=== PATIENT | female | born 1965 | race Caucasian/White ===

== ENCOUNTER 2023-04-25 16:29 | Emergency (ER) | payer MEDICAID, SELFPAY ==
[2023-04-25 16:31] VITALS: BP 157/84; PULSE 97; RESP 16; TEMP 36.4; O2SAT 100; BMI 23.3
--- NOTE | 2023-04-25 16:50 | EX.ED.DYSGE1 ---
HPI History of Present Illness Chief Complaint: General Illness Narrative Narrative: Patient supposed to be going into the residential program with 180. She reports to me that she has been off of alcohol for 6 weeks. She states that last night she had a half of beer. She feels fine. She does not feel shaky. She has no nausea. She states she is not having signs or symptoms of withdrawal. She states she was referred here for an evaluation prior to going to the residential program. PFSH PFSH Allergy/AdvReac Type Severity Reaction Status Date / Time Penicillins Allergy Severe Other Verified 04/25/23 16:31 Social History Smoking Status: Current every day smoker tobacco type: cigarettes ROS ROS ED Constitutional Constitutional ED: Denies chills, fever(s) or sweats Eyes Eyes: Denies blurry vision or change in vision ENT ENT ED: Denies ear pain or sore throat Cardiovascular Cardiovascular: Denies chest pain, palpitations or racing heartbeat Respiratory/Chest Respiratory/Chest: Denies cough, dyspnea or sputum Gastrointestinal Gastrointestinal: Denies abdominal pain, constipation, diarrhea, nausea or vomiting Genitourinary Genitourinary ED: Denies dysuria, hematuria or urinary frequency Musculoskeletal Musculoskeletal: Denies arthralgias, myalgias or neck pain Integumentary Denies abscess, Abrasions or rash Neurologic Neurologic: Denies headache(s), paresthesias or weakness Psychiatric Psychiatric: Denies anxiety, depression, suicidal ideation or suicidal thoughts Endocrine Endocrinology: Denies polydipsia or polyuria EXAM Physical Exam Const Vital Signs: 04/25/23 16:31 04/25/23 16:52 Temperature 97.6 F L Temperature Source Temporal Pulse Rate 97 Respiratory Rate 16 Respiratory Pattern Normal Blood Pressure 157/84 H Blood Pressure Mean 108 Pulse Ox 100 Oxygen Delivery Method Room Air Positive well nourished General Appearance ED: NAD HEENT Reports moist mucous membranes Eyes PERRL and EOMs intact bilaterally Resp normal respiratory effort Cardio regular rate and regular rhythm GI normal to inspection, nondistended, normoactive bowel sounds Neuro oriented x3 and CN's II-XII intact bilaterally Sensorium / Orientation: alert Psych mental status grossly normal Skin no rashes or lesions noted and no wounds MDM MDM MDM Narrative Medical decision making narrative: Well-appearing 58-year-old female presenting for evaluation because when any wanted her evaluated prior to going to the residential program. Physical exam is unremarkable. Vital signs are stable she is afebrile. I do not see any evidence of withdrawal. Patient is medically cleared at this time. Impression: 1. Medical clearance exam Discharge Plan Triage Chief Complaint: General Illness ED Provider: Hilario Mitchell Dx/Rx/DC Orders Instructions: ED Screening Exam Medical Nonurgent Primary Care Provider: Care Physician,Lupe Primary Referrals: [facility] Doctor,Out of [Non-Staff] - Activity Restrictions/Additional Instructions: Medically cleared Disposition Disposition: Home, Self Care Discharge Date/Time: 04/25/23 17:04
== END 2023-04-25 17:04 | disposition home or self-care (01) ==
LOC: ED 17:03
PROVIDERS: Emergency Provider Student in an Organized Health Care Education/Training Program; Visit Provider Student in an Organized Health Care Education/Training Program
DX: Z02.79 Encounter for issue of other medical certificate (principal); F17.210 Nicotine dependence, cigarettes, uncomplicated
CPT/HCPCS: 99282

== ENCOUNTER 2023-10-26 10:21 | Emergency (ER) | payer MEDICAID, SELFPAY ==
[2023-10-26 10:22] VITALS: BP 155/95; PULSE 126; RESP 16; TEMP 36.3; O2SAT 97; BMI 25.7
[2023-10-26 10:54] VITALS: BP 155/95; PULSE 126; RESP 16; TEMP 36.3; O2SAT 97
--- NOTE | 2023-10-26 10:58 | EX.ED.DYSGE1 ---
HPI History of Present Illness Chief Complaint: Flank Pain Informant: patient Onset/Context/Timing Onset: Weeks Timing: Intermittent Narrative Narrative: Patient present secondary to left flank pain. She reports intermittent pain since having a hysterectomy roughly 2 months ago. Pain has become worse overnight. She holds the left lower flank region. She does report increased frequency of urination but no hematuria or dysuria. Her surgeon did obtain a ultrasound of her kidneys that showed a cyst that appears stable from prior. [facility] Medical History (Updated 10/26/23 @ 13:[address] Hilda Bates MD) Gastric ulcer Allergy/AdvReac Type Severity Reaction Status Date / Time Penicillins Allergy Severe Other Verified 10/26/23 10:21 Surgical History (Updated 10/26/23 @ 11:[address] Hilda aBtes MD) History of bowel resection S/P complete hysterectomy Social History Smoking Status: Current every day smoker tobacco type: cigarettes ROS ROS ED Constitutional Constitutional ED: Denies chills or fever(s) Eyes Eyes: Denies discharge from eye(s) ENT ENT ED: Denies discharge from eye(s), rhinorrhea or sore throat Cardiovascular Cardiovascular: Denies chest pain or palpitations Respiratory/Chest Respiratory/Chest: Denies cough or dyspnea Gastrointestinal Gastrointestinal: Reports abdominal pain and nausea; Denies diarrhea or vomiting Genitourinary Genitourinary ED: Reports urinary frequency; Denies dysuria Musculoskeletal Musculoskeletal: Reports back pain; Denies extremity pain Integumentary Denies Abrasions or rash Neurologic Neurologic: Denies headache(s) or weakness Psychiatric Psychiatric: Denies anxiety or depression Allergic/Immunologic Allergic/Immunologic ED: Denies lip swelling or urticaria EXAM Physical Exam Const Vital Signs: 10/26/23 10:22 10/26/23 10:54 10/26/23 11:25 Temperature 97.4 F L 97.4 F L 98.2 F Temperature Source Temporal Temporal Oral Pulse Rate 126 H 126 H 97 Respiratory Rate 16 16 16 Blood Pressure 155/95 H 155/95 H 142/76 H Blood Pressure Mean 115 115 98 Pulse Ox 97 97 98 Oxygen Delivery Method Room Air Room Air Room Air 10/26/23 12:00 Temperature 98.1 F Temperature Source Temporal Pulse Rate 87 Respiratory Rate 16 Blood Pressure 139/87 H Blood Pressure Mean 104 Pulse Ox 99 Oxygen Delivery Method Room Air Positive well nourished and well developed General Appearance ED: well developed HEENT Reports normocephalic and head/scalp atraumatic Eyes PERRL and EOMs intact bilaterally Neck supple Chest Wall inspection of chest normal and palpation of chest normal Resp normal respiratory effort and clear to auscultation bilaterally Cardio regular rate and regular rhythm GI non-tender Palpation: soft Back/Spine General Back: CVA tenderness left Extremity normal to inspection Neuro oriented x3 and no sensory deficits noted Sensorium / Orientation: alert Motor Exam: strength 5/5 throughout Psych mental status grossly normal Skin no rashes or lesions noted MDM MDM MDM Narrative Medical decision making narrative: IV line established. Patient given IV fluids, morphine, and Zofran. Labwork obtained to evaluate for leukocytosis, anemia, and electrolyte derangement. Urinalysis obtained to evaluate for infection/hematuria. CT flank obtained to evaluate for potential kidney stone or evidence of pyelonephritis. History & Record Review Discussion w/independent historian: Patient Lab Data Attestation: I reviewed the patient's lab results. Labs: Laboratory Results - last 24 hr 10/26/23 10/26/23 11:11 13:04 WBC 8.9 RBC 4.63 Hgb 13.7 Hct 41.4 MCV 89.4 MCH 29.6 MCHC 33.1 RDW Std Deviation 43.1 RDW Coeff of Jerson 13.2 Plt Count 265 MPV 9.6 Immature Gran % (Auto) 0.400 Neut % (Auto) 76.4 H Lymph % (Auto) 17.4 L [place] % (Auto) 4.4 Eos % (Auto) 0.7 Baso % (Auto) 0.7 Absolute Neuts (auto) 6.8 Absolute Lymphs (auto) 1.55 Nucleated RBC % 0 Sodium 136 Potassium 4.1 Chloride 104 Carbon Dioxide 22.0 Anion Gap 10 BUN 26 H Creatinine 1.11 H Estim Creat Clear Calc 56.33 Est GFR (MDRD) Af Amer 64 Est GFR (MDRD) Non-Af 53 L BUN/Creatinine Ratio 23.4 H Glucose 93 Calcium 9.9 Urine Color Yellow Urine Clarity Sl. Cloudy Urine pH 6.0 Ur Specific [place] 1.015 Urine Protein 30 H Urine Glucose (UA) Normal Urine Ketones 15 H Urine Occult Blood 10 H Urine Nitrite Negative Urine Bilirubin Negative Urine Urobilinogen Normal Ur Leukocyte Esterase 25 H Urine RBC 0-5 SEEN Urine WBC 0 SEEN Ur Squamous Epith Cells 0 SEEN Urine Bacteria 0 SEEN Urine Mucus 0 SEEN Radiography Diagnostic Testing: Clinical Impression(s) from Imaging Studies Abdomen/Pelvis CT 10/26/23 11:25 IMPRESSION: Punctate calculus in the lower pole calyx of the left kidney. I suspect tiny gallstones along the dependent portion of the gallbladder lumen. No obstructive uropathy is seen. Surgical anastomosis is seen in the region of the sigmoid colon. Electronically Signed: Jon Juarez MD at 12:04 EDT , Treatment and Re-Evaluation :: CBC was a white count of 8.9 with a hemoglobin of 13.7. 76% neutrophils noted. Chemistry studies reveal a BUN of 26 and creatinine 1.11. Glucose is normal at 93. Urinalysis reveals 0-5 red cells with no white cells and no bacteria. No nitrites. CT scan of the flank reveals a punctate calculus in the lower pole of the left kidney. Tiny gallstones noted. No obstructive uropathy seen. Surgical anastomosis of the sigmoid colon is noted and unremarkable. Test results discussed with the patient. She is reassured with these findings. She declines needing any pain medication for home. Return instructions were provided and she will follow-up with her provider/surgeon. Discharge Plan Triage Chief Complaint: Flank Pain ED Provider: Hilda Bates Dx/Rx/DC Orders Clinical Impression: Flank pain Instructions: ED Flank Pain, Uncertain Cause Primary Care Provider: Care Physician,No Primary Referrals: Care Physician,No Primary [Primary Care Provider] - Activity Restrictions/Additional Instructions: Follow-up with your surgeon as discussed. Disposition Disposition: Home, Self Care
[2023-10-26] MEDS: 0.9% Normal Saline (1000mL) 1,000 ML 150 ML IV (11:18)
[2023-10-26] MEDS: Ondansetron 4 MG/2 ML Vial IV (11:19)
[2023-10-26] MEDS: Morphine 4 MG/ML Syringe IV (11:19)
[2023-10-26 11:20] LABS: Absolute Lymphocyte Count 1.55 X10^3/uL (0.83-4.51); Absolute Neutrophil Count 6.8 X10^3/uL (2.0-7.7); Basophil# 0.06 X10^3/uL; Basophil% 0.7 % (0-1); Eosinophil# 0.06 X10^3/uL; Eosinophils% 0.7 % (0-5); Hematocrit 41.4 % (37-47); Hemoglobin 13.7 g/dL (12.0-15.0); Lymphocyte # 1.55 X10^3/ul (0.83-4.51); Lymphocyte % 17.4 % (19-41); Mean Corp Hgb Conc 33.1 g/dL (32-36); Mean Corpuscular Hgb 29.6 pg (27.0-32.0); Mean Corpuscular Volume 89.4 fL (81-99); Mean Platelet Vol. 9.6 fl (6.2-12.0); Monocyte# 0.39 X10^3/uL; Monocyte% 4.4 % (0-10); NRBC Flagged by Analyzer 0 % (0-5); Neutrophil # 6.82 X10^3/uL (2.7-7.7); Neutrophil % 76.4 % (47-70); Platelet Count 265 K/mm3 (150-450); RBC Distribution Width CV 13.2 % (11.6-14.6); RBC Distribution Width SD 43.1 fl (35.1-43.9); Red Blood Count 4.63 M/mm3 (4.2-5.4); White Blood Count 8.9 K/mm3 (4.4-11.0)
[2023-10-26 11:25] VITALS: BP 142/76; PULSE 97; RESP 16; TEMP 36.8; O2SAT 98
--- NOTE | 2023-10-26 11:25 | CT_ITS ---
STUDY: CT ABDOMEN AND PELVIS WITHOUT CONTRAST REASON FOR EXAM: Female, 58 years old. Left flank pain RADIATION DOSAGE (If Supplied By Facility): CTDIvol = ( 11.16 ) mGy, DLP = ( 563.67 ) mGycm TECHNIQUE: Transaxial images were obtained from the dome of the diaphragm to the symphysis pubis without oral contrast, and without intravenous contrast. Sagittal and coronal images were reconstructed. Individualized dose optimization techniques were used for this CT. COMPARISON: None. FINDINGS: The visualized lung bases are unremarkable. Coronary artery calcification. Normal liver. Small gallstones are seen along the dependent portion of the gallbladder lumen. Normal spleen. Normal pancreas. Normal bilateral adrenal glands. Normal right kidney. Punctate nonobstructive calculus is seen in the lower pole calyx of the left kidney. Normal visualized stomach. Normal small intestine. Prior surgical anastomosis seen in the sigmoid colon. There is non-visualization of the appendix. There is diffuse atherosclerotic calcification of the abdominal aorta and its major visceral branches, without a demonstrated aneurysm. Normal inferior vena cava. There is a small retroperitoneal lymphadenopathy with enlarged nodes no greater than 10mm in the short axis diameter. Normal urinary bladder. There is absence of the uterus consistent with a prior hysterectomy. Normal abdominal wall. There are mild degenerative changes of the visualized lumbar spine. CT/Abdomen/Pelvis without Cont IMPRESSION: Punctate calculus in the lower pole calyx of the left kidney. I suspect tiny gallstones along the dependent portion of the gallbladder lumen. No obstructive uropathy is seen. Surgical anastomosis is seen in the region of the sigmoid colon. Electronically Signed: Jon Juarez MD at 12:04 EDT ,
[2023-10-26 11:38] LABS: Anion Gap 10 (5-15); BUN 26 mg/dL (7-18); BUN/Creat Ratio 23.4 RATIO (10-20); Calcium,Total 9.9 mg/dL (8.5-10.1); Chloride 104 mmol/L (98-107); Creatinine, Serum 1.11 mg/dL (0.55-1.02); EST Glomerular Filtration Rate 53 mL/min (>60); Est Glom Filt Rate - Afr Amer 64 mL/min (>60); Estimated Creatinine Clearance 56.33 ml/min; Glucose 93 mg/dL (74-106); Potassium 4.1 mmol/L (3.5-5.1); Sodium Level 136 mmol/L (136-145)
[2023-10-26 12:00] VITALS: BP 139/87; PULSE 87; RESP 16; TEMP 36.7; O2SAT 99
[2023-10-26 13:09] LABS: Bacteria 0 SEEN /hpf (None Seen); Mucous, Urine 0 SEEN /hpf (<or=2+); Squamous Epithelial Cells - UA 0 SEEN /hpf (5-10); White Blood Cells 0 SEEN /hpf (0-5)
[2023-10-26 13:12] LABS: Color, Urine Yellow (Yellow); Glucose, Dipstick Normal (Normal); Ketone-Dipstick 15 mg/dl (Negative); Leukocyte Esterase-Dipstick 25 /ul (Negative); Nitrite-Dipstick Negative (Negative); Occult Blood-Urine 10 /ul (Negative); Protein-Dipstick 30 mg/dl (Negative); Specific Gravity, Urine 1.015 (1.002-1.030); Urine Bilirubin Dipstick Negative (Negative); Urine Clarity Sl. Cloudy (Clear); Urine Urobilinogen Normal (Normal)
[2023-10-26 13:23] LABS: Red Blood Cells-Urine 0-5 SEEN /hpf (0-5)
== END 2023-10-26 13:52 | disposition home or self-care (01) ==
PROVIDERS: Emergency Provider Emergency Medicine; Visit Provider Emergency Medicine
DX: R10.32 Left lower quadrant pain (principal); F17.210 Nicotine dependence, cigarettes, uncomplicated; Z90.710 Acquired absence of both cervix and uterus
CPT/HCPCS: 74176; 80048; 81001; 85025; 96361; 96374; 96375; 99283; J7030; A4216; J2405

== ENCOUNTER 2024-07-14 15:08 | Inpatient (IN) | payer MEDICAID, SELFPAY ==
[2024-07-14] VITALS (15 sets, daily range): BP systolic 98–139; BP diastolic 57–98; PULSE 78–117; RESP 14–28; TEMP 35.9–36.7; O2SAT 94–100; BMI 28.9; BMI 24.9
--- NOTE | 2024-07-14 16:00 | ED.RN ---
pt wheeled self out of waiting room. trying to talk to staff. difficulty getting words out. and conversation not making sense. change from inital triage when pt was oriented and clear speech. consulted with dr boyle who initally evaluated pt for neuro change. stroke alert called. dr estrella came to evaluate and assume care
--- NOTE | 2024-07-14 16:09 | CT_ITS ---
STUDY: CTA HEAD AND NECK WITH CONTRAST REASON FOR EXAM: Female, 59 years old. Neuro deficit, acute, stroke suspected RADIATION DOSAGE (If Supplied By Facility): CTDIvol = ( 20.47 ) mGy, DLP = ( 783.33 ) mGycm TECHNIQUE: CT angiography was performed with a multi-detector CT scanner. Data acquisition was obtained from the skull base through the vertex following intravenous administration of IV 100mL [id number]-[id number]. MIP images were reconstructed from the axial data set. Post-processing of the angiographic images was performed, with multiplanar reformation and 3D reconstruction. Individualized dose optimization techniques were used for this CT. The protocol utilizes one or more of the following dose reduction techniques: automated exposure control, adjustment of mA and/or kV according to patient size,and/or use of iterative reconstruction technique. COMPARISON: CT brain July 14, 2024 FINDINGS: Normal bilateral petrous carotid arteries. There is calcified plaque formation of the right cavernous carotid artery, with a moderate stenosis (50-75%). Normal left cavernous carotid artery with a normal supraclinoid bifurcation. Normal right A1 segments of the anterior cerebral artery. Normal left A1 segments of the anterior cerebral artery. Normal intact anterior communicating artery (ACOM). Normal bilateral A2 segments of the anterior cerebral arteries. Normal right M1 and M2 segments of the middle cerebral arteries, with a normal M1 bifurcation. Normal left M1 and M2 segments of the middle cerebral arteries, with a normal M1 bifurcation. There is non-visualization of the right posterior communicating artery (PCOM). Normal left posterior communicating artery (PCOM). Normal bilateral vertebral arteries. Normal basilar artery with a normal basilar bifurcation. The visualized bilateral superior cerebellar (SCA) arteries are normal. Normal bilateral P1, P2 and visualized P3 segments of the posterior cerebral arteries. There is no demonstrated aneurysm of the [place]. There is no demonstrated abnormality of the visualized brain. AORTIC ARCH: Normal visualized aortic arch. Normal origins of the brachiocephalic, left common carotid, and left subclavian arteries. RIGHT CAROTID ARTERIES: Normal right common carotid artery (CCA). There is moderate atherosclerotic plaque formation with moderate narrowing of the right carotid bulb. There is extensive atherosclerotic plaque formation of the origin of the right internal carotid artery with an estimated stenosis of greater than 70%. Normal visualized cervical portion of the right internal carotid artery. Normal origin of the right external carotid artery (ECA). LEFT CAROTID ARTERIES: Normal left common carotid artery (CCA). There is mild atherosclerotic plaque formation with minimal narrowing of the left carotid bulb. There is mild atherosclerotic plaque formation of the origin of the left internal carotid artery with less than 50% cross sectional diameter stenosis. Normal visualized cervical portion of the left internal carotid artery. Normal origin of the left external carotid artery (ECA). VERTEBRAL ARTERIES: Normal bilateral vertebral arteries. CT/STROKE CTA Head AND Neck W/Con IMPRESSION: Greater than 70% stenosis proximal right ICA . 50-75% stenosis cavernous segment right ICA. No large vessel occlusion in the head. N.B. : The above Results were Read Back by Miles Soto MD to Christopher Martínez MD, and understanding confirmed on 07/14/2024 17:00:20 (ET). Electronically Signed: Miles Soto MD at 17:01 EST ,
--- NOTE | 2024-07-14 16:09 | CT_ITS ---
STUDY: CT BRAIN WITHOUT CONTRAST REASON FOR EXAM: Female, 59 years old. Neuro deficit, acute, stroke suspected TECHNIQUE: Transaxial CT imaging of the brain was performed without administration of intravenous contrast material. Individualized dose optimization techniques were used for this CT. The protocol utilizes one or more of the following dose reduction techniques: automated exposure control, adjustment of mA and/or kV according to patient size,and/or use of iterative reconstruction technique. COMPARISON: No relevant priors. FINDINGS: Normal soft tissue structures. Normal calvarium. Normal size ventricles and extra-axial spaces for the patient''s age. Normal white matter tracts of the cerebral hemispheres. Wedge-shaped hypodensity extending from caudate head to lentiform nucleus. Normal brainstem. Normal cerebellum. There is no intracranial hemorrhage. There are no findings of an acute ischemic infarction. Normal visualized paranasal sinuses. CT/STROKE Brain/Head without Cont IMPRESSION: Acute or subacute infarct left neostriatum. N.B. : The above Results were Read Back by Miles Soto MD to Christopher aMrtínez MD, and understanding confirmed on 07/14/2024 16:39:57 (ET). Electronically Signed: Miles Soto MD at 16:44 EST ,
--- NOTE | 2024-07-14 16:09 | CT_ITS ---
STUDY: CT CERVICAL SPINE WITHOUT CONTRAST REASON FOR EXAM: Female, 59 years old. Neck pain cannot clear by Nexus criteria RADIATION DOSAGE (If Supplied By Facility): CTDIvol = ( 25.91 ) mGy, DLP = ( 580.85 ) mGycm TECHNIQUE: High resolution transaxial imaging was performed without contrast material. Sagittal and coronal images were reconstructed. Individualized dose optimization techniques were used for this CT. The protocol utilizes one or more of the following dose reduction techniques: automated exposure control, adjustment of mA and/or kV according to patient size,and/or use of iterative reconstruction technique. COMPARISON: None FINDINGS: Normal craniovertebral junction. Normal anterior atlantoaxial articulation. Normal odontoid process. Normal cervical lordosis. Normal vertebral bodies and posterior osseous elements. C2-3: Normal endplates. Normal disc height and morphology. Normal central canal and intervertebral neuroforamina. C3-4: Normal endplates. Normal disc height and morphology. Normal central canal and intervertebral neuroforamina. C4-5: Normal endplates. Normal disc height and morphology. Normal central canal and intervertebral neuroforamina. C5-6: Spondylitic endplates. Normal disc height and morphology. Normal central canal and narrowed bilateral intervertebral neuroforamina. C6-7: Normal endplates. Normal disc height and morphology. Normal central canal and intervertebral neuroforamina. C7-T1: Normal endplates. Normal disc height and morphology. Normal central canal and intervertebral neuroforamina. Normal visualized soft tissue structures. Calcified plaque in the carotids bilaterally. CT/Spine Cervical without Contras IMPRESSION: Severe bilateral neural foraminal narrowing at C5-6 Electronically Signed: Miles Soto MD at 18:15 EST ,
--- NOTE | 2024-07-14 16:09 | EKG12_ITS ---
Test Reason : Blood Pressure : */* mmHG Vent. Rate : 99 BPM Atrial Rate : * BPM P-R Int : * ms QRS Dur : 74 ms QT Int : 382 ms P-R-T Axes : * 69 100 degrees QTcB Int : [address] & T wave abnormality, consider anterolateral ischemia Abnormal ECG Confirmed by GILES BURTON, MICHAEL ([id number]), electronic news gathering editor MILADYS CARRERA ([id number]) on 07/16/2024 6:20:47 AM Referred By: Gabriella Forbes Confirmed By: MICHAEL SKAGGS MD
--- NOTE | 2024-07-14 16:10 | ED.VIS.STROK ---
HPI <Dr. Christopher Martínez MD - Last Filed: 07/15/24 07:21> History of Present Illness Chief Complaint: Fall Detail of Chief Complaint: Slipped on ice and injured hip was initial complaint Informant: patient, EMS and other (Triage nurse) Onset/Context/Timing Onset: Today Context: Sudden Onset Timing: Continuous (Right hip pain) Quality and Location: Positive for - (Initial complaint was hip pain.) Onset: At approximately 1600 triage nurse informing the patient is now confused Current Severity: Moderate Maximum Severity: Moderate Worsened by: Uncertain Relieved by: Nothing Associated Symptoms Associated Symptoms: Negative for Headache, Nausea, Vomiting or Chest Pain Narrative Narrative: Patient is a 59-year-old woman. She arrived by ambulance. Reportedly he slipped on ice and injured her right hip. Nurse informing that she had acute onset of change in mental status and is now confused. When I evaluated patient in triage she states she fell down a flight of stairs outside and was lying in the ice. This occurred at 1400. Denies head pain. Eyes double vision blurred vision loss of vision. Denies ringing or ears or decreased hearing. She denies chest pain or shortness of breath. She denies nausea or vomiting. Prior similar symptoms: No Recent Illness/Hospitalization: No PFSH <Dr. Christopher Martínez MD - Last Filed: 07/15/24 07:21> PFSH Medical History (Updated 07/15/24 @ 07:[address] Christopher Martínez MD) Tobacco use History of colon cancer History of GI bleed PAF (paroxysmal atrial fibrillation) History of stroke Anxiety TBI (traumatic brain injury) Gastric ulcer Allergy/AdvReac Type Severity Reaction Status Date / Time Penicillins Allergy Severe Other Verified 07/14/24 15:10 Family History (Updated 07/15/24 @ 00:[address] Gabriella Forbes MD) Mother CVA (cerebral vascular accident) Hypertension Father History of lung cancer COPD (chronic obstructive pulmonary disease) Surgical History (Updated 07/15/24 @ 00:[address] Gabriella Forbes MD) History of gastric surgery History of bowel resection S/P complete hysterectomy Social History (Updated 07/15/24 @ 00:[address] Gabriella Forbes MD) household members: none Smoking Status: Current every day smoker tobacco type: cigarettes alcohol intake: never substance use type: does not use ROS <Dr. Christopher Martínez MD - Last Filed: 07/15/24 07:21> ROS ED Review of Systems ROS Unobtainable: due to mental status Eyes Eyes: Denies blurry vision or change in vision ENT ENT ED: Denies ear pain, rhinorrhea or sore throat Cardiovascular Cardiovascular: Denies chest pain or palpitations Respiratory/Chest Respiratory/Chest: Denies cough, dyspnea or dyspnea on exertion Gastrointestinal Gastrointestinal: Denies abdominal pain, diarrhea, nausea or vomiting Genitourinary Genitourinary ED: Denies dysuria, hematuria or urinary frequency Musculoskeletal Musculoskeletal: Reports other Details: Right hip pain. ; Denies arthralgias or myalgias Neurologic Neurologic: Denies paresthesias Hematologic/Lymphatic Hematologic/Lymphatic: Denies easy bleeding or easy bruising EXAM <Dr. Christopher Martínez MD - Last Filed: 07/15/24 07:21> Physical Exam Const Vital Signs: 07/14/24 15:10 07/14/24 16:09 07/14/24 16:09 Temperature 96.7 F L Temperature Source Oral Pulse Rate 106 H 117 H Respiratory Rate 16 19 H Respiratory Effort Blood Pressure 124/77 H 112/85 H Blood Pressure Mean 92 94 Pulse Ox 100 97 Oxygen Delivery Method Room Air Room Air Room Air 07/14/24 16:53 07/14/24 18:00 07/14/24 18:13 Temperature Temperature Source Pulse Rate 78 112 H Respiratory Rate 28 H 18 Respiratory Effort Normal Non-Labored Blood Pressure 112/85 H 112/57 L Blood Pressure Mean 94 75 Pulse Ox 99 97 Oxygen Delivery Method Room Air Room Air Room Air 07/14/24 19:00 07/14/24 19:30 07/14/24 20:00 Temperature Temperature Source Pulse Rate 93 99 102 H Respiratory Rate 18 14 16 Respiratory Effort Blood Pressure 100/63 113/98 H 111/87 H Blood Pressure Mean 75 103 95 Pulse Ox 99 96 96 Oxygen Delivery Method Room Air Room Air Room Air 07/14/24 20:30 07/14/24 21:00 07/14/24 21:30 Temperature Temperature Source Pulse Rate 103 H 93 97 Respiratory Rate 15 15 16 Respiratory Effort Blood Pressure 117/81 H 126/98 H 105/77 Blood Pressure Mean 93 107 86 Pulse Ox 94 94 94 Oxygen Delivery Method Room Air Room Air Room Air 07/14/24 22:00 07/14/24 22:30 Temperature Temperature Source Pulse Rate 93 116 H Respiratory Rate 16 18 Respiratory Effort Blood Pressure 139/75 H 105/77 Blood Pressure Mean 96 86 Pulse Ox 94 94 Oxygen Delivery Method Room Air Room Air Positive well nourished and well developed Constitutional Narrative: Patient's vitals are noted. She is tachycardic. General Appearance ED: well developed HEENT Reports TM's clear and moist mucous membranes atraumatic Tympanic Membrane ED: Yes TM's clear Eyes PERRL and EOMs intact bilaterally Eyes Narrative: There is no nystagmus. There is no visual field cut. General Eye ED: Negative for pale conjunctiva or scleral icterus Neck no lymphadenopathy, supple and no JVD Chest Wall inspection of chest normal and palpation of chest normal Resp normal respiratory effort and clear to auscultation bilaterally Cardio no murmurs Rate: tachycardic Heart Sounds: S1 normal and S2 normal GI normal to inspection, nondistended, normoactive bowel sounds, soft to palpation, non-tender, non-distended and no masses Back/Spine no CVA tenderness Extremity Extremity Narrative: Pain ovation over the right greater trochanteric region. There is no pain ovation of the pubic symphysis or right or left ischial tuberosity. General Extremety ED: Negative for deformity or edema General Extremity: Negative for deformity or edema Neuro oriented x3, No CN's II-XII intact bilaterally and No no sensory deficits noted [place] Coma Scale: document GCS findings Spontaneous Obeys Commands Oriented 15 Sensorium / Orientation: Negative for alert Psych mental status grossly normal Skin Skin Narrative: Incontinence of urine NIHSS NIHSS Initial: 1a Level of Consciousness: 1 1b LOC Questions (Score 2 if aphasic/stupor): 1 (Answered that she was 60 years of age.) 1c LOC Commands (Only score 1st attempt): 0 2 Best Gaze (If aphasic, use reflexive mvmts.): 0 3 Visual: 0 4 Facial Palsy: 1 (Slight asymmetry on the right) 5 Motor Arm Right (UN = amputation/fusion): 0 5 Motor Arm Left: 0 6 Motor Leg Right: 1 6 Motor Leg Left: 0 7 Limb ataxia (Only + if out of proportion): 0 8 Sensory (Aphasia/stupor=0 or 1, coma=2): 1 9 Best Language: 0 10 Dysarthria (mute, coma=2, intubated=UN): 1 11 Extinction and Inattention (only scored if +): 0 Total Score: 6 <Dr. Quincy Mead DO - Last Filed: 07/14/24 22:57> Physical Exam Const Vital Signs: 07/14/24 15:10 07/14/24 16:09 07/14/24 16:09 Temperature 96.7 F L Temperature Source Oral Pulse Rate 106 H 117 H Respiratory Rate 16 19 H Respiratory Effort Blood Pressure 124/77 H 112/85 H Blood Pressure Mean 92 94 Pulse Ox 100 97 Oxygen Delivery Method Room Air Room Air Room Air 07/14/24 16:53 07/14/24 18:00 07/14/24 18:13 Temperature Temperature Source Pulse Rate 78 112 H Respiratory Rate 28 H 18 Respiratory Effort Normal Non-Labored Blood Pressure 112/85 H 112/57 L Blood Pressure Mean 94 75 Pulse Ox 99 97 Oxygen Delivery Method Room Air Room Air Room Air 07/14/24 19:00 07/14/24 19:30 07/14/24 20:00 Temperature Temperature Source Pulse Rate 93 99 102 H Respiratory Rate 18 14 16 Respiratory Effort Blood Pressure 100/63 113/98 H 111/87 H Blood Pressure Mean 75 103 95 Pulse Ox 99 96 96 Oxygen Delivery Method Room Air Room Air Room Air 07/14/24 20:30 07/14/24 21:00 07/14/24 21:30 Temperature Temperature Source Pulse Rate 103 H 93 97 Respiratory Rate 15 15 16 Respiratory Effort Blood Pressure 117/81 H 126/98 H 105/77 Blood Pressure Mean 93 107 86 Pulse Ox 94 94 94 Oxygen Delivery Method Room Air Room Air Room Air 07/14/24 22:00 07/14/24 22:30 Temperature Temperature Source Pulse Rate 93 116 H Respiratory Rate 16 18 Respiratory Effort Blood Pressure 139/75 H 105/77 Blood Pressure Mean 96 86 Pulse Ox 94 94 Oxygen Delivery Method Room Air Room Air Neuro [place] Coma Scale: document GCS findings 15 NIHSS NIHSS Initial: Total Score: 6 MDM <Dr. Christopher Martínez MD - Last Filed: 07/15/24 07:21> MDM MDM Narrative Medical decision making narrative: History initially was slipped and landed on hip. Now patient's claiming that she fell down a flight of steps outside and was lying in the snow. This may represent an intracranial bleed due to fall and tumble. Will place patient in c-collar and CT of the neck/cervical spine. Will also obtain CT of the head and CTA of the head and neck to evaluate for STYRENE DEHYDRATION REACTOR OPERATOR pathology i.e. traumatic bleed versus nontraumatic bleed versus stroke. Patient was incontinent of urine because she was on the ground for 2 hours. She seems very cold. Temperature is slightly low. Need to rule out UTI as cause of patient's encephalopathy. Her temperature is not low enough to be the cause of her altered mental status. Impression: 1. CVA left NeoStrata 2. Pyuria 3. Elevated creatinine 4. Tachycardia 5. Elevated troponin 6. Contusion right hip 7. Injury due to fall 8. Exposure to cold environment 9. Elevated transaminases Patient was turned over to the afternoon physician Dr. Mead. Patient was turned over to me by Dr. Martínez at 4 PM on 07/14/2024. Patient came in for fall/altered mental status and potential stroke. Code stroke was called. Exam: Alert, oriented to person, place but not time. Noted right leg weakness. NIH of 6. Primary secondary trauma surveys concerning for right hip injury, bilateral knee injury, bilateral foot injury. The patient is a. To have been down for a prolonged amount of time. Consults: Stroke neurology (spoke to Dr. Parrish) Recommended against TNK or thrombectomy or transfer at this time. Recommended admission here [facility] for MRI and further stroke care), internal medicine (Dr. Forbes) MDM/plan Patient is initially hemodynamically stable, afebrile and nontoxic-appearing. NIH of [address] scanner. Labs/Images were personally reviewed by myself CT scan of the head showed acute or subacute infarct CTA of the head and neck shows no sign of large vessel occlusion CBC without leukocytosis, severe anemia, no thrombocytopenia. No coagulopathy BMP with hypokalemia, acute kidney injury, Troponin elevated consistent with myocardial scan CK slightly elevated consistent with prolonged downtime Urinalysis shows no evidence of urinary inflammation suggestive of UTI X-ray of the knees, feet and hip were read and reviewed personally by myself showed no evidence of obvious bony injury including fracture dislocation or osteomyelitic changes Still awaiting read of the x-ray of the patient's left foot. I reviewed this as well and found no evidence of bony abnormalities I have personally reviewed the patient's chest x-ray. Chest x-ray is unremarkable for pulmonary edema, pneumothorax, pneumonia or focal cardiopulmonary abnormality. Serum alcohol negative Lactate is wnl indicating no end-organ hypoperfusion and/or hypoxia. Urine drug screen is The synthesis the patient's history, physical exam, labs images suggest likely acute versus subacute CVA. There is a primary reason for admission. There is also some sign of trauma and adult failure to thrive. This can also be evaluated as an inpatient. Patient be admitted for MRI and posterior care. Discussed hospice Dr. Forbes except patient's case Total critical care time today provided was at least 35 minutes. This excludes separately billable procedures. There was a high probability of clinically significant/life threatening deterioration in the patient's condition which required my urgent intervention. Impression: 1. Acute CVA 2. Adult failure to thrive Disposition: Admit to PCU Lab Data Labs: Laboratory Results - last 24 hr 07/14/24 07/14/24 07/14/24 16:33 16:39 16:39 WBC 8.6 RBC 3.93 L Hgb 12.9 Hct 37.9 MCV 96.4 MCH 32.8 H MCHC 34.0 RDW Std Deviation 55.5 H RDW Coeff of Jerson 15.7 H Plt Count 250 MPV 11.3 Immature Gran % (Auto) 0.500 Neut % (Auto) 85.1 H Lymph % (Auto) 5.6 L [place] % (Auto) 8.4 Eos % (Auto) 0.1 Baso % (Auto) 0.3 Absolute Neuts (auto) 7.3 Absolute Lymphs (auto) 0.48 L Nucleated RBC % 0 PT 14.3 INR 1.1 APTT 25.8 Sodium 142 Potassium 3.2 L Chloride 107 Carbon Dioxide 23.0 Anion Gap 13 BUN 65 H Creatinine 1.82 H Estim Creat Clear Calc 38.58 Est GFR (MDRD) Af Amer 36 L Est GFR (MDRD) Non-Af 30 L BUN/Creatinine Ratio 35.7 H Glucose 114 H Lactic Acid Calcium 9.6 Magnesium 2.0 Total Bilirubin 0.90 Direct Bilirubin 0.41 H AST 63 H ALT 77 H Alkaline Phosphatase 97 Total Creatine Kinase 373 H Troponin I High Sens 65 H Cancelled Total Protein 6.6 Albumin 2.8 L Globulin 3.8 Urine Color Urine Clarity Urine pH Ur Specific [place] Urine Protein Urine Glucose (UA) Urine Ketones Urine Occult Blood Urine Nitrite Urine Bilirubin Urine Urobilinogen Ur Leukocyte Esterase Urine RBC Urine WBC Ur Squamous Epith Cells Urine Bacteria Urine Mucus Urine Opiates Screen Urine Methadone Screen Ur Barbiturates Screen Ur Phencyclidine Scrn Ur Amphetamines Screen MDMA (Ecstasy) Screen U Benzodiazepines Scrn Urine Cocaine Screen U Cannabinoids Screen Ur Drug Screen Comment Ethyl Alcohol POC Glucose 127 H 07/14/24 07/14/24 07/14/24 17:30 19:00 19:05 WBC RBC Hgb Hct MCV MCH MCHC RDW Std Deviation RDW Coeff of Jerson Plt Count MPV Immature Gran % (Auto) Neut % (Auto) Lymph % (Auto) [place] % (Auto) Eos % (Auto) Baso % (Auto) Absolute Neuts (auto) Absolute Lymphs (auto) Nucleated RBC % PT INR APTT Sodium Potassium Chloride Carbon Dioxide Anion Gap BUN Creatinine Estim Creat Clear Calc Est GFR (MDRD) Af Amer Est GFR (MDRD) Non-Af BUN/Creatinine Ratio Glucose Lactic Acid 1.2 Calcium Magnesium Total Bilirubin Direct Bilirubin AST ALT Alkaline Phosphatase Total Creatine Kinase Troponin I High Sens Total Protein Albumin Globulin Urine Color Brown Urine Clarity Clear Urine pH 6.0 Ur Specific [place] 1.015 Urine Protein 100 H Urine Glucose (UA) Normal Urine Ketones 5 H Urine Occult Blood 25 H Urine Nitrite Negative Urine Bilirubin Negative Urine Urobilinogen 1 H Ur Leukocyte Esterase 100 H Urine RBC 0-5 SEEN Urine WBC 10-25 SEEN Ur Squamous Epith Cells 0-5 SEEN Urine Bacteria RARE Urine Mucus 0 SEEN Urine Opiates Screen NEGATIVE Urine Methadone Screen NEGATIVE Ur Barbiturates Screen NEGATIVE Ur Phencyclidine Scrn NEGATIVE Ur Amphetamines Screen NEGATIVE MDMA (Ecstasy) Screen NEGATIVE U Benzodiazepines Scrn NEGATIVE Urine Cocaine Screen NEGATIVE U Cannabinoids Screen NEGATIVE Ur Drug Screen Comment Ethyl Alcohol < 3.0 POC Glucose Radiography Diagnostic Testing: Clinical Impression(s) from Imaging Studies Brain CT 07/14/24 16:09 IMPRESSION: Acute or subacute infarct left neostriatum. N.B. : The above Results were Read Back by Miles Soto MD to Christopher Martínez MD, and understanding confirmed on 07/14/2024 16:39:57 (ET). Electronically Signed: Miles Soto MD at 16:44 EST Reading Location ID and State: [id number] / [place] Tel , Service support , ADDENDUM: 07/14/24 1651 IMPRESSION: Acute or subacute infarct left neostriatum. N.B. : The above Results were Read Back by Miles Soto MD to Christopher Martínez MD, and understanding confirmed on 07/14/2024 16:39:57 (ET). Electronically Signed: Miles Soto MD at 16:44 EST Reading Location ID and State: [employer] / [place] Tel , Service support , Cervical Spine CT 07/14/24 16:09 IMPRESSION: Severe bilateral neural foraminal narrowing at C5-6 Electronically Signed: Miles Soto MD at 18:15 EST Reading Location ID and State: [employer] / [place] Tel , Service support , Head/Neck CTA 07/14/24 16:09 IMPRESSION: Greater than 70% stenosis proximal right ICA . 50-75% stenosis cavernous segment right ICA. No large vessel occlusion in the head. N.B. : The above Results were Read Back by Miles Soto MD to Christopher Martínez MD, and understanding confirmed on 07/14/2024 17:00:20 (ET). Electronically Signed: Miles Soto MD at 17:01 EST Reading Location ID and State: [id number] / [place] Tel , Service support , ADDENDUM: 07/14/24 1708 IMPRESSION: Greater than 70% stenosis proximal right ICA . 50-75% stenosis cavernous segment right ICA. No large vessel occlusion in the head. N.B. : The above Results were Read Back by Miles Soto MD to Christopher Martínez MD, and understanding confirmed on 07/14/2024 17:00:20 (ET). Electronically Signed: Miles Soto MD at 17:01 EST Reading Location ID and State: [facility] / [place] Tel , Service support , Chest X-Ray 07/14/24 18:20 IMPRESSION: Normal x-ray examination of the chest. Electronically Signed: Miles Soto MD at 20:42 EST Reading Location ID and State: [address] [place] [address] Tel , Service support , Foot X-Ray 07/14/24 18:20 IMPRESSION: Hallux valgus. No sclerosis or osteolysis consistent with osteomyelitis but bone scan or MRI would be more sensitive. Electronically Signed: Miles Soto MD at 20:43 EST Reading Location ID and State: [address] [place] [address] Tel , Service support , Foot X-Ray 07/14/24 18:20 IMPRESSION: Hallux valgus. No fracture. Electronically Signed: Miles Soto MD at 23:09 EST Reading Location ID and State: [address] [place] [address] Tel , Service support , Hip/Pelvis X-Ray 07/14/24 18:20 IMPRESSION: Normal x-ray examination of the pelvis and hip. Electronically Signed: Miles Soto MD at 20:42 EST Reading Location ID and State: [facility] / [place] Tel , Service support , Knee X-Ray 07/14/24 18:20 IMPRESSION: Normal x-ray examination of the knee. Electronically Signed: Miles Soto MD at 21:37 EST Reading Location ID and State: [address] [place] [address] Tel , Service support , Knee X-Ray 07/14/24 18:20 IMPRESSION: Normal x-ray examination of the knee. Electronically Signed: Miles Soto MD at 20:58 EST Reading Location ID and State: [facility] / [place] Tel , Service support , Management Discussion w/another healthcare provider: Radiologist (Radiologist contacted me regarding acute/subacute infarct left knee os trigonum. This would explain her right-sided symptoms. This would not explain her confusion per se.) Stroke Documentation Questions Stroke Team Activated: Yes Reviewed Inclusion/Exclusion criteria: Yes IV Thrombolytic Administered: No No contraindications from thrombolytic administration: No <Dr. Quincy Mead, DO - Last Filed: 07/14/24 22:57> [facility] Narrative Medical decision making narrative: History initially was slipped and landed on hip. Now patient's claiming that she fell down a flight of steps outside and was lying in the snow. This may represent an intracranial bleed due to fall and tumble. Will place patient in c-collar and CT of the neck/cervical spine. Will also obtain CT of the head and CTA of the head and neck to evaluate for STYRENE DEHYDRATION REACTOR OPERATOR pathology i.e. traumatic bleed versus nontraumatic bleed versus stroke. Patient was incontinent of urine because she was on the ground for 2 hours. She seems very cold. Temperature is slightly low. Need to rule out UTI as cause of patient's encephalopathy. Her temperature is not low enough to be the cause of her altered mental status. Patient was turned over to the afternoon physician Dr. Mead. Patient was turned over to me by Dr. Martínez at 4 PM on 07/14/2024. Patient came in for fall/altered mental status and potential stroke. Code stroke was called. Exam: Alert, oriented to person, place but not time. Noted right leg weakness. NIH of 6. Primary secondary trauma surveys concerning for right hip injury, bilateral knee injury, bilateral foot injury. The patient is a. To have been down for a prolonged amount of time. Consults: Stroke neurology (spoke to Dr. Parrish) Recommended against TNK or thrombectomy or transfer at this time. Recommended admission here [facility] for MRI and further stroke care), internal medicine (Dr. Forbes) MDM/plan Patient is initially hemodynamically stable, afebrile and nontoxic-appearing. NIH of [address] scanner. Labs/Images were personally reviewed by myself CT scan of the head showed acute or subacute infarct CTA of the head and neck shows no sign of large vessel occlusion CBC without leukocytosis, severe anemia, no thrombocytopenia. No coagulopathy BMP with hypokalemia, acute kidney injury, Troponin elevated consistent with myocardial scan CK slightly elevated consistent with prolonged downtime Urinalysis shows no evidence of urinary inflammation suggestive of UTI X-ray of the knees, feet and hip were read and reviewed personally by myself showed no evidence of obvious bony injury including fracture dislocation or osteomyelitic changes Still awaiting read of the x-ray of the patient's left foot. I reviewed this as well and found no evidence of bony abnormalities I have personally reviewed the patient's chest x-ray. Chest x-ray is unremarkable for pulmonary edema, pneumothorax, pneumonia or focal cardiopulmonary abnormality. Serum alcohol negative Lactate is wnl indicating no end-organ hypoperfusion and/or hypoxia. Urine drug screen is The synthesis the patient's history, physical exam, labs images suggest likely acute versus subacute CVA. There is a primary reason for admission. There is also some sign of trauma and adult failure to thrive. This can also be evaluated as an inpatient. Patient be admitted for MRI and posterior care. Discussed hospice Dr. Forbes except patient's case Total critical care time today provided was at least 35 minutes. This excludes separately billable procedures. There was a high probability of clinically significant/life threatening deterioration in the patient's condition which required my urgent intervention. Impression: 1. Acute CVA 2. Adult failure to thrive Disposition: Admit to PCU Lab Data Labs: Laboratory Results - last 24 hr 07/14/24 07/14/24 07/14/24 16:33 16:39 16:39 WBC 8.6 RBC 3.93 L Hgb 12.9 Hct 37.9 MCV 96.4 MCH 32.8 H MCHC 34.0 RDW Std Deviation 55.5 H RDW Coeff of Jerson 15.7 H Plt Count 250 MPV 11.3 Immature Gran % (Auto) 0.500 Neut % (Auto) 85.1 H Lymph % (Auto) 5.6 L [place] % (Auto) 8.4 Eos % (Auto) 0.1 Baso % (Auto) 0.3 Absolute Neuts (auto) 7.3 Absolute Lymphs (auto) 0.48 L Nucleated RBC % 0 PT 14.3 INR 1.1 APTT 25.8 Sodium 142 Potassium 3.2 L Chloride 107 Carbon Dioxide 23.0 Anion Gap 13 BUN 65 H Creatinine 1.82 H Estim Creat Clear Calc 38.58 Est GFR (MDRD) Af Amer 36 L Est GFR (MDRD) Non-Af 30 L BUN/Creatinine Ratio 35.7 H Glucose 114 H Lactic Acid Calcium 9.6 Magnesium 2.0 Total Bilirubin 0.90 Direct Bilirubin 0.41 H AST 63 H ALT 77 H Alkaline Phosphatase 97 Total Creatine Kinase 373 H Troponin I High Sens 65 H Cancelled Total Protein 6.6 Albumin 2.8 L Globulin 3.8 Urine Color Urine Clarity Urine pH Ur Specific [place] Urine Protein Urine Glucose (UA) Urine Ketones Urine Occult Blood Urine Nitrite Urine Bilirubin Urine Urobilinogen Ur Leukocyte Esterase Urine RBC Urine WBC Ur Squamous Epith Cells Urine Bacteria Urine Mucus Urine Opiates Screen Urine Methadone Screen Ur Barbiturates Screen Ur Phencyclidine Scrn Ur Amphetamines Screen MDMA (Ecstasy) Screen U Benzodiazepines Scrn Urine Cocaine Screen U Cannabinoids Screen Ur Drug Screen Comment Ethyl Alcohol POC Glucose 127 H 07/14/24 07/14/24 07/14/24 17:30 19:00 19:05 WBC RBC Hgb Hct MCV MCH MCHC RDW Std Deviation RDW Coeff of Jerson Plt Count MPV Immature Gran % (Auto) Neut % (Auto) Lymph % (Auto) [place] % (Auto) Eos % (Auto) Baso % (Auto) Absolute Neuts (auto) Absolute Lymphs (auto) Nucleated RBC % PT INR APTT Sodium Potassium Chloride Carbon Dioxide Anion Gap BUN Creatinine Estim Creat Clear Calc Est GFR (MDRD) Af Amer Est GFR (MDRD) Non-Af BUN/Creatinine Ratio Glucose Lactic Acid 1.2 Calcium Magnesium Total Bilirubin Direct Bilirubin AST ALT Alkaline Phosphatase Total Creatine Kinase Troponin I High Sens Total Protein Albumin Globulin Urine Color Brown Urine Clarity Clear Urine pH 6.0 Ur Specific [place] 1.015 Urine Protein 100 H Urine Glucose (UA) Normal Urine Ketones 5 H Urine Occult Blood 25 H Urine Nitrite Negative Urine Bilirubin Negative Urine Urobilinogen 1 H Ur Leukocyte Esterase 100 H Urine RBC 0-5 SEEN Urine WBC 10-25 SEEN Ur Squamous Epith Cells 0-5 SEEN Urine Bacteria RARE Urine Mucus 0 SEEN Urine Opiates Screen NEGATIVE Urine Methadone Screen NEGATIVE Ur Barbiturates Screen NEGATIVE Ur Phencyclidine Scrn NEGATIVE Ur Amphetamines Screen NEGATIVE MDMA (Ecstasy) Screen NEGATIVE U Benzodiazepines Scrn NEGATIVE Urine Cocaine Screen NEGATIVE U Cannabinoids Screen NEGATIVE Ur Drug Screen Comment Ethyl Alcohol < 3.0 POC Glucose Radiography Diagnostic Testing: Clinical Impression(s) from Imaging Studies Brain CT 07/14/24 16:09 IMPRESSION: Acute or subacute infarct left neostriatum. N.B. : The above Results were Read Back by Miles Soto MD to Christopher Martínez MD, and understanding confirmed on 07/14/2024 16:39:57 (ET). Electronically Signed: Miles Soto MD at 16:44 EST Reading Location ID and State: [address] [place] [address] Tel , Service support , ADDENDUM: 07/14/24 1651 IMPRESSION: Acute or subacute infarct left neostriatum. N.B. : The above Results were Read Back by Miles Soto MD to Christopher Martínez MD, and understanding confirmed on 07/14/2024 16:39:57 (ET). Electronically Signed: Miles Soto MD at 16:44 EST Reading Location ID and State: [facility] / [place] Tel , Service support , Cervical Spine CT 07/14/24 16:09 IMPRESSION: Severe bilateral neural foraminal narrowing at C5-6 Electronically Signed: Miles Soto MD at 18:15 EST Reading Location ID and State: [facility] / [place] Tel , Service support , Head/Neck CTA 07/14/24 16:09 IMPRESSION: Greater than 70% stenosis proximal right ICA . 50-75% stenosis cavernous segment right ICA. No large vessel occlusion in the head. N.B. : The above Results were Read Back by Miles Soto MD to Christopher Martínez MD, and understanding confirmed on 07/14/2024 17:00:20 (ET). Electronically Signed: Miles Soto MD at 17:01 EST Reading Location ID and State: [address] [place] [address] Tel , Service support , ADDENDUM: 07/14/24 1708 IMPRESSION: Greater than 70% stenosis proximal right ICA . 50-75% stenosis cavernous segment right ICA. No large vessel occlusion in the head. N.B. : The above Results were Read Back by Miles Soto MD to Christopher Martínez MD, and understanding confirmed on 07/14/2024 17:00:20 (ET). Electronically Signed: Miles Soto MD at 17:01 EST Reading Location ID and State: [facility] / [place] Tel , Service support , Chest X-Ray 07/14/24 18:20 IMPRESSION: Normal x-ray examination of the chest. Electronically Signed: Miles Soto MD at 20:42 EST , Foot X-Ray 07/14/24 18:20 IMPRESSION: Hallux valgus. No sclerosis or osteolysis consistent with osteomyelitis but bone scan or MRI would be more sensitive. Electronically Signed: Miles Soto MD at 20:43 EST , Foot X-Ray 07/14/24 18:20 IMPRESSION: Hallux valgus. No fracture. Electronically Signed: Miles Soto MD at 23:09 EST Reading Location ID and State: [facility] / [place] Tel , Service support , Hip/Pelvis X-Ray 07/14/24 18:20 IMPRESSION: Normal x-ray examination of the pelvis and hip. Electronically Signed: Miles Soto MD at 20:42 EST Reading Location ID and State: [facility] / [place] Tel , Service support , Knee X-Ray 07/14/24 18:20 IMPRESSION: Normal x-ray examination of the knee. Electronically Signed: Miles Soto MD at 21:37 EST Reading Location ID and State: [facility] / [place] Tel , Service support , Knee X-Ray 07/14/24 18:20 IMPRESSION: Normal x-ray examination of the knee. Electronically Signed: Miles Soto MD at 20:58 EST Reading Location ID and State: [facility] / [place] Tel , Service support , Discharge Plan Dx/Rx/DC Orders Clinical Impression: CVA (cerebral vascular accident) Disposition Disposition: Acute Care Hospital [facility] Discharge Date/Time: 07/14/24 23:19
[2024-07-14 16:55] LABS: Absolute Lymphocyte Count 0.48 X10^3/uL (0.83-4.51); Absolute Neutrophil Count 7.3 X10^3/uL (2.0-7.7); Basophil# 0.03 X10^3/uL; Basophil% 0.3 % (0-1); Eosinophil# 0.01 X10^3/uL; Eosinophils% 0.1 % (0-5); Hematocrit 37.9 % (37-47); Hemoglobin 12.9 g/dL (12.0-15.0); Lymphocyte # 0.48 X10^3/ul (0.83-4.51); Lymphocyte % 5.6 % (19-41); Mean Corpuscular Hgb 32.8 pg (27.0-32.0); Mean Corpuscular Volume 96.4 fL (81-99); Mean Platelet Vol. 11.3 fl (6.2-12.0); Monocyte# 0.72 X10^3/uL; Monocyte% 8.4 % (0-10); NRBC Flagged by Analyzer 0 % (0-5); Neutrophil # 7.32 X10^3/uL (2.7-7.7); Neutrophil % 85.1 % (47-70); POSITIVE DIFFERENTIAL YES; Platelet Count 250 K/mm3 (150-450); RBC Distribution Width CV 15.7 % (11.6-14.6); RBC Distribution Width SD 55.5 fl (35.1-43.9); Red Blood Count 3.93 M/mm3 (4.2-5.4); White Blood Count 8.6 K/mm3 (4.4-11.0)
[2024-07-14 17:04] LABS: International Normalized Ratio 1.1; Prothrombin Time (Protime)PT. 14.3 SECONDS (11.7-14.9)
[2024-07-14 17:05] LABS: Partial Thromboplast Time 25.8 Seconds (24.1-36.2)
[2024-07-14 17:07] LABS: CPK Total, Creatine Kinase 373 U/L (26-192)
[2024-07-14] MEDS: Aspirin 325 MG Tablet PO (17:07)
[2024-07-14 17:11] LABS: Anion Gap 13 (5-15); BUN 65 mg/dL (7-18); BUN/Creat Ratio 35.7 RATIO (10-20); Calcium,Total 9.6 mg/dL (8.5-10.1); Chloride 107 mmol/L (98-107); Creatinine, Serum 1.82 mg/dL (0.55-1.02); EST Glomerular Filtration Rate 30 mL/min (>60); Est Glom Filt Rate - Afr Amer 36 mL/min (>60); Estimated Creatinine Clearance 38.58 ml/min; Glucose 114 mg/dL (74-106); Potassium 3.2 mmol/L (3.5-5.1); Sodium Level 142 mmol/L (136-145); Troponin-I HS 65 pg/mL (3.0-54.0)
[2024-07-14 17:32] LABS: Bedside Glucose 127 mg/dL (74-106)
[2024-07-14 17:35] LABS: Mucous, Urine 0 SEEN /hpf (<or=2+)
[2024-07-14 17:37] LABS: Color, Urine Brown (Yellow); Glucose, Dipstick Normal (Normal); Ketone-Dipstick 5 mg/dl (Negative); Leukocyte Esterase-Dipstick 100 /ul (Negative); Nitrite-Dipstick Negative (Negative); Occult Blood-Urine 25 /ul (Negative); Protein-Dipstick 100 mg/dl (Negative); Specific Gravity, Urine 1.015 (1.002-1.030); Urine Bilirubin Dipstick Negative (Negative); Urine Clarity Clear (Clear); Urine Urobilinogen 1 mg/dl (Normal)
[2024-07-14 17:48] LABS: Bacteria RARE /hpf (None Seen); Red Blood Cells-Urine 0-5 SEEN /hpf (0-5); Squamous Epithelial Cells - UA 0-5 SEEN /hpf (5-10); White Blood Cells 10-25 SEEN /hpf (0-5)
--- NOTE | 2024-07-14 18:20 | RAD_ITS ---
STUDY: X-RAY - LEFT KNEE REASON FOR EXAM: Female, 59 years old. injury TECHNIQUE: 2 view(s) of the knee. COMPARISON: None. FINDINGS: Normal visualized distal femur. Normal visualized proximal tibia and fibula. Normal proximal tibiofibular articulation. Normal medial femorotibial compartment. Normal lateral femorotibial compartment. Normal patellofemoral articulation. The soft tissue structures are unremarkable. RAD/Knee 1 or 2 Views IMPRESSION: Normal x-ray examination of the knee. Electronically Signed: Miles Soto MD at 21:37 EST ,
--- NOTE | 2024-07-14 18:20 | RAD_ITS ---
STUDY: X-RAY - RIGHT KNEE REASON FOR EXAM: Female, 59 years old. INJURY TECHNIQUE: 2 view(s) of the knee. COMPARISON: None. FINDINGS: Normal visualized distal femur. Normal visualized proximal tibia and fibula. Normal proximal tibiofibular articulation. Normal medial femorotibial compartment. Normal lateral femorotibial compartment. Normal patellofemoral articulation. The soft tissue structures are unremarkable. RAD/Knee 1 or 2 Views IMPRESSION: Normal x-ray examination of the knee. Electronically Signed: Miles Soto MD at 20:58 EST ,
--- NOTE | 2024-07-14 18:20 | RAD_ITS ---
STUDY: X-RAY CHEST REASON FOR EXAM: Female, 59 years old. Neuro deficit, acute, stroke suspected TECHNIQUE: Single frontal view of the chest. COMPARISON: None. FINDINGS: The lungs are clear and expanded. There is no demonstrated pleural abnormality. Normal size heart. Normal mediastinum and maxime. Normal visualized pulmonary arteries. Normal visualized aortic arch and descending thoracic aorta. Normal visualized thoracic spine. Normal visualized ribs, clavicles, and shoulders. There is no demonstrated abnormality of the visualized soft tissue structures of the upper abdomen. RAD/Chest 1 View IMPRESSION: Normal x-ray examination of the chest. Electronically Signed: Miles Soto MD at 20:42 EST ,
--- NOTE | 2024-07-14 18:20 | RAD_ITS ---
STUDY: X-RAY - RIGHT FOOT CLINICAL: Female, 59 years old. R/O OSTEOMYELITIS TECHNIQUE: 3 view(s) of the foot. COMPARISON: None. FINDINGS: Normal talus, calcaneus, and tarsal bones. Normal visualized subtalar, talonavicular, calcaneocuboid, tarsal and tarsometatarsal articulations. Normal metatarsi. There is degenerative arthrosis of the metatarsophalangeal joint of the hallux with a hallux valgus deformity. Normal tibial and fibular sesamoid bones. Normal interphalangeal joint of the great toe. Normal phalanges of the great toe. Normal second through fifth metatarsophalangeal joints. Normal interphalangeal joints and phalanges of the lesser toes. The soft tissue structures are unremarkable. RAD/Foot 2 Views IMPRESSION: Hallux valgus. No sclerosis or osteolysis consistent with osteomyelitis but bone scan or MRI would be more sensitive. Electronically Signed: Miles Soto MD at 20:43 EST ,
--- NOTE | 2024-07-14 18:20 | RAD_ITS ---
STUDY: X-RAY - RIGHT FOOT CLINICAL: Female, 59 years old. fall TECHNIQUE: 3 view(s) of the foot. COMPARISON: None. FINDINGS: Normal talus, calcaneus, and tarsal bones. Normal visualized subtalar, talonavicular, calcaneocuboid, tarsal and tarsometatarsal articulations. Normal metatarsi. There is degenerative arthrosis of the metatarsophalangeal joint of the hallux with a hallux valgus deformity. Normal tibial and fibular sesamoid bones. Normal interphalangeal joint of the great toe. Normal phalanges of the great toe. Normal second through fifth metatarsophalangeal joints. Normal interphalangeal joints and phalanges of the lesser toes. The soft tissue structures are unremarkable. RAD/Foot 2 Views IMPRESSION: Hallux valgus. No fracture. Electronically Signed: Miles Soto MD at 23:09 EST ,
--- NOTE | 2024-07-14 18:20 | RAD_ITS ---
STUDY: X-RAY - PELVIS AND RIGHT HIP REASON FOR EXAM: Female, 59 years old. injury TECHNIQUE: 3 views of the pelvis and hip. COMPARISON: None. FINDINGS: There is a non-specific bowel gas pattern. Normal visualized soft tissue structures. Intravenous contrast in the bladder. Normal bilateral iliac wings, sacroiliac joints and visualized sacrum. Normal bilateral superior and inferior pubic rami. Normal pubic symphysis. Normal bilateral ischial tuberosities. Normal visualized femoral head. Normal acetabulum. Normal hip joint. RAD/HIP, UNI W/ Pelvis 2-3 Views IMPRESSION: Normal x-ray examination of the pelvis and hip. Electronically Signed: Miles Soto MD at 20:42 EST ,
[2024-07-14] MEDS: 0.9% Normal Saline (1000mL) 1,000 ML 999 ML IV (18:55)
[2024-07-14 18:58] LABS: Amphetamine Urine NEGATIVE (<1000 ng/mL); Barbiturate Urine VISTA NEGATIVE (< 200 ng/mL); Benzodiazepine Urine VISTA NEGATIVE (< 200 ng/mL); Cocaine Urine VISTA NEGATIVE (< 300 ng/mL); Ecstacy Urine VISTA NEGATIVE (< 500 ng/mL); Methadone Urine VISTA NEGATIVE (< 300 ng/mL); PCP Urine VISTA NEGATIVE (< 25 ng/mL); THC Urine VISTA NEGATIVE (< 50 ng/mL); Vista UDS pH Range 5
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
[2024-07-14 19:26] LABS: Alcohol, Blood (Medical)-Serum < 3.0 mg/dL
[2024-07-14 19:32] LABS: Lactic Acid 1.2 mmol/L (0.4-1.9)
--- NOTE | 2024-07-14 20:06 | ED.RN ---
patient states that she takes amlodipine and wellbutrin but does not know the dose, however neither medication is on her external medication list. Asked if anyone would know her medication information and she states no one and that she hasn't taken her medications in 2 months.
--- NOTE | 2024-07-14 21:36 | HP.PCM.HOS_ITS ---
HPI - General General Date of Admission: 07/14/24 Date of Service: 07/14/24 Chief Complaint: Falls, fell on ice. HPI Narrative The patient is a 59 y/o F w/ PMHx: PAF, Tobacco use GERD w/ Hx prior gastric ulcer/perforation w/ GI bleed w/ history of surgical intervention, Hx Colon CA s/p partial colectomy, HTN, Possible TBI prior currently poor historian with unclear medical history who presents to the [facility] ED on 07/14/2024 unfortunately slipping the ice with significant discomfort of the hip following with persistent right hip pain with fall in the ED following initial evaluations onset at approximately 1600 notable confusion, evidence expressive aphasia with a very notable acute mental status change with patient then reporting she fell down a flight of stairs during this entire event which apparently had potentially occurred at 1400 with EMS mental: Transition to the ED for evaluation. Workup in the ED included T96.7, heart rate 106, BP 124/77, respiratory rate 16, 100% room air with most recent repeat vitals heart rate 97, BP 105/77, respiratory rate 16, 94% room air, CBC with WC 8.6, human 12.9, MCV 96.4, platelet 250 with lymphopenia, unremarkable coags, BMP with potassium 3.2, BUN/creatinine 65/1.82, GFR 30, glucose 114, lactic acid 1.2, total creatinine kinase 373, troponin 65, urinalysis with protein 100, ketone 5, occult blood 25, negative nitrite, leukocyte esterase 100, urine WBCs 10-25 with no urine bacteria, UDS negative, ethyl alcohol less than 3, CT of the brain with acute or subacute infarct in the left neostriatum, CT cervical spine with severe bilateral neuroforaminal narrowing at C5-6, CTA head and neck with greater than 70% stenosis proximal right ICA, 50 to 75% stenosis cavernous segment right ICA, no large vessel occlusion in the head, chest x-ray unremarkable, plain film of the right foot with hallux valgus with no sclerosis or osteolysis consistent with osteomyelitis but bone scan or MRI more sensitive, plain film of the right hip and pelvis unremarkable, plain film of the right knee unremarkable, EKG with rate controlled atrial fibrillation with no acute evidence of ischemia. In the ED patient ministered full-strength aspirin therapy 1 L normal saline. Stroke alert was initiated when patient mental status change occurred and evidence of expressive aphasia. Initial NIH stroke scale reportedly 6 however improved clinically while in the ED and NIH stroke scale assessment per neurology was 0. L foot plain film is pending upon evaluation. [facility] Medical History (Updated 07/15/24 @ 00:[address] Gabriella Forbes MD) Tobacco use History of colon cancer History of GI bleed PAF (paroxysmal atrial fibrillation) History of stroke Anxiety TBI (traumatic brain injury) Gastric ulcer Allergy/AdvReac Type Severity Reaction Status Date / Time Penicillins Allergy Severe Other Verified 07/14/24 15:10 Family History (Updated 07/15/24 @ 00:[address] Gabriella Forbes MD) Mother CVA (cerebral vascular accident) Hypertension Father History of lung cancer COPD (chronic obstructive pulmonary disease) Surgical History (Updated 07/15/24 @ 00:[address] Gabriella Forbes MD) History of gastric surgery History of bowel resection S/P complete hysterectomy Social History (Updated 07/15/24 @ 00:[address] Gabriella Forbes MD) household members: none Smoking Status: Current every day smoker tobacco type: cigarettes alcohol intake: never substance use type: does not use ROS ROS Narrative Admission Review of Systems: CONSTITUTIONAL: No weight loss, fever, chills, + weakness or fatigue. HEENT: Eyes: No visual loss, blurred vision, double vision or yellow sclerae. Ears, Nose, Throat: No hearing loss, sneezing, congestion, runny nose or sore throat. SKIN: No rash or itching, + various abrasions, ecchymoses, regions of stage I/II decubitus ulcer. CARDIOVASCULAR: No chest pain, chest pressure or chest discomfort, palpitations, edema, orthopnea, syncopal events. RESPIRATORY: No shortness of breath, cough or sputum, wheezing, hemoptysis. GASTROINTESTINAL: No anorexia, nausea, vomiting or diarrhea, abdominal pain, melena, BRBPR. GENITOURINARY: No dysuria, frequency, urgency or retention. NEUROLOGICAL: + Altered mental status, confusion, recent fall. No headache, dizziness, syncope, paralysis, ataxia, numbness or tingling in the extremities, focal weakness, change in bowel or bladder control, seizure. MUSCULOSKELETAL: + muscle, back pain, joint pain or stiffness. HEMATOLOGIC: No anemia. + Easy bleeding/bruising. LYMPHATICS: No enlarged nodes. No history of splenectomy. PSYCHIATRIC: No history of depression or anxiety. ENDOCRINOLOGIC: No reports of sweating, cold or heat intolerance. No polyuria or polydipsia. ALLERGIES: No history of asthma, hives, eczema or rhinitis. Vital Signs Vital Signs Vital Signs: 07/14/24 15:10 07/14/24 16:09 07/14/24 16:09 Temperature 96.7 F L Temperature Source Oral Pulse Rate 106 H 117 H Respiratory Rate 16 19 H Respiratory Effort Blood Pressure 124/77 H 112/85 H Blood Pressure Mean 92 94 Pulse Ox 100 97 Oxygen Delivery Method Room Air Room Air Room Air 07/14/24 16:53 07/14/24 18:00 07/14/24 18:13 Temperature Temperature Source Pulse Rate 78 112 H Respiratory Rate 28 H 18 Respiratory Effort Normal Non-Labored Blood Pressure 112/85 H 112/57 L Blood Pressure Mean 94 75 Pulse Ox 99 97 Oxygen Delivery Method Room Air Room Air Room Air 07/14/24 19:00 07/14/24 19:30 07/14/24 20:00 Temperature Temperature Source Pulse Rate 93 99 102 H Respiratory Rate 18 14 16 Respiratory Effort Blood Pressure 100/63 113/98 H 111/87 H Blood Pressure Mean 75 103 95 Pulse Ox 99 96 96 Oxygen Delivery Method Room Air Room Air Room Air 07/14/24 20:30 07/14/24 21:00 07/14/24 21:30 Temperature Temperature Source Pulse Rate 103 H 93 97 Respiratory Rate 15 15 16 Respiratory Effort Blood Pressure 117/81 H 126/98 H 105/77 Blood Pressure Mean 93 107 86 Pulse Ox 94 94 94 Oxygen Delivery Method Room Air Room Air Room Air Weight Weight: 196 lb Body Mass Index (BMI) 28.9 Physical Exam Narrative Physical Examination: General: Awake, alert, still occasionally a little nonsensical but does give decent history and is oriented to self, knows she is in the hospital but says Wilbert Oliva Initially, gives the correct month and the correct year as well as correct president, fatigued, no acute distress. Skin: Normal color, normal turgor, no icterus, no cyanosis except for significant various staged ecchymoses, abrasions, skin breakdown. HEENT: AT/NC, EOMI, PERRLA, dry MM, notably poor dentition, no carotid bruits or JVD noted. Lungs: Mildly diminished, greater bases, appropriate effort, no rales, ronchi or wheezing. Heart: Irregular, rate controlled; no gallop, rub audible. Abdomen: Soft, NTTP, ND, hyperactive BS, no appreciated HSM. Extremities: No cyanosis, no clubbing, no marked peripheral edema, see skin. Neurological: Patient awake, alert, oriented as noted, cognitive function improved since initial ED arrival but suspect still not baseline intact as patient is still intermittently confused and take times to answer questions, pupils equally reactive to light and accommodation, cranial nerves grossly normal, moving all 4 extremities, [id number] and [id number] seemingly appropriate, sensation intact, equivocal Babinski. Psychiatric: Affect appears fatigued, no acute evidence of depressive or anxiety feelings and unclear psychiatric history of note. Results Lab / Micro Data 07/14/24 16:39 07/14/24 16:39 Labs: Laboratory Results - last 24 hr 07/14/24 16:33: POC Glucose 127 H 07/14/24 16:39: WBC 8.6, RBC 3.93 L, Hgb 12.9, Hct 37.9, MCV 96.4, MCH 32.8 H, MCHC 34.0, RDW Std Deviation 55.5 H, RDW Coeff of Jerson 15.7 H, Plt Count 250, MPV 11.3, Immature Gran % (Auto) 0.500, Neut % (Auto) 85.1 H, Lymph % (Auto) 5.6 L, Troup % (Auto) 8.4, Eos % (Auto) 0.1, Baso % (Auto) 0.3, Absolute Neuts (auto) 7.3, Absolute Lymphs (auto) 0.48 L, Nucleated RBC % 0, PT 14.3, INR 1.1, APTT 25.8, Sodium 142, Potassium 3.2 L, Chloride 107, Carbon Dioxide 23.0, Anion Gap 13, BUN 65 H, Creatinine 1.82 H, Estim Creat Clear Calc 38.58, Est GFR (MDRD) Af Amer 36 L, Est GFR (MDRD) Non-Af 30 L, BUN/Creatinine Ratio 35.7 H, Glucose 114 H, Calcium 9.6, Total Creatine Kinase 373 H, Troponin I High Sens 65 H 07/14/24 17:30: Urine Color Brown, Urine Clarity Clear, Urine pH 6.0, Ur Specific [place] 1.015, Urine Protein 100 H, Urine Glucose (UA) Normal, Urine Ketones 5 H, Urine Occult Blood 25 H, Urine Nitrite Negative, Urine Bilirubin Negative, Urine Urobilinogen 1 H, Ur Leukocyte Esterase 100 H, Urine RBC 0-5 SEEN, Urine WBC 10-25 SEEN, Ur Squamous Epith Cells 0-5 SEEN, Urine Bacteria RARE, Urine Mucus 0 SEEN, Urine Opiates Screen NEGATIVE, Urine Methadone Screen NEGATIVE, Ur Barbiturates Screen NEGATIVE, Ur Phencyclidine Scrn NEGATIVE, Ur Amphetamines Screen NEGATIVE, MDMA (Ecstasy) Screen NEGATIVE, U Benzodiazepines Scrn NEGATIVE, Urine Cocaine Screen NEGATIVE, U Cannabinoids Screen NEGATIVE, Ur Drug Screen Comment 07/14/24 19:00: Lactic Acid 1.2 07/14/24 19:05: Ethyl Alcohol < 3.0 Imaging Radiology Impression Brain CT 07/14/24 16:09 IMPRESSION: Acute or subacute infarct left neostriatum. N.B. : The above Results were Read Back by Miles Soto MD to Christopher Martínez MD, and understanding confirmed on 07/14/2024 16:39:57 (ET). Electronically Signed: Miles Soto MD at 16:44 EST , ADDENDUM: 07/14/24 1651 IMPRESSION: Acute or subacute infarct left neostriatum. N.B. : The above Results were Read Back by Miles Soto MD to Christopher Martínez MD, and understanding confirmed on 07/14/2024 16:39:57 (ET). Electronically Signed: Miles Soto MD at 16:44 EST , Cervical Spine CT 07/14/24 16:09 IMPRESSION: Severe bilateral neural foraminal narrowing at C5-6 Electronically Signed: Miles Soto MD at 18:15 EST , Head/Neck CTA 07/14/24 16:09 IMPRESSION: Greater than 70% stenosis proximal right ICA . 50-75% stenosis cavernous segment right ICA. No large vessel occlusion in the head. N.B. : The above Results were Read Back by Miles Soto MD to Christopher Martínez MD, and understanding confirmed on 07/14/2024 17:00:20 (ET). Electronically Signed: Miles Soto MD at 17:01 EST Reading Location ID and State: [address] [place] [address] Tel , Service support , ADDENDUM: 07/14/24 1708 IMPRESSION: Greater than 70% stenosis proximal right ICA . 50-75% stenosis cavernous segment right ICA. No large vessel occlusion in the head. N.B. : The above Results were Read Back by Miles Soto MD to Christopher Martínez MD, and understanding confirmed on 07/14/2024 17:00:20 (ET). Electronically Signed: Miles Soto MD at 17:01 EST Reading Location ID and State: [employer] [place] Tel , Service support , Chest X-Ray 07/14/24 18:20 IMPRESSION: Normal x-ray examination of the chest. Electronically Signed: Miles Soto MD at 20:42 EST Reading Location ID and State: [employer] / [place] Tel , Service support , Foot X-Ray 07/14/24 18:20 IMPRESSION: Hallux valgus. No sclerosis or osteolysis consistent with osteomyelitis but bone scan or MRI would be more sensitive. Electronically Signed: Miles Soto MD at 20:43 EST Reading Location ID and State: [address] [place] [address] Tel , Service support , Hip/Pelvis X-Ray 07/14/24 18:20 IMPRESSION: Normal x-ray examination of the pelvis and hip. Electronically Signed: Miles Soto MD at 20:42 EST Reading Location ID and State: [address] [place] [address] Tel , Service support , Knee X-Ray 07/14/24 18:20 IMPRESSION: Normal x-ray examination of the knee. Electronically Signed: Miles Soto MD at 20:58 EST Reading Location ID and State: [address] [place] [address] Tel , Service support , Assessment & Plan Assessment/Plan (1) CVA (cerebral vascular accident): PLAN: Plan The patient is a 59 y/o F w/ PMHx: PAF, Tobacco use GERD w/ Hx prior gastric ulcer/perforation w/ GI bleed w/ history of surgical intervention, Hx Colon CA s/p partial colectomy, HTN, Possible TBI prior currently poor historian with unclear medical history who presents to the [facility] ED on 07/14/2024 unfortunately slipping the ice with significant discomfort of the hip following with persistent right hip pain with fall in the ED following initial evaluations onset at approximately 1600 notable confusion, evidence expressive aphasia with a very notable acute mental status change with patient then reporting she fell down a flight of stairs during this entire event which apparently had potentially occurred at 1400 with EMS mental: Transition to the ED for evaluation. #1. 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 Will allow permissive HTN, maintain on asa, statin w/ AM FLP, fall precautions. Mag, TSH, FLP, HgbA1c requested. Maintain on fall and aspiration precautions. Will continue neurology consultation. #2. Mechanical fall with intractable right hip/pelvic pain with no acute fracture demonstrated on plain films with significant adult failure to thrive, various staged ulcerations evident: Plain film of the right hip and pelvis as well as knee with no acute findings fortunately, plan film of the R foot unremarkable, still awaiting read on plain film L foot, will continue offloading, as needed Tylenol, icing, may consider lidocaine patches if necessary, PT/OT/case management consult for discharge planning. Wound RN consulted. #3. Mild acute rhabdomyolysis: Admission total creatinine kinase 373, only mildly elevated, will continue judicious hydration, monitor I's and O's, monitor renal function, will also obtain hepatic profile, trend TCK. #4. Indeterminate cardiac enzyme of unclear etiology: Admission troponin 65, EKG with no acute evidence of ischemia, chest x-ray with no remarkable findings, will maintain on telemetry monitoring, continue cycle cardiac enzymes, magnesium level requested, echocardiogram requested given acute presentation as noted #1, FLP in AM. #5. Hypokalemia: Admission K+ 3.2, magnesium level requested, supplementation given, repeat level in AM. #6. PAF: Noted rate controlled atrial fibrillation, unclear if she is on rate or rhythm agent, attempting to clarify and also no noted chronic anticoagulants however given her current presentation with acute/subacute stroke and previous stroke we will hold off on immediate anticoagulant therapy until MRI of the brain to ensure there is no significant large stroke as if this is the case would defer initiation potentially to avoid any hemorrhagic conversion but will defer also to neurology input. Currently permissive hypertension but once appropriate would add potentially low-dose beta-judson therapy pending BP reassessment #7. History gastric ulcer, perforation with GI bleed: Notes significant surgical intervention following this event but uncertain of exact procedure, will maintain on PPI. #8. History colon cancer: Status post partial colectomy, considered in remission but unclear other interventions. Encourage continued outpatient follow-up with oncology/surgery as previously arranged. #9. Hypertension: Notes history and was previously on potentially amlodipine low-dose, BP initially upper range of normal however decreased following admission and given current situation will maintain on permissive hypertension with as needed agents if necessary. #10. Tobacco Abuse: Encouraged cessation, inpatient consultation per RT, NR if desired. #11. DVT prophylaxis: Lovenox chemoprophylaxis only until MRI of the brain in case of a large region of stroke especially given previous stroke also evident to avoid any hemorrhagic conversion but will defer of course to neurology discretion. #12. CODE status: Patient SEPIDEH is her cousin Hilda Black and living will is currently in place. Discussed CODE status at length including difference between FULL code, DNR-CCA and DNR-CC status. Following discussions about the differences in these status, requested Full Code status which was confirmed. Advanced Care Planning Face to Face Time: 16 minutes. Charges/Coding Visit Charges Inpatient E&M: 09653 Init Hosp L3 Procedures Hospitalists Procedures: 53129 Advncd Care Plan 30 Min
[2024-07-15] VITALS (8 sets, daily range): BP systolic 92–121; BP diastolic 47–69; PULSE 80–99; RESP 18; TEMP 35.8–36.9; O2SAT 95–99; BMI 24.9
--- NOTE | 2024-07-15 00:44 | MRI_ITS ---
STUDY: MRI BRAIN WITHOUT CONTRAST REASON FOR EXAM: Female, 59 years old. CVA TECHNIQUE: Standardized multiplanar fat and water weighted pulse sequences were obtained. Motion artifact is present. COMPARISON: Head CT dated July 14, 2024 FINDINGS: Small to moderate-sized acute infarcts of the left basal ganglia and posterior limb of the internal capsule extends up to the periventricular white matter. A small acute infarct is also present in the posterior medial aspect of the left cerebellar lobe see image #7/58 series 4. No hemorrhagic transformation is present. No additional acute infarcts are seen. There is mild cerebral atrophy with widening of the extra-axial spaces and ventricular dilatation. There are multiple white matter hyperintensities, distributed throughout the deep white matter tracts of the cerebral hemispheres, consistent with moderate chronic white matter ischemic changes. Normal T2* images of the brain without demonstrated susceptibility artifact. There is no demonstrated hemosiderin stain. There are no demyelinating plagues of the supratentorial brain, brainstem or cerebellum. There are no findings suspicious for multiple sclerosis (MS). Normal thalami. There is no extra-axial fluid accumulation. Normal flow voids within the major intracranial circulation suggesting patency by spin echo criteria. Normal sella turcica, pituitary gland, infundibular stalk, optic chiasm and hypothalamus. Normal tectal plate and pineal gland. Normal midbrain, mary and medulla. Normal cerebellum. Normal basal cisterns. Normal bilateral temporal bones. Normal bilateral internal auditory canals. No demonstrated orbital abnormality, within the constraints of a routine brain study. Normal visualized paranasal sinuses. Normal calvarium and skull base. Normal visualized soft tissue structures. Normal visualized upper cervical spine. MRI/Brain without Contrast IMPRESSION: 1. Small to moderate-sized acute infarcts of the left basal ganglia and posterior limb of the internal capsule extends up to the periventricular white matter. A small acute infarct is also present in the posterior medial aspect of the left cerebellar lobe see image #7/58 series 4. No hemorrhagic transformation is present. No additional acute infarcts are seen. Electronically Signed: Andrés Gracia MD at 11:47 EST ,
--- NOTE | 2024-07-15 00:46 | ECHOCS_ITS ---
Reason For Study: TIA/CVA Procedure This was a 2D Doppler, Color Flow transthoracic echocardiogram. The study was technically difficult. Contrast injection was performed. The patient was scanned supine. Exam performed portable in patient room. Left Ventricle Normal LV size. The estimated ejection fraction is 70 %. No evidence for diastolic dysfunction. No regional wall motion abnormalities noted. Right Ventricle Normal RV size. Normal systolic function. Atria The left and right atria are normal. Bubble contrast study is negative for PFO/ASD. No doppler evidence for ASD. Mitral Valve There is no mitral valve stenosis. No mitral valve insufficiency. Tricuspid Valve There is no tricuspid stenosis. Unable to estimate RV systolic pressure due to inadequate jet, pulmonary artery pressure probably normal. Aortic Valve Trisinus/trileaflet aortic valve. There is no aortic stenosis. No aortic valve insufficiency. Pulmonic Valve There is no pulmonic valvular stenosis. No pulmonic valve insufficiency. Great Vessels Normal aortic root. Pericardium/Pleural Trivial pericardial effusion. Medication Diluted definity 1ml given slow IV push to enhance endocardial definition. Performed a rapid injection of agitated mix of 9 cc saline and 1cc air to assess for atrial septal defect. MMode/2D Measurements & Calculations LVIDd: 3.6 cm IVSd: 1.2 cm LVOT diam: 1.8 cm LVIDs: 2.5 cm LVPWd: 0.94 cm RVDd: 2.7 cm FS: 32.2 % LVOT area: 2.5 cm2 LAV(MOD-bp): 37.0 ml LVAd ap4: 21.1 cm2 LVAd ap2: 23.1 cm2 LAV(MOD-bp) Indexed: 19.3 ml/m2 LVLd ap4: 6.8 cm LVLd ap2: 7.0 cm LAV(MOD-sp2): 33.8 ml EDV(MOD-sp4): 51.6 ml EDV(MOD-sp2): 61.3 ml LAV(MOD-sp4): 40.2 ml EDV(sp4-el): 55.1 ml EDV(sp2-el): 64.9 ml LVAs ap4: 9.5 cm2 LVAs ap2: 11.4 cm2 LVLs ap4: 5.5 cm LVLs ap2: 6.0 cm ESV(MOD-sp4): 13.9 ml ESV(MOD-sp2): 19.0 ml ESV(sp4-el): 14.0 ml ESV(sp2-el): 18.6 ml EF(MOD-sp4): 73.0 % EF(MOD-sp2): 69.0 % EF(sp4-el): 74.6 % SV(MOD-sp4): 37.7 ml SV(MOD-sp2): 42.3 ml SV(sp4-el): 41.1 ml SI(MOD-sp4): 19.6 ml/m2 SI(MOD-sp2): 22.1 ml/m2 Ao sinus diam: 3.0 cm LA A4 area: 16.3 cm2 LA dimension(2D): 3.1 cm TAPSE: 1.7 cm RA A4 area: 9.7 cm2 Time Measurements MV dec time: 0.28 sec Doppler Measurements & Calculations MV E max chet: 69.8 cm/sec Lat Peak E' Chet: 7.8 cm/sec Med Peak E' Chet: 7.6 cm/sec E/E' lat: 8.9 E/E' med: 9.2 Ao V2 max: 200.6 cm/sec LV V1 max: 153.3 cm/sec SV(LVOT): 55.2 ml Ao max P.1 mmHg LV V1 max P.4 mmHg Ao V2 mean: 133.5 cm/sec LV V1 mean P.2 mmHg Ao mean P.2 mmHg LV V1 mean: 107.9 cm/sec Ao V2 VTI: 29.3 cm LV V1 VTI: 22.5 cm AV (velocity ratio): 0.77 MELODY(I,D): 1.9 cm2 MELODY(V,D): 1.9 cm2 PA V2 max: 125.3 cm/sec ECHO/Echo Complete W/ Contrast Interpretation Summary The estimated ejection fraction is 70 %. No evidence for diastolic dysfunction. Ordering Physician: Gabriella Forbes Referring Physician: Gabriella Forbes Performed By: Pebbles Almazan RDCS
[2024-07-15] MEDS: Potassium Chloride Oral Tablet 20 MEQ 40 MEQ PO ×2 (01:10→10:35)
[2024-07-15] MEDS: Lidocaine 5% Patch 2 PATCH TOPICAL (01:11)
[2024-07-15] MEDS: 0.9% Normal Saline (1000mL) 1,000 ML 100 ML IV (01:11)
[2024-07-15 01:18] LABS: AST(SGOT) 63 U/L (15-37); Alanine Aminotransfer ALT/SGPT 77 U/L (13-56); Albumin, Serum 2.8 g/dL (3.2-5.0); Alkaline Phosphatase 97 U/L (45-117); Bilirubin, Direct 0.41 mg/dL (0.00-0.30); Globulin 3.8 g/dL (2.2-4.2); Protein, Total 6.6 g/dL (6.4-8.2)
[2024-07-15 02:05] LABS: Troponin-I HS 64 pg/mL (3.0-54.0)
[2024-07-15 04:22] LABS: Troponin-I HS 57 pg/mL (3.0-54.0)
[2024-07-15 07:18] LABS: Absolute Lymphocyte Count 0.87 X10^3/uL (0.83-4.51); Absolute Neutrophil Count 7.2 X10^3/uL (2.0-7.7); Basophil# 0.03 X10^3/uL; Basophil% 0.3 % (0-1); Eosinophil# 0.04 X10^3/uL; Eosinophils% 0.4 % (0-5); Hematocrit 34.5 % (37-47); Hemoglobin 11.7 g/dL (12.0-15.0); Lymphocyte # 0.87 X10^3/ul (0.83-4.51); Lymphocyte % 9.5 % (19-41); Mean Corp Hgb Conc 33.9 g/dL (32-36); Mean Corpuscular Volume 97.2 fL (81-99); Mean Platelet Vol. 11.6 fl (6.2-12.0); Monocyte# 1.02 X10^3/uL; Monocyte% 11.1 % (0-10); NRBC Flagged by Analyzer 0 % (0-5); Neutrophil # 7.21 X10^3/uL (2.7-7.7); Neutrophil % 78.4 % (47-70); Platelet Count 242 K/mm3 (150-450); RBC Distribution Width CV 15.9 % (11.6-14.6); RBC Distribution Width SD 56.8 fl (35.1-43.9); Red Blood Count 3.55 M/mm3 (4.2-5.4); White Blood Count 9.2 K/mm3 (4.4-11.0)
--- NOTE | 2024-07-15 07:41 | PN.HOSP_ITS ---
Reason for Visit Reason for Visit: Diagnoses Cerebral infarction, unspecified (07/14/24) Subjective Subjective Patient is a 59-year-old lady who presented to the emergency department after apparently falling on ice with hitting her head. 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 Objective Data Objective Data Vital Signs: Vital Signs Temp Pulse Resp BP Pulse Ox O2 Del Method 96.4 F L 96 18 102/62 95 Room Air 07/15/24 03:40 07/15/24 03:40 07/15/24 03:40 07/15/24 03:40 07/15/24 03:40 07/15/24 03:40 Oxygen Delivery Method Room Air Weight: 76.5 kg Body Mass Index (BMI) 24.9 Intake & Output: Intake and Output for Last 24 Hours 07/13/24 07/14/24 07/15/24 23:59 23:59 23:59 Intake Total 1000 / 1000 Balance 1000 / 1000 Lab / Micro Data 07/15/24 07:03 07/15/24 07:03 Labs: Laboratory Results - last 24 hr 07/14/24 16:33: POC Glucose 127 H 07/14/24 16:39: WBC 8.6, RBC 3.93 L, Hgb 12.9, Hct 37.9, MCV 96.4, MCH 32.8 H, MCHC 34.0, RDW Std Deviation 55.5 H, RDW Coeff of Jerson 15.7 H, Plt Count 250, MPV 11.3, Immature Gran % (Auto) 0.500, Neut % (Auto) 85.1 H, Lymph % (Auto) 5.6 L, York % (Auto) 8.4, Eos % (Auto) 0.1, Baso % (Auto) 0.3, Absolute Neuts (auto) 7.3, Absolute Lymphs (auto) 0.48 L, Nucleated RBC % 0, PT 14.3, INR 1.1, APTT 25.8, Sodium 142, Potassium 3.2 L, Chloride 107, Carbon Dioxide 23.0, Anion Gap 13, BUN 65 H, Creatinine 1.82 H, Estim Creat Clear Calc 38.58, Est GFR (MDRD) Af Amer 36 L, Est GFR (MDRD) Non-Af 30 L, BUN/Creatinine Ratio 35.7 H, Glucose 114 H, Calcium 9.6, Magnesium 2.0, Total Bilirubin 0.90, Direct Bilirubin 0.41 H, A ST 63 H, ALT 77 H, Alkaline Phosphatase 97, Total Creatine Kinase 373 H, T roponin I High Sens 65 H 07/14/24 16:39: Troponin I High Sens Cancelled, Total Protein 6.6, Albumin 2.8 L , Globulin 3.8 07/14/24 17:30: Urine Color Brown, Urine Clarity Clear, Urine pH 6.0, Ur Specific [place] 1.015, Urine Protein 100 H, Urine Glucose (UA) Normal, Urine Ketones 5 H, Urine Occult Blood 25 H, Urine Nitrite Negative, Urine Bilirubin Negative, Urine Urobilinogen 1 H, Ur Leukocyte Esterase 100 H, Urine RBC 0-5 SEEN, Urine WBC 10-25 SEEN, Ur Squamous Epith Cells 0-5 SEEN, Urine Bacteria RARE, Urine Mucus 0 SEEN, Urine Opiates Screen NEGATIVE, Urine Methadone Screen NEGATIVE, Ur Barbiturates Screen NEGATIVE, Ur Phencyclidine Scrn NEGATIVE, Ur Amphetamines Screen NEGATIVE, MDMA (Ecstasy) Screen NEGATIVE, U Benzodiazepines Scrn NEGATIVE, Urine Cocaine Screen NEGATIVE, U Cannabinoids Screen NEGATIVE, Ur Drug Screen Comment 07/14/24 19:00: Lactic Acid 1.2 07/14/24 19:05: Ethyl Alcohol < 3.0 07/15/24 01:32: Troponin I High Sens 64 H 07/15/24 03:49: Troponin I High Sens 57 H 07/15/24 07:03: WBC 9.2, RBC 3.55 L, Hgb 11.7 L, Hct 34.5 L, MCV 97.2, MCH 33.0 H, MCHC 33.9, RDW Std Deviation 56.8 H, RDW Coeff of Jerson 15.9 H, Plt Count 242, MPV 11.6, Immature Gran % (Auto) 0.300, Neut % (Auto) 78.4 H, Lymph % (Auto) 9.5 L, York % (Auto) 11.1 H, Eos % (Auto) 0.4, Baso % (Auto) 0.3, Absolute Neuts (auto) 7.2, Absolute Lymphs (auto) 0.87, Nucleated RBC % 0 Radiography Diagnostic Testing: Radiology Impression Brain CT 07/14/24 16:09 IMPRESSION: Acute or subacute infarct left neostriatum. N.B. : The above Results were Read Back by Miles Soto MD to Christopher Martínez MD, and understanding confirmed on 07/14/2024 16:39:57 (ET). Electronically Signed: Miles Soto MD at 16:44 EST , ADDENDUM: 07/14/24 1651 IMPRESSION: Acute or subacute infarct left neostriatum. N.B. : The above Results were Read Back by Miles Soto MD to Christopher Martínez MD, and understanding confirmed on 07/14/2024 16:39:57 (ET). Electronically Signed: Miles Soto MD at 16:44 EST Reading [facility] [place] [facility] , Service support , Cervical Spine CT 07/14/24 16:09 IMPRESSION: Severe bilateral neural foraminal narrowing at C5-6 Electronically Signed: Miles Soto MD at 18:15 EST Reading Location ID and State: [employer] / [place] [employer] , Service support , Head/Neck CTA 07/14/24 16:09 IMPRESSION: Greater than 70% stenosis proximal right ICA . 50-75% stenosis cavernous segment right ICA. No large vessel occlusion in the head. N.B. : The above Results were Read Back by Miles Soto MD to Christopher Martínez MD, and understanding confirmed on 07/14/2024 17:00:20 (ET). Electronically Signed: Miles Soto MD at 17:01 EST , ADDENDUM: 07/14/24 1708 IMPRESSION: Greater than 70% stenosis proximal right ICA . 50-75% stenosis cavernous segment right ICA. No large vessel occlusion in the head. N.B. : The above Results were Read Back by Miles Soto MD to Christopher Martínez MD, and understanding confirmed on 07/14/2024 17:00:20 (ET). Electronically Signed: Miles Soto MD at 17:01 EST , Chest X-Ray 07/14/24 18:20 IMPRESSION: Normal x-ray examination of the chest. Electronically Signed: Miles Soto MD at 20:42 EST Reading Location ID and State: [place] [employer] , Service support , Foot X-Ray 07/14/24 18:20 IMPRESSION: Hallux valgus. No sclerosis or osteolysis consistent with osteomyelitis but bone scan or MRI would be more sensitive. Electronically Signed: Miles Soto MD at 20:43 EST Reading Location ID and State: [employer] / [place] [employer] , Service support , Foot X-Ray 07/14/24 18:20 IMPRESSION: Hallux valgus. No fracture. Electronically Signed: Miles Soto MD at 23:09 EST Reading Location ID and State: [facility] / [place] [employer] , Service support , Hip/Pelvis X-Ray 07/14/24 18:20 IMPRESSION: Normal x-ray examination of the pelvis and hip. Electronically Signed: Miles Soto MD at 20:42 EST Reading Location ID and State: [place] [employer] , Service support , Knee X-Ray 07/14/24 18:20 IMPRESSION: Normal x-ray examination of the knee. Electronically Signed: Miles Soto MD at 21:37 EST Reading Location ID and State: [address] [place] [address] Tel , Service support , Knee X-Ray 07/14/24 18:20 IMPRESSION: Normal x-ray examination of the knee. Electronically Signed: Miles Soto MD at 20:58 EST Reading Location ID and State: [address] [place] [address] Tel , Service support , Physical Exam Narrative GENERAL: cooperative HEENT: Atraumatic; normocephalic EYES; Anicteric, Normal Conjunctiva NECK; supple, normal thyroid, RESPIRATORY: Diminished to auscultation CARDIOVASCULAR: Regular S1 S2, GI: soft, normoactive bowel sounds, : No Renal angle tenderness; EXTREMITIES: No edema, no clubbing, MUSCULOSKELETAL: no muscle wasting NEURO: Awake; no lateralizing signs. SKIN: Bruises on lower extremities PSYCH; Flat affect Assessment & Plan Assessment/Plan (1) CVA (cerebral vascular accident): PLAN: Plan Patient is a 59-year-old lady who presented to the emergency department after apparently falling on ice with hitting her head. 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 Patient admitted to a monitored bed for continuous telemetry. Ordered neurochecks every 4 hours patient was started on aspirin statin therapy MRI 2D echo ordered consult placed to [facility] teleneurology 2. Mechanical fall ? With resultant right hip contusion imaging studies did not show any fractures plan is to treat symptomatically 3. Mild rhabdomyolysis ? Following patient's fall patient is on IV hydration with subsequent monitoring of electrolyte 4. Hypokalemia ? Corrected for protocol repeat labs ordered for monitoring 5. Acute cystitis ? Patient started on ceftriaxone urine culture sent 6. Mild elevation of troponin ? Possibly demand ischemia echo ordered for wall motion abnormality evaluation 7. Paroxysmal atrial fibrillation ? Rate controlled ;Patient will need to be discharged on systemic anticoagulation given her presentation 8. History of colon cancer ? Status post partial colectomy patient has remained in remission 9. History of peptic ulcer disease ? With gastric perforation patient started on PPI 10. Hypertension ? Given patient presentation permissive hypertension protocol will be followed 11. Tobacco dependence ? Counseled on cessation, offered nicotine patch for tobacco cravings 12. DVT prophylaxis ? On enoxaparin Time spent in the patient's overall evaluation,decision-making process, review of diagnostic data, adjustment of management, discussion with other providers, nursing nursing and ancillary staff involved in patient's care documentation,52 Minutes Charges/Coding Visit Charges Inpatient E&M: 40480 [facility] L3
[2024-07-15 08:00] LABS: ALB/GLOB Ratio 0.7 RATIO (0.9-2.4); AST(SGOT) 51 U/L (15-37); Alanine Aminotransfer ALT/SGPT 63 U/L (13-56); Albumin, Serum 2.5 g/dL (3.2-5.0); Alkaline Phosphatase 83 U/L (45-117); Anion Gap 11 (5-15); BUN 58 mg/dL (7-18); BUN/Creat Ratio 43.6 RATIO (10-20); CPK Total, Creatine Kinase 192 U/L (26-192); Calcium,Total 9.1 mg/dL (8.5-10.1); Chloride 116 mmol/L (98-107); Creatinine, Serum 1.33 mg/dL (0.55-1.02); EST Glomerular Filtration Rate 43 mL/min (>60); Est Glom Filt Rate - Afr Amer 52 mL/min (>60); Estimated Creatinine Clearance 46.42 ml/min; Globulin 3.7 g/dL (2.2-4.2); Glucose 101 mg/dL (74-106); Potassium 3.1 mmol/L (3.5-5.1); Protein, Total 6.2 g/dL (6.4-8.2); Sodium Level 147 mmol/L (136-145); Troponin-I HS 56 pg/mL (3.0-54.0)
--- NOTE | 2024-07-15 08:38 | WOUNDNOTE ---
Pt is currently getting an echo. will assess skin later this morning.
[2024-07-15 08:40] LABS: Hemoglobin A1c 5.1 % (3.8-5.6)
[2024-07-15] MEDS: Ceftriaxone 1 GM/50 ML BAG IV (10:31)
[2024-07-15] MEDS: Enoxaparin 40 MG/0.4 ML Syringe SC (10:34)
[2024-07-15] MEDS: Pantoprazole Sodium 40 MG Tablet PO (10:34)
[2024-07-15] MEDS: Menthol/Lanolin/Calamine/Znox 113 GM Tube 1 APPLIC TOPICAL ×4 (10:36→22:27)
[2024-07-15] MEDS: Aspirin 81 MG TAB.CHEW PO (10:36)
--- NOTE | 2024-07-15 11:22 | WOUNDNOTE ---
wound photo: left foot
--- NOTE | 2024-07-15 11:23 | WOUNDNOTE ---
wound photo: right foot
--- NOTE | 2024-07-15 11:24 | WOUNDNOTE ---
wound photo: right lateral foot
--- NOTE | 2024-07-15 12:06 | STROKE.CONS ---
Assessment and Plan: Stroke Assessment/Plan SOLA GARCÍA is a 59 F with a history of tobacco use, TIA, HTN, HLD, pAF, GERD with history of Gastric ulcer perforation c/b GIB with surgical intervention, Colon cancer s/p partial colectomy who presents for evaluation after mechanical fall without head strike or LOC; and R sided weakness, found to have concern for acute ischemia in L cerebral hemisphere. Neurological examination shows NIHSS 6 for R facial, RUE drift, RLE weakness with drift, RUE dysmetria, mild dysarthria. Neuroimaging shows CTH with conern for L sided acute to subacute CVA. CTA with R ICA stenosis > 70%, however < 50% on L ICA. A1C 5.1. LDL not ordered. TTE pending. Stroke Etiology: [place] fibrillation given presentation in AF versus Large artery atherosclerosis given stenosis on vessel imaging - MRI pending, TTE pending, please order LDL - Anti-platelet medication/Anti-coagulation: OK to continue Aspirin 81 mg daily, until MRI complete. Will likely need anticoagulation for secondary stroke risk reduction given history of AFIB; however will continue ASA until stroke burden assessed on MRI and TTE to ensure no concern for valvular AF. Will also need to further evaluate concern for historical GIB and if deemed safe for AC per primary team from a GI standpoint. - DVT prophylaxis with SCDs and heparin SQ - Vascular risk factor modification. The following are the recommended guidelines: LDL Goal < 70, follow up LDL, continue Atorvastatin 80 mg qhs Smoking Cessation, counseling provided, patient has decreased usage from 2-3 packs a day to 2-3 ciggarettes a day Diabetes Management penitentiary blood pressure control should achieve <130/80 mmHg. BP management should aim to achieve terminal operations manager control in a reasonable amount of time, taking into consideration the patient's requirements. Weight Management: Goal for BMI is 18.5 -24.9 kg/m2 Alcohol: No more than 2 drinks/day for men or 1 drink/day for non- women - Promote lifestyle modification: weight control, physical activity, moderation of alcohol intake, moderate sodium intake. - PT/OT/GENERATION MANAGER consultations Followup with PCP in 1-2 weeks, and in Neurology clinic in 6-12 weeks HPI Consult Data Date of Consult: 07/15/24 HPI Narrative HPI Narrative: SOLA GARCÍA is a 59 F with a history of tobacco use, TIA, HTN, HLD, pAF, GERD with history of Gastric ulcer perforation c/b GIB with surgical intervention, Colon cancer s/p partial colectomy who presents for evaluation after mechanical fall without head strike or LOC; and R sided weakness. The patient reports she slipped and fell on ice outside of her house. She denies head strike or loss of consciousness. She denies presyncopal symptoms prior the event. She states she was trying to leave in a hurry and it all happend so fast. She is unsure if her right side was notably weaker before or after the fall. She reports history of TIA 6 years ago. She reports two episodes of vertigo and fall for which she had a workup and told she had TIA. She has not been on ASA or statin or her antiHTN medications because she is unable to fill the prescription and get refills. She reports history of smoking but has cut down from 2-3 packs/day to 2-3 cigarettes/day. She denies being on blood thinners at home at this time. She reports noncompliance with many medications as she is not able to get refills. Currently denies headache, pain. She has continued right arm drift and slowed finger taps with miss with finger to nose testing. She has drift and fall of her right leg. She has undergone evaluation of of R hip pain with CT Abdomen Pelvis, Xrays, and has had her cervical spine clearance. CTH reveals L neostriatum infarct. [facility] Medical History Tobacco use History of colon cancer History of GI bleed PAF (paroxysmal atrial fibrillation) History of stroke Anxiety TBI (traumatic brain injury) Gastric ulcer Allergy/AdvReac Type Severity Reaction Status Date / Time Penicillins Allergy Severe Other Verified 07/14/24 15:10 Family History (Updated 07/15/24 @ 00:[address] Gabriella Forbes MD) Mother CVA (cerebral vascular accident) Hypertension Father History of lung cancer COPD (chronic obstructive pulmonary disease) Surgical History (Updated 07/15/24 @ 00:[address] Gabriella Forbes MD) History of gastric surgery History of bowel resection S/P complete hysterectomy Social History (Updated 07/15/24 @ 00:[address] Gabriella Forbes MD) household members: none Smoking Status: Current every day smoker tobacco type: cigarettes alcohol intake: never substance use type: does not use Vital Signs Vital Signs Vital Signs: 07/14/24 15:10 07/14/24 16:09 07/14/24 16:09 Temperature 96.7 F L Temperature Source Oral Pulse Rate 106 H 117 H Pulse Strength Respiratory Rate 16 19 H Respiratory Effort Respiratory Depth Respiratory Pattern Blood Pressure 124/77 H 112/85 H Blood Pressure Mean 92 94 Blood Pressure Source Blood Pressure Position Blood Pressure Location Pulse Ox 100 97 Oxygen Delivery Method Room Air Room Air Room Air 07/14/24 16:53 07/14/24 18:00 07/14/24 18:13 Temperature Temperature Source Pulse Rate 78 112 H Pulse Strength Respiratory Rate 28 H 18 Respiratory Effort Normal Non-Labored Respiratory Depth Respiratory Pattern Blood Pressure 112/85 H 112/57 L Blood Pressure Mean 94 75 Blood Pressure Source Blood Pressure Position Blood Pressure Location Pulse Ox 99 97 Oxygen Delivery Method Room Air Room Air Room Air 07/14/24 19:00 07/14/24 19:30 07/14/24 20:00 Temperature Temperature Source Pulse Rate 93 99 102 H Pulse Strength Respiratory Rate 18 14 16 Respiratory Effort Respiratory Depth Respiratory Pattern Blood Pressure 100/63 113/98 H 111/87 H Blood Pressure Mean 75 103 95 Blood Pressure Source Blood Pressure Position Blood Pressure Location Pulse Ox 99 96 96 Oxygen Delivery Method Room Air Room Air Room Air 07/14/24 20:30 07/14/24 21:00 07/14/24 21:30 Temperature Temperature Source Pulse Rate 103 H 93 97 Pulse Strength Respiratory Rate 15 15 16 Respiratory Effort Respiratory Depth Respiratory Pattern Blood Pressure 117/81 H 126/98 H 105/77 Blood Pressure Mean 93 107 86 Blood Pressure Source Blood Pressure Position Blood Pressure Location Pulse Ox 94 94 94 Oxygen Delivery Method Room Air Room Air Room Air 07/14/24 22:00 07/14/24 22:30 07/14/24 22:58 Temperature 97.3 F L Temperature Source Pulse Rate 93 116 H 98 Pulse Strength Respiratory Rate 16 18 17 Respiratory Effort Respiratory Depth Respiratory Pattern Blood Pressure 139/75 H 105/77 108/62 Blood Pressure Mean 96 86 77 Blood Pressure Source Blood Pressure Position Blood Pressure Location Pulse Ox 94 94 94 Oxygen Delivery Method Room Air Room Air 07/14/24 23:00 07/14/24 23:40 07/15/24 00:06 Temperature 98.1 F Temperature Source Temporal Pulse Rate 90 84 Pulse Strength Respiratory Rate 15 18 Respiratory Effort Respiratory Depth Respiratory Pattern Blood Pressure 98/80 104/61 Blood Pressure Mean 86 75 Blood Pressure Source Monitor Blood Pressure Position Semi-Fowlers Blood Pressure Location Left Arm Pulse Ox 100 100 Oxygen Delivery Method Room Air Room Air Room Air 07/15/24 00:34 07/15/24 01:00 07/15/24 03:40 Temperature 96.4 F L Temperature Source Temporal Pulse Rate 96 Pulse Strength Respiratory Rate 18 Respiratory Effort Normal Non-Labored Respiratory Depth Normal Respiratory Pattern Normal Blood Pressure 102/62 Blood Pressure Mean 75 Blood Pressure Source Blood Pressure Position Blood Pressure Location Pulse Ox 98 95 Oxygen Delivery Method Room Air Room Air Room Air 07/15/24 07:40 07/15/24 07:51 07/15/24 08:15 Temperature 97.3 F L Temperature Source Oral Pulse Rate 90 Pulse Strength Normal (2+) Respiratory Rate 18 Respiratory Effort Respiratory Depth Respiratory Pattern Blood Pressure 92/69 Blood Pressure Mean 76 Blood Pressure Source Monitor Blood Pressure Position Semi-Fowlers Blood Pressure Location Left Arm Pulse Ox 98 Oxygen Delivery Method Room Air Room Air 07/15/24 08:19 Temperature Temperature Source Pulse Rate Pulse Strength Respiratory Rate Respiratory Effort Normal Non-Labored Respiratory Depth Normal Respiratory Pattern Normal Blood Pressure Blood Pressure Mean Blood Pressure Source Blood Pressure Position Blood Pressure Location Pulse Ox Oxygen Delivery Method Room Air Weight Weight: 76.5 kg Body Mass Index (BMI) 24.9 EEG Results Procedure Details EEG Procedure Details: SOLA GARCÍA is a 59 year old F with a past medical history of , who presents for evaluation of Electroencephalogram on DATE at TIME NIHSS NIHSS Nursing Documentation NIHSS Nursing Documentation: NIHSS: Ischemic Stroke/TIA Start: 07/15/24 00:45 Text: For PCU Patients: NIH and Neuro Check every 4 Status: Active hours, PRN and with change in RN caregiver. Freq: [id number] Protocol: Activity Type Activity Date Activity User E-sign Co-sign Detail Recorded Client Recorded Date Recorded By Document 07/15/24 07:40 JM8 tommy 07/15/24 07:44 FLOR 07/15/24 07:40 NIH Stroke Scale [NIHSS] A score of 0 is normal or asymptomatic . Total possible score is 42. Inpatient: RN or Physician to activate a stroke alert for onset of new stroke symptoms or with NIHSS increase >/= 3 points. Following change in neurological status, NIHSS will be performed per physician order or more frequently PRN. -1a. Level of Consciousness Alert; keenly responsive -1b. LOC Questions Answers BOTH questions correctly. -1c. LOC Commands Performs both tasks correctly . -2. Best Gaze Normal -3. Visual No visual loss -4. Facial Palsy Minor paralysis (flattened nasolabial fold , asymmetry on smiling) -5a. Left Arm No drift; arm holds 90 (or 45 ) degrees for full 10 seconds -5b. Right Arm No drift; arm holds 90 (or 45 ) degrees for full 10 seconds -6a. Left Leg No drift; leg holds 30-degree position for full 5 seconds -6b. Right Leg Drift; leg falls by the end of 5- seconds, but does not hit bed -7. Limb Ataxia Present in 1 limb -8. Sensory Normal; no sensory loss -9. Best Language Mild-to- moderate aphasia; -10. Dysarthria Normal -11. Extinction and Inattention No abnormality -Total 4 Query Text:A score of 0 is normal or asymptomatic. Total possible score is 42 . ED: Notify Physician for NIHSS increase by > / = 3 points. Inpatient: RN or Physician to activate a stroke alert for NIHSS increase of > / = 3 points. Coma Scale [Assess] -Eye Opening Spontaneous -Motor Obeys Commands -Verbal Oriented [Total] -Coma Scale Total 15 NIHSS 1a. Level of Consciousness: Alert; keenly responsive 1b. LOC Questions: Answers BOTH questions correctly. 1c. LOC Commands: Performs both tasks correctly. 2. Best Gaze: Normal 3. Visual: No visual loss 4. Facial Palsy: Minor paralysis (flattened nasolabial fold, asymmetry on smiling) 5a. Left Arm: No drift; arm holds 90 (or 45) degrees for full 10 seconds 5b. Right Arm: Drift; arm drifts downward but doesn?t hit the bed 6a. Left Leg: No drift; leg holds 30-degree position for full 5 seconds 6b. Right Leg: Some effort against gravity; 7. Limb Ataxia: Present in 1 limb 8. Sensory: Normal; no sensory loss 9. Best Language: No aphasia; normal 10. Dysarthria: [id number]-it-[id number] dysarthria; 11. Extinction and Inattention: No abnormality Total: 6 Physical Exam Const alert and oriented x3 General Appearance: cooperative and comfortable Orientation / Consciousness: awake, oriented to person, oriented to place and oriented to time HEENT normocephalic Head and Scalp: normal to inspection Face and Sinus: flattened naso-labial fold Nose: external nose normal Eyes EOMs intact bilaterally General Eye: normal appearance of both eyes Neck full ROM Chest Chest: symmetrical chest wall rise Resp normal respiratory effort Cardio Cardio Narrative: +Afib Lab / Micro Data 07/15/24 07:03 07/15/24 07:03 Labs: Laboratory Results - last 24 hr 07/14/24 16:33: POC Glucose 127 H 07/14/24 16:39: WBC 8.6, RBC 3.93 L, Hgb 12.9, Hct 37.9, MCV 96.4, MCH 32.8 H, MCHC 34.0, RDW Std Deviation 55.5 H, RDW Coeff of Jerson 15.7 H, Plt Count 250, MPV 11.3, Immature Gran % (Auto) 0.500, Neut % (Auto) 85.1 H, Lymph % (Auto) 5.6 L, [place] % (Auto) 8.4, Eos % (Auto) 0.1, Baso % (Auto) 0.3, Absolute Neuts (auto) 7.3, Absolute Lymphs (auto) 0.48 L, Nucleated RBC % 0, PT 14.3, INR 1.1, APTT 25.8, Sodium 142, Potassium 3.2 L, Chloride 107, Carbon Dioxide 23.0, Anion Gap 13, BUN 65 H, Creatinine 1.82 H, Estim Creat Clear Calc 38.58, Est GFR (MDRD) Af Amer 36 L, Est GFR (MDRD) Non-Af 30 L, BUN/Creatinine Ratio 35.7 H, Glucose 114 H, Calcium 9.6, Magnesium 2.0, Total Bilirubin 0.90, Direct Bilirubin 0.41 H, AST 63 H, ALT 77 H, Alkaline Phosphatase 97, Total Creatine Kinase 373 H, Troponin I High Sens 65 H 07/14/24 16:39: Troponin I High Sens Cancelled, Total Protein 6.6, Albumin 2.8 L, Globulin 3.8 07/14/24 17:30: Urine Color Brown, Urine Clarity Clear, Urine pH 6.0, Ur Specific Reserve 1.015, Urine Protein 100 H, Urine Glucose (UA) Normal, Urine Ketones 5 H, Urine Occult Blood 25 H, Urine Nitrite Negative, Urine Bilirubin Negative, Urine Urobilinogen 1 H, Ur Leukocyte Esterase 100 H, Urine RBC 0-5 SEEN, Urine WBC 10-25 SEEN, Ur Squamous Epith Cells 0-5 SEEN, Urine Bacteria RARE, Urine Mucus 0 SEEN, Urine Opiates Screen NEGATIVE, Urine Methadone Screen NEGATIVE, Ur Barbiturates Screen NEGATIVE, Ur Phencyclidine Scrn NEGATIVE, Ur Amphetamines Screen NEGATIVE, MDMA (Ecstasy) Screen NEGATIVE, U Benzodiazepines Scrn NEGATIVE, Urine Cocaine Screen NEGATIVE, U Cannabinoids Screen NEGATIVE, Ur Drug Screen Comment 07/14/24 19:00: Lactic Acid 1.2 07/14/24 19:05: Ethyl Alcohol < 3.0 07/15/24 01:32: Troponin I High Sens 64 H 07/15/24 03:49: Troponin I High Sens 57 H 07/15/24 07:03: WBC 9.2, RBC 3.55 L, Hgb 11.7 L, Hct 34.5 L, MCV 97.2, MCH 33.0 H, MCHC 33.9, RDW Std Deviation 56.8 H, RDW Coeff of Jerson 15.9 H, Plt Count 242, MPV 11.6, Immature Gran % (Auto) 0.300, Neut % (Auto) 78.4 H, Lymph % (Auto) 9.5 L, [place] % (Auto) 11.1 H, Eos % (Auto) 0.4, Baso % (Auto) 0.3, Absolute Neuts (auto) 7.2, Absolute Lymphs (auto) 0.87, Nucleated RBC % 0, Sodium 147 H, Potassium 3.1 L, Chloride 116 H, Carbon Dioxide 20.0 L, Anion Gap 11, BUN 58 H, Creatinine 1.33 H, Estim Creat Clear Calc 46.42, Est GFR (MDRD) Af Amer 52 L, Est GFR (MDRD) Non-Af 43 L, BUN/Creatinine Ratio 43.6 H, Glucose 101, Hemoglobin A1c 5.1, Calcium 9.1, Total Bilirubin 0.60, AST 51 H, ALT 63 H, Alkaline Phosphatase 83, Total Creatine Kinase 192, Troponin I High Sens 56 H, Total Protein 6.2 L, Albumin 2.5 L, Globulin 3.7, Albumin/Globulin Ratio 0.7 L, TSH 1.510 Imaging Radiology Impression Brain CT 07/14/24 16:09 IMPRESSION: Acute or subacute infarct left neostriatum. N.B. : The above Results were Read Back by Miles Soto MD to Christopher Martínez MD, and understanding confirmed on 07/14/2024 16:39:57 (ET). Electronically Signed: Miles Soto MD at 16:44 EST Reading Location ID and State: [employer] / [place] Tel , Service support , ADDENDUM: 07/14/24 1651 IMPRESSION: Acute or subacute infarct left neostriatum. N.B. : The above Results were Read Back by Miles Soto MD to Christopher Martínez MD, and understanding confirmed on 07/14/2024 16:39:57 (ET). Electronically Signed: Miles Soto MD at 16:44 EST Reading Location ID and State: [employer] / [place] Tel , Service support , Cervical Spine CT 07/14/24 16:09 IMPRESSION: Severe bilateral neural foraminal narrowing at C5-6 Electronically Signed: Miles Soto MD at 18:15 EST Reading Location ID and State: [employer] / [place] Tel , Service support , Head/Neck CTA 07/14/24 16:09 IMPRESSION: Greater than 70% stenosis proximal right ICA . 50-75% stenosis cavernous segment right ICA. No large vessel occlusion in the head. N.B. : The above Results were Read Back by Miles Soto MD to Christopher Martínez MD, and understanding confirmed on 07/14/2024 17:00:20 (ET). Electronically Signed: Miles Soto MD at 17:01 EST Reading Location ID and State: [employer] [place] Tel , Service support , ADDENDUM: 07/14/24 1708 IMPRESSION: Greater than 70% stenosis proximal right ICA . 50-75% stenosis cavernous segment right ICA. No large vessel occlusion in the head. N.B. : The above Results were Read Back by Miles Soto MD to Christopher Martínez MD, and understanding confirmed on 07/14/2024 17:00:20 (ET). Electronically Signed: Miles Soto MD at 17:01 EST , Chest X-Ray 07/14/24 18:20 IMPRESSION: Normal x-ray examination of the chest. Electronically Signed: Miles Soto MD at 20:42 EST Reading Location ID and State: [employer] / [place] Tel , Service support , Foot X-Ray 07/14/24 18:20 IMPRESSION: Hallux valgus. No sclerosis or osteolysis consistent with osteomyelitis but bone scan or MRI would be more sensitive. Electronically Signed: Miles Soto MD at 20:43 EST Reading Location ID and State: [employer] / [place] Tel , Service support , Foot X-Ray 07/14/24 18:20 IMPRESSION: Hallux valgus. No fracture. Electronically Signed: Miles Soto MD at 23:09 EST , Hip/Pelvis X-Ray 07/14/24 18:20 IMPRESSION: Normal x-ray examination of the pelvis and hip. Electronically Signed: Miles Soto MD at 20:42 EST Reading Location ID and State: [id number] Tel , Service support , Knee X-Ray 07/14/24 18:20 IMPRESSION: Normal x-ray examination of the knee. Electronically Signed: Miles Soto MD at 21:37 EST Reading Location ID and State: [id number] Tel , Service support , Knee X-Ray 07/14/24 18:20 IMPRESSION: Normal x-ray examination of the knee. Electronically Signed: Miles Soto MD at 20:58 EST Reading Location ID and State: [address] [place] [address] Tel , Service support , Brain MRI 07/15/24 00:44 IMPRESSION: 1. Small to moderate-sized acute infarcts of the left basal ganglia and posterior limb of the internal capsule extends up to the periventricular white matter. A small acute infarct is also present in the posterior medial aspect of the left cerebellar lobe see image #7/58 series 4. No hemorrhagic transformation is present. No additional acute infarcts are seen. Electronically Signed: Andrés Gracia MD at 11:47 EST Reading Location ID and State: [facility] / [place] , Service support , Active Medications Active Medications Active Medications: Current Medications Generic Name Dose Route Start Last Admin Trade Name Freq PRN Reason Stop Dose Admin Acetaminophen 650 mg 07/15/24 00:44 Acetaminophen 325 Mg Tablet PO Q4H PRN PRN Fever, pain 1-03/28 Al Hydroxide/Mg Hydroxide 30 ml 07/15/24 00:49 Mag Hydrox/Al Hydrox/Simeth 30 Ml Udc PO Q6H PRN PRN Gastric Burning Albuterol Sulfate 2.5 mg 07/15/24 00:44 Albuterol 2.5 Mg/3 Ml Vial.Neb. INHALATION Q2H PRN PRN Dyspnea, wheezing Aspirin 81 mg 07/15/24 08:00 07/15/24 10:36 Aspirin 81 Mg Tab.Chew PO 81 mg BREAKFAST MAREK Administration Atorvastatin Calcium 80 mg 07/15/24 22:00 Atorvastatin Calcium 80 Mg Tablet PO QHS [facility] Calamine/Phenol 1 applic 07/15/24 10:00 07/15/24 10:36 Menthol/Lanolin/Calamine/Znox 113 Gm Tube TOPICAL 1 applic 4X/DAY [facility] Administration Protocol Enoxaparin Sodium 40 mg 07/15/24 10:00 07/15/24 10:34 Enoxaparin 40 Mg/0.4 Ml Syringe SC 40 mg DAILY MAREK Administration Guaifenesin 20 ml 07/15/24 00:49 Guaifenesin 10 Ml Udc (200mg/10ml) PO Q4H PRN PRN COUGH Hydralazine HCl 5 mg 07/15/24 00:44 Hydralazine 20 Mg/Ml Vial IV 07/16/24 00:45 Q30M PRN maintain BP parameters with HR <60 Sodium Chloride 100 mls @ 15 mls/hr 07/14/24 23:42 IV .Q6H40M PRN Saline Flush Sodium Chloride 100 mls @ 15 mls/hr 07/14/24 23:42 IV .Q6H40M PRN Additional IVPB Infusion Ceftriaxone Sodium 1 gm in 50 mls @ 100 mls/hr 07/15/24 10:00 07/15/24 11:10 Rocephin IV Infused Q24 MAREK Infusion Labetalol HCl 10 - 20 mg 07/15/24 00:44 Labetalol 20mg/4ml Syringe IV 07/16/24 00:45 Q10M PRN PRN maintain BP parameters with HR >/=60 Lidocaine 2 patch 07/15/24 00:47 07/15/24 01:11 Lidocaine 5% Patch TOPICAL 2 patch DAILY [facility] Administration Protocol Melatonin 3 mg 07/15/24 00:49 Melatonin 3 Mg Tablet PO QHS PRN PRN INSOMNIA Ondansetron HCl 4 mg 07/15/24 00:49 Ondansetron 4 Mg/2 Ml Vial IV Q8H PRN PRN NAUSEA/VOMITING Pantoprazole Sodium 40 mg 07/15/24 10:00 07/15/24 10:34 Pantoprazole Sodium 40 Mg Tablet PO 40 mg DAILY [facility] Administration Prochlorperazine Edisylate 5 mg 07/15/24 00:49 Prochlorperazine 10 Mg/2 Ml Vial IV Q4H PRN PRN Breakthrough Nausea/Vomiting Senna/Docusate Sodium 2 tablet 07/15/24 00:49 Senna/Docusate Sodium 1 Tablet PO BID PRN PRN Constipation Sodium Chloride 10 - 40 ml 07/14/24 23:42 0.9% Saline Lock 10 Ml Syringe IV UD PRN SALINE FLUSH
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
--- NOTE | 2024-07-15 14:16 | NURSING ---
Pt's nurse case manager from [facility] left her name and number. She states contact Hilda, who is listed in [employer], is out in [place]. She left her name and number and would like contacted when she is to be discharged. Her information is: Odette Berry [phone]. Meenu MULLER
--- NOTE | 2024-07-15 14:18 | CASEMGMT ---
SW met with patient. Introduced self and role at [facility]. SW spoke with patient about discharge planning. SW explained therapy is recommending she go somewhere short term for rehab. Patient verbalized understanding. SW provided patient with a list of intermediate facility providers including quality and resource use data and consistent with patient?s preferred geographic region, medical needs, and insurance network were provided from the [facility] Guide.?SW explained to patient that she just needs to pick 3-4 preferences and SW will take care of making referrals. SW asked patient if she was able to get a hold of her fiance. Patient said she has not, but she plans on working on it. SW will check back with patient tomorrow to make sure she understood what SW spoke with her about and get her SNF choices. Sharon BUTCHER
--- NOTE | 2024-07-15 14:52 | WOUNDNOTE ---
wound photo: right lateral foot
--- NOTE | 2024-07-15 14:52 | WOUNDNOTE ---
wound photo: bilateral buttocks
--- NOTE | 2024-07-15 14:53 | WOUNDNOTE ---
wound photo: left knee
--- NOTE | 2024-07-15 14:54 | WOUNDNOTE ---
wound photo: right knee
[2024-07-15] MEDS: Atorvastatin Calcium 80 MG Tablet PO (22:26)
[2024-07-16] VITALS (10 sets, daily range): BP systolic 102–123; BP diastolic 49–68; PULSE 69–98; RESP 16–18; TEMP 35.8–36.9; O2SAT 95–100; BMI 24.9; BMI 25.4
[2024-07-16 07:50] LABS: Absolute Lymphocyte Count 1.24 X10^3/uL (0.83-4.51); Absolute Neutrophil Count 4.6 X10^3/uL (2.0-7.7); Basophil# 0.05 X10^3/uL; Basophil% 0.8 % (0-1); Eosinophil# 0.04 X10^3/uL; Eosinophils% 0.6 % (0-5); Hematocrit 33.5 % (37-47); Hemoglobin 10.8 g/dL (12.0-15.0); Lymphocyte # 1.24 X10^3/ul (0.83-4.51); Lymphocyte % 18.7 % (19-41); Mean Corp Hgb Conc 32.2 g/dL (32-36); Mean Corpuscular Hgb 32.7 pg (27.0-32.0); Mean Corpuscular Volume 101.5 fL (81-99); Mean Platelet Vol. 11.9 fl (6.2-12.0); Monocyte# 0.63 X10^3/uL; Monocyte% 9.5 % (0-10); NRBC Flagged by Analyzer 0 % (0-5); Neutrophil # 4.61 X10^3/uL (2.7-7.7); Neutrophil % 69.6 % (47-70); Platelet Count 212 K/mm3 (150-450); RBC Distribution Width CV 16.5 % (11.6-14.6); RBC Distribution Width SD 61.6 fl (35.1-43.9); White Blood Count 6.6 K/mm3 (4.4-11.0)
[2024-07-16 08:33] LABS: Anion Gap 7 (5-15); BUN 48 mg/dL (7-18); BUN/Creat Ratio 40.3 RATIO (10-20); Calcium,Total 8.9 mg/dL (8.5-10.1); Chloride 119 mmol/L (98-107); Cholesterol 124 mg/dL (200); Creatinine, Serum 1.19 mg/dL (0.55-1.02); EST Glomerular Filtration Rate 49 mL/min (>60); Est Glom Filt Rate - Afr Amer 59 mL/min (>60); Estimated Creatinine Clearance 51.88 ml/min; Glucose 96 mg/dL (74-106); High Density Lipoprotein 49 mg/dL; Magnesium 2.1 mg/dL (1.6-2.6); Potassium 3.4 mmol/L (3.5-5.1); Sodium Level 149 mmol/L (136-145); Triglycerides 73 mg/dL; Very Low Density Lipoprotein 15 mg/dL (5-40)
[2024-07-16 09:17] LABS: Phosphorus 2.5 mg/dL (2.5-4.9)
[2024-07-16] MEDS: Enoxaparin 40 MG/0.4 ML Syringe SC (09:38)
[2024-07-16] MEDS: Pantoprazole Sodium 40 MG Tablet PO (09:38)
[2024-07-16] MEDS: Aspirin 81 MG TAB.CHEW PO (09:38)
[2024-07-16] MEDS: Ceftriaxone 1 GM/50 ML BAG IV (09:38)
[2024-07-16] MEDS: Menthol/Lanolin/Calamine/Znox 113 GM Tube 1 APPLIC TOPICAL ×4 (09:39→21:49)
[2024-07-16] MEDS: 0.9% Saline Lock 10 ML Syringe IV (09:44)
--- NOTE | 2024-07-16 10:03 | PCM.PN.HOSP ---
Reason for Visit Reason for Visit: Diagnoses Cerebral infarction, unspecified (07/14/24) Subjective Subjective Patient acute CVA was confirmed on her MRI. Objective Data Objective Data Vital Signs: Vital Signs Temp Pulse Resp BP Pulse Ox O2 Del Method 97.5 F L 98 18 102/64 100 Room Air 07/16/24 09:34 07/16/24 09:34 07/16/24 09:34 07/16/24 09:34 07/16/24 09:34 07/16/24 09:34 Oxygen Delivery Method Room Air Weight: 78 kg Body Mass Index (BMI) 25.4 Intake & Output: Intake and Output for Last 24 Hours 07/14/24 07/15/24 07/16/24 23:59 23:59 23:59 Intake Total 1000 / 1000 1770 / 1770 60 / 60 Balance 1000 / 1000 177 / 1770 60 / 60 Lab / Micro Data 07/16/24 06:56 07/16/24 06:56 Labs: Laboratory Results - last 24 hr 07/16/24 06:56: WBC 6.6, RBC 3.30 L, Hgb 10.8 L, Hct 33.5 L, MCV 101.5 H, MCH 32.7 H, MCHC 32.2 D, RDW Std Deviation 61.6 H, RDW Coeff of Jerson 16.5 H, Plt Count 212, MPV 11.9, Immature Gran % (Auto) 0.800, Neut % (Auto) 69.6, Lymph % (Auto) 18.7 L, [place] % (Auto) 9.5, Eos % (Auto) 0.6, Baso % (Auto) 0.8, Absolute Neuts (auto) 4.6, Absolute Lymphs (auto) 1.24, Nucleated RBC % 0, Sodium 149 H, Potassium 3.4 L, Chloride 119 H, Carbon Dioxide 23.0, Anion Gap 7, BUN 48 H, Creatinine 1.19 H, Estim Creat Clear Calc 51.88, Est GFR (MDRD) Af Amer 59 L, Est GFR (MDRD) Non-Af 49 L, BUN/Creatinine Ratio 40.3 H, Glucose 96, Calcium 8.9, Phosphorus 2.5, Magnesium 2.1, Triglycerides 73, Cholesterol 124, LDL Cholesterol 60, VLDL Cholesterol 15, HDL Cholesterol 49 Micro: Microbiology 07/14/24 17:30 Urine, Clean Catch Urine Culture - Preliminary Culture exhibits no growth. Radiography Diagnostic Testing: Radiology Impression Foot X-Ray 07/14/24 18:20 IMPRESSION: Hallux valgus. No sclerosis or osteolysis consistent with osteomyelitis but bone scan or MRI would be more sensitive. Electronically Signed: iMles Soto MD at 20:43 EST Reading Location ID and State: [address] [place] [address] Tel , Service support , Foot X-Ray 07/14/24 18:20 IMPRESSION: Hallux valgus. No fracture. Electronically Signed: Miles Soto MD at 23:09 EST Reading Location ID and State: [address] [place] [address] Tel , Service support , Brain MRI 07/15/24 00:44 IMPRESSION: 1. Small to moderate-sized acute infarcts of the left basal ganglia and posterior limb of the internal capsule extends up to the periventricular white matter. A small acute infarct is also present in the posterior medial aspect of the left cerebellar lobe see image #7/58 series 4. No hemorrhagic transformation is present. No additional acute infarcts are seen. Electronically Signed: Andrés Gracia MD at 11:47 EST , Echocardiogram 07/15/24 00:46 Interpretation Summary The estimated ejection fraction is 70 %. No evidence for diastolic dysfunction. Ordering Physician: Gabriella Forbes Referring Physician: Gabriella Forbes Performed By: Pebbles Almazan RDCS Physical Exam Narrative GENERAL: cooperative HEENT: Atraumatic; normocephalic EYES; Anicteric, Normal Conjunctiva NECK; supple, normal thyroid, RESPIRATORY: Diminished to auscultation CARDIOVASCULAR: Regular S1 S2, GI: soft, normoactive bowel sounds, : No Renal angle tenderness; EXTREMITIES: No edema, no clubbing, MUSCULOSKELETAL: no muscle wasting NEURO: Awake; no lateralizing signs. SKIN: Bruises on lower extremities PSYCH; Flat affect Assessment & Plan Assessment/Plan (1) CVA (cerebral vascular accident): PLAN: Plan Patient is a 59-year-old lady who presented to the emergency department after apparently falling on ice with hitting her head. 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 Patient admitted to a monitored bed for continuous telemetry. Ordered neurochecks every 4 hours patient was started on aspirin statin therapy MRI 2D echo ordered consult placed to [facility] teleneurology - Patient MRI demonstrated small to moderate-sized acute infarcts of the left basal ganglia and posterior limb of the internal capsule extends up to the periventricular white matter. A small acute infarct is also present in the posterior medial aspect of the left cerebellar lobe. 2D echo did show The estimated ejection fraction is 70 %. No evidence for diastolic dysfunction -Requested for PT/OT/ST eval and case management to assist with disposition possibly to a retirement facility versus inpatient 2. Mechanical fall ? With resultant right hip contusion imaging studies did not show any fractures plan is to treat symptomatically 3. Mild rhabdomyolysis ? Following patient's fall patient is on IV hydration with subsequent monitoring of electrolyte 4. Hypokalemia ? Corrected for protocol repeat labs ordered for monitoring 5. Acute cystitis ? Patient started on ceftriaxone urine culture sent 6. Mild elevation of troponin ? Possibly demand ischemia echo ordered for wall motion abnormality evaluation 7. Paroxysmal atrial fibrillation ? Rate controlled ;Patient will need to be discharged on systemic anticoagulation given her presentation 8. History of colon cancer ? Status post partial colectomy patient has remained in remission ? 07/08/2024; consult placed to GI for endoscopic evaluation given patient history of colon cancer prior to starting patient on systemic anticoagulant 9. History of peptic ulcer disease ? With gastric perforation patient started on PPI 10. Hypertension ? Given patient presentation permissive hypertension protocol will be followed 11. Tobacco dependence ? Counseled on cessation, offered nicotine patch for tobacco cravings 12. DVT prophylaxis ? On enoxaparin 13. Hypokalemia ? Corrected per protocol 14. Hyperonatremia ? Patient placed on D5 W repeat BMP ordered for subsequent Time spent in the patient's overall evaluation,decision-making process, review of diagnostic data, adjustment of management, discussion with other providers, nursing nursing and ancillary staff involved in patient's care documentation,50 Minutes Charges/Coding Visit Charges Inpatient E&M: [id number] [facility] Hosp L3
[2024-07-16] MEDS: Dextrose 5%-Water (1000mL Bag) 1,000 ML 100 ML IV ×2 (10:40→21:57)
[2024-07-16] MEDS: Potassium Chloride Oral Tablet 20 MEQ PO ×2 (11:16→18:12)
--- NOTE | 2024-07-16 11:53 | STROKE.CONS ---
Assessment and Plan: Stroke Assessment/Plan Assessment/Plan SOLA GARCÍA is a 59 F with a history of tobacco use, TIA, HTN, HLD, pAF, ICAD, GERD with history of Gastric ulcer perforation c/b GIB with surgical intervention, Colon cancer s/p partial colectomy who presents for evaluation after mechanical fall without head strike or LOC; and R sided weakness, found to have concern for acute L basal ganglia and posterior limb of the IC stroke, and small acute punctate infarct in the L cerebellar lobe. Neurological examination on 07/15 showed NIHSS 6 for R facial, RUE drift, RLE weakness with drift, RUE dysmetria, mild dysarthria. On re-evlauation on 07/16 NIHSS improved to 1 for RLE drift and resolution of facial droop, dysmetria, dysarthria, and RUE drift. Patient reports feeling better today, but does have difficulty ambulating as the day goes on. Neuroimaging shows L BG, L posterior limb of IC, and L cerebellar stroke . CTA with R ICA stenosis > 70%, however < 50% on L ICA. A1C 5.1. LDL 60. TTE EF 70%, no atrial enlargement, no thrombus, no PFO, no severe valvular disease. Stroke Etiology: Cardioembolic 2/2 AFIB - Stroke workup complete - Anti-platelet medication/Anti-coagulation Plan: Recommend transition to DOAC prior to discharge for secondary stroke risk reduction. No need to delay initiation from a neurovascular standpoint. However, patient does have a history of GIB (she reports this was in 2018 and has not had issues since), and would ensure patient is safe for AC from a systemic standpoint prior to initiation. Will defer systemic clearanto the primary team. - Will need follow up with Neurovascular Clinic and monitoring of ICAD (intracranial atherosclerotic disease). At this time, given that the R ICA has more severe stenosis but is not likely not symptomatic, and imaging revealing two territory infarctions consistent with cardioembolic phenomenon, would not recommend urgent endovascular intervention at this time. But she will need close follow up and surveillance with vascular risk factor modification. - Vascular risk factor modification. The following are the recommended guidelines: LDL Goal < 70, continue Atorvastatin 80 mg qhs Smoking Cessation, counseling provided, patient has decreased usage from 2-3 packs a day to 2-3 cigarettes a day Pre-Diabetes Management shelter blood pressure control should achieve <130/80 mmHg. BP management should aim to achieve retirement control in a reasonable amount of time, taking into consideration the patient's requirements. Weight Management: Goal for BMI is 18.5 -24.9 kg/m2 Alcohol: No more than 2 drinks/day for men or 1 drink/day for non- women - Promote lifestyle modification: weight control, physical activity, moderation of alcohol intake, moderate sodium intake. - PT/OT/[employer] consultations Followup with PCP in 1-2 weeks, and in Neurology clinic in 6-12 weeks Neurovascular will sign off. HPI Consult Data Date of Consult: 07/16/24 HPI Narrative HPI Narrative: SOLA GARCÍA is a 59 F with a history of tobacco use, TIA, HTN, HLD, pAF, GERD with history of Gastric ulcer perforation c/b GIB with surgical intervention, Colon cancer s/p partial colectomy who presents for evaluation after mechanical fall without head strike or LOC; and R sided weakness. The patient reports she slipped and fell on ice outside of her house. She denies head strike or loss of consciousness. She denies presyncopal symptoms prior the event. She states she was trying to leave in a hurry and it all happend so fast. She is unsure if her right side was notably weaker before or after the fall. She reports history of TIA 6 years ago. She reports two episodes of vertigo and fall for which she had a workup and told she had TIA. She has not been on ASA or statin or her antiHTN medications because she is unable to fill the prescription and get refills. She reports history of smoking but has cut down from 2-3 packs/day to 2-3 cigarettes/day. She denies being on blood thinners at home at this time. She reports noncompliance with many medications as she is not able to get refills. Currently denies headache, pain. She has continued right arm drift and slowed finger taps with miss with finger to nose testing. She has drift and fall of her right leg. She has undergone evaluation of of R hip pain with CT Abdomen Pelvis, Xrays, and has had her cervical spine clearance. CTH reveals L neostriatum infarct. [facility] Medical History Tobacco use History of colon cancer History of GI bleed PAF (paroxysmal atrial fibrillation) History of stroke Anxiety TBI (traumatic brain injury) Gastric ulcer Allergy/AdvReac Type Severity Reaction Status Date / Time Penicillins Allergy Severe Other Verified 07/14/24 15:10 Family History (Updated 07/15/24 @ 00:[address] Gabriella Forbes MD) Mother CVA (cerebral vascular accident) Hypertension Father History of lung cancer COPD (chronic obstructive pulmonary disease) Surgical History (Updated 07/15/24 @ 00:[address] Gabriella Forbes MD) History of gastric surgery History of bowel resection S/P complete hysterectomy Social History (Updated 07/15/24 @ 00:[address] Gabriella Forbes MD) household members: none Smoking Status: Current every day smoker tobacco type: cigarettes alcohol intake: never substance use type: does not use Vital Signs Vital Signs Vital Signs: 07/15/24 13:48 07/15/24 15:20 07/15/24 15:40 Temperature 97.9 F Temperature Source Temporal Pulse Rate 84 Pulse Strength Respiratory Rate 18 Respiratory Effort Normal Non-Labored Respiratory Depth Normal Respiratory Pattern Normal Blood Pressure 115/47 L Blood Pressure Mean 69 Blood Pressure Source Monitor Blood Pressure Position Semi-Fowlers Blood Pressure Location Left Arm Pulse Ox 97 99 Oxygen Delivery Method Room Air Room Air 07/15/24 19:29 07/15/24 19:39 07/15/24 22:23 Temperature 97.0 F L 96.5 F L Temperature Source Temporal Temporal Pulse Rate 91 80 Pulse Strength Respiratory Rate 18 18 Respiratory Effort Normal Non-Labored Respiratory Depth Normal Respiratory Pattern Normal Blood Pressure 118/51 L 121/57 H Blood Pressure Mean 73 78 Blood Pressure Source Monitor Monitor Blood Pressure Position Semi-Fowlers Semi-Fowlers Blood Pressure Location Right Arm Left Arm Pulse Ox 97 97 Oxygen Delivery Method Room Air Room Air Nasal Cannula 07/15/24 22:25 07/16/24 02:18 07/16/24 02:25 Temperature 96.7 F L Temperature Source Temporal Pulse Rate 79 Pulse Strength Normal (2+) Respiratory Rate 18 Respiratory Effort Normal Non-Labored Respiratory Depth Normal Respiratory Pattern Normal Blood Pressure 123/53 H Blood Pressure Mean 76 Blood Pressure Source Monitor Blood Pressure Position Semi-Fowlers Blood Pressure Location Left Arm Pulse Ox 99 97 Oxygen Delivery Method Room Air Room Air 07/16/24 06:12 07/16/24 08:00 07/16/24 08:46 Temperature 96.5 F L Temperature Source Temporal Pulse Rate 81 75 Pulse Strength Normal (2+) Respiratory Rate 18 Respiratory Effort Respiratory Depth Respiratory Pattern Blood Pressure 108/59 L Blood Pressure Mean 75 Blood Pressure Source Monitor Blood Pressure Position Semi-Fowlers Blood Pressure Location Left Arm Pulse Ox 99 Oxygen Delivery Method Room Air 07/16/24 08:48 07/16/24 09:34 Temperature 97.5 F L Temperature Source Oral Pulse Rate 98 Pulse Strength Respiratory Rate 18 Respiratory Effort Normal Respiratory Depth Normal Respiratory Pattern Normal Blood Pressure 102/64 Blood Pressure Mean 76 Blood Pressure Source Monitor Blood Pressure Position Supine Blood Pressure Location Right Arm Pulse Ox 95 100 Oxygen Delivery Method Room Air Room Air Weight Weight: 78 kg Body Mass Index (BMI) 25.4 EEG Results Procedure Details EEG Procedure Details: SOLA GARCÍA is a 59 year old F with a past medical history of , who presents for evaluation of Electroencephalogram on DATE at TIME NIHSS NIHSS Nursing Documentation NIHSS Nursing Documentation: NIHSS: Ischemic Stroke/TIA Start: 07/15/24 00:45 Text: For PCU Patients: NIH and Neuro Check every 4 Status: Active hours, PRN and with change in RN caregiver. Freq: [id number] Protocol: Activity Type Activity Date Activity User E-sign Co-sign Detail Recorded Client Recorded Date Recorded By Document 07/16/24 10:00 CD [id number] 07/16/24 10:03 CD 07/16/24 10:00 NIH Stroke Scale [NIHSS] A score of 0 is normal or asymptomatic . Total possible score is 42. Inpatient: RN or Physician to activate a stroke alert for onset of new stroke symptoms or with NIHSS increase >/= 3 points. Following change in neurological status, NIHSS will be performed per physician order or more frequently PRN. -1a. Level of Consciousness Alert; keenly responsive -1b. LOC Questions Answers BOTH questions correctly. -1c. LOC Commands Performs both tasks correctly . -2. Best Gaze Normal -3. Visual No visual loss -4. Facial Palsy Minor paralysis (flattened nasolabial fold , asymmetry on smiling) -5a. Left Arm No drift; arm holds 90 (or 45 ) degrees for full 10 seconds -5b. Right Arm No drift; arm holds 90 (or 45 ) degrees for full 10 seconds -6a. Left Leg No drift; leg holds 30-degree position for full 5 seconds -6b. Right Leg No drift; leg holds 30-degree position for full 5 seconds -7. Limb Ataxia Absent -8. Sensory Normal; no sensory loss -9. Best Language No aphasia; normal -10. Dysarthria Normal -11. Extinction and Inattention No abnormality -Total 1 Query Text:A score of 0 is normal or asymptomatic. Total possible score is 42 . ED: Notify Physician for NIHSS increase by > / = 3 points. Inpatient: RN or Physician to activate a stroke alert for NIHSS increase of > / = 3 points. Coma Scale [Assess] -Eye Opening Spontaneous -Motor Obeys Commands -Verbal Oriented [Total] -Coma Scale Total 15 NIHSS 1a. Level of Consciousness: Alert; keenly responsive 1b. LOC Questions: Answers BOTH questions correctly. 1c. LOC Commands: Performs both tasks correctly. 2. Best Gaze: Normal 3. Visual: No visual loss 4. Facial Palsy: Normal symmetrical movements 5a. Left Arm: No drift; arm holds 90 (or 45) degrees for full 10 seconds 5b. Right Arm: No drift; arm holds 90 (or 45) degrees for full 10 seconds 6a. Left Leg: No drift; leg holds 30-degree position for full 5 seconds 6b. Right Leg: Drift; leg falls by the end of 5-seconds, but does not hit bed 7. Limb Ataxia: Absent 8. Sensory: Normal; no sensory loss 9. Best Language: No aphasia; normal 10. Dysarthria: Normal 11. Extinction and Inattention: No abnormality Total: 1 Lab / Micro Data 07/16/24 06:56 07/16/24 06:56 Labs: Laboratory Results - last 24 hr 07/16/24 06:56: WBC 6.6, RBC 3.30 L, Hgb 10.8 L, Hct 33.5 L, MCV 101.5 H, MCH 32.7 H, MCHC 32.2 D, RDW Std Deviation 61.6 H, RDW Coeff of Jerson 16.5 H, Plt Count 212, MPV 11.9, Immature Gran % (Auto) 0.800, Neut % (Auto) 69.6, Lymph % (Auto) 18.7 L, [place] % (Auto) 9.5, Eos % (Auto) 0.6, Baso % (Auto) 0.8, Absolute Neuts (auto) 4.6, Absolute Lymphs (auto) 1.24, Nucleated RBC % 0, Sodium 149 H, Potassium 3.4 L, Chloride 119 H, Carbon Dioxide 23.0, Anion Gap 7, BUN 48 H, Creatinine 1.19 H, Estim Creat Clear Calc 51.88, Est GFR (MDRD) Af Amer 59 L, Est GFR (MDRD) Non-Af 49 L, BUN/Creatinine Ratio 40.3 H, Glucose 96, Calcium 8.9, Phosphorus 2.5, Magnesium 2.1, Triglycerides 73, Cholesterol 124, LDL Cholesterol 60, VLDL Cholesterol 15, HDL Cholesterol 49 Micro: Microbiology 07/14/24 17:30 Urine, Clean Catch Urine Culture - Preliminary Culture exhibits no growth. Imaging Radiology Impression Foot X-Ray 07/14/24 18:20 IMPRESSION: Hallux valgus. No sclerosis or osteolysis consistent with osteomyelitis but bone scan or MRI would be more sensitive. Electronically Signed: Miels Soto MD at 20:43 EST Reading Location ID and State: [address] [place] [address] Tel , Service support , Foot X-Ray 07/14/24 18:20 IMPRESSION: Hallux valgus. No fracture. Electronically Signed: Miles Soto MD at 23:09 EST Reading Location ID and State: [facility] / [place] Tel , Service support , Echocardiogram 07/15/24 00:46 Interpretation Summary The estimated ejection fraction is 70 %. No evidence for diastolic dysfunction. Ordering Physician: Gabriella Forbes Referring Physician: Gabriella Forbes Performed By: Pebbles Almazan RDCS Active Medications Active Medications Active Medications: Current Medications Generic Name Dose Route Start Last Admin Trade Name Freq PRN Reason Stop Dose Admin Acetaminophen 650 mg 07/15/24 00:44 Acetaminophen 325 Mg Tablet PO Q4H PRN PRN Fever, pain 1-1010 Al Hydroxide/Mg Hydroxide 30 ml 07/15/24 00:49 Mag Hydrox/Al Hydrox/Simeth 30 Ml Udc PO Q6H PRN PRN Gastric Burning Albuterol Sulfate 2.5 mg 07/15/24 00:44 Albuterol 2.5 Mg/3 Ml Vial.Neb. INHALATION Q2H PRN PRN Dyspnea, wheezing Aspirin 81 mg 07/15/24 08:00 07/16/24 09:38 Aspirin 81 Mg Tab.Chew PO 81 mg BREAKFAST MAREK Administration Atorvastatin Calcium 80 mg 07/15/24 22:00 07/15/24 22:26 Atorvastatin Calcium 80 Mg Tablet PO 80 mg QHS MAREK Administration Calamine/Phenol 1 applic 07/15/24 10:00 07/16/24 09:39 Menthol/Lanolin/Calamine/Znox 113 Gm Tube TOPICAL 1 applic 4X/DAY MAREK Administration Protocol Enoxaparin Sodium 40 mg 07/15/24 10:00 07/16/24 09:38 Enoxaparin 40 Mg/0.4 Ml Syringe SC 40 mg DAILY MAREK Administration Guaifenesin 20 ml 07/15/24 00:49 Guaifenesin 10 Ml Udc (200mg/10ml) PO Q4H PRN PRN COUGH Sodium Chloride 100 mls @ 15 mls/hr 07/14/24 23:42 IV .Q6H40M PRN Saline Flush Sodium Chloride 100 mls @ 15 mls/hr 07/14/24 23:42 IV .Q6H40M PRN Additional IVPB Infusion Ceftriaxone Sodium 1 gm in 50 mls @ 100 mls/hr 07/15/24 10:00 07/16/24 10:42 Rocephin IV Infused Q24 MAREK Infusion Dextrose 1,000 mls @ 100 mls/hr 07/16/24 10:10 07/16/24 10:40 IV 100 mls/hr .Q10H MAREK Administration Lidocaine 2 patch 07/15/24 00:47 07/16/24 09:38 Lidocaine 5% Patch TOPICAL Not Given DAILY [facility] Protocol Melatonin 3 mg 07/15/24 00:49 Melatonin 3 Mg Tablet PO QHS PRN PRN INSOMNIA Ondansetron HCl 4 mg 07/15/24 00:49 Ondansetron 4 Mg/2 Ml Vial IV Q8H PRN PRN NAUSEA/VOMITING Pantoprazole Sodium 40 mg 07/15/24 10:00 07/16/24 09:38 Pantoprazole Sodium 40 Mg Tablet PO 40 mg DAILY MAREK Administration Potassium Chloride 20 meq 07/16/24 10:15 07/16/24 11:16 Potassium Chloride Oral Tablet 20 Meq PO 20 meq BIDCM MAREK Administration Prochlorperazine Edisylate 5 mg 07/15/24 00:49 Prochlorperazine 10 Mg/2 Ml Vial IV Q4H PRN PRN Breakthrough Nausea/Vomiting Senna/Docusate Sodium 2 tablet 07/15/24 00:49 Senna/Docusate Sodium 1 Tablet PO BID PRN PRN Constipation Sodium Chloride 10 - 40 ml 07/14/24 23:42 07/16/24 09:44 0.9% Saline Lock 10 Ml Syringe IV 10 ml UD PRN Administration SALINE FLUSH
--- NOTE | 2024-07-16 12:16 | CASEMGMT ---
SW spoke with patient and obtained her choices. Patient said someone mentioned the Rehab Unit at [facility]. SW let patient know SW can make a referral. Patient's next choices would be [facility], [facility], and [facility]. SW made a referral to [facility] Acute Rehab Unit. Await response. Plan: Acute Rehab vs SNF [facility]
--- NOTE | 2024-07-16 14:49 | CASEMGMT ---
Patient was accepted in [facility] Acute Rehab. SW notified patient. SW also provided patient with information on the rehab unit. SW explained that patient will stay here until insurance approves and this can sometimes take a day or two. SW let patient know she will be able to wear regular clothes while on the rehab unit. Plan: d/c to [facility] Acute Rehab pending patient being medically ready and insurance approval. [facility]
[2024-07-16] MEDS: Acetaminophen 325 MG Tablet 650 MG PO (21:47)
[2024-07-16] MEDS: Atorvastatin Calcium 80 MG Tablet PO (21:47)
[2024-07-17] VITALS (7 sets, daily range): BP systolic 106–124; BP diastolic 55–74; PULSE 69–79; RESP 16–18; TEMP 36.6–37.1; O2SAT 97–100; BMI 25.4; BMI 26.5; BMI 26.6
[2024-07-17 06:35] LABS: Absolute Lymphocyte Count 1.67 X10^3/uL (0.83-4.51); Absolute Neutrophil Count 4.3 X10^3/uL (2.0-7.7); Basophil# 0.05 X10^3/uL; Basophil% 0.7 % (0-1); Eosinophil# 0.11 X10^3/uL; Eosinophils% 1.6 % (0-5); Hematocrit 30.9 % (37-47); Hemoglobin 10.3 g/dL (12.0-15.0); Lymphocyte # 1.67 X10^3/ul (0.83-4.51); Lymphocyte % 24.7 % (19-41); Mean Corp Hgb Conc 33.3 g/dL (32-36); Mean Corpuscular Hgb 32.8 pg (27.0-32.0); Mean Corpuscular Volume 98.4 fL (81-99); Monocyte# 0.52 X10^3/uL; Monocyte% 7.7 % (0-10); NRBC Flagged by Analyzer 0 % (0-5); Neutrophil # 4.34 X10^3/uL (2.7-7.7); Neutrophil % 64.1 % (47-70); Platelet Count 208 K/mm3 (150-450); RBC Distribution Width SD 57.9 fl (35.1-43.9); Red Blood Count 3.14 M/mm3 (4.2-5.4); White Blood Count 6.8 K/mm3 (4.4-11.0)
[2024-07-17 06:59] LABS: Anion Gap 8 (5-15); BUN 46 mg/dL (7-18); BUN/Creat Ratio 42.6 RATIO (10-20); Calcium,Total 8.8 mg/dL (8.5-10.1); Chloride 105 mmol/L (98-107); Creatinine, Serum 1.08 mg/dL (0.55-1.02); EST Glomerular Filtration Rate 55 mL/min (>60); Est Glom Filt Rate - Afr Amer 66 mL/min (>60); Estimated Creatinine Clearance 62.45 ml/min; Glucose 115 mg/dL (74-106); Potassium 3.7 mmol/L (3.5-5.1); Sodium Level 134 mmol/L (136-145)
[2024-07-17] MEDS: Dextrose 5%-Water (1000mL Bag) 1,000 ML 100 ML IV (08:59)
[2024-07-17] MEDS: Ceftriaxone 1 GM/50 ML BAG IV (08:59)
[2024-07-17] MEDS: Pantoprazole Sodium 40 MG Tablet PO (09:00)
[2024-07-17] MEDS: Aspirin 81 MG TAB.CHEW PO (09:00)
[2024-07-17] MEDS: Potassium Chloride Oral Tablet 20 MEQ PO ×2 (09:00→17:30)
[2024-07-17] MEDS: Enoxaparin 40 MG/0.4 ML Syringe SC (09:02)
[2024-07-17] MEDS: Menthol/Lanolin/Calamine/Znox 113 GM Tube 1 APPLIC TOPICAL ×4 (09:03→21:50)
--- NOTE | 2024-07-17 15:28 | PN.HOSP_ITS ---
Reason for Visit Reason for Visit: Diagnoses Cerebral infarction, unspecified (07/14/24) Objective Data Objective Data Vital Signs: Vital Signs Temp Pulse Resp BP Pulse Ox O2 Del Method 98.3 F 79 16 106/55 L 97 Room Air 07/17/24 14:31 07/17/24 14:31 07/17/24 14:31 07/17/24 14:31 07/17/24 14:31 07/17/24 14:31 Oxygen Delivery Method Room Air Weight: 179 lb 10.828 oz Body Mass Index (BMI) 26.5 Intake & Output: Intake and Output for Last 24 Hours 07/15/24 07/16/24 07/17/24 23:59 23:59 23:59 Intake Total 1770 / 1770 2310 / 2430 1410 / 1410 Balance 1770 / 1770 2310 / 2430 1410 / 1410 Lab / Micro Data 07/17/24 05:24 07/17/24 05:24 Labs: Laboratory Results - last 24 hr 07/17/24 05:24: WBC 6.8, RBC 3.14 L, Hgb 10.3 L, Hct 30.9 L, MCV 98.4, MCH 32.8 H, MCHC 33.3, RDW Std Deviation 57.9 H, RDW Coeff of Jerson 16.0 H, Plt Count 208, MPV 12.0, Immature Gran % (Auto) 1.200 H, Neut % (Auto) 64.1, Lymph % (Auto) 24.7, [place] % (Auto) 7.7, Eos % (Auto) 1.6, Baso % (Auto) 0.7, Absolute Neuts (auto) 4.3, Absolute Lymphs (auto) 1.67, Nucleated RBC % 0, Sodium 134 L, Potassium 3.7, Chloride 105, Carbon Dioxide 21.0, Anion Gap 8, BUN 46 H, C reatinine 1.08 H, Estim Creat Clear Calc 62.45, Est GFR (MDRD) Af Amer 66, Est GFR (MDRD) Non-Af 55 L, BUN/Creatinine Ratio 42.6 H, Glucose 115 H, Calcium 8.8 Micro: Microbiology 07/14/24 17:30 Urine, Clean Catch Urine Culture - Final Culture exhibits no growth. Physical Exam Narrative Seen and examined General: Alert, Oriented x3, Cooperative HEENT: Atraumatic, PERRLA, EOMI, Normocephalic Oral: No Gingival or Mucosal Lesions/ Ulcerations Neck: Supple, No JVD, Negative Carotid Bruits Chest wall/Lungs: Air entry diminished in bilateral lung bases. No crepitation/rhonchi Cardiovascular: Irregular rhythm, Afib, murmur. Abdomen: Bowel Sounds Present, Soft, Non Tender, Non-Distended : No dysuria. No renal angle tenderness. No suprapubic tenderness. Extremities: No edema, Capillary Refill Less than 3 Seconds Skin: No rashes, No breakdown Musculoskeletal: No Tenderness to Palpation of Joints or Extremities Neurological: right sided weakness. Right leg>arm. problem in finding words to recall. mild right facial droop Psych/Mental Status: Flat affect. Assessment & Plan Assessment/Plan (1) CVA (cerebral vascular accident): PLAN: Plan Patient is a 59-year-old lady who presented to the emergency department after apparently falling on ice with hitting her head. 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 Patient admitted to a monitored bed for continuous telemetry. Ordered neurochecks every 4 hours patient was started on aspirin statin therapy MRI 2D echo ordered consult placed to [facility] teleneurology - Patient MRI demonstrated small to moderate-sized acute infarcts of the left basal ganglia and posterior limb of the internal capsule extends up to the periventricular white matter. A small acute infarct is also present in the posterior medial aspect of the left cerebellar lobe. 2D echo did show The estimated ejection fraction is 70 %. No evidence for diastolic dysfunction -Requested for PT/OT/ST eval and case management to assist with disposition possibly to a intermediate facility versus inpatient 2. Mechanical fall ? With resultant right hip contusion imaging studies did not show any fractures plan is to treat symptomatically 3. Mild rhabdomyolysis ? Following patient's fall patient is on IV hydration with subsequent monitoring of electrolyte 4. Hypokalemia ? Corrected for protocol repeat labs ordered for monitoring 07/17: Repeat potassium is normal. 5. UTI ruled out: Empirically patient was started on IV ceftriaxone but urine culture shows no growth. Discontinue IV ceftriaxone 6. Mild elevation of troponin ? Possibly demand ischemia echo ordered for wall motion abnormality evaluation 7. Paroxysmal atrial fibrillation ? Rate controlled ;Patient will need to be discharged on systemic anticoagulation given her presentation 8. History of colon cancer ? Status post partial colectomy patient has remained in remission consult placed to GI for endoscopic evaluation given patient history of colon cancer prior to starting patient on systemic anticoagulant 07/17: Plan for EGD and colonoscopy. 9. History of peptic ulcer disease ? With gastric perforation patient started on PPI 10. Hypertension ? Given patient presentation permissive hypertension protocol will be followed 11. Tobacco dependence ? Counseled on cessation, offered nicotine patch for tobacco cravings 12. DVT prophylaxis ? On enoxaparin 13. Hypokalemia ? Corrected per protocol 14. Hypernatremia: Patient was admitted with hypernatremia ? Patient placed on D5 W repeat BMP ordered for subsequent 07/17 sodium was 147. Repeat sodium is 134. Mild hyponatremia Charges/Coding Visit Charges Inpatient E&M: 00978 Subs Hosp L2
[2024-07-17] MEDS: Bisacodyl 5 MG Tablet 20 MG PO (17:28)
[2024-07-17] MEDS: 0.9% Normal Saline (1000mL) 1,000 ML 50 ML IV (17:29)
--- NOTE | 2024-07-17 18:21 | EX.PCM.CON.G ---
HPI Consult Data Date of Consult: 07/17/24 HPI Narrative Reason for Consultation: Anemia HPI Narrative: SOLA GARCÍA, is a 59 y/o F w/ PMHx: PAF, Tobacco use GERD w/ Hx prior gastric ulcer/perforation w/ GI bleed w/ history of surgical intervention, Hx Colon CA s/p partial colectomy, HTN, who presented to the [facility] ED on 07/14/2024 unfortunately slipping the ice with significant discomfort of the hip following with persistent right hip pain with fall in the ED. She was notable to have confusion, evidence expressive aphasia with a very notable acute mental status change . CT of the brain with acute or subacute infarct in the left neostriatum, CT cervical spine with severe bilateral neuroforaminal narrowing at C5-6, CTA head and neck with greater than 70% stenosis proximal right ICA, 50 to 75% stenosis cavernous segment right ICA, no large vessel occlusion in the head. 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 I was asked to see her due to persistent anemia, Hemoccult positive stools and history of peptic ulcer disease and history of colon cancer in regards anticoagulation and antiplatelet therapy [facility] Medical History Tobacco use History of colon cancer History of GI bleed PAF (paroxysmal atrial fibrillation) History of stroke Anxiety TBI (traumatic brain injury) Gastric ulcer Allergy/AdvReac Type Severity Reaction Status Date / Time Penicillins Allergy Severe Other Verified 07/14/24 15:10 Family History Mother CVA (cerebral vascular accident) Hypertension Father History of lung cancer COPD (chronic obstructive pulmonary disease) Surgical History History of gastric surgery History of bowel resection S/P complete hysterectomy Social History household members: none Smoking Status: Current every day smoker tobacco type: cigarettes alcohol intake: never substance use type: does not use Homelessness:: Unspecified ROS Constitutional Constitutional: Denies fatigue, fever(s), poor appetite, weight gain or weight loss Gastrointestinal Gastrointestinal: Denies belching, bloating, change in bowel habits, change in stool character, chewing difficulty, coffee ground emesis, constipation, cramping, diarrhea, dyspepsia, dysphagia, early satiety, excessive flatus, fecal incontinence, heartburn, hematemesis, hematochezia, hemorrhoids, loose stools, melena, nausea, odynophagia, rectal bleeding, tenesmus, vomiting or weight changes Physical Exam Const alert, oriented x3, no apparent distress and healthy appearing General Appearance: cooperative GI normal to inspection, nondistended, normoactive bowel sounds, soft to palpation, non-tender and non-distended Percussion: normal to percussion Rectal Exam: deferred Lab / Micro Data 07/18/24 04:37 07/18/24 04:37 Labs: Laboratory Results - last 24 hr 07/18/24 04:37: WBC 5.5, RBC 3.27 L, Hgb 10.6 L, Hct 32.7 L, MCV 100.0 H, MCH 32.4 H, MCHC 32.4, RDW Std Deviation 57.8 H, RDW Coeff of Jerson 15.8 H, Plt Count 220, MPV 12.1 H, Immature Gran % (Auto) 1.600 H, Neut % (Auto) 71.7 H, Lymph % (Auto) 14.3 L, [place] % (Auto) 9.7, Eos % (Auto) 2.2, Baso % (Auto) 0.5, Absolute Neuts (auto) 3.9, Absolute Lymphs (auto) 0.78 L, Nucleated RBC % 0, PT 13.0, INR 1.0, APTT 27.4, Sodium 136, Potassium 3.7, Chloride 108 H, Carbon Dioxide 21.0, Anion Gap 7, BUN 33 H, Creatinine 0.96, Estim Creat Clear Calc 70.45, Est GFR (MDRD) Af Amer 76, Est GFR (MDRD) Non-Af 62, BUN/Creatinine Ratio 34.2 H, Glucose 93, Calcium 8.6 Assessment & Plan Assessment/Plan (1) CVA (cerebral vascular accident): PLAN: Plan Patient is a 59-year-old lady who presented to the emergency department after apparently falling on ice with hitting her head. 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 Patient admitted to a monitored bed for continuous telemetry. Ordered neurochecks every 4 hours patient was started on aspirin statin therapy MRI 2D echo ordered consult placed to [facility] teleneurology - Patient MRI demonstrated small to moderate-sized acute infarcts of the left basal ganglia and posterior limb of the internal capsule extends up to the periventricular white matter. A small acute infarct is also present in the posterior medial aspect of the left cerebellar lobe. 2D echo did show The estimated ejection fraction is 70 %. No evidence for diastolic dysfunction -Patient being managed by hospitalist service History of colon cancer and history of peptic ulcer disease ? Status post partial colectomy patient has remained in remission ? Patient will need endoscopic evaluation given patient history of colon cancer prior to starting patient on systemic anticoagulant Charges/Coding Visit Charges Inpatient E&M: 80211 Init Hosp L3
[2024-07-17] MEDS: Polyethylene Glycol 3350 BOWEL PREP PO (18:22)
[2024-07-17] MEDS: Atorvastatin Calcium 80 MG Tablet PO (21:49)
[2024-07-18] VITALS (12 sets, daily range): BP systolic 97–138; BP diastolic 38–86; PULSE 73–89; RESP 16–18; TEMP 36.9–37.8; O2SAT 94–100; BMI 26.6
[2024-07-18 07:27] LABS: Absolute Lymphocyte Count 0.78 X10^3/uL (0.83-4.51); Absolute Neutrophil Count 3.9 X10^3/uL (2.0-7.7); Basophil# 0.03 X10^3/uL; Basophil% 0.5 % (0-1); Eosinophil# 0.12 X10^3/uL; Eosinophils% 2.2 % (0-5); Hematocrit 32.7 % (37-47); Hemoglobin 10.6 g/dL (12.0-15.0); Lymphocyte # 0.78 X10^3/ul (0.83-4.51); Lymphocyte % 14.3 % (19-41); Mean Corp Hgb Conc 32.4 g/dL (32-36); Mean Corpuscular Hgb 32.4 pg (27.0-32.0); Mean Platelet Vol. 12.1 fl (6.2-12.0); Monocyte# 0.53 X10^3/uL; Monocyte% 9.7 % (0-10); NRBC Flagged by Analyzer 0 % (0-5); Neutrophil # 3.92 X10^3/uL (2.7-7.7); Neutrophil % 71.7 % (47-70); Platelet Count 220 K/mm3 (150-450); RBC Distribution Width CV 15.8 % (11.6-14.6); RBC Distribution Width SD 57.8 fl (35.1-43.9); Red Blood Count 3.27 M/mm3 (4.2-5.4); White Blood Count 5.5 K/mm3 (4.4-11.0)
[2024-07-18 07:57] LABS: Anion Gap 7 (5-15); BUN 33 mg/dL (7-18); BUN/Creat Ratio 34.2 RATIO (10-20); Calcium,Total 8.6 mg/dL (8.5-10.1); Chloride 108 mmol/L (98-107); Creatinine, Serum 0.96 mg/dL (0.55-1.02); EST Glomerular Filtration Rate 62 mL/min (>60); Est Glom Filt Rate - Afr Amer 76 mL/min (>60); Estimated Creatinine Clearance 70.45 ml/min; Glucose 93 mg/dL (74-106); Potassium 3.7 mmol/L (3.5-5.1); Sodium Level 136 mmol/L (136-145)
[2024-07-18 08:32] LABS: Partial Thromboplast Time 27.4 Seconds (24.1-36.2)
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
--- NOTE | 2024-07-18 16:18 | PRE.ANES_ITS ---
ASA Classification* ASA Classification ASA Classification: 3 Assessment & Plan Anesthesia* Anesthesia Assessment Anesthesia Assessment: Discussed sedation and/or anesthesia options, risks, benefits, and alternatives with patient/parents/legal guardian/POA. Questions invited. The patient/parents/legal guardian/POA seems to understand and agrees to proceed with anesthesia plan. Reviewed the physical assessment, medical history, allergy history and patient home medications list prior to surgery/procedure/anesthetic and documented any changes. Performed airway and anesthesia risk assessments. Anesthesia Type Anesthesia Type: MAC History Source History Obtained from:: Patient and Chart Anesthesia Focused Assessment* Temperature: 100.0 F Pulse Rate: 80 Blood Pressure: 133/61 Respiratory Rate: 18 Pulse Ox: 100 Oxygen Delivery Method: Room Air Airway Assessment Mouth opens: >3 cm Mallampati Score: IV Teeth Condition: Missing (Patient has multiple missing teeth. Rest of the teeth are tight.) Neck Range of motion (ROM): Full ROM Focused Labs Anesthesia Preop lab: CBC WBC 5.5 K/mm3 (4.4-11.0) 07/18/24 04:37 07/18/24 RBC 3.27 M/mm3 (4.2-5.4) L 07/18/24 04:37 07/18/24 Hgb 10.6 g/dL (12.0-15.0) L 07/18/24 04:37 5 Hct 32.7 % (37-47) L 07/18/24 04:37 07/18/24 Plt Count 220 K/mm3 (150-450) 07/18/24 04:37 07/18/24 CHEMISTRY Potassium 3.7 mmol/L (3.5-5.1) 07/18/24 04:37 07/18/24 Sodium 136 mmol/L (136-145) 07/18/24 04:37 07/18/24 Magnesium 2.1 mg/dL (1.6-2.6) 07/16/24 06:56 07/16/24 Phosphorus 2.5 mg/dL (2.5-4.9) 07/16/24 06:56 07/16/24 BUN 33 mg/dL (7-18) H 07/18/24 04:37 07/18/24 Creatinine 0.96 mg/dL (0.55-1.02) 07/18/24 04:37 07/18/24 Glucose 93 mg/dL (74-106) 07/18/24 04:37 07/18/24 POC Glucose 127 mg/dL (74-106) H 07/14/24 16:33 07/14/24 TSH 1.510 uIU/mL (0.358-3.740) 07/15/24 07:03 06/20 01/10 COAG PT 13.0 SECONDS (11.7-14.9) 07/18/24 04:37 Pre-Assessment Diagnosis/Proposed Procedure Planned Operative Procedure(s): Esophagogastroduodenoscopy and colonoscopy Anesthesia History 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 When Was Last Pacemaker Check QUESTION #4 FULL TEXT: You/Your Family Experience fever (hyperthermia) with Anesthesia Last Oral Intake Last Oral intake: Last Oral Intake NPO since 00:00 07/17/24 22:10 Meds taken in AM with sips of water? Meds patient instructed to take am of surgery PONV PONV - founder chairman and chief creative officer: PONV - founder chairman and chief creative officer Female HX of Motion Sickness HX of N/V After Surgery Non-Smoker Duration of Surgery greater than 60 minutes Number of Risk Factors PONV Score Height & Weight Height & Weight: Anesthesia: Height & Weight Height 5 ft 9 in 07/17/24 22:10 Weight: 82 kg 07/17/24 22:51 Body Mass Index (BMI) 26.6 07/18/24 01:41 Respiratory Assessment Respiratory Assessment - founder chairman and chief creative officer: Respiratory Tract Infection Hx - founder chairman and chief creative officer Hx Respiratory Tract Infection Yes: Cold symptoms 2 weeks 07/17/24 22:10 ago STOP Sleep Apnea STOP Sleep Apnea - founder chairman and chief creative officer: STOP Sleep Apnea - founder chairman and chief creative officer Hx Hypertension No 07/18/24 10:00 Hx Sleep Apnea No 07/14/24 23:38 CPAP BIPAP Do you snore loudly (louder No 07/14/24 23:38 than talking or can be heard Do you often feel tired/ No 07/14/24 23:38 fatigued/ sleepy during daytime? Has anyone observed you stop No 07/14/24 23:38 breathing during sleep? STOP Results Negative 07/14/24 23:38 QUESTION #5 FULL TEXT : Do you snore loudly (louder than talking or can be heard through closed doors)? 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 Specify any problems Hx of Preganancy in last 3 N/A 07/14/24 23:38 Months Nurse Filling Out Transfusion [place] 07/14/24 23:38 & Questions: Date: 07/15/24 07/14/24 23:38 Time: 00:02 07/14/24 23:38 Patient unable to answer at this time (ie. confused, unrespo /Reproduction History /Reproductive History - founder chairman and chief creative officer: /Reproductive Hx- founder chairman and chief creative officer Hx Now No 07/17/24 22:10 Gestational Age (in weeks): EDC: Hx Hx Para Hx Section SAB No 07/17/24 22:10 Active Medications Active Medications: Current Medications Generic Name Dose Route Start Last Admin Trade Name Freq PRN Reason Stop Dose Admin Acetaminophen 650 mg 07/15/24 00:44 07/16/24 21:47 Acetaminophen 325 Mg Tablet PO 650 mg Q4H PRN PRN Administration Fever, pain 1-10/10 Al Hydroxide/Mg Hydroxide 30 ml 07/15/24 00:49 Mag Hydrox/Al Hydrox/Simeth 30 Ml Udc PO Q6H PRN PRN Gastric Burning Albuterol Sulfate 2.5 mg 07/15/24 00:44 Albuterol 2.5 Mg/3 Ml Vial.Neb. INHALATION Q2H PRN PRN Dyspnea, wheezing Aspirin 81 mg 07/15/24 08:00 07/18/24 10:30 Aspirin 81 Mg Tab.Chew PO Not Given BREAKFAST [facility] Atorvastatin Calcium 80 mg 07/15/24 22:00 07/17/24 21:49 Atorvastatin Calcium 80 Mg Tablet PO 80 mg QHS [facility] Administration Calamine/Phenol 1 applic 07/15/24 10:00 07/18/24 15:25 Menthol/Lanolin/Calamine/Znox 113 Gm Tube TOPICAL Not Given 4X/DAY [facility] Protocol Enoxaparin Sodium 40 mg 07/15/24 10:00 07/18/24 10:30 Enoxaparin 40 Mg/0.4 Ml Syringe SC Not Given DAILY [facility] Sodium Chloride 100 mls @ 15 mls/hr 07/14/24 23:42 IV .Q6H40M PRN Saline Flush Sodium Chloride 100 mls @ 15 mls/hr 07/14/24 23:42 IV .Q6H40M PRN Additional IVPB Infusion Lidocaine 2 patch 07/15/24 00:47 07/18/24 10:30 Lidocaine 5% Patch TOPICAL Not Given DAILY [facility] Protocol Ondansetron HCl 4 mg 07/15/24 00:49 Ondansetron 4 Mg/2 Ml Vial IV Q8H PRN PRN NAUSEA/VOMITING Pantoprazole Sodium 40 mg 07/15/24 10:00 07/18/24 10:31 Pantoprazole Sodium 40 Mg Tablet PO Not Given DAILY [facility] Potassium Chloride 20 meq 07/16/24 10:15 07/18/24 10:30 Potassium Chloride Oral Tablet 20 Meq [facility] Prochlorperazine Edisylate 5 mg 07/15/24 00:49 Prochlorperazine 10 Mg/2 Ml Vial IV Q4H PRN PRN Breakthrough Nausea/Vomiting Senna/Docusate Sodium 2 tablet 07/15/24 00:49 Senna/Docusate Sodium 1 Tablet PO BID PRN PRN Constipation Sodium Chloride 10 - 40 ml 07/14/24 23:42 07/16/24 09:44 0.9% Saline Lock 10 Ml Syringe IV 10 ml UD PRN Administration SALINE FLUSH PFSH Medical History Tobacco use History of colon cancer History of GI bleed PAF (paroxysmal atrial fibrillation) History of stroke Anxiety TBI (traumatic brain injury) Gastric ulcer Allergy/AdvReac Type Severity Reaction Status Date / Time Penicillins Allergy Severe Other Verified 07/14/24 15:10 Family History Mother CVA (cerebral vascular accident) Hypertension Father History of lung cancer COPD (chronic obstructive pulmonary disease) Surgical History History of gastric surgery History of bowel resection S/P complete hysterectomy Social History household members: none Smoking Status: Current every day smoker tobacco type: cigarettes alcohol intake: never substance use type: does not use Homelessness:: Unspecified Review of Systems (Anesthesia) ROS Narrative System reviewed and no additional complaints, except as documented.
--- NOTE | 2024-07-18 16:30 | COLBX_PTH ---
PATIENT: SOLA GARCÍA LOC: [facility] U#:[id number] AGE/SX: 59/F ROOM: [facility] RE07/14/[address]: Dr. Joe Doran MD : [id number] BED: 1 DIS: 07/23/2024 SPEC #: [id number] RECD: 07/19/24 09:50 STATUS: LES MINOR #: [id number] YOKASTA: 07/18/24 16:[address]: Jarvis Mari DEPT: SURGICAL PATHOLOGY RECD BY: Coral Caruso ENTERED: 07/19/24 10:47 SP TYPE: COLON BX OTHR DR: MD Dr. Akash Power MD Dr. Prakash Chand, MD No Primary Care Phys Tissues: Sigmoid colon biopsy Procedures: Surgery Specimen Level IV HEADER OPERATION: Colonoscopy with polypectomy and clip placement, EGD PRE-OP DIAGNOSIS: Anemia TISSUE SUBMITTED: Sigmoid polyp MICROSCOPIC DIAGNOSIS Sigmoid polyp, polypectomy: Fragments of tubular adenoma. Fragments of fecal material. 07/22/2024 MICROSCOPIC DESCRIPTION Slides are reviewed. GROSS DESCRIPTION Received in fixative is one container labeled with the patient's name and designated Sigmoid polyp. The specimen consists of multiple irregular fragments of light duggan soft tissue that in aggregate measure 1 x 0.7 x 0.2 cm. The specimen is totally submitted in one cassette. / 07/19/2024 TC:1 CPT:62028
--- NOTE | 2024-07-18 16:33 | PN.HOSP_ITS ---
Reason for Visit Reason for Visit: Diagnoses Cerebral infarction, unspecified (07/14/24) Objective Data Objective Data Vital Signs: Vital Signs Temp Pulse Resp BP Pulse Ox O2 Del Method 100.0 F H 80 18 133/61 H 100 Room Air 07/18/24 16:20 07/18/24 16:20 07/18/24 16:20 07/18/24 16:20 07/18/24 16:20 07/18/24 15:03 Oxygen Delivery Method Room Air Weight: 180 lb 12.465 oz Body Mass Index (BMI) 26.6 Intake & Output: Intake and Output for Last 24 Hours 07/16/24 07/17/24 07/18/24 23:59 23:59 23:59 Intake Total 2310 / 2430 2750 / 4523 2773 / 2773 Balance 2310 / 2430 2750 / 4523 2773 / 2773 Lab / Micro Data 07/18/24 04:37 07/18/24 04:37 Labs: Laboratory Results - last 24 hr 07/18/24 04:37: WBC 5.5, RBC 3.27 L, Hgb 10.6 L, Hct 32.7 L, MCV 100.0 H, MCH 32.4 H, MCHC 32.4, RDW Std Deviation 57.8 H, RDW Coeff of Jerson 15.8 H, Plt Count 220, MPV 12.1 H, Immature Gran % (Auto) 1.600 H, Neut % (Auto) 71.7 H, Lymph % (Auto) 14.3 L, [place] % (Auto) 9.7, Eos % (Auto) 2.2, Baso % (Auto) 0.5, Absolute Neuts (auto) 3.9, Absolute Lymphs (auto) 0.78 L, Nucleated RBC % 0, PT 13.0, INR 1.0, APTT 27.4, Sodium 136, Potassium 3.7, Chloride 108 H, Carbon Dioxide 21.0, Anion Gap 7, BUN 33 H, Creatinine 0.96, Estim Creat Clear Calc 70.45, Est GFR (MDRD) Af Amer 76, Est GFR (MDRD) Non-Af 62, BUN/Creatinine Ratio 34.2 H, Glucose 93, Calcium 8.6 Micro: Microbiology 07/14/24 17:30 Urine, Clean Catch Urine Culture - Final Culture exhibits no growth. Social Homelessness:: Unspecified Physical Exam Narrative No acute issues overnight. She has colonoscopy scheduled at 3:15 PM. Seen and examined General: Alert, Oriented x3, Cooperative HEENT: Atraumatic, PERRLA, EOMI, Normocephalic Oral: No Gingival or Mucosal Lesions/ Ulcerations Neck: Supple, No JVD, Negative Carotid Bruits Chest wall/Lungs: Air entry diminished in bilateral lung bases. No crepitation/rhonchi Cardiovascular: Irregular rhythm, Afib, murmur. Abdomen: Bowel Sounds Present, Soft, Non Tender, Non-Distended : No dysuria. No renal angle tenderness. No suprapubic tenderness. Extremities: No edema, Capillary Refill Less than 3 Seconds Skin: No rashes, No breakdown Musculoskeletal: No Tenderness to Palpation of Joints or Extremities Neurological: right sided weakness. Right leg>arm. problem in finding words to recall. mild right facial droop Psych/Mental Status: Flat affect. Assessment & Plan Assessment/Plan (1) CVA (cerebral vascular accident): PLAN: Plan Patient is a 59-year-old lady who presented to the emergency department after apparently falling on ice with hitting her head. 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 Patient admitted to a monitored bed for continuous telemetry. Ordered neurochecks every 4 hours patient was started on aspirin statin therapy MRI 2D echo ordered consult placed to [facility] teleneurology - Patient MRI demonstrated small to moderate-sized acute infarcts of the left basal ganglia and posterior limb of the internal capsule extends up to the periventricular white matter. A small acute infarct is also present in the posterior medial aspect of the left cerebellar lobe. 2D echo did show The estimated ejection fraction is 70 %. No evidence for diastolic dysfunction -Requested for PT/OT/ST eval and case management to assist with disposition possibly to a senior living facility versus inpatient 2. Mechanical fall ? With resultant right hip contusion imaging studies did not show any fractures plan is to treat symptomatically 3. Mild rhabdomyolysis ? Following patient's fall patient is on IV hydration with subsequent monitoring of electrolyte 4. Hypokalemia ? Corrected for protocol repeat labs ordered for monitoring 1/29: Repeat potassium is normal. 5. UTI ruled out: Empirically patient was started on IV ceftriaxone but urine culture shows no growth. Discontinue IV ceftriaxone 6. Mild elevation of troponin ? Possibly demand ischemia echo ordered for wall motion abnormality evaluation 07/18: A-fib on the monitor. No acute chest pain or shortness of breath. 7. Paroxysmal atrial fibrillation ? Rate controlled ;Patient will need to be discharged on systemic anticoagulation given her presentation 8. History of colon cancer ? Status post partial colectomy patient has remained in remission consult placed to GI for endoscopic evaluation given patient history of colon cancer prior to starting patient on systemic anticoagulant 07/17: Plan for EGD and colonoscopy. 07/18: Her colon was not prepped therefore EGD and colonoscopy scheduled for today. 9. History of peptic ulcer disease ? With gastric perforation patient started on PPI 10. Hypertension ? Given patient presentation permissive hypertension protocol will be followed 11. Tobacco dependence ? Counseled on cessation, offered nicotine patch for tobacco cravings 12. DVT prophylaxis ? On enoxaparin 13. Hypokalemia ? Corrected per protocol 14. Hypernatremia: Patient was admitted with hypernatremia ? Patient placed on D5 W repeat BMP ordered for subsequent 07/17 sodium was 147. Repeat sodium is 134. Mild hyponatremia Charges/Coding Visit Charges Inpatient E&M: 62197 Subs Hosp L2
--- NOTE | 2024-07-18 18:58 | PN.GI_ITS ---
Subjective Subjective Patient has been n.p.o. for pending endoscopies today. Objective Data Objective Data Vital Signs: Vital Signs Temp Pulse Resp BP Pulse Ox O2 Del Method 100.0 F H 80 18 133/61 H 100 Room Air 07/18/24 16:20 07/18/24 16:20 07/18/24 16:20 07/18/24 16:20 07/18/24 16:20 07/18/24 16:43 Oxygen Delivery Method Room Air Weight: 180 lb 12.465 oz Body Mass Index (BMI) 26.6 Intake & Output: Intake and Output for Last 24 Hours 07/16/24 07/17/24 07/18/24 23:59 23:59 23:59 Intake Total 2310 / 2430 2750 / 4523 2773 / 2773 Balance 2310 / 2430 2750 / 4523 2773 / 2773 Lab / Micro Data 07/18/24 04:37 07/18/24 04:37 Labs: Laboratory Results - last 24 hr 07/18/24 04:37: WBC 5.5, RBC 3.27 L, Hgb 10.6 L, Hct 32.7 L, MCV 100.0 H, MCH 32.4 H, MCHC 32.4, RDW Std Deviation 57.8 H, RDW Coeff of Jerson 15.8 H, Plt Count 220, MPV 12.1 H, Immature Gran % (Auto) 1.600 H, Neut % (Auto) 71.7 H, Lymph % (Auto) 14.3 L, [place] % (Auto) 9.7, Eos % (Auto) 2.2, Baso % (Auto) 0.5, Absolute Neuts (auto) 3.9, Absolute Lymphs (auto) 0.78 L, Nucleated RBC % 0, PT 13.0, INR 1.0, APTT 27.4, Sodium 136, Potassium 3.7, Chloride 108 H, Carbon Dioxide 21.0, Anion Gap 7, BUN 33 H, Creatinine 0.96, Estim Creat Clear Calc 70.45, Est GFR (MDRD) Af Amer 76, Est GFR (MDRD) Non-Af 62, BUN/Creatinine Ratio 34.2 H, Glucose 93, Calcium 8.6 Micro: Microbiology 07/14/24 17:30 Urine, Clean Catch Urine Culture - Final Culture exhibits no growth. Social Homelessness:: Unspecified Physical Exam Const alert, oriented x3, no apparent distress and healthy appearing General Appearance: cooperative GI normal to inspection, nondistended, normoactive bowel sounds, soft to palpation, non-tender and non-distended Percussion: normal to percussion Rectal Exam: deferred Assessment & Plan Assessment/Plan (1) CVA (cerebral vascular accident): PLAN: Plan Patient is a 59-year-old lady who presented to the emergency department after apparently falling on ice with hitting her head. 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 Patient admitted to a monitored bed for continuous telemetry. Ordered neurochecks every 4 hours patient was started on aspirin statin therapy MRI 2D echo ordered consult placed to [facility] teleneurology - Patient MRI demonstrated small to moderate-sized acute infarcts of the left basal ganglia and posterior limb of the internal capsule extends up to the periventricular white matter. A small acute infarct is also present in the posterior medial aspect of the left cerebellar lobe. 2D echo did show The estimated ejection fraction is 70 %. No evidence for diastolic dysfunction -Patient being managed by hospitalist service History of colon cancer and history of peptic ulcer disease ? Status post partial colectomy patient has remained in remission ? Patient will need endoscopic evaluation given patient history of colon cancer prior to starting patient on systemic anticoagulant All questions answered regarding patient's upcoming endoscopies today. Charges/Coding Visit Charges Inpatient E&M: [address] [facility] Hosp L3
--- NOTE | 2024-07-18 19:49 | OP.EGD_ITS ---
Patient Name: Ana Maria Dhillon Procedure Date: 07/18/2024 7:16 PM Date of : 1965 Age: 59 Procedure: Upper GI endoscopy Indications: Iron deficiency anemia Providers: Jarvis Mari DO Referring MD: Gabriella Forbes Medicines: Monitored Anesthesia Care Patient Profile: This is a 59 year old female. Refer to note in patient chart for documentation of history and physical. Patient has symptoms. Complications: No immediate complications. Procedure: Pre-Anesthesia Assessment: - Prior to the procedure, a History and Physical was performed, and patient medications and allergies were reviewed. The patient is competent. The risks and benefits of the procedure and the sedation options and risks were discussed with the patient. All questions were answered and informed consent was obtained. Patient identification and proposed procedure were verified by the physician in the pre-procedure area. Mental Status Examination: alert and oriented. Airway Examination: normal oropharyngeal airway and neck mobility. Respiratory Examination: clear to auscultation. CV Examination: normal. Prophylactic Antibiotics: The patient does not require prophylactic antibiotics. Prior Anticoagulants: The patient has taken no anticoagulant or antiplatelet agents except for NSAID medication. ASA Grade Assessment: III - A patient with severe systemic disease. After reviewing the risks and benefits, the patient was deemed in satisfactory condition to undergo the procedure. The anesthesia plan was to use monitored anesthesia care (MAC). Immediately prior to administration of medications, the patient was re-assessed for adequacy to receive sedatives. The heart rate, respiratory rate, oxygen saturations, blood pressure, adequacy of pulmonary ventilation, and response to care were monitored throughout the procedure. The physical status of the patient was re-assessed after the procedure. After obtaining informed consent, the endoscope was passed under direct vision. Throughout the procedure, the patient's blood pressure, pulse, and oxygen saturations were monitored continuously. The Colonoscope was introduced through the mouth, and advanced to the fourth part of the duodenum. Small bowel enteroscopy was deemed necessary. The upper GI endoscopy was accomplished without difficulty. The patient tolerated the procedure well. Scope In: 7:33:59 PM Scope Out: 7:35:30 PM Total Procedure Duration Time 0 hours 1 minute 31 seconds Findings: The examined esophagus was normal. Patchy mildly erythematous mucosa without bleeding was found in the entire examined stomach. Few non-bleeding linear duodenal ulcers with no stigmata of bleeding were found in the duodenal bulb, in the first portion of the duodenum and in the second portion of the duodenum. The largest lesion was 5 mm in largest dimension. Impression: - Normal esophagus. - Erythematous mucosa in the stomach. - Non-bleeding duodenal ulcers with no stigmata of bleeding. - No specimens collected. Recommendation: - [facility]. - Resume previous diet. - Continue present medications. Procedure Code(s): --- Professional --- 44424, Small intestinal endoscopy, enteroscopy beyond second portion of duodenum, not including ileum; diagnostic, including collection of specimen(s) by brushing or washing, when performed (separate procedure) CPT copyright 2021 [employer]. All rights reserved. The codes documented in this report are preliminary and upon him coder review may be revised to meet current compliance requirements. Jarvis Mari DO 07/18/2024 7:49:24 PM This report has been signed electronically. Number of Addenda: 0 Note Initiated On: 07/18/2024 7:16 PM
--- NOTE | 2024-07-18 19:50 | OP.CCLET_ITS ---
07/18/2024 No Primary Care Physician Re : Upper GI endoscopy procedure for Ana Maria Dhillon Dear Care Physician This procedure was performed on June. My impressions and recommendations are as follows: Impressions : - Normal esophagus. - Erythematous mucosa in the stomach. - Non-bleeding duodenal ulcers with no stigmata of bleeding. - No specimens collected. Recommendations : - [facility]. - Resume previous diet. - Continue present medications. My findings are described in the full procedure note, which is enclosed. If I can be of further assistance, please feel free to contact me at . Sincerely, Jarvis Mari, 07/18/2024 7:49:24 PM This report has been signed electronically.
--- NOTE | 2024-07-18 19:52 | OP.COLON_ITS ---
Patient Name: Ana Maria Dhillon Procedure Date: 07/18/2024 7:35 PM Date of : 1965 Age: 59 Procedure: Colonoscopy Indications: Iron deficiency anemia, Follow-up of colorectal cancer Providers: Jarvis Mari DO Referring MD: Gabriella Forbes Medicines: Monitored Anesthesia Care Patient Profile: This is a 59 year old female. Refer to note in patient chart for documentation of history and physical. Patient has symptoms. Last Colonoscopy: within the past 3 years. Complications: No immediate complications. Procedure: Pre-Anesthesia Assessment: - Prior to the procedure, a History and Physical was performed, and patient medications and allergies were reviewed. The patient is competent. The risks and benefits of the procedure and the sedation options and risks were discussed with the patient. All questions were answered and informed consent was obtained. Patient identification and proposed procedure were verified by the physician in the pre-procedure area. Mental Status Examination: alert and oriented. Airway Examination: normal oropharyngeal airway and neck mobility. Respiratory Examination: clear to auscultation. CV Examination: normal. Prophylactic Antibiotics: The patient does not require prophylactic antibiotics. Prior Anticoagulants: The patient has taken no anticoagulant or antiplatelet agents except for NSAID medication. ASA Grade Assessment: III - A patient with severe systemic disease. After reviewing the risks and benefits, the patient was deemed in satisfactory condition to undergo the procedure. The anesthesia plan was to use monitored anesthesia care (MAC). Immediately prior to administration of medications, the patient was re-assessed for adequacy to receive sedatives. The heart rate, respiratory rate, oxygen saturations, blood pressure, adequacy of pulmonary ventilation, and response to care were monitored throughout the procedure. The physical status of the patient was re-assessed after the procedure. After I obtained informed consent, the scope was passed under direct vision. Throughout the procedure, the patient's blood pressure, pulse, and oxygen saturations were monitored continuously. The Colonoscope was introduced through the anus and advanced to the cecum, identified by appendiceal orifice and ileocecal valve. The colonoscopy was performed without difficulty. The patient tolerated the procedure well. The quality of the bowel preparation was adequate. Scope In: 7:37:59 PM Scope Withdrawal Time 0 hours 3 minutes 54 seconds Scope Out: 7:43:32 PM Total Procedure Duration Time 0 hours 5 minutes 33 seconds Findings: The perianal and digital rectal examinations were normal. There was evidence of a prior end-to-end colo-colonic anastomosis in the recto-sigmoid colon. This was patent and was characterized by a hemorrhagic appearance. The anastomosis was traversed. For hemostasis, one hemostatic clip was successfully placed. 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 There was no bleeding at the end of the procedure. An 8 mm polyp was found in the sigmoid colon. The polyp was sessile. The polyp was removed with a cold snare. Resection and retrieval were complete. Verification of patient identification for the specimen was done. Estimated blood loss was minimal. The exam was otherwise without abnormality on direct and retroflexion views. Stool was found in the rectum, in the sigmoid colon and in the cecum. Impression: - Patent end-to-end colo-colonic anastomosis, characterized by a hemorrhagic appearance. Clip was placed. 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 - One 8 mm polyp in the sigmoid colon, removed with a cold snare. Resected and retrieved. - The examination was otherwise normal on direct and retroflexion views. Recommendation: - [facility]. - Resume regular diet. - Continue present medications. - Await pathology results. - Repeat colonoscopy in 1 year for surveillance. Procedure Code(s): --- Professional --- 75166, 59, Colonoscopy, flexible; with control of bleeding, any method 58447, Colonoscopy, flexible; with removal of tumor(s), polyp(s), or other lesion(s) by snare technique CPT copyright 2021 [employer]. All rights reserved. The codes documented in this report are preliminary and upon statistician applied review may be revised to meet current compliance requirements. Jarvis Mari DO 07/18/2024 7:52:16 PM This report has been signed electronically. Number of Addenda: 0 Note Initiated On: 07/18/2024 7:35 PM
--- NOTE | 2024-07-18 19:52 | PCM.POST.ANE ---
Anesthesia: Postop Eval I Current Vital Signs Temperature: 98.5 F Pulse Rate: 76 Blood Pressure: 97/38 Respiratory Rate: 16 Pulse Ox: 94 Oxygen Delivery Method: Room Air Assessment Airway patent: Yes Spontaneous unlabored respirations: Yes Mental status: Awake and Calm nausea: No Vomiting: No Anesthesia Complication: No Fluid Hydration Crystalloid volume administer (ml): 10 Total IV fluid infused: 10 Progress Note Anesthesia document: Postop Eval 1 completed: Yes
--- NOTE | 2024-07-18 19:53 | OP.CCLET_ITS ---
07/18/2024 No Primary Care Physician Re : Colonoscopy procedure for Ana Maria Dhillon Dear Care Physician This procedure was performed on June. My impressions and recommendations are as follows: Impressions : - Patent end-to-end colo-colonic anastomosis, characterized by a hemorrhagic appearance. Clip was placed. 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 - One 8 mm polyp in the sigmoid colon, removed with a cold snare. Resected and retrieved. - The examination was otherwise normal on direct and retroflexion views. Recommendations : - [facility]. - Resume regular diet. - Continue present medications. - Await pathology results. - Repeat colonoscopy in 1 year for surveillance. My findings are described in the full procedure note, which is enclosed. If I can be of further assistance, please feel free to contact me at . Sincerely, Jarvis Mari, 07/18/2024 7:52:16 PM This report has been signed electronically.
[2024-07-18] MEDS: Atorvastatin Calcium 80 MG Tablet PO (22:58)
--- NOTE | 2024-07-18 23:44 | PCM.POSTANE2 ---
Anesthesia Postop Eval I Sum Postop Eval Completion status Anesthesia document: Postop Eval 1 completed: Yes Anesthesia Postop Eval I Summary Anesthesia Postop Eval I Summary: Anesthesia Postop Eval I: Assessment Summary Airway patent Yes 07/18/24 19:54 Spontaneous unlabored Yes 07/18/24 19:54 respirations Mental status Awake,Calm 07/18/24 19:54 nausea No 07/18/24 19:54 Vomiting No 07/18/24 19:54 Anesthesia Postop Eval I: Fluid Summary Crystalloid volume administer 10 07/18/24 19:54 (ml) Colloids volume administered ( ml) Blood Product volume administered (ml) Total IV fluid infused 10 07/18/24 19:54 Anesthesia Postop Eval I: Summary Notes Anesthesia Complication No 07/18/24 19:54 Anesthesia Complication Comment: Post-operative progress note Anesthesia: Postop Eval II Evaluation Mental status: Awake and Calm Pain Level: 0 nausea: No Vomiting: No Complications Anesthesia Complication: No
[2024-07-19 03:24] VITALS: BP 113/63; PULSE 82; RESP 18; TEMP 37.3; O2SAT 94
[2024-07-19 05:53] VITALS: BMI 26.5
[2024-07-19 07:31] LABS: Absolute Lymphocyte Count 0.55 X10^3/uL (0.83-4.51); Absolute Neutrophil Count 3.6 X10^3/uL (2.0-7.7); Basophil# 0.03 X10^3/uL; Basophil% 0.6 % (0-1); Eosinophil# 0.02 X10^3/uL; Eosinophils% 0.4 % (0-5); Hematocrit 32.7 % (37-47); Hemoglobin 10.7 g/dL (12.0-15.0); Lymphocyte # 0.55 X10^3/ul (0.83-4.51); Lymphocyte % 11.4 % (19-41); Mean Corp Hgb Conc 32.7 g/dL (32-36); Mean Corpuscular Hgb 32.4 pg (27.0-32.0); Mean Corpuscular Volume 99.1 fL (81-99); Mean Platelet Vol. 11.3 fl (6.2-12.0); Monocyte# 0.55 X10^3/uL; Monocyte% 11.4 % (0-10); NRBC Flagged by Analyzer 0 % (0-5); Neutrophil # 3.62 X10^3/uL (2.7-7.7); Neutrophil % 75.2 % (47-70); POSITIVE DIFFERENTIAL YES; Platelet Count 216 K/mm3 (150-450); RBC Distribution Width CV 15.7 % (11.6-14.6); RBC Distribution Width SD 56.2 fl (35.1-43.9); White Blood Count 4.8 K/mm3 (4.4-11.0)
[2024-07-19 07:58] LABS: Anion Gap 7 (5-15); BUN 17 mg/dL (7-18); BUN/Creat Ratio 15.9 RATIO (10-20); Calcium,Total 8.3 mg/dL (8.5-10.1); Chloride 105 mmol/L (98-107); Creatinine, Serum 1.07 mg/dL (0.55-1.02); EST Glomerular Filtration Rate 55 mL/min (>60); Est Glom Filt Rate - Afr Amer 67 mL/min (>60); Estimated Creatinine Clearance 63.07 ml/min; Glucose 95 mg/dL (74-106); Potassium 3.4 mmol/L (3.5-5.1); Sodium Level 134 mmol/L (136-145)
[2024-07-19 08:42] VITALS: BP 105/41; PULSE 75; RESP 20; TEMP 38.7; O2SAT 94
[2024-07-19] MEDS: Menthol/Lanolin/Calamine/Znox 113 GM Tube 1 APPLIC TOPICAL ×3 (08:45→22:01)
[2024-07-19] MEDS: Aspirin 81 MG TAB.CHEW PO (08:45)
[2024-07-19] MEDS: Pantoprazole Sodium 40 MG Tablet PO (08:45)
[2024-07-19] MEDS: Potassium Chloride Oral Tablet 20 MEQ PO ×2 (08:45→16:29)
[2024-07-19] MEDS: Enoxaparin 40 MG/0.4 ML Syringe SC (08:46)
--- NOTE | 2024-07-19 08:55 | RAD_ITS ---
PROCEDURE: CHEST PA AND LATERAL REASON FOR EXAM: Fever, cough, and congestion. Rule out pneumonia. TECHNIQUE: Frontal and lateral views of the chest. COMPARISON: None. FINDINGS: Lungs are at least mildly hyperinflated, with increased interstitial markings, consistent with chronic lung disease. No acute pneumonic process is appreciated. No pleural effusion or pneumothorax is noted. The cardiomediastinal silhouette is within the normal range for age. No acute osseous change is seen. RAD/Chest PA and Lateral IMPRESSION: No evidence of acute cardiopulmonary disease. Reading Location: [id number]
[2024-07-19] MEDS: Acetaminophen 325 MG Tablet 650 MG PO ×2 (09:49→14:58)
--- NOTE | 2024-07-19 10:04 | WOUNDNOTE ---
wound photo: right buttock
--- NOTE | 2024-07-19 10:05 | CASEMGMT ---
SW met with patient to provide resources from yesterday's conversation. SW clarified housing situation. Patient does still have this apartment on [address]. Some of her stuff is still there. Patient does not want to return there at discharge due to the many steps and ice. SW asked if there is something else that happened there that she does not want to return. Patient said no, just the ice. Patient said the steps get so icy and she cannot do it anymore after this fall. SW provided patient with information on transportation, [facility] program, current list of available units from [facility] [place], [facility] [place] housing application, and longterm list. Plan: Rehab Unit pending patient being medically ready and insurance approval. Sharon Lara PHYSICAL THERAPY TECHNICIAN [place]
[2024-07-19 11:00] VITALS: TEMP 37.6
[2024-07-19] MEDS: guaiFENesin/D-Methorphan TAB.SR.12H 2 TABLET PO ×2 (14:06→22:01)
[2024-07-19] MEDS: Ceftriaxone 1 GM/50 ML BAG IV (14:06)
[2024-07-19 14:11] VITALS: BP 117/58; PULSE 61; RESP 18; TEMP 37.5; O2SAT 94
[2024-07-19 16:00] VITALS: BMI 26.5
[2024-07-19 16:06] VITALS: BMI 26.5
--- NOTE | 2024-07-19 16:23 | PN.HOSP_ITS ---
Reason for Visit Reason for Visit: Diagnoses Cerebral infarction, unspecified (07/14/24) Objective Data Objective Data Vital Signs: Vital Signs Temp Pulse Resp BP Pulse Ox O2 Del Method 99.5 F H 61 18 117/58 L 94 Room Air 07/19/24 14:11 07/19/24 14:11 07/19/24 14:11 07/19/24 14:11 07/19/24 14:11 07/19/24 14:11 Oxygen Delivery Method Room Air Weight: 179 lb 14.355 oz Body Mass Index (BMI) 26.5 Intake & Output: Intake and Output for Last 24 Hours 07/17/24 07/18/24 07/19/24 23:59 23:59 23:59 Intake Total 2750 / 4523 2773 / 2773 250 / 250 Output Total 0 / 0 Balance 2750 / 4523 2773 / 2773 250 / 250 Lab / Micro Data 07/19/24 06:58 07/19/24 06:58 Labs: Laboratory Results - last 24 hr 07/19/24 06:58: WBC 4.8, RBC 3.30 L, Hgb 10.7 L, Hct 32.7 L, MCV 99.1 H, MCH 32.4 H, MCHC 32.7, RDW Std Deviation 56.2 H, RDW Coeff of Jerson 15.7 H, Plt Count 216, MPV 11.3, Immature Gran % (Auto) 1.000 H, Neut % (Auto) 75.2 H, Lymph % (Auto) 11.4 L, [place] % (Auto) 11.4 H, Eos % (Auto) 0.4, Baso % (Auto) 0.6, Absolute Neuts (auto) 3.6, Absolute Lymphs (auto) 0.55 L, Nucleated RBC % 0, S odium 134 L, Potassium 3.4 L, Chloride 105, Carbon Dioxide 22.0, Anion Gap 7, BUN 17, Creatinine 1.07 H, Estim Creat Clear Calc 63.07, Est GFR (MDRD) Af Amer 67, Est GFR (MDRD) Non-Af 55 L, BUN/Creatinine Ratio 15.9, Glucose 95, Calcium 8.3 L Micro: Microbiology 07/19/24 11:05 Nasal Secretion MRSA (PCR) - Final 07/19/24 10:37 Mucosa - Nose Coronavirus COVID-19 PCR - Final 07/14/24 17:30 Urine, Clean Catch Urine Culture - Final Culture exhibits no growth. Radiography Diagnostic Testing: Radiology Impression Chest X-Ray 07/19/24 08:55 IMPRESSION: No evidence of acute cardiopulmonary disease. Reading Location: [address] Social Homelessness:: Unspecified Physical Exam Narrative Seen and examined Patient had fever, Tmax 101.6 Fahrenheit. She also had cough congestion but no sputum production. Chest x-ray PA and lateral ordered General: Alert, Oriented x3, Cooperative HEENT: Atraumatic, PERRLA, EOMI, Normocephalic Oral: No Gingival or Mucosal Lesions/ Ulcerations Neck: Supple, No JVD, Negative Carotid Bruits Chest wall/Lungs: Air entry diminished in bilateral lung bases. No crepitation/rhonchi Cardiovascular: Irregular rhythm, Afib, murmur. Abdomen: Bowel Sounds Present, Soft, Non Tender, Non-Distended : No dysuria. No renal angle tenderness. No suprapubic tenderness. Extremities: No edema, Capillary Refill Less than 3 Seconds Skin: No rashes, No breakdown Musculoskeletal: No Tenderness to Palpation of Joints or Extremities Neurological: right sided weakness. Right leg>arm. problem in finding words to recall. mild right facial droop Psych/Mental Status: Flat affect. Assessment & Plan Assessment/Plan (1) CVA (cerebral vascular accident): PLAN: Plan Patient is a 59-year-old lady who presented to the emergency department after apparently falling on ice with hitting her head. 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 Patient admitted to a monitored bed for continuous telemetry. Ordered neurochecks every 4 hours patient was started on aspirin statin therapy MRI 2D echo ordered consult placed to [facility] teleneurology - Patient MRI demonstrated small to moderate-sized acute infarcts of the left basal ganglia and posterior limb of the internal capsule extends up to the periventricular white matter. A small acute infarct is also present in the posterior medial aspect of the left cerebellar lobe. 2D echo did show The estimated ejection fraction is 70 %. No evidence for diastolic dysfunction -Requested for PT/OT/ST eval and case management to assist with disposition possibly to a assisted facility versus inpatient Fever with cough and congestion possible acute bronchitis: Chest x-ray individually reviewed and does not show acute infiltrate but increased interstitial markings with chronic lung disease. No pleural effusion or pneumothorax. On respiratory panel, COVID-19 PCR also negative. Blood culture ordered. Empirically started IV ceftriaxone. Patient does not have acute urinary tract symptoms or abdominal or pelvic pain but UA and urine culture ordered. No skin rash. No leukocytosis 2. Mechanical fall ? With resultant right hip contusion imaging studies did not show any fractures plan is to treat symptomatically 3. Mild rhabdomyolysis ? Following patient's fall patient is on IV hydration with subsequent monitoring of electrolyte 4. Hypokalemia ? Corrected for protocol repeat labs ordered for monitoring 07/17: Repeat potassium is normal. 5. UTI ruled out: Empirically patient was started on IV ceftriaxone but urine culture shows no growth. Discontinue IV ceftriaxone 6. Mild elevation of troponin ? Possibly demand ischemia echo ordered for wall motion abnormality evaluation 07/18: A-fib on the monitor. No acute chest pain or shortness of breath. 7. Paroxysmal atrial fibrillation ? Rate controlled ;Patient will need to be discharged on systemic anticoagulation given her presentation 8. History of colon cancer ? Status post partial colectomy patient has remained in remission consult placed to GI for endoscopic evaluation given patient history of colon cancer prior to starting patient on systemic anticoagulant 07/17: Plan for EGD and colonoscopy. 07/18: Her colon was not prepped therefore EGD and colonoscopy scheduled for today. 07/19: EGD colonoscopy was done on 07/18/2024 Impression: - Normal esophagus. - Erythematous mucosa in the stomach. - Non-bleeding duodenal ulcers with no stigmata of bleeding. - No specimens collected. Recommendation: - [facility]. - Resume previous diet. - Continue present medications. Impressions : - Patent end-to-end colo-colonic anastomosis, characterized by a hemorrhagic appearance. Clip was placed. 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 - One 8 mm polyp in the sigmoid colon, removed with a cold snare. Resected and retrieved. - The examination was otherwise normal on direct and retroflexion views. Recommendations : - Repeat colonoscopy in 1 year for surveillance. 9. History of peptic ulcer disease ? With gastric perforation patient started on PPI 10. Hypertension ? Given patient presentation permissive hypertension protocol will be followed 11. Tobacco dependence ? Counseled on cessation, offered nicotine patch for tobacco cravings 12. DVT prophylaxis ? On enoxaparin 13. Hypokalemia ? Corrected per protocol 14. Hypernatremia: Patient was admitted with hypernatremia ? Patient placed on D5 W repeat BMP ordered for subsequent 07/17 sodium was 147. Repeat sodium is 134. Mild hyponatremia Charges/Coding Visit Charges Inpatient E&M: 92985 Subs Hosp L2
[2024-07-19] MEDS: Azithromycin 250 MG Tablet 500 MG PO (16:28)
[2024-07-19 21:57] VITALS: BP 133/56; PULSE 85; RESP 18; TEMP 37.3; O2SAT 97
[2024-07-19] MEDS: Oseltamivir Phosphate 75 MG Capsule PO (22:02)
[2024-07-19] MEDS: Atorvastatin Calcium 80 MG Tablet PO (22:03)
[2024-07-20 03:25] VITALS: BP 115/53; PULSE 81; RESP 18; TEMP 37.2; O2SAT 94
[2024-07-20 05:29] VITALS: BMI 26.8
[2024-07-20] MEDS: Acetaminophen 325 MG Tablet 650 MG PO ×2 (06:16→16:03)
[2024-07-20 06:37] LABS: Absolute Lymphocyte Count 1.26 X10^3/uL (0.83-4.51); Absolute Neutrophil Count 6.5 X10^3/uL (2.0-7.7); Basophil# 0.04 X10^3/uL; Basophil% 0.5 % (0-1); Eosinophil# 0.01 X10^3/uL; Eosinophils% 0.1 % (0-5); Hematocrit 31.4 % (37-47); Hemoglobin 10.6 g/dL (12.0-15.0); Lymphocyte # 1.26 X10^3/ul (0.83-4.51); Lymphocyte % 14.9 % (19-41); Mean Corp Hgb Conc 33.8 g/dL (32-36); Mean Corpuscular Hgb 33.2 pg (27.0-32.0); Mean Corpuscular Volume 98.4 fL (81-99); Mean Platelet Vol. 11.7 fl (6.2-12.0); Monocyte# 0.64 X10^3/uL; Monocyte% 7.6 % (0-10); NRBC Flagged by Analyzer 0 % (0-5); Neutrophil # 6.46 X10^3/uL (2.7-7.7); Neutrophil % 76.2 % (47-70); Platelet Count 192 K/mm3 (150-450); RBC Distribution Width CV 15.8 % (11.6-14.6); RBC Distribution Width SD 56.3 fl (35.1-43.9); Red Blood Count 3.19 M/mm3 (4.2-5.4); White Blood Count 8.5 K/mm3 (4.4-11.0)
[2024-07-20 07:12] LABS: Anion Gap 8 (5-15); BUN 24 mg/dL (7-18); BUN/Creat Ratio 21.4 RATIO (10-20); Calcium,Total 7.9 mg/dL (8.5-10.1); Chloride 102 mmol/L (98-107); Creatinine, Serum 1.12 mg/dL (0.55-1.02); EST Glomerular Filtration Rate 53 mL/min (>60); Est Glom Filt Rate - Afr Amer 64 mL/min (>60); Estimated Creatinine Clearance 60.49 ml/min; Glucose 87 mg/dL (74-106); Potassium 3.7 mmol/L (3.5-5.1); Sodium Level 132 mmol/L (136-145)
[2024-07-20 09:20] VITALS: BP 116/67; PULSE 87; RESP 18; TEMP 37.1; O2SAT 93
[2024-07-20] MEDS: Potassium Chloride Oral Tablet 20 MEQ PO ×2 (09:28→17:00)
[2024-07-20] MEDS: guaiFENesin/D-Methorphan TAB.SR.12H 2 TABLET PO ×2 (09:29→21:28)
[2024-07-20] MEDS: Azithromycin 250 MG Tablet 500 MG PO (09:29)
[2024-07-20] MEDS: Lidocaine 5% Patch 2 PATCH TOPICAL (09:29)
[2024-07-20] MEDS: Oseltamivir Phosphate 75 MG Capsule PO ×2 (09:29→21:29)
[2024-07-20] MEDS: Menthol/Lanolin/Calamine/Znox 113 GM Tube 1 APPLIC TOPICAL ×4 (09:29→21:29)
[2024-07-20] MEDS: Aspirin 81 MG TAB.CHEW PO (09:29)
[2024-07-20] MEDS: Pantoprazole Sodium 40 MG Tablet PO (09:29)
[2024-07-20] MEDS: Enoxaparin 40 MG/0.4 ML Syringe SC (09:30)
[2024-07-20] MEDS: Ceftriaxone 1 GM/50 ML BAG IV (09:38)
[2024-07-20] MEDS: 0.9% Saline Lock 10 ML Syringe IV (09:39)
[2024-07-20 12:00] VITALS: BP 116/67; PULSE 87; RESP 18; TEMP 37.1; O2SAT 93
[2024-07-20 12:44] VITALS: BMI 26.8
--- NOTE | 2024-07-20 14:06 | PCM.PN.HOSP ---
Reason for Visit Reason for Visit: Diagnoses Cerebral infarction, unspecified (07/14/24) Objective Data Objective Data Vital Signs: Vital Signs Temp Pulse Resp BP Pulse Ox O2 Del Method 98.8 F 87 18 116/67 93 Room Air 07/20/24 12:00 07/20/24 12:00 07/20/24 12:00 07/20/24 12:00 07/20/24 12:00 07/20/24 12:00 Oxygen Delivery Method Room Air Weight: 181 lb 7.047 oz Body Mass Index (BMI) 26.8 Intake & Output: Intake and Output for Last 24 Hours 07/18/24 07/19/24 07/20/24 23:59 23:59 23:59 Intake Total 2773 / 2773 500 / 500 50 / 50 Output Total 0 / 0 300 / 300 Balance 2773 / 2773 200 / 200 50 / 50 Lab / Micro Data 07/20/24 05:55 07/20/24 05:55 Labs: Laboratory Results - last 24 hr 07/20/24 05:55: WBC 8.5, RBC 3.19 L, Hgb 10.6 L, Hct 31.4 L, MCV 98.4, MCH 33.2 H, MCHC 33.8, RDW Std Deviation 56.3 H, RDW Coeff of Jerson 15.8 H, Plt Count 192, MPV 11.7, Immature Gran % (Auto) 0.700, Neut % (Auto) 76.2 H, Lymph % (Auto) 14.9 L, [place] % (Auto) 7.6, Eos % (Auto) 0.1, Baso % (Auto) 0.5, Absolute Neuts (auto) 6.5, Absolute Lymphs (auto) 1.26, Nucleated RBC % 0, Sodium 132 L, Potassium 3.7, Chloride 102, Carbon Dioxide 22.0, Anion Gap 8, BUN 24 H, Creatinine 1.12 H, Estim Creat Clear Calc 60.49, Est GFR (MDRD) Af Amer 64, Est GFR (MDRD) Non-Af 53 L, BUN/Creatinine Ratio 21.4 H, Glucose 87, Calcium 7.9 L Micro: Microbiology 07/19/24 11:05 Mucosa - Nasopharyngeal Respiratory Panel (PCR) - Final Influenza A (Subtype H1) 07/19/24 11:05 Nasal Secretion MRSA (PCR) - Final 07/19/24 10:37 Mucosa - Nose Coronavirus COVID-19 PCR - Final 07/14/24 17:30 Urine, Clean Catch Urine Culture - Final Culture exhibits no growth. Social Homelessness:: Unspecified Physical Exam Narrative Seen and examined Influenza A came positive. Patient started on Tamiflu last night. Fever is controlled. Currently 98.8 Fahrenheit. She also had cough congestion but no sputum production. No tachycardia. Physical exam General: Alert, Oriented x3, Cooperative HEENT: Atraumatic, PERRLA, EOMI, Normocephalic Oral: No Gingival or Mucosal Lesions/ Ulcerations Neck: Supple, No JVD, Negative Carotid Bruits Chest wall/Lungs: Air entry diminished in bilateral lung bases. No crepitation/rhonchi Cardiovascular: Irregular rhythm, Afib, murmur. Abdomen: Bowel Sounds Present, Soft, Non Tender, Non-Distended : No dysuria. No renal angle tenderness. No suprapubic tenderness. Extremities: No edema, Capillary Refill Less than 3 Seconds Skin: No rashes, No breakdown Musculoskeletal: No Tenderness to Palpation of Joints or Extremities Neurological: right sided weakness. Right leg>arm. problem in finding words to recall. mild right facial droop Psych/Mental Status: Flat affect. Assessment & Plan Assessment/Plan (1) CVA (cerebral vascular accident): PLAN: Plan Patient is a 59-year-old lady who presented to the emergency department after apparently falling on ice with hitting her head. 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 Patient admitted to a monitored bed for continuous telemetry. Ordered neurochecks every 4 hours patient was started on aspirin statin therapy MRI 2D echo ordered consult placed to [facility] teleneurology - Patient MRI demonstrated small to moderate-sized acute infarcts of the left basal ganglia and posterior limb of the internal capsule extends up to the periventricular white matter. A small acute infarct is also present in the posterior medial aspect of the left cerebellar lobe. 2D echo did show The estimated ejection fraction is 70 %. No evidence for diastolic dysfunction -Requested for PT/OT/ST eval and case management to assist with disposition possibly to a [facility]ci facility versus inpatient Fever with cough and congestion possible acute bronchitis: Chest x-ray individually reviewed and does not show acute infiltrate but increased interstitial markings with chronic lung disease. No pleural effusion or pneumothorax. On respiratory panel, COVID-19 PCR also negative. Blood culture ordered. Empirically started IV ceftriaxone. Patient does not have acute urinary tract symptoms or abdominal or pelvic pain but UA and urine culture ordered. No skin rash. No leukocytosis 07/20: Patient is started on Tamiflu last evening after influenza A, subtype H1 came positive. Fever is controlled. Continue incentive spirometry and PEP for 1 week. No hypoxia. On Mucinex DM. Urine culture came negative 2. Mechanical fall. ? With resultant right hip contusion imaging studies did not show any fractures plan is to treat symptomatically 3. Mild rhabdomyolysis ? Following patient's fall patient is on IV hydration with subsequent monitoring of electrolyte 4. Hypokalemia ? Corrected for protocol repeat labs ordered for monitoring 07/17: Repeat potassium is normal. 5. UTI ruled out: Empirically patient was started on IV ceftriaxone but urine culture shows no growth. Discontinue IV ceftriaxone 6. Mild elevation of troponin ? Possibly demand ischemia echo ordered for wall motion abnormality evaluation 07/18: A-fib on the monitor. No acute chest pain or shortness of breath. 7. Paroxysmal atrial fibrillation ? Rate controlled ;Patient will need to be discharged on systemic anticoagulation given her presentation 8. History of colon cancer ? Status post partial colectomy patient has remained in remission consult placed to GI for endoscopic evaluation given patient history of colon cancer prior to starting patient on systemic anticoagulant 07/17: Plan for EGD and colonoscopy. 07/18: Her colon was not prepped therefore EGD and colonoscopy scheduled for today. 07/19: EGD colonoscopy was done on 07/18/2024 Impression: - Normal esophagus. - Erythematous mucosa in the stomach. - Non-bleeding duodenal ulcers with no stigmata of bleeding. - No specimens collected. Recommendation: - [facility]. - Resume previous diet. - Continue present medications. Impressions : - Patent end-to-end colo-colonic anastomosis, characterized by a hemorrhagic appearance. Clip was placed. 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 - One 8 mm polyp in the sigmoid colon, removed with a cold snare. Resected and retrieved. - The examination was otherwise normal on direct and retroflexion views. Recommendations : - Repeat colonoscopy in 1 year for surveillance. 07/20: H&H 10.3/31%. Continue holding Eliquis 9. History of peptic ulcer disease ? With gastric perforation patient started on PPI 10. Hypertension ? Given patient presentation permissive hypertension protocol will be followed 11. Tobacco dependence ? Counseled on cessation, offered nicotine patch for tobacco cravings 12. DVT prophylaxis ? On enoxaparin 13. Hypokalemia ? Corrected per protocol 14. Hypernatremia: Patient was admitted with hypernatremia ? Patient placed on D5 W repeat BMP ordered for subsequent 07/17 sodium was 147. Repeat sodium is 134. Mild hyponatremia Charges/Coding Visit Charges Inpatient E&M: 11311 Subs Hosp L2
[2024-07-20 14:52] VITALS: BP 111/93; PULSE 87; RESP 18; TEMP 39.4; O2SAT 96
[2024-07-20 18:00] VITALS: BP 102/64; PULSE 65; RESP 16; TEMP 37.6; O2SAT 96
[2024-07-20 20:29] VITALS: BMI 26.8
[2024-07-20 21:00] VITALS: BP 113/54; PULSE 61; RESP 18; TEMP 36.9; O2SAT 96
[2024-07-20] MEDS: Atorvastatin Calcium 80 MG Tablet PO (21:28)
[2024-07-21] VITALS (7 sets, daily range): BP systolic 104–117; BP diastolic 51–64; PULSE 60–78; RESP 18; TEMP 36.3–37.7; O2SAT 95–99; BMI 26.7
[2024-07-21] MEDS: Acetaminophen 325 MG Tablet 650 MG PO ×2 (02:57→19:22)
[2024-07-21 06:33] LABS: Absolute Lymphocyte Count 1.01 X10^3/uL (0.83-4.51); Absolute Neutrophil Count 5.6 X10^3/uL (2.0-7.7); Basophil# 0.01 X10^3/uL; Basophil% 0.1 % (0-1); Eosinophil# 0.07 X10^3/uL; Hematocrit 32.1 % (37-47); Hemoglobin 10.5 g/dL (12.0-15.0); Lymphocyte # 1.01 X10^3/ul (0.83-4.51); Lymphocyte % 14.4 % (19-41); Mean Corp Hgb Conc 32.7 g/dL (32-36); Mean Corpuscular Hgb 32.4 pg (27.0-32.0); Mean Corpuscular Volume 99.1 fL (81-99); Mean Platelet Vol. 11.8 fl (6.2-12.0); Monocyte# 0.32 X10^3/uL; Monocyte% 4.6 % (0-10); NRBC Flagged by Analyzer 0 % (0-5); Neutrophil # 5.56 X10^3/uL (2.7-7.7); Neutrophil % 79.5 % (47-70); Platelet Count 173 K/mm3 (150-450); RBC Distribution Width CV 15.8 % (11.6-14.6); RBC Distribution Width SD 57.1 fl (35.1-43.9); Red Blood Count 3.24 M/mm3 (4.2-5.4)
[2024-07-21 06:58] LABS: Bacteria 0 SEEN /hpf (None Seen); Mucous, Urine 0 SEEN /hpf (<or=2+); Red Blood Cells-Urine 0 SEEN /hpf (0-5)
[2024-07-21 07:04] LABS: Anion Gap 8 (5-15); BUN 29 mg/dL (7-18); BUN/Creat Ratio 31.1 RATIO (10-20); Calcium,Total 8.5 mg/dL (8.5-10.1); Chloride 105 mmol/L (98-107); Creatinine, Serum 0.93 mg/dL (0.55-1.02); EST Glomerular Filtration Rate 65 mL/min (>60); Est Glom Filt Rate - Afr Amer 78 mL/min (>60); Estimated Creatinine Clearance 72.77 ml/min; Glucose 135 mg/dL (74-106); Potassium 3.8 mmol/L (3.5-5.1); Sodium Level 135 mmol/L (136-145)
[2024-07-21 07:12] LABS: Color, Urine Yellow (Yellow); Glucose, Dipstick Normal (Normal); Ketone-Dipstick Negative (Negative); Leukocyte Esterase-Dipstick Negative /ul (Negative); Nitrite-Dipstick Negative (Negative); Occult Blood-Urine Negative /ul (Negative); Protein-Dipstick 15 mg/dl (Negative); Specific Gravity, Urine 1.005 (1.002-1.030); Urine Bilirubin Dipstick Negative (Negative); Urine Clarity Clear (Clear); Urine Urobilinogen Normal (Normal)
[2024-07-21 07:23] LABS: Squamous Epithelial Cells - UA 0-5 SEEN /hpf (5-10); White Blood Cells 0-5 SEEN /hpf (0-5)
[2024-07-21] MEDS: Ceftriaxone 1 GM/50 ML BAG IV (09:57)
[2024-07-21] MEDS: Pantoprazole Sodium 40 MG Tablet PO (09:58)
[2024-07-21] MEDS: Aspirin 81 MG TAB.CHEW PO (09:58)
[2024-07-21] MEDS: guaiFENesin/D-Methorphan TAB.SR.12H 2 TABLET PO ×2 (09:58→21:06)
[2024-07-21] MEDS: Enoxaparin 40 MG/0.4 ML Syringe SC (09:58)
[2024-07-21] MEDS: Azithromycin 250 MG Tablet 500 MG PO (09:58)
[2024-07-21] MEDS: Oseltamivir Phosphate 75 MG Capsule PO ×2 (09:59→21:06)
[2024-07-21] MEDS: Potassium Chloride Oral Tablet 20 MEQ PO ×2 (09:59→17:02)
[2024-07-21] MEDS: Menthol/Lanolin/Calamine/Znox 113 GM Tube 1 APPLIC TOPICAL ×4 (09:59→21:06)
[2024-07-21] MEDS: Lidocaine 5% Patch 2 PATCH TOPICAL (10:06)
--- NOTE | 2024-07-21 12:50 | PCM.PN.HOSP ---
Reason for Visit Reason for Visit: Diagnoses Cerebral infarction, unspecified (07/14/24) Objective Data Objective Data Vital Signs: Vital Signs Temp Pulse Resp BP Pulse Ox O2 Del Method 97.8 F 60 18 104/51 L 96 Room Air 07/21/24 09:48 07/21/24 09:48 07/21/24 09:48 07/21/24 09:48 07/21/24 09:48 07/21/24 09:48 Oxygen Delivery Method Room Air Weight: 180 lb 15.992 oz Body Mass Index (BMI) 26.7 Intake & Output: Intake and Output for Last 24 Hours 07/19/24 07/20/24 07/21/24 23:59 23:59 23:59 Intake Total 500 / 500 50 / 170 650 / 650 Output Total 300 / 300 1025 / 1025 Balance 200 / 200 50 / -105 -375 / -375 Lab / Micro Data 07/21/24 05:34 07/21/24 05:34 Labs: Laboratory Results - last 24 hr 07/19/24 06:45: Urine Color Yellow, Urine Clarity Clear, Urine pH 7.0, Ur Specific [place] 1.005, Urine Protein 15 H, Urine Glucose (UA) Normal, Urine Ketones Negative, Urine Occult Blood Negative, Urine Nitrite Negative, Urine Bilirubin Negative, Urine Urobilinogen Normal, Ur Leukocyte Esterase Negative, Urine RBC 0 SEEN, Urine WBC 0-5 SEEN, Ur Squamous Epith Cells 0-5 SEEN, Urine Bacteria 0 SEEN, Urine Mucus 0 SEEN 07/21/24 05:34: WBC 7.0, RBC 3.24 L, Hgb 10.5 L, Hct 32.1 L, MCV 99.1 H, MCH 32.4 H, MCHC 32.7, RDW Std Deviation 57.1 H, RDW Coeff of Jerson 15.8 H, Plt Count 173, MPV 11.8, Immature Gran % (Auto) 0.400, Neut % (Auto) 79.5 H, Lymph % (Auto) 14.4 L, [place] % (Auto) 4.6, Eos % (Auto) 1.0, Baso % (Auto) 0.1, Absolute Neuts (auto) 5.6, Absolute Lymphs (auto) 1.01, Nucleated RBC % 0, Sodium 135 L, Potassium 3.8, Chloride 105, Carbon Dioxide 22.0, Anion Gap 8, BUN 29 H, Creatinine 0.93, Estim Creat Clear Calc 72.77, Est GFR (MDRD) Af Amer 78, Est GFR (MDRD) Non-Af 65, BUN/Creatinine Ratio 31.1 H, Glucose 135 H, Calcium 8.5 Micro: Microbiology 07/19/24 09:35 Blood Culture (Wb) - Anticubital Right Blood Culture - Preliminary No growth in 48 hours. 07/21/24 06:45 Urine, Clean Catch Legionella Antigen - Final 07/21/24 06:45 Urine, Clean Catch Streptococcus pneumoniae Antigen (M - Final 07/19/24 11:05 Mucosa - Nasopharyngeal Respiratory Panel (PCR) - Final Influenza A (Subtype H1) 07/19/24 11:05 Nasal Secretion MRSA (PCR) - Final 07/19/24 10:37 Mucosa - Nose Coronavirus COVID-19 PCR - Final 07/14/24 17:30 Urine, Clean Catch Urine Culture - Final Culture exhibits no growth. Social Homelessness:: Unspecified Physical Exam Narrative Seen and examined Cough and fever is better on Tamiflu. Had fever 100 Fahrenheit at 3 AM today Afebrile now. She also had cough congestion but no sputum production. No tachycardia. Physical exam General: Alert, Oriented x3, Cooperative HEENT: Atraumatic, PERRLA, EOMI, Normocephalic Oral: No Gingival or Mucosal Lesions/ Ulcerations Neck: Supple, No JVD, Negative Carotid Bruits Chest wall/Lungs: Air entry diminished in bilateral lung bases. Mild bilateral coarse crepitations Cardiovascular: Irregular rhythm, Afib, murmur. Abdomen: Bowel Sounds Present, Soft, Non Tender, Non-Distended : No dysuria. No renal angle tenderness. No suprapubic tenderness. Extremities: No edema, Capillary Refill Less than 3 Seconds Skin: No rashes, No breakdown Musculoskeletal: No Tenderness to Palpation of Joints or Extremities Neurological: right sided weakness. Right leg>arm. problem in finding words to recall. mild right facial droop Psych/Mental Status: Flat affect. Assessment & Plan Assessment/Plan (1) CVA (cerebral vascular accident): PLAN: Plan Patient is a 59-year-old lady who presented to the emergency department after apparently falling on ice with hitting her head. 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 Patient admitted to a monitored bed for continuous telemetry. Ordered neurochecks every 4 hours patient was started on aspirin statin therapy MRI 2D echo ordered consult placed to [facility] teleneurology - Patient MRI demonstrated small to moderate-sized acute infarcts of the left basal ganglia and posterior limb of the internal capsule extends up to the periventricular white matter. A small acute infarct is also present in the posterior medial aspect of the left cerebellar lobe. 2D echo did show The estimated ejection fraction is 70 %. No evidence for diastolic dysfunction -Requested for PT/OT/ST eval and case management to assist with disposition possibly to a longterm facility versus inpatient 2/2: Continue holding Eliquis. Fever with cough and congestion possible acute bronchitis: Chest x-ray individually reviewed and does not show acute infiltrate but increased interstitial markings with chronic lung disease. No pleural effusion or pneumothorax. On respiratory panel, COVID-19 PCR also negative. Blood culture ordered. Empirically started IV ceftriaxone. Patient does not have acute urinary tract symptoms or abdominal or pelvic pain but UA and urine culture ordered. No skin rash. No leukocytosis 2: Patient is started on Tamiflu last evening after influenza A, subtype H1 came positive. Fever is controlled. Continue incentive spirometry and PEP for 1 week. No hypoxia. On Mucinex DM. Urine culture came negative 2/2: Continue Tamiflu. Patient had 3 doses of IV ceftriaxone and azithromycin therefore we will discontinue the IV antibiotic because patient has viral bronchitis 2. Mechanical fall. ? With resultant right hip contusion imaging studies did not show any fractures plan is to treat symptomatically 3. Mild rhabdomyolysis ? Following patient's fall patient is on IV hydration with subsequent monitoring of electrolyte 4. Hypokalemia ? Corrected for protocol repeat labs ordered for monitoring 07/17: Repeat potassium is normal. 5. UTI ruled out: Empirically patient was started on IV ceftriaxone but urine culture shows no growth. Discontinue IV ceftriaxone 6. Mild elevation of troponin ? Possibly demand ischemia echo ordered for wall motion abnormality evaluation 07/18: A-fib on the monitor. No acute chest pain or shortness of breath. 7. Paroxysmal atrial fibrillation ? Rate controlled ;Patient will need to be discharged on systemic anticoagulation given her presentation 8. History of colon cancer ? Status post partial colectomy patient has remained in remission consult placed to GI for endoscopic evaluation given patient history of colon cancer prior to starting patient on systemic anticoagulant 07/17: Plan for EGD and colonoscopy. 07/18: Her colon was not prepped therefore EGD and colonoscopy scheduled for today. 07/19: EGD colonoscopy was done on 07/18/2024 Impression: - Normal esophagus. - Erythematous mucosa in the stomach. - Non-bleeding duodenal ulcers with no stigmata of bleeding. - No specimens collected. Recommendation: - [facility]. - Resume previous diet. - Continue present medications. Impressions : - Patent end-to-end colo-colonic anastomosis, characterized by a hemorrhagic appearance. Clip was placed. 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 - One 8 mm polyp in the sigmoid colon, removed with a cold snare. Resected and retrieved. - The examination was otherwise normal on direct and retroflexion views. Recommendations : - Repeat colonoscopy in 1 year for surveillance. 07/20: H&H 10.09/16%. Continue holding Eliquis 9. History of peptic ulcer disease ? With gastric perforation patient started on PPI 10. Hypertension ? Given patient presentation permissive hypertension protocol will be followed 11. Tobacco dependence ? Counseled on cessation, offered nicotine patch for tobacco cravings 12. DVT prophylaxis ? On enoxaparin 13. Hypokalemia ? Corrected per protocol 14. Hypernatremia: Patient was admitted with hypernatremia ? Patient placed on D5 W repeat BMP ordered for subsequent 07/17 sodium was 147. Repeat sodium is 134. Mild hyponatremia Charges/Coding Visit Charges Inpatient E&M: 58033 Subs Hosp L2
[2024-07-21] MEDS: 0.9% Saline Lock 10 ML Syringe IV (21:06)
[2024-07-21] MEDS: Atorvastatin Calcium 80 MG Tablet PO (21:07)
[2024-07-22 03:20] VITALS: BP 108/62; PULSE 64; RESP 18; TEMP 36.8; O2SAT 96
[2024-07-22] MEDS: Acetaminophen 325 MG Tablet 650 MG PO ×2 (04:52→14:45)
[2024-07-22 04:56] VITALS: BMI 26.2
[2024-07-22 08:02] LABS: Absolute Lymphocyte Count 1.36 X10^3/uL (0.83-4.51); Absolute Neutrophil Count 4.2 X10^3/uL (2.0-7.7); Basophil# 0.02 X10^3/uL; Basophil% 0.3 % (0-1); Eosinophil# 0.13 X10^3/uL; Eosinophils% 2.1 % (0-5); Hematocrit 31.4 % (37-47); Hemoglobin 10.7 g/dL (12.0-15.0); Lymphocyte # 1.36 X10^3/ul (0.83-4.51); Lymphocyte % 22.4 % (19-41); Mean Corp Hgb Conc 34.1 g/dL (32-36); Mean Corpuscular Hgb 33.4 pg (27.0-32.0); Mean Corpuscular Volume 98.1 fL (81-99); Mean Platelet Vol. 12.2 fl (6.2-12.0); Monocyte# 0.31 X10^3/uL; Monocyte% 5.1 % (0-10); NRBC Flagged by Analyzer 0 % (0-5); Neutrophil # 4.21 X10^3/uL (2.7-7.7); Neutrophil % 69.3 % (47-70); Platelet Count 189 K/mm3 (150-450); RBC Distribution Width CV 15.8 % (11.6-14.6); RBC Distribution Width SD 56.7 fl (35.1-43.9); White Blood Count 6.1 K/mm3 (4.4-11.0)
[2024-07-22 08:25] VITALS: BP 123/56; PULSE 68; RESP 16; TEMP 36.8; O2SAT 98
[2024-07-22] MEDS: Lidocaine 5% Patch 2 PATCH TOPICAL (08:27)
[2024-07-22] MEDS: Potassium Chloride Oral Tablet 20 MEQ PO ×2 (08:27→18:05)
[2024-07-22] MEDS: Aspirin 81 MG TAB.CHEW PO (08:27)
[2024-07-22] MEDS: Oseltamivir Phosphate 75 MG Capsule PO ×2 (08:28→20:31)
[2024-07-22] MEDS: Menthol/Lanolin/Calamine/Znox 113 GM Tube 1 APPLIC TOPICAL ×3 (08:28→20:45)
[2024-07-22] MEDS: Pantoprazole Sodium 40 MG Tablet PO (08:28)
[2024-07-22] MEDS: guaiFENesin/D-Methorphan TAB.SR.12H 2 TABLET PO ×2 (08:28→20:31)
[2024-07-22] MEDS: Enoxaparin 40 MG/0.4 ML Syringe SC (08:28)
[2024-07-22 08:31] LABS: Anion Gap 7 (5-15); BUN 29 mg/dL (7-18); BUN/Creat Ratio 30.6 RATIO (10-20); Calcium,Total 8.5 mg/dL (8.5-10.1); Chloride 108 mmol/L (98-107); Creatinine, Serum 0.95 mg/dL (0.55-1.02); EST Glomerular Filtration Rate 64 mL/min (>60); Est Glom Filt Rate - Afr Amer 77 mL/min (>60); Estimated Creatinine Clearance 70.68 ml/min; Glucose 94 mg/dL (74-106); Potassium 3.8 mmol/L (3.5-5.1); Sodium Level 137 mmol/L (136-145)
[2024-07-22 14:25] VITALS: BP 115/56; PULSE 61; RESP 16; TEMP 36.9; O2SAT 99
--- NOTE | 2024-07-22 14:34 | PCM.PN.HOSP ---
Reason for Visit Reason for Visit: Diagnoses Cerebral infarction, unspecified (07/14/24) Objective Data Objective Data Vital Signs: Vital Signs Temp Pulse Resp BP Pulse Ox O2 Del Method 98.3 F 68 16 123/56 H 98 Room Air 07/22/24 08:25 07/22/24 08:25 07/22/24 08:25 07/22/24 08:25 07/22/24 08:25 07/22/24 09:23 Oxygen Delivery Method Room Air Weight: 177 lb 14.609 oz Body Mass Index (BMI) 26.2 Intake & Output: Intake and Output for Last 24 Hours 07/20/24 07/21/24 07/22/24 23:59 23:59 23:59 Intake Total 50 / 170 1010 / 1250 720 / 720 Output Total 1025 / 1025 Balance 50 / -105 -15 / 225 720 / 720 Lab / Micro Data 07/22/24 07:14 07/22/24 07:14 Labs: Laboratory Results - last 24 hr 07/19/24 06:45: Urine Color Yellow, Urine Clarity Clear, Urine pH 7.0, Ur Specific [place] 1.005, Urine Protein 15 H, Urine Glucose (UA) Normal, Urine Ketones Negative, Urine Occult Blood Negative, Urine Nitrite Negative, Urine Bilirubin Negative, Urine Urobilinogen Normal, Ur Leukocyte Esterase Negative, Urine RBC 0 SEEN, Urine WBC 0-5 SEEN, Ur Squamous Epith Cells 0-5 SEEN, Urine Bacteria 0 SEEN, Urine Mucus 0 SEEN 07/22/24 07:14: WBC 6.1, RBC 3.20 L, Hgb 10.7 L, Hct 31.4 L, MCV 98.1, MCH 33.4 H, MCHC 34.1, RDW Std Deviation 56.7 H, RDW Coeff of Jerson 15.8 H, Plt Count 189, MPV 12.2 H, Immature Gran % (Auto) 0.800, Neut % (Auto) 69.3, Lymph % (Auto) 22.4, Cedar % (Auto) 5.1, Eos % (Auto) 2.1, Baso % (Auto) 0.3, Absolute Neuts (auto) 4.2, Absolute Lymphs (auto) 1.36, Nucleated RBC % 0, Sodium 137, Potassium 3.8, Chloride 108 H, Carbon Dioxide 22.0, Anion Gap 7, BUN 29 H, Creatinine 0.95, Estim Creat Clear Calc 70.68, Est GFR (MDRD) Af Amer 77, Est GFR (MDRD) Non-Af 64, BUN/Creatinine Ratio 30.6 H, Glucose 94, Calcium 8.5 Micro: Microbiology 07/21/24 06:45 Urine, Clean Catch Urine Culture - Preliminary GPC Poss Enterococcus sp 07/19/24 09:35 Blood Culture (Wb) - Anticubital Right Blood Culture - Preliminary No growth in 48 hours. 07/21/24 06:45 Urine, Clean Catch Legionella Antigen - Final 07/21/24 06:45 Urine, Clean Catch Streptococcus pneumoniae Antigen (M - Final 07/19/24 11:05 Mucosa - Nasopharyngeal Respiratory Panel (PCR) - Final Influenza A (Subtype H1) 07/19/24 11:05 Nasal Secretion MRSA (PCR) - Final 07/19/24 10:37 Mucosa - Nose Coronavirus COVID-19 PCR - Final 07/14/24 17:30 Urine, Clean Catch Urine Culture - Final Culture exhibits no growth. Social Homelessness:: Unspecified Physical Exam Narrative Seen and examined Cough and fever is better on Tamiflu. No fever in last 36 hours. She also had cough congestion but no sputum production. Better today. No tachycardia. Physical exam General: Alert, Oriented x3, Cooperative HEENT: Atraumatic, PERRLA, EOMI, Normocephalic Oral: No Gingival or Mucosal Lesions/ Ulcerations Neck: Supple, No JVD, Negative Carotid Bruits Chest wall/Lungs: Air entry diminished in bilateral lung bases. Mild bilateral coarse crepitations Cardiovascular: Irregular rhythm, Afib, murmur. Abdomen: Bowel Sounds Present, Soft, Non Tender, Non-Distended : No dysuria. No renal angle tenderness. No suprapubic tenderness. Extremities: No edema, Capillary Refill Less than 3 Seconds Skin: No rashes, No breakdown Musculoskeletal: No Tenderness to Palpation of Joints or Extremities Neurological: right sided weakness. Right leg>arm. problem in finding words to recall. mild right facial droop Psych/Mental Status: Flat affect. Assessment & Plan Assessment/Plan (1) CVA (cerebral vascular accident): PLAN: Plan Patient is a 59-year-old lady who presented to the emergency department after apparently falling on ice with hitting her head. 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 Patient admitted to a monitored bed for continuous telemetry. Ordered neurochecks every 4 hours patient was started on aspirin statin therapy MRI 2D echo ordered consult placed to [facility] teleneurology - Patient MRI demonstrated small to moderate-sized acute infarcts of the left basal ganglia and posterior limb of the internal capsule extends up to the periventricular white matter. A small acute infarct is also present in the posterior medial aspect of the left cerebellar lobe. 2D echo did show The estimated ejection fraction is 70 %. No evidence for diastolic dysfunction -Requested for PT/OT/ST eval and case management to assist with disposition possibly to a group home facility versus inpatient 22: Continue holding Eliquis. 07/22: Discussed with Dr. Mari. Resume Eliquis from 07/23/1910/07/2019 Fever with cough and congestion possible acute bronchitis: Chest x-ray individually reviewed and does not show acute infiltrate but increased interstitial markings with chronic lung disease. No pleural effusion or pneumothorax. On respiratory panel, COVID-19 PCR also negative. Blood culture ordered. Empirically started IV ceftriaxone. Patient does not have acute urinary tract symptoms or abdominal or pelvic pain but UA and urine culture ordered. No skin rash. No leukocytosis 07/20: Patient is started on Tamiflu last evening after influenza A, subtype H1 came positive. Fever is controlled. Continue incentive spirometry and PEP for 1 week. No hypoxia. On Mucinex DM. Urine culture came negative 07/21: Continue Tamiflu. Patient had 3 doses of IV ceftriaxone and azithromycin therefore we will discontinue the IV antibiotic because patient has viral bronchitis 2. Mechanical fall. ? With resultant right hip contusion imaging studies did not show any fractures plan is to treat symptomatically 3. Mild rhabdomyolysis ? Following patient's fall patient is on IV hydration with subsequent monitoring of electrolyte 4. Hypokalemia ? Corrected for protocol repeat labs ordered for monitoring 07/17: Repeat potassium is normal. 5. UTI ruled out: Empirically patient was started on IV ceftriaxone but urine culture shows no growth. Discontinue IV ceftriaxone 6. Mild elevation of troponin ? Possibly demand ischemia echo ordered for wall motion abnormality evaluation 07/18: A-fib on the monitor. No acute chest pain or shortness of breath. 7. Paroxysmal atrial fibrillation ? Rate controlled ;Patient will need to be discharged on systemic anticoagulation given her presentation 8. History of colon cancer ? Status post partial colectomy patient has remained in remission consult placed to GI for endoscopic evaluation given patient history of colon cancer prior to starting patient on systemic anticoagulant 07/17: Plan for EGD and colonoscopy. 07/18: Her colon was not prepped therefore EGD and colonoscopy scheduled for today. 07/19: EGD colonoscopy was done on 07/18/2024 Impression: - Normal esophagus. - Erythematous mucosa in the stomach. - Non-bleeding duodenal ulcers with no stigmata of bleeding. - No specimens collected. Recommendation: - [facility]. - Resume previous diet. - Continue present medications. Impressions : - Patent end-to-end colo-colonic anastomosis, characterized by a hemorrhagic appearance. Clip was placed. 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 - One 8 mm polyp in the sigmoid colon, removed with a cold snare. Resected and retrieved. - The examination was otherwise normal on direct and retroflexion views. Recommendations : - Repeat colonoscopy in 1 year for surveillance. 07/20: H&H 10.3/31%. Continue holding Eliquis 07/22: Hemoglobin 10.7. Discussed with the GI. Resume Eliquis from tomorrow. Baby aspirin on hold 9. History of peptic ulcer disease ? With gastric perforation patient started on PPI 10. Hypertension ? Given patient presentation permissive hypertension protocol will be followed 11. Tobacco dependence ? Counseled on cessation, offered nicotine patch for tobacco cravings 12. DVT prophylaxis ? On enoxaparin 13. Hypokalemia ? Corrected per protocol 14. Hypernatremia: Patient was admitted with hypernatremia ? Patient placed on D5 W repeat BMP ordered for subsequent 07/17 sodium was 147. Repeat sodium is 134. Mild hyponatremia Charges/Coding Visit Charges Inpatient E&M: 61923 Subs Hosp L2
--- NOTE | 2024-07-22 16:33 | PN_ITS ---
Progress Note Findings: The perianal and digital rectal examinations were normal. There was evidence of a prior end-to-end colo-colonic anastomosis in the recto-sigmoid colon. This was patent and was characterized by a hemorrhagic appearance. The anastomosis was traversed. For hemostasis, one hemostatic clip was successfully placed. 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 There was no bleeding at the end of the procedure. An 8 mm polyp was found in the sigmoid colon. The polyp was sessile. The polyp was removed with a cold snare. Resection and retrieval were complete. Verification of patient identification for the specimen was done. Estimated blood loss was minimal. The exam was otherwise without abnormality on direct and retroflexion views. Stool was found in the rectum, in the sigmoid colon and in the cecum. Impression: - Patent end-to-end colo-colonic anastomosis, characterized by a hemorrhagic appearance. Clip was placed. 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 - One 8 mm polyp in the sigmoid colon, removed with a cold snare. Resected and retrieved. - The examination was otherwise normal on direct and retroflexion views. Recommendation: - [facility]. - Resume regular diet. - Continue present medications. - Await pathology results. - Repeat colonoscopy in 1 year for surveillance. Physical Exam Narrative Seen and examined Cough and fever is better on Tamiflu. No fever in last 36 hours. She also had cough congestion but no sputum production. Better today. No tachycardia. Physical exam General: Alert, Oriented x3, Cooperative HEENT: Atraumatic, PERRLA, EOMI, Normocephalic Oral: No Gingival or Mucosal Lesions/ Ulcerations Neck: Supple, No JVD, Negative Carotid Bruits Chest wall/Lungs: Air entry diminished in bilateral lung bases. Mild bilateral coarse crepitations Cardiovascular: Irregular rhythm, Afib, murmur. Abdomen: Bowel Sounds Present, Soft, Non Tender, Non-Distended : No dysuria. No renal angle tenderness. No suprapubic tenderness. Extremities: No edema, Capillary Refill Less than 3 Seconds Skin: No rashes, No breakdown Musculoskeletal: No Tenderness to Palpation of Joints or Extremities Neurological: right sided weakness. Right leg>arm. problem in finding words to recall. mild right facial droop Psych/Mental Status: Flat affect. Assessment & Plan Assessment/Plan (1) CVA (cerebral vascular accident): PLAN: Plan Patient is a 59-year-old lady who presented to the emergency department after apparently falling on ice with hitting her head. 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 Patient admitted to a monitored bed for continuous telemetry. Ordered neurochecks every 4 hours patient was started on aspirin statin therapy MRI 2D echo ordered consult placed to [facility] teleneurology - Patient MRI demonstrated small to moderate-sized acute infarcts of the left basal ganglia and posterior limb of the internal capsule extends up to the periventricular white matter. A small acute infarct is also present in the p osterior medial aspect of the left cerebellar lobe. 2D echo did show The estimated ejection fraction is 70 %. No evidence for diastolic dysfunction -Patient being managed by hospitalist service History of colon cancer and history of peptic ulcer disease ? Status post partial colectomy patient has remained in remission ? Patient will need endoscopic evaluation given patient history of colon cancer prior to starting patient on systemic anticoagulant Patient is okay to go back on anticoagulation. Visit Charges Inpatient E&M: 33745 Subs Hosp L3
[2024-07-22 17:00] VITALS: BMI 26.2
[2024-07-22] MEDS: Atorvastatin Calcium 80 MG Tablet PO (20:31)
[2024-07-22 20:50] VITALS: BP 109/58; PULSE 65; RESP 18; TEMP 36.6; O2SAT 98
[2024-07-23 00:02] VITALS: BMI 26.2
[2024-07-23] MEDS: Acetaminophen 325 MG Tablet 650 MG PO (00:41)
[2024-07-23 03:30] VITALS: BP 117/49; PULSE 60; RESP 18; TEMP 36.6; O2SAT 99
[2024-07-23 06:00] VITALS: BMI 26.4
[2024-07-23 06:19] LABS: Absolute Lymphocyte Count 1.59 X10^3/uL (0.83-4.51); Absolute Neutrophil Count 3.3 X10^3/uL (2.0-7.7); Basophil# 0.02 X10^3/uL; Basophil% 0.4 % (0-1); Eosinophil# 0.18 X10^3/uL; Eosinophils% 3.3 % (0-5); Hemoglobin 10.6 g/dL (12.0-15.0); Lymphocyte # 1.59 X10^3/ul (0.83-4.51); Lymphocyte % 29.3 % (19-41); Mean Corp Hgb Conc 33.1 g/dL (32-36); Mean Corpuscular Hgb 33.1 pg (27.0-32.0); Mean Platelet Vol. 12.1 fl (6.2-12.0); Monocyte# 0.29 X10^3/uL; Monocyte% 5.3 % (0-10); NRBC Flagged by Analyzer 0 % (0-5); Neutrophil # 3.32 X10^3/uL (2.7-7.7); Neutrophil % 61.1 % (47-70); Platelet Count 193 K/mm3 (150-450); RBC Distribution Width CV 15.9 % (11.6-14.6); RBC Distribution Width SD 58.7 fl (35.1-43.9); White Blood Count 5.4 K/mm3 (4.4-11.0)
[2024-07-23 09:25] VITALS: BP 111/53; PULSE 69; RESP 18; TEMP 36.3; O2SAT 97
[2024-07-23] MEDS: Lidocaine 5% Patch 2 PATCH TOPICAL (09:29)
[2024-07-23] MEDS: APIXABAN 5 MG TABLET PO (09:30)
[2024-07-23] MEDS: Pantoprazole Sodium 40 MG Tablet PO (09:30)
[2024-07-23] MEDS: Oseltamivir Phosphate 75 MG Capsule PO (09:30)
[2024-07-23] MEDS: guaiFENesin/D-Methorphan TAB.SR.12H 2 TABLET PO (09:30)
[2024-07-23] MEDS: Menthol/Lanolin/Calamine/Znox 113 GM Tube 1 APPLIC TOPICAL (09:30)
[2024-07-23] MEDS: Potassium Chloride Oral Tablet 20 MEQ PO (09:30)
--- NOTE | 2024-07-23 10:24 | DCINST_ITS ---
Discharge Instructions Diet Discharge Diet: Low fat / Low cholesterol and 2000 mg Sodium Diet DC O2, CPAP, BIPAP needs Home O2 Discharge instructions: No Dressing / Incision Discharge Activity: Return to Normal Activity Weight Bearing Status: Weight bearing as tolerated Dressing / Incision Call your doctor if you observe: Fever of 101 or Higher, Coldness, Increased Pain, Numbness or Tingling, Change in Color, Inability to urinate, Inability to have a bowel movement, Shortness of breath, Dizziness, Fainting spells, Swelling in the ankles, Chest pain, Prolonged hiccupping, Increased palpitations (irregular heartbeat) and Calf discomfort Follow Up Care When: IN 2 WEEKS Test Results: Test results from this visit will be discussed in further detail at your follow- up appointment, if applicable. Discharge Plan Admission Admit Date/Time: 07/14/24 22:53 Primary Reason for Your Visit: GI bleed, history of recent stroke Attending Provider: Joe Doran Primary Care Provider: Care Physician,No Primary Consulting Providers: Gabriella Forbes; Akash Patel Instructions Additional Instructions / Restrictions: Baby aspirin was discontinued after starting Eliquis. Patient had a stroke therefore if she tolerates Eliquis, can introduce baby aspirin after 5 to 7 days CBC and BMP in 3 days Discharge Orders/Prescriptions Prescriptions: New atorvastatin 80 mg Tablet 80 mg PO QHS Qty: 0 0RF acetaminophen 325 mg Tablet 650 mg PO Q4H PRN PRN (Reason: Fever, pain 1-03/28) Qty: 0 0RF Mucinex DM 30-600 mg Tablet Extended Release 12 Hr 2 tab PO BID 5 Days Qty: 20 0RF Eliquis 5 mg Tablet 5 mg PO BID Qty: 0 0RF Rx Instructions: Discontinue if platelet count drops less than 50,000 or hemoglobin less than 8 g% oseltamivir 75 mg Capsule 75 mg PO BID Qty: 2 0RF Rx Instructions: Last dose 07/24/2019 10:00 AM sennosides-docusate sodium [Stimulant Laxative Plus] 8.6-50 mg Tablet 2 tab PO BID PRN PRN (Reason: Constipation) Qty: 0 0RF potassium chloride 20 mEq Tablet,Er Particles/Crystals 20 meq PO DAILY Qty: 0 0RF pantoprazole 40 mg Tablet,Delayed Release (Dr/Ec) 40 mg PO DAILY Qty: 0 0RF Referrals / Follow Up: Care Physician,No Primary [Primary Care Provider] - Disposition Disposition (needs filled in before D/C Order can be placed): Inpatient Rehab Unit/Facility
--- NOTE | 2024-07-23 10:36 | CASEMGMT ---
Patient was approved to go to [facility] Acute Rehab Unit. SW notified physician and RN. SW also notified patient. SW asked patient if she would like SW to call anyone and patient said she will take care of it. Plan: d/c to [facility] Acute Rehab [facility]
--- NOTE | 2024-07-23 12:31 | DS.PCM_ITS ---
Providers Date of Admission: 07/14/24 Date of Discharge: 07/23/24 Primary Care Physician: Lupe Primary Care Phys Consultations 07/15/24 01:02 Consult: Onc/Wound/dag coater Routine Comment: Reason for Consult:: Various staged ulcers. 07/16/24 10:14 Consult: Gastroenterology Routine Consulting Provider: [facility] Reason for Consult: Anemia, history of colon cancer, embolic stroke needing to be on anticoagul EMERGENT Consult: No MD Notified: Yes Date Notified: 07/16/24 Time Notified: 10:14 Method of Notification: Text Reason For Visit: FALL, ACUTE CVA, MILD RHABDO, INDETERM TROP Diagnosis Discharge Diagnosis (1) CVA (cerebral vascular accident): Status: Acute Code(s): I63.9 - Cerebral infarction, unspecified Plan Patient is a 59-year-old lady who presented to the emergency department after apparently falling on ice with hitting her head. 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 Patient admitted to a monitored bed for continuous telemetry. Ordered neurochecks every 4 hours patient was started on aspirin statin therapy MRI 2D echo ordered consult placed to [facility] teleneurology - Patient MRI demonstrated small to moderate-sized acute infarcts of the left basal ganglia and posterior limb of the internal capsule extends up to the periventricular white matter. A small acute infarct is also present in the posterior medial aspect of the left cerebellar lobe. 2D echo did show The estimated ejection fraction is 70 %. No evidence for diastolic dysfunction -Requested for PT/OT/ST eval and case management to assist with disposition possibly to a custodial facility versus inpatient 07/21: Continue holding Eliquis. 07/22: Discussed with Dr. Mari. Resume Eliquis from 07/23/1910/07/2019 2/4: Eliquis was resumed. Continue PPI. Patient cannot tolerate Eliquis for 5 to 7 days, consider introducing baby aspirin for stroke. Fever with cough and congestion possible acute bronchitis: Chest x-ray individually reviewed and does not show acute infiltrate but increased interstitial markings with chronic lung disease. No pleural effusion or pneumothorax. On respiratory panel, COVID-19 PCR also negative. Blood culture ordered. Empirically started IV ceftriaxone. Patient does not have acute urinary tract symptoms or abdominal or pelvic pain but UA and urine culture ordered. No skin rash. No leukocytosis 07/20: Patient is started on Tamiflu last evening after influenza A, subtype H1 came positive. Fever is controlled. Continue incentive spirometry and PEP for 1 week. No hypoxia. On Mucinex DM. Urine culture came negative 07/21: Continue Tamiflu. Patient had 3 doses of IV ceftriaxone and azithromycin therefore we will discontinue the IV antibiotic because patient has viral bronchitis 07/23: Patient will complete last dose on 07/24/2024 at 10 AM 2. Mechanical fall. ? With resultant right hip contusion imaging studies did not show any fractures plan is to treat symptomatically 3. Mild rhabdomyolysis ? Following patient's fall patient is on IV hydration with subsequent monitoring of electrolyte 4. Hypokalemia ? Corrected for protocol repeat labs ordered for monitoring 07/17: Repeat potassium is normal. 5. UTI ruled out: Empirically patient was started on IV ceftriaxone but urine culture shows no growth. Discontinue IV ceftriaxone 6. Mild elevation of troponin ? Possibly demand ischemia echo ordered for wall motion abnormality evaluation 07/18: A-fib on the monitor. No acute chest pain or shortness of breath. 7. Paroxysmal atrial fibrillation ? Rate controlled ;Patient will need to be discharged on systemic anticoagulation given her presentation 8. History of colon cancer ? Status post partial colectomy patient has remained in remission consult placed to GI for endoscopic evaluation given patient history of colon cancer prior to starting patient on systemic anticoagulant 07/17: Plan for EGD and colonoscopy. 07/18: Her colon was not prepped therefore EGD and colonoscopy scheduled for today. 07/19: EGD colonoscopy was done on 07/18/2024 Impression: - Normal esophagus. - Erythematous mucosa in the stomach. - Non-bleeding duodenal ulcers with no stigmata of bleeding. - No specimens collected. Recommendation: - [facility]. - Resume previous diet. - Continue present medications. Impressions : - Patent end-to-end colo-colonic anastomosis, characterized by a hemorrhagic appearance. Clip was placed. 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 - One 8 mm polyp in the sigmoid colon, removed with a cold snare. Resected and retrieved. - The examination was otherwise normal on direct and retroflexion views. Recommendations : - Repeat colonoscopy in 1 year for surveillance. 07/20: H&H 10.3/31%. Continue holding Eliquis 07/22: Hemoglobin 10.7. Discussed with the GI. Resume Eliquis from tomorrow. Baby aspirin on hold 9. History of peptic ulcer disease ? With gastric perforation patient started on PPI 10. Hypertension ? Given patient presentation permissive hypertension protocol will be followed 11. Tobacco dependence ? Counseled on cessation, offered nicotine patch for tobacco cravings 12. DVT prophylaxis ? On enoxaparin 13. Hypokalemia ? Corrected per protocol 14. Hypernatremia: Patient was admitted with hypernatremia ? Patient placed on D5 W repeat BMP ordered for subsequent 07/17 sodium was 147. Repeat sodium is 134. Mild hyponatremia Discharge medication reconciliation done. Discharge follow-up instructions completed. Discharge process discussed with the patient and all questions were answered to patient's satisfaction. Follow with PCP in 1 to 2 weeks Total time spent, exact 35 minutes on discharge meds reconciliation, examination, coordination of care with nurses and ancillary staff, review of imaging and blood test and discussion with the patient on follow-up instructions. Medications at Discharge Home Medications acetaminophen 325 mg tablet 650 mg (2 x 325 mg) PO Q4H PRN PRN Fever, pain 1- 03/28 #0 tabs 07/23/24 apixaban 5 mg tablet (Eliquis) 5 mg PO BID #0 tabs 07/23/24 atorvastatin 80 mg tablet 80 mg PO QHS #0 tabs 07/23/24 dextromethorphan-guaifenesin 30 mg-600 mg tablet extended hr (Mucinex DM) 2 tab PO BID 5 days #20 tabs 07/23/24 oseltamivir 75 mg capsule 75 mg PO BID #2 caps 07/23/24 pantoprazole 40 mg tablet,delayed release 40 mg PO DAILY #0 tabs 07/23/24 potassium chloride 20 mEq tablet,extended release(part/cryst) 20 meq PO DAILY #0 tabs 07/23/24 sennosides 8.6 mg-docusate sodium 50 mg tablet (Stimulant Laxative Plus) 2 tab PO BID PRN PRN Constipation #0 tabs 07/23/24 Physical Exam Narrative Seen and examined Cough is almost resolved. No fever. She is being discharged to acute rehab Physical exam General: Alert, Oriented x3, Cooperative HEENT: Atraumatic, PERRLA, EOMI, Normocephalic Oral: No Gingival or Mucosal Lesions/ Ulcerations Neck: Supple, No JVD, Negative Carotid Bruits Chest wall/Lungs: Air entry diminished in bilateral lung bases. Mild crepitations. Cardiovascular: Irregular rhythm, Afib, murmur. Abdomen: Bowel Sounds Present, Soft, Non Tender, Non-Distended : No dysuria. No renal angle tenderness. No suprapubic tenderness. Extremities: No edema, Capillary Refill Less than 3 Seconds Skin: No rashes, No breakdown Musculoskeletal: No Tenderness to Palpation of Joints or Extremities Neurological: right sided weakness. Right leg>arm. problem in finding words to recall. mild right facial droop Psych/Mental Status: Flat affect. Medical Records Data Homelessness:: Unspecified Weight / BMI Weight Weight: 179 lb 3.773 oz Body Mass Index (BMI) 26.4 ABG / Lab / Microbiology Data 07/23/24 05:13 07/22/24 07:14 Laboratory: Laboratory Results - last 24 hr 07/23/24 05:13: WBC 5.4, RBC 3.20 L, Hgb 10.6 L, Hct 32.0 L, MCV 100.0 H, MCH 33.1 H, MCHC 33.1, RDW Std Deviation 58.7 H, RDW Coeff of Jerson 15.9 H, Plt Count 193, MPV 12.1 H, Immature Gran % (Auto) 0.600, Neut % (Auto) 61.1, Lymph % (Auto) 29.3, [place] % (Auto) 5.3, Eos % (Auto) 3.3, Baso % (Auto) 0.4, Absolute Neuts (auto) 3.3, Absolute Lymphs (auto) 1.59, Nucleated RBC % 0 Microbiology: Microbiology 07/21/24 06:45 Urine, Clean Catch Urine Culture - Final Mixed Gram Positive Organisms 07/19/24 09:35 Blood Culture (Wb) - Anticubital Right Blood Culture - Preliminary No growth in 48 hours. 07/21/24 06:45 Urine, Clean Catch Legionella Antigen - Final 07/21/24 06:45 Urine, Clean Catch Streptococcus pneumoniae Antigen (M - Final 07/19/24 11:05 Mucosa - Nasopharyngeal Respiratory Panel (PCR) - Final Influenza A (Subtype H1) 07/19/24 11:05 Nasal Secretion MRSA (PCR) - Final 07/19/24 10:37 Mucosa - Nose Coronavirus COVID-19 PCR - Final 07/14/24 17:30 Urine, Clean Catch Urine Culture - Final Culture exhibits no growth. D/C Instructions Discharge Diet: Low fat / Low cholesterol and 2000 mg Sodium Diet Weight Bearing Status: Weight bearing as tolerated Call your doctor if you observe: Fever of 101 or Higher, Coldness, Increased Pain, Numbness or Tingling, Change in Color, Inability to urinate, Inability to have a bowel movement, Shortness of breath, Dizziness, Fainting spells, Swelling in the ankles, Chest pain, Prolonged hiccupping, Increased palpitations (irregular heartbeat) and Calf discomfort DC O2, CPAP, BIPAP Needs Home O2 Discharge instructions: No When: IN 2 WEEKS Meaningful Use Info Meaningful Use Meaningful Use Diagnoses (Choose all that apply): Ischemic CVA CVA Therapy Assessed for PT,OT and/or ST?: Yes Ischemic Stroke Antithrombotic order at d/c?: Yes Dx of Atrial fib/flutter?: Yes Anticoagulant at discharge?: Yes Statin Dosing Therapy Reference: STATIN DOSE THERAPY REFERENCE: * Patients > 75 years receive moderate or high dose statin therapy. * Patients 75 years or YOUNGER should receive HIGH intensity statin dose unless contraindicated. You will be required to document reason for non-treatment if statin daily dose does not meet guidelines. HIGH DOSE STATIN THERAPY DAILY Atorvastatin > than or = to 40 mg Rosuvastatin > than or = to 20 mg Amlodipine + Atorvastatin > than or = to 2.5/40 mg Ezetimibe + Simvastatin 10/80 mg Simvastatin 80mg Statins at discharge?: Yes If patient is 75 or younger, pt will be discharged on HIGH intensity statin.: Y es Primary Dx Acute Ischemic CVA?: Yes Discharge Plan Admission Admit Date/Time: 07/14/24 22:53 Primary Reason for Your Visit: GI bleed, history of recent stroke Attending Provider: Joe Doran Primary Care Provider: Care Physician,No Primary Consulting Providers: Gabriella Forbes; Akash Patel Instructions Additional Instructions / Restrictions: Baby aspirin was discontinued after starting Eliquis. Patient had a stroke therefore if she tolerates Eliquis, can introduce baby aspirin after 5 to 7 days CBC and BMP in 3 days Discharge Orders/Prescriptions Prescriptions: New atorvastatin 80 mg Tablet 80 mg PO QHS Qty: 0 0RF acetaminophen 325 mg Tablet 650 mg PO Q4H PRN PRN (Reason: Fever, pain -03/28) Qty: 0 0RF Mucinex DM 30-600 mg Tablet Extended Release 12 Hr 2 tab PO BID 5 Days Qty: 20 0RF Eliquis 5 mg Tablet 5 mg PO BID Qty: 0 0RF Rx Instructions: Discontinue if platelet count drops less than 50,000 or hemoglobin less than 8 g% oseltamivir 75 mg Capsule 75 mg PO BID Qty: 2 0RF Rx Instructions: Last dose 07/24/2019 10:00 AM sennosides-docusate sodium [Stimulant Laxative Plus] 8.6-50 mg Tablet 2 tab PO BID PRN PRN (Reason: Constipation) Qty: 0 0RF potassium chloride 20 mEq Tablet,Er Particles/Crystals 20 meq PO DAILY Qty: 0 0RF pantoprazole 40 mg Tablet,Delayed Release (Dr/Ec) 40 mg PO DAILY Qty: 0 0RF Referrals / Follow Up: Care Physician,No Primary [Primary Care Provider] - Disposition Disposition (needs filled in before D/C Order can be placed): Inpatient Rehab Unit/Facility Charges/Coding Visit Charges Inpatient E&M: 26919 Disch Hosp >30min
[2024-07-23 13:07] VITALS: BMI 26.4
[2024-07-23 13:16] VITALS: BP 120/94; PULSE 68; RESP 18; TEMP 36.4; O2SAT 96
--- NOTE | 2024-07-23 13:25 | NURSING ---
report called to inpatient rehab
--- NOTE | 2024-07-23 13:35 | WOUNDNOTE ---
wound photo: right buttock
--- NOTE | 2024-07-23 13:36 | WOUNDNOTE ---
wound photo: right foot
--- NOTE | 2024-07-23 13:36 | WOUNDNOTE ---
wound photo: right foot
--- NOTE | 2024-07-23 13:37 | WOUNDNOTE ---
wound photo: left foot
--- NOTE | 2024-07-23 13:38 | WOUNDNOTE ---
wound photo: left foot
== END 2024-07-23 13:40 | DRG 45 ==
LOC: ED 19:34 → PCU 07-15 07:03
PROVIDERS: Anesthesiology; Emergency Medicine; Internal Medicine; Internal Medicine Gastroenterology; Admitting Provider Family Medicine; Emergency Provider Emergency Medicine; Referring Provider Family Medicine; Visit Provider Internal Medicine
PROC: 0DJD8ZZ Inspection of Lower Intestinal Tract, Via Natural or Artificial Opening Endoscopic (ICD-10-PCS; CPT 45378; principal; 2024-07-18 16:25)
DX: I63.512 Cerebral infarction due to unspecified occlusion or stenosis of left middle cerebral artery (principal); K25.6 Chronic or unspecified gastric ulcer with both hemorrhage and perforation; M62.82 Rhabdomyolysis; E87.0 Hyperosmolality and hypernatremia; I24.89 Other forms of acute ischemic heart disease; E87.1 Hypo-osmolality and hyponatremia; K26.9 Duodenal ulcer, unspecified as acute or chronic, without hemorrhage or perforation; R29.706 NIHSS score 6; I69.320 Aphasia following cerebral infarction; I48.0 Paroxysmal atrial fibrillation; M50.122 Cervical disc disorder at C5-C6 level with radiculopathy; I10 Essential (primary) hypertension; D50.9 Iron deficiency anemia, unspecified; K21.9 Gastro-esophageal reflux disease without esophagitis; I65.21 Occlusion and stenosis of right carotid artery; F17.210 Nicotine dependence, cigarettes, uncomplicated; E87.6 Hypokalemia; H53.8 Other visual disturbances; S70.01XA Contusion of right hip, initial encounter; E78.5 Hyperlipidemia, unspecified; K63.5 Polyp of colon; J20.9 Acute bronchitis, unspecified; W00.9XXA Unspecified fall due to ice and snow, initial encounter; M20.12 Hallux valgus (acquired), left foot; J09.X2 Influenza due to identified novel influenza A virus with other respiratory manifestations; R62.7 Adult failure to thrive; Z79.82 Long term (current) use of aspirin; Z68.26 Body mass index [BMI] 26.0-26.9, adult; Z88.1 Allergy status to other antibiotic agents; Z87.820 Personal history of traumatic brain injury; X31.XXXA Exposure to excessive natural cold, initial encounter; Z98.84 Bariatric surgery status; Z90.49 Acquired absence of other specified parts of digestive tract; Z85.038 Personal history of other malignant neoplasm of large intestine; Z87.11 Personal history of peptic ulcer disease; Z11.52 Encounter for screening for COVID-19; Z98.0 Intestinal bypass and anastomosis status; Z79.01 Long term (current) use of anticoagulants; Z79.02 Long term (current) use of antithrombotics/antiplatelets; Z79.899 Other long term (current) drug therapy
CPT/HCPCS: 36415; 70450; 70496; 70498; 70551; 71045; 71046; 72125; 73502; 73560; 73620; 80048; 80053; 80061; 80076; 80307; 81001; 82077; 82550; 82962; 83036; 83605; 83735; 84100; 84443; 84484; 85025; 85610; 85730; 87040; 87086; 87088; 87449; 87633; 87635; 87641; 88305; 92507; 92523; 92526; 92611; 93005; 93306; 94668; 94762; 97116; 97129; 97163; 97166; 97530; 97535; 97802; 97803; 99285; Q9957; Q9967; A4216; C8929; J2405

== ENCOUNTER 2024-07-23 13:51 | Inpatient (IN) | payer MEDICAID, SELFPAY ==
[2024-07-23 14:32] VITALS: BP 122/56; PULSE 65; RESP 18; TEMP 37; O2SAT 98; BMI 26.0
--- NOTE | 2024-07-23 14:55 | HP.PCM_ITS ---
HPI - General General Date of Admission: 07/23/24 Date of Service: 07/23/24 Chief Complaint: Poststroke debility HPI Narrative SOLA GARCÍA, is a 59 YO F with a PMH of ongoing tobacco dependence, PAF, GERD with history of peptic ulcer disease/perforation requiring surgery to oversew/GI bleed, history of colon cancer with partial colectomy, hypertension, history of cervical cancer (status post RAJANI/BSO), history of traumatic brain injury, anxiety and history of stroke in the past who presented to the ED at [facility] on 07/14/2024 complaining of right hip pain after a fall. In the emergency department she became confused and had expressive aphasia. She also have right-sided weakness. Noncontrast CT brain showed a wedge-shaped hypodensity extending from the caudate head to the lentiform nucleus. Cerebellum and brainstem were normal. There was no intracranial hemorrhage. No sign of acute ischemic infarction. CTA of the head and neck showed greater than 70% stenosis of the proximal right internal carotid artery and 50 to 75% stenosis of the cavernous segment of the right internal carotid artery. CT of the neck showed severe bilateral foraminal narrowing at C5-C6 with no acute fracture or dislocation. X-ray of the right hip and pelvis showed no fracture. X-ray of the knee showed no fractures. There was hallux valgus present.Both knee x-rays were normal. Teleneurology was consulted and the NIH was 0 however she did have right-sided weakness. The neurologist felt that the CT head showed an old left cerebellar embolic appearing stroke and acute left basal ganglia ischemic stroke involving multiple structures that was slightly bigger than a lacunar. She was not a candidate for thrombolytics. She was admitted to the hospitalist service for stroke workup. She was placed on aspirin and a statin. It was unclear at admission to the ED/hospital whether she was taking any medications as an OP. MRI of the brain was done on 07/15/2024 and showed small to moderate-sized acute infarcts of the left basal ganglia and posterior limb of the internal capsule extending up to the periventricular white matter. There was also a small acute infarct present in the posterior medial aspect of the left cerebellar lobe. There was no hemorrhagic transformation present. Transthoracic echocardiogram showed a 70% ejection fraction with no evidence of diastolic dysfunction and no regional wall motion abnormalities. Both atria were of normal size and the bubble contrast study was negative. There was no significant valvular heart disease. Significant lab at admission to the hospital included triglycerides of 73, LDL of 60 and an HDL of 49. TSH was normal at 1.51. Hemoglobin A1c was 5.1. Creatinine was elevated at 1.82 at presentation to the emergency department with a BUN of 65. Hemoglobin at presentation to the emergency department was 12.9 and dropped to 10.6. Screening at admission to the emergency department was negative. Alcohol was less than 3.0. Because of a history of peptic ulcer disease and anemia GI was consulted to evaluate prior to starting anticoagulation. EGD on 07/18/2024 showed patchy mildly erythematous mucosa without bleeding in the stomach. There were a few nonbleeding linear duodenal ulcers with no stigmata of bleeding. Colonoscopy on 07/18/2024 showed a patent end-to-end colocolonic anastomosis characterized by hemorrhagic appearance. An Endo Clip was placed. There was one 8 mm polyp in the sigmoid colon which was removed with a cold snare. Pathology was consistent with tubular adenoma. Dr. Mari recommended follow-up colonoscopy in 1 year and suggested waiting until 07/23/2024 to start anticoagulation. On 07/23/2024 she is started on Eliquis 5 mg p.o. twice daily. On 07/19/2024 she had a fever of 101.6 Fahrenheit associated with cough. PA and lateral chest x-ray showed no infiltrates. COVID-19 was negative. Influenza A was positive and she was started on Tamiflu in the evening on 07/20/2024. Sola was transferred to the acute inpt rehab unit at [facility] on 07/23/24 for 3 hours of therapy daily to restore function/independence at or near her level prior to the stroke. Unclear to me at this time what her level of function was prior to presentation to the ED. All lab drawn the morning of 07/23/2024 was personally reviewed. WBC is 5.4 with an unremarkable differential. Hemoglobin is 10.6 and stable. Platelets are within normal limits. MCV is elevated. She had a BMP on 07/22/2024 that showed a sodium of 137 and a serum bicarb of 22. Potassium was 3.8. The BUN is 25 with a creatinine of 0.95 Medication list was reviewed. Sola tells me that she was not taking any prescribed medications prior to coming to the emergency department. She also denies any history of paroxysmal atrial fibrillation and she was told that she had A-fib here in the hospital. She does not have a primary care doctor. She tells me that she has a hx of alcohol abuse that started in her 30's. her mother and father were both alcoholic. She has been to AA and she has also been to [facility]. She was last seen at [facility] approximately 1 month ago.....not sure she will go back. Has had periods of sobriety but, has relapsed a few times also. Denies any hx of drug addiction. Denies any hx of physical or sexual abuse. She lives in an apt with her cat. She tells me that she has a lot of steps to get into her apt. She has 2 children but, they both live far away. She is divorces (for about 20 years now). She tells me that prior to falling down the stairs she was lightheaded and had weakness on the R side. This may be why she fell on the stairs. She fell down the steps on her back and landed at the bottom where she thinks she laid for a few hours before she was able to crawl out to the street.....this is how she thinks she got the wounds on her feet. Has not seen a dentist in many years. She admits to being depressed in the past but, has never been on an antidepressant. The last mammogram was 1 to 1-1/2 years ago and she states it was normal. [facility] Medical History (Updated 07/24/24 @ 09:[address] Lila Beal, ) HTN (hypertension) Family history of alcohol abuse and dependence History of ETOH abuse History of cervical cancer in adulthood Anxiety and depression Tobacco use History of colon cancer History of GI bleed History of stroke TBI (traumatic brain injury) Gastric ulcer Home Medications ?Medication ?Instructions ?Recorded ?Last Taken ?Type acetaminophen 325 mg tablet 650 mg (2 x 325 mg) PO Q4H PRN PRN 07/23/24 07/23/24 Rx Fever, pain 1-03/28 #0 tabs apixaban 5 mg tablet (Eliquis) 5 mg PO BID AFIB #0 tab s 07/23/24 07/23/24 Rx atorvastatin 80 mg tablet 80 mg PO QHS cholesterol #0 tabs 07/23/24 07/22/24 Rx dextromethorphan-guaifenesin 30 2 tab PO BID cough 5 d ays #20 tabs 07/23/24 07/23/24 Rx mg-600 mg tablet extended [id number] hr (Mucinex DM) oseltamivir 75 mg capsule 75 mg PO BID flu 07/23/24 History pantoprazole 40 mg tablet,delayed 40 mg PO DAILY reflu x #0 tabs 07/23/24 07/23/24 Rx release potassium chloride 20 mEq 20 meq PO DAILY supplement # 0 tabs 07/23/24 07/23/24 Rx tablet,extended release(part/cryst) Allergy/AdvReac Type Severity Reaction Status Date / Time Penicillins Allergy Severe Other Verified 07/14/24 15:10 Family History (Updated 07/23/24 @ 16:[address] Lila Beal DO) Mother , at 50 YOA of CVA CVA (cerebral vascular accident) Hypertension Alcoholism Father History of lung cancer COPD (chronic obstructive pulmonary disease) Alcoholism Tobacco dependence due to cigarettes Brother Pancreatic cancer Surgical History (Updated 07/23/24 @ 16:[address] Lila Beal DO) History of gastric surgery History of bowel resection S/P complete hysterectomy Social History (Updated 07/23/24 @ 16:[address] 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 Has attended AA/[facility] substance use type: does not use ROS Review of Systems ROS Unobtainable: Denies due to encephalopathy, due to endotracheal tube, due to mental condition or due to mental status Constitutional Constitutional: Reports weakness; Denies anorexia, change in weight, chills, fatigue, fever(s), frequent falls, headache(s), night sweats or weight loss Eyes Eyes: Denies blurry vision, change in vision, eye pain or loss of vision ENT HEENT: Reports nasal congestion and other Details: very poor dentition ; Denies abnormal hearing, dysphagia, headache(s), hearing loss or sore throat Cardiovascular Cardiovascular: Denies chest pain, dyspnea on exertion, edema, lightheadedness, orthopnea, palpitations, paroxysmal nocturnal dyspnea or syncope Respiratory/Chest Respiratory/Chest: Reports cough, dyspnea on exertion, shortness of breath with exertion, wheezing and other Details: Has never had PFTs ; Denies hemoptysis or shortness of breath at rest Gastrointestinal Gastrointestinal: Denies abdominal pain, constipation, diarrhea, dyspepsia, hematemesis, hematochezia, nausea or vomiting Genitourinary Genitourinary: Denies dysuria, hematuria, nocturia, urinary frequency, urinary hesitancy, urinary incontinence or urinary urgency Musculoskeletal Musculoskeletal: Reports back pain, difficulty walking, extremity pain and other Details: She has multiple wounds on her feet and is having pain right greater than left foot. ; Denies joint pain, joint swelling or neck pain Integumentary Integumentary: Reports dry skin; Denies hirsutism or jaundice Neurologic Neurologic: Reports abnormal gait, confusion, disequilibrium, focal weakness and weakness; Denies dizziness, headache(s), paresthesias, seizures, tremor(s) or vertigo Psychiatric Psychiatric: Reports anxiety and depression; Denies homicidal ideation or suicidal ideation Endocrine Endocrinology: Denies change in body appearance, polydipsia or polyuria Hematologic/Lymphatic Hematologic/Lymphatic: Denies easy bleeding, easy bruising or lymphadenopathy Allergic/Immunologic Allergic/Immunologic: Denies rhinitis, eczemia or asthma Vital Signs Vital Signs Vital Signs: 07/23/24 14:32 Temperature 98.6 F Temperature Source Temporal Pulse Rate 65 Respiratory Rate 18 Blood Pressure 122/56 H Blood Pressure Mean 78 Blood Pressure Source Monitor Blood Pressure Position Semi-Fowlers Blood Pressure Location Right Arm Pulse Ox 98 Oxygen Delivery Method Room Air Weight Weight: 176 lb 3.2 oz Body Mass Index (BMI) 26.0 Indicators for Scoring Admitted with or Primary Diagnosis of CVA/Stroke: Yes Hx of CVA/Stroke: Yes Modified Frohna Score MRS Score at time of Evaluation: 4-Moderate/severe disability NIHSS NIHSS 1a. Level of Consciousness: Alert; keenly responsive 1b. LOC Questions: Answers BOTH questions correctly. 1c. LOC Commands: Performs both tasks correctly. 2. Best Gaze: Normal 3. Visual: No visual loss 4. Facial Palsy: Normal symmetrical movements 5a. Left Arm: No drift; arm holds 90 (or 45) degrees for full 10 seconds 5b. Right Arm: No drift; arm holds 90 (or 45) degrees for full 10 seconds (She is right arm/hand dominant and she complains of difficulty writing and with coordination of the right hand although she has a good cardiology physician on the right.) 6a. Left Leg: No drift; leg holds 30-degree position for full 5 seconds 6b. Right Leg: Drift; leg falls by the end of 5-seconds, but does not hit bed 7. Limb Ataxia: Absent 8. Sensory: Normal; no sensory loss 9. Best Language: Pefc-sp-wymoyhsd aphasia; (Trouble with word finding....I have to guess what she is trying to say at times. ) 10. Dysarthria: Normal 11. Extinction and Inattention: No abnormality Total: 2 Stroke Questions Stroke Team Activated: No Physical Exam Const alert, oriented x3 and no apparent distress Constitutional Narrative: General Appearance: cooperative, well developed, disheveled and appears older than stated age HEENT head/scalp atraumatic and hearing grossly normal bilaterally HEENT Narrative: Tongue protrudes on the midline and there is symmetrical elevation of the palate. Multiple carious teeth and some missing teeth. No halitosis. Eyes PERRL, EOMs intact bilaterally, conjunctivae normal and no scleral icterus Eyes Narrative: No discharge from the eyes and no mattering of the eyelashes. Neck supple, No nodes and no carotid bruits General: trachea midline Chest Chest Narrative: Increased AP diameter of the chest. Chest: symmetrical chest wall rise Resp normal respiratory effort Resp Narrative: Frequent productive cough while I am examining her. No conversational dyspnea. Not tachypneic. Diffuse inspiratory and expiratory wheezing. No crackles. Cardio regular rate, regular rhythm, S1 normal heart sound, S2 normal heart sound, no rub and no gallops Cardio Narrative: No ectopy. Distant heart sounds. GI normal to inspection, nondistended, normoactive bowel sounds, soft to palpation and non-tender GI Narrative: No guarding with palpation. No abdominal bruits. no CVA tenderness Extremity Extremity Narrative: trace pedal edema. She has multiple wounds on both feet, R>L. No open wounds.....all wounds have eschar present. No purulent DC. No evidence of infection. the DP and PT pulses are 2+ BL. Skin Skin Narrative: wounds present on feet.....see extremity exam. Had an abrasion of the R elbow but, this has healed. No rashes Neuro oriented x3 and CN's II-XII intact bilaterally Neuro Narrative: Weakness on the R side and poor coordination of the R hand. Trouble word finding. I do not appreciate any dysarthria. No ataxia. No extinction. No paresthesias. No visual field cuts. See NIHSS scoring. Psych cooperative, denies homicidal ideation and denies suicidal ideation Psych Narrative: Pleasant and making good eye contact with me. She is appropriate and cooperative. Denies feeling depressed currently but, she admits to not taking very good care of herself. Was going to [facility] up until 1 month ago. Tells me that she has not had a drink in the past month. Appearance: unkempt Attitude: calm and engaged Activity / Motor Behavior: appropriate eye contact Results Lab / Micro Data 07/24/24 05:43 07/24/24 05:43 Assessment & Plan Assessment/Plan (1) Debility: (2) CVA (cerebral vascular accident): QUALIFIERS: CVA mechanism: embolism Precerebral and cerebral artery: unspecified cerebral artery Qualified Code(s): I63.40 - Cerebral infarction due to embolism of unspecified cerebral artery (3) Influenza A: (4) COPD (chronic obstructive pulmonary disease): QUALIFIERS: COPD type: COPD with acute exacerbation Qualified Code(s): J44.1 - Chronic obstructive pulmonary disease with (acute) exacerbation (5) COPD exacerbation: (6) PAF (paroxysmal atrial fibrillation): (7) Right sided weakness: (8) Cognitive impairment: (9) HTN (hypertension): QUALIFIERS: Hypertension type: primary hypertension Qualified Code(s): I10 - Essential (primary) hypertension (10) Dental caries noted on examination: (11) History of hysterectomy for malignancy: (12) History of colon cancer: (13) Macrocytic anemia: (14) Adenomatous polyp: (15) Urine retention: PLAN: Plan PLAN PT for gait stability OT for ADL's ST for evaluation Analgesics as needed Bowel protocol Fall precautions Assess for Anxiety/Depression GI prophylaxis -continue Protonix 40 mg daily DVT prophylaxis with Eliquis Follow up with neurology, cardiology, needs a PCP, dentist following DC from [facility] Re[facility] All lab from today was personally reviewed Check a B12,folate, iron studies. Needs a carotid Us as an OP to better asses the carotid stenosis Needs a repeat colonoscopy in 1 year Smoking cessation counseling was given. Prednisone 40 mg daily x 3 then 20 mg daily x 3 then 10 mg daily x 3 DuoNeb aerosols every 4 hours while awake the chart documentation says she has PAF but, she is not on anything to block the AV node. Will need to monitor closely for AF/RVR when getting aerosols. Sybil AC 10 cc at bedtime May need something stronger than Tylenol for pain in her feet-will reassess tomorrow when she is up and ambulating. CODE STATUS: Discussed code status at length with Sola including the difference between FULL CODE, DNR CCA and DNR CC status. All questions were answered. An order for full code was entered into the computer. A total of 20 minutes face to face time was devoted to advanced care planning. Patient's LDL was only 60 at presentation to the hospital and she was not taking a statin. Transaminases are mildly increased. Will decrease the Atorvastatin to 40 mg which is still a high intensity statin. Charges/Coding Visit Charges Inpatient E&M: 80069 Init Hosp L3
[2024-07-23 15:11] VITALS: BMI 26.0
--- NOTE | 2024-07-23 17:19 | REHABEVAL_ITS ---
Admission Information Primary Diagnosis:: Post stroke debility Status Changes from Prescreening?: No changes Identified Actual Problem List:: Skin Intergrity, Pain, ALteration in Cmfrt, Cognitve Impr/Memory Loss, Depression, Mobility Impaired, Self Care Deficit, Know.Dfct/Disease Process, Know.Dfct of Medicaitons, Alteration/ Air Exchange and Alteration-Leisure Activ. Potential Problem List:: DVT, Bleeding, Infection, UTI, Aspiration, Falls, Skin Integrity and Depression Risk of Complications DVT: CAMILA Hose and - (Continue Eliquis 5 mg twice daily) Bleeding: Monitor Lab Values, Nursing to Teach Precautions for anti-coagulation therapy., Wound, if applicable, to be assessed every shift. and Stroke patients assessed for lethargy or change in status. Infection: Clinical Staff to Monitor for S/S of infection: and S/S of infection include fever, redness, warmth, etc. Urinary Tract Infection: Monitor for frequency, burning, discomfort, or incontinence. and Nursing will obtain urine sample for urinalysis and C&S when ordered. Aspiration: Clinical staff will monitor for coughing, drooling, congestion., Speech will evaluate swallowing and dsyphasia. and Nursing will monitor patient swallowing during meals. Falls: Patient will be evaluated for Fall Precautions and Patient will be placed on Fall Precautions as indicated per protocol. Skin Breakdown: Nursing will assess skin daily using assessment tool. and Nursing will place on Skin Breakdown Precautions as indicated. Pain: Clinical staff will assess patient's pain level per protocol., Medications will be given, if needed, and the pain level reassessed. and Other methods: Massage, distraction, decrease stimulus, etc. used PRN. Plan of Care Patient requires physician specializing in physical medicine and rehab oversight to provide close medical supervision of rehab issues including: Pain Management, Sleep Problems, Bowel and Bladder, Medical and co-morbidity Management, DVT prophylaxis, Rehabilitation Leadership and Coordination of treatment team Patient needs Physical Therapy: For a minimum of 1 hour and At least 5 out of 7 days Patient needs Physical Therapy to improve:: Mobility, Strengthening, Transfers, Stretching, ROM, Endurance, Stairs, Gait and Balance Patient needs Occupational Therapy: For a minimum of 1 hour and At least 5 out of 7 days Patient needs Occupational Therapy to improve ADL's incl.: Eating, Grooming, Bathing, Dressing, Toileting, Toilet transfers, Community Reintegration, Higher functioning activities, Household tasks, Adaptive Equipment, Splinting and Other activities as determined Patient requires speech therapy: For a minimum of 1 hour and At least 5 out of 7 days Patient requires speech therapy for: Swallowing, Cognition, Language Skills and Compensatory Strategies Patient requires 24/7 Rehabilitation Nursing for: Pain Issues, Identifying and preventing risk factors, Monitoring and reporting current medical conditions, Assisting with ambulation, transfer, and all ADL's, Teaching patients about disease process and medications, Family teaching, Providing safe environment, Bowel and Bladder Issues, Skin integrity and Medication Management Patient needs Sanding Machine Tender/ Case Management for: Discharge Planning, Arranging Home Equipment or Services and Family Interventions Patient needs Dietary and Nutrition Services for: Adequate Nutrition, Nutritional Supplements and Nutritional Education Goals Goals Patient will remain: free from falls Patient will perform eating at: MOD I level of assist. Patient will perform bed mobility at: MOD I level of assist. Patient will complete transfers from bed to chair at: - (Independently) Patient will ambulate: - (350 feet with least restrictive device (quad cane versus no device) on various surfaces) Patient will complete upper body dressing at: MOD I level of assist. Patient will complete lower body dressing at: MOD I level of assist. (Using adaptive equipment as needed) Patient will complete toilet transfer at: MOD I level of assist. Patient will complete toileting at: MOD I level of assist. Patient will perform bathing at: MOD I level of assist. (Upper body bathing independently and lower body bathing at mod I using adaptive equipment as needed) Patient will perform Tub/Shower transfer at: - (Supervision for the first 1 to 2 weeks using DME as needed) Patient will complete grooming at: MOD I level of assist. Patient will complete home management skills at: MOD I level of assist. Patient will achieve: - (14 steps with 1 handrail at standby assist to allow access to her apartment) Patient will have pain level of: of 3 or less Patient's skin will: remain intact Discharge Planning Pt Prognosis for Sig. Practical Improv. w/in Reasonable Time: Good Estimated Length of stay (days): 21 Anticipated D/C Destination: Home with Outpt Therapy Was Preadmission Assessment Accurate?: Yes
[2024-07-23 17:34] VITALS: BP 122/56; PULSE 65; RESP 18; TEMP 37; O2SAT 98
[2024-07-23] MEDS: predniSONE 20 MG Tablet 40 MG PO (18:17)
--- NOTE | 2024-07-23 19:00 | RAD_ITS ---
PROCEDURE: ABDOMEN SINGLE VIEW REASON FOR EXAM: Urine retention. TECHNIQUE: Single view abdomen. COMPARISON: CT abdomen/pelvis from 10/26/2023. FINDINGS: Nonobstructive bowel gas pattern is identified. No unusual calcifications or organomegaly is identified. There is a linear radiopaque foreign body in the left aspect of the pelvis measuring 2.2 cm which may be on a postsurgical basis. No acute osseous abnormality is present. Mild degenerative changes are identified. No definite free air seen. RAD/Abdomen Single View IMPRESSION: 1. Nonobstructive bowel gas pattern. 2. Linear radiopaque foreign body within the left aspect of the pelvis measurin g 2.2 cm which may be on a postsurgical basis. Reading Location: [facility]
[2024-07-23 19:37] LABS: Bacteria 0 SEEN /hpf (None Seen); Mucous, Urine 0 SEEN /hpf (<or=2+); Red Blood Cells-Urine 0 SEEN /hpf (0-5); Squamous Epithelial Cells - UA 0 SEEN /hpf (5-10); White Blood Cells 0 SEEN /hpf (0-5)
[2024-07-23 19:42] LABS: Color, Urine Yellow (Yellow); Glucose, Dipstick Normal (Normal); Ketone-Dipstick Negative (Negative); Leukocyte Esterase-Dipstick Negative /ul (Negative); Nitrite-Dipstick Negative (Negative); Occult Blood-Urine Negative /ul (Negative); Protein-Dipstick Negative (Negative); Specific Gravity, Urine 1.005 (1.002-1.030); Urine Bilirubin Dipstick Negative (Negative); Urine Clarity Clear (Clear); Urine Urobilinogen Normal (Normal)
[2024-07-23 21:15] VITALS: O2SAT 96
[2024-07-23] MEDS: Atorvastatin Calcium 40 MG Tablet PO (21:47)
[2024-07-23] MEDS: guaiFENesin/Codeine 5 ML UDC 10 ML PO (21:47)
[2024-07-23] MEDS: APIXABAN 5 MG TABLET PO (21:48)
[2024-07-23] MEDS: guaiFENesin/D-Methorphan TAB.SR.12H 2 TABLET PO (21:48)
[2024-07-23] MEDS: Senna/Docusate Sodium 1 Tablet 2 TABLET PO (21:48)
[2024-07-23] MEDS: Oseltamivir Phosphate 75 MG Capsule PO (21:50)
[2024-07-23] MEDS: Acetaminophen 325 MG Tablet 650 MG PO (21:59)
[2024-07-23 22:00] VITALS: BP 139/68; PULSE 69; RESP 18; O2SAT 96
[2024-07-23] MEDS: Menthol/Lanolin/Calamine/Znox 113 GM Tube 1 APPLIC TOPICAL (22:04)
[2024-07-24] VITALS (7 sets, daily range): BP systolic 133–151; BP diastolic 50–68; PULSE 60–79; RESP 16–17; TEMP 36.6; O2SAT 95–99; BMI 26.0; BMI 25.7
[2024-07-24] MEDS: Menthol/Lanolin/Calamine/Znox 113 GM Tube 1 APPLIC TOPICAL ×2 (05:15→20:04)
[2024-07-24 06:26] LABS: Absolute Lymphocyte Count 0.85 X10^3/uL (0.83-4.51); Absolute Neutrophil Count 2.5 X10^3/uL (2.0-7.7); Basophil# 0.02 X10^3/uL; Basophil% 0.6 % (0-1); Hematocrit 35.1 % (37-47); Hemoglobin 11.2 g/dL (12.0-15.0); Lymphocyte # 0.85 X10^3/ul (0.83-4.51); Lymphocyte % 24.1 % (19-41); Mean Corp Hgb Conc 31.9 g/dL (32-36); Mean Corpuscular Hgb 31.8 pg (27.0-32.0); Mean Corpuscular Volume 99.7 fL (81-99); Mean Platelet Vol. 11.6 fl (6.2-12.0); Monocyte# 0.12 X10^3/uL; Monocyte% 3.4 % (0-10); NRBC Flagged by Analyzer 0 % (0-5); Neutrophil # 2.52 X10^3/uL (2.7-7.7); Neutrophil % 71.6 % (47-70); POSITIVE MORPHOLOGY YES; Platelet Count 222 K/mm3 (150-450); RBC Distribution Width CV 15.9 % (11.6-14.6); Red Blood Count 3.52 M/mm3 (4.2-5.4); White Blood Count 3.5 K/mm3 (4.4-11.0)
[2024-07-24 06:33] LABS: Differential Indicated SCAN CRITERIA MET
[2024-07-24 06:48] LABS: ALB/GLOB Ratio 0.6 RATIO (0.9-2.4); AST(SGOT) 41 U/L (15-37); Alanine Aminotransfer ALT/SGPT 56 U/L (13-56); Albumin, Serum 2.3 g/dL (3.2-5.0); Alkaline Phosphatase 82 U/L (45-117); Anion Gap 8 (5-15); BUN 23 mg/dL (7-18); BUN/Creat Ratio 24.7 RATIO (10-20); Calcium,Total 8.8 mg/dL (8.5-10.1); Chloride 110 mmol/L (98-107); Creatinine, Serum 0.93 mg/dL (0.55-1.02); EST Glomerular Filtration Rate 65 mL/min (>60); Est Glom Filt Rate - Afr Amer 78 mL/min (>60); Estimated Creatinine Clearance 66.39 ml/min; Globulin 4.1 g/dL (2.2-4.2); Glucose 138 mg/dL (74-106); Magnesium 1.8 mg/dL (1.6-2.6); Phosphorus 3.4 mg/dL (2.5-4.9); Potassium 4.1 mmol/L (3.5-5.1); Protein, Total 6.4 g/dL (6.4-8.2); Sodium Level 137 mmol/L (136-145)
[2024-07-24] MEDS: Ipratropium/Albuterol Sulfate 3 ML AMPUL.NEB INHALATION ×2 (06:57→11:04)
[2024-07-24 07:25] LABS: Bedside Glucose 157 mg/dL (74-106)
[2024-07-24 07:35] LABS: Atypical Lymphocyte RARE %
[2024-07-24] MEDS: Pantoprazole Sodium 40 MG Tablet PO (07:52)
[2024-07-24] MEDS: guaiFENesin/Codeine 5 ML UDC 10 ML PO (07:52)
[2024-07-24] MEDS: guaiFENesin/D-Methorphan TAB.SR.12H 2 TABLET PO ×2 (09:22→20:05)
[2024-07-24] MEDS: Potassium Chloride Oral Tablet 20 MEQ PO (09:22)
[2024-07-24] MEDS: Senna/Docusate Sodium 1 Tablet 2 TABLET PO ×2 (09:22→20:05)
[2024-07-24] MEDS: APIXABAN 5 MG TABLET PO ×2 (09:22→20:05)
[2024-07-24] MEDS: predniSONE 20 MG Tablet 40 MG PO (09:22)
--- NOTE | 2024-07-24 09:44 | PN_ITS ---
Subjective Subjective Afebrile VSS -blood pressure since arrival on rehab has ranged from 122/56 to 139/68. Blood pressure this a.m. was 133/68. Heart rate is within normal limits. Maintaining appropriate oxygen saturation on RA-96 to 98% on room air Oral intake - FOOD good FLUIDS fluid balance is -3085 since admission to rehab. Discussed with nursing - She has had to be straight cath;d 3 times for urine retention. KUB with no excessive stool burden. Will need to insert a Marquez. Voiding trial in 4-5 days. UA has no white blood cells and no bacteria. Reviewed the THERAPY notes Medication list reviewed. All a.m. labs were personally reviewed. WBC is mildly decreased at 3.5 with a few atypical lymphocytes and this is likely secondary to acute influenza A. Hemoglobin is stable at 11.2. Platelets are within normal limits. Sodium is 137 with a potassium of 4.1. Serum bicarb is mildly decreased at 19. The BUN is 23, down from 29 on 07/22/2024. Creatinine is stable at 0.93. Fasting blood sugar is 138 today but she has a normal hemoglobin A1c. Suspect this is secondary to initiation of prednisone for acute exacerbation of COPD yesterday. Phosphorus is normal at 3.4 and the magnesium was 1.8. LFTs are unremarkable. B12, folate and iron studies are pending. She tells me she slept well last night. She denies lightheadedness and also denies cephalgia. She thinks her breathing is better today. Has been using the incentive spirometer for 10 breaths every hour while awake. Denies chest pain, shortness of breath at rest, nausea/vomiting/epigastric pain, dysuria and calf tenderness. Denies palpitations. Objective Data Objective Data Vital Signs: Vital Signs Temp Pulse Resp BP Pulse Ox O2 Del Method 97.9 F 60 16 133/68 H 97 Room Air 07/24/24 05:25 07/24/24 06:58 07/24/24 06:58 07/24/24:07/24/24 06:59 07/24/24 06:59 Oxygen Delivery Method Room Air Weight: 173 lb 15.115 oz Body Mass Index (BMI) 25.7 Intake & Output: Intake and Output for Last 24 Hours 02/03/25 02/04/25 02/05/25 23:59 23:59 23:59 Intake Total 100 / 200 515 / 515 Output Total 2600 / 2600 1100 / 1100 Balance -2500 / -2400 -585 / -585 Lab / Micro Data 07/24/24 05:43 07/24/24 05:43 Labs: Laboratory Results - last 24 hr 07/23/24 18:12: Urine Color Yellow, Urine Clarity Clear, Urine pH 7.0, Ur Specific Roxton 1.005, Urine Protein Negative, Urine Glucose (UA) Normal, Urine Ketones Negative, Urine Occult Blood Negative, Urine Nitrite Negative, Urine Bilirubin Negative, Urine Urobilinogen Normal, Ur Leukocyte Esterase Negative, Urine RBC 0 SEEN, Urine WBC 0 SEEN, Ur Squamous Epith Cells 0 SEEN, Urine Bacteria 0 SEEN, Urine Mucus 0 SEEN 07/24/24 05:43: WBC 3.5 L, RBC 3.52 L, Hgb 11.2 L, Hct 35.1 L, MCV 99.7 H, MCH 31.8, MCHC 31.9 L, RDW Std Deviation 58.0 H, RDW Coeff of Jerson 15.9 H, Plt Count 222, MPV 11.6, Immature Gran % (Auto) 0.300, Neut % (Auto) 71.6 H, Lymph % (Auto) 24.1, Marshall % (Auto) 3.4, Eos % (Auto) 0.0, Baso % (Auto) 0.6, Absolute Neuts (auto) 2.5, Absolute Lymphs (auto) 0.85, Nucleated RBC % 0, Atypical Lymphocytes RARE, Sodium 137, Potassium 4.1, Chloride 110 H, Carbon Dioxide 19.0 L, Anion Gap 8, BUN 23 H, Creatinine 0.93, Estim Creat Clear Calc 66.39, Est GFR (MDRD) Af Amer 78, Est GFR (MDRD) Non-Af 65, BUN/Creatinine Ratio 24.7 H, G lucose 138 H, Calcium 8.8, Phosphorus 3.4, Magnesium 1.8, Total Bilirubin 0.40, AST 41 H, ALT 56, Alkaline Phosphatase 82, Total Protein 6.4, Albumin 2.3 L, Globulin 4.1, Albumin/Globulin Ratio 0.6 L 07/24/24 06:33: POC Glucose 157 H Radiography Diagnostic Testing: Radiology Impression KUB X-Ray 07/23/24 19:00 IMPRESSION: 1. Nonobstructive bowel gas pattern. 2. Linear radiopaque foreign body within the left aspect of the pelvis measuring 2.2 cm which may be on a postsurgical basis. [facility] Physical Exam Const alert, oriented x3 and no apparent distress General Appearance: cooperative Resp Resp Narrative: Much better air exchange today. Not tachypneic. Less cough with deep breathing. No inspiratory wheezes and no crackles. Mild expiratory wheezing. Less cough today. Effort and Inspection: Negative for tachypneic or respiratory distress Cardio regular rate and regular rhythm Cardio Narrative: No ectopy GI normal to inspection, nondistended, normoactive bowel sounds, soft to palpation and non-tender Extremity no calf tenderness General Extremity: Negative for edema Skin Skin Narrative: Multiple abrasions of the knees, feet and ankles. Healed abrasion on the right elbow. These are due to the fall she took prior to presenting to the emergency department. No purulent discharge, no significant erythema surrounding the eschars. Rashes: no rashes Assessment & Plan Assessment/Plan (1) Debility: (2) CVA (cerebral vascular accident): QUALIFIERS: CVA mechanism: embolism Precerebral and cerebral artery: unspecified cerebral artery Qualified Code(s): I63.40 - Cerebral infarction due to embolism of unspecified cerebral artery (3) Influenza A: (4) COPD (chronic obstructive pulmonary disease): QUALIFIERS: COPD type: COPD with acute exacerbation Qualified Code(s): J44.1 - Chronic obstructive pulmonary disease with (acute) exacerbation (5) COPD exacerbation: (6) PAF (paroxysmal atrial fibrillation): (7) Right sided weakness: (8) Cognitive impairment: (9) HTN (hypertension): QUALIFIERS: Hypertension type: primary hypertension Qualified Code(s): I10 - Essential (primary) hypertension (10) Dental caries noted on examination: (11) Macrocytic anemia: (12) Adenomatous polyp: (13) Urine retention: PLAN: Plan 1. Continue therapy 2. Await the results of the B12, folate and iron studies. 3. Continue to monitor blood pressure. Goal for blood pressure is less than 130/80. 4. Continue the prednisone taper. 5. I recommended she consider follow-up at the [facility] to establish a new PCP at discharge. 6. Recommend full pulmonary function tests postdischarge from rehab. 7. 30-day event monitor at discharge from rehab and then will follow-up with cardiology. Charges/Coding Visit Charges Inpatient E&M: 07677 Subs Hosp L1
[2024-07-24] MEDS: Petrolatum,White 5 GM PACKET 1 APPLIC TOPICAL (09:59)
[2024-07-24 10:17] LABS: Ferritin 384 ng/mL (8-252); Iron 34 ug/dL (50-170); Iron Binding Capacity,Total 335 ug/dL (250-450); PERCENT IRON SATURATION 10.1 % (15.0-55.0); Vitamin B12 1017 pg/mL (211-911)
[2024-07-24] MEDS: Oseltamivir Phosphate 75 MG Capsule PO (10:53)
[2024-07-24] MEDS: Acetaminophen 325 MG Tablet 650 MG PO (14:17)
[2024-07-24] MEDS: Atorvastatin Calcium 40 MG Tablet PO (20:05)
[2024-07-25 06:30] VITALS: BP 137/58; PULSE 64; RESP 18; TEMP 36.6; O2SAT 96
[2024-07-25] MEDS: Ipratropium/Albuterol Sulfate 3 ML AMPUL.NEB INHALATION (07:48)
[2024-07-25] MEDS: Petrolatum,White 5 GM PACKET 1 APPLIC TOPICAL (07:49)
[2024-07-25] MEDS: APIXABAN 5 MG TABLET PO ×2 (07:49→21:50)
[2024-07-25] MEDS: Potassium Chloride Oral Tablet 20 MEQ PO (07:49)
[2024-07-25] MEDS: Pantoprazole Sodium 40 MG Tablet PO (07:49)
[2024-07-25] MEDS: guaiFENesin/D-Methorphan TAB.SR.12H 2 TABLET PO ×2 (07:49→21:50)
[2024-07-25] MEDS: predniSONE 20 MG Tablet 40 MG PO (07:49)
[2024-07-25] MEDS: Menthol/Lanolin/Calamine/Znox 113 GM Tube 1 APPLIC TOPICAL ×2 (07:50→21:53)
[2024-07-25 07:56] VITALS: PULSE 70; RESP 16; O2SAT 98
[2024-07-25 08:48] VITALS: BMI 25.7
--- NOTE | 2024-07-25 09:41 | PN_ITS ---
Subjective Subjective Afebrile VSS - Maintaining appropriate oxygen saturation on RA while awake. Nursing had to awaken her frequently last night for hypoxia Oral intake - FOOD good FLUIDS poor Discussed with nursing - no problems that need addressed Reviewed the THERAPY notes Medication list reviewed. Iron saturation is low at 10.1%. Serum iron is low at 34. Ferritin is elevated at 384 but this is likely reflecting acute inflammation secondary to influenza A. B12 is normal at 1017 and the folate is normal at 6.2. Much less cough. Denies cephalgia, ear pain, sore throat, chest pain, shortness of breath at rest, nausea/vomiting/epigastric pain and calf pain. I reviewed the overnight trending pulse ox. Only 1 desaturation event however the night nurses had to awaken her frequently due to the alarm for hypoxemia going off. sleeping well. Her only real complaint today is pain in her feet with ambulation. 1. Do you snore loudly? Yes 2. Do you often feel tired, fatigued or sleepy during the day? Yes 3. Has anyone ever observed you stop breathing during sleep? No 4. Do you have (or are you being treated for) HTN? No BMI 25.7 AGE 59 Neck circumference less than 40 cm Gender female Total 3 - moderate risk for NIKOLAI. She has AF and recently had a stroke. She c/o restless leg. Gets up 1-3 times a night to urinate. Falls asleep reading and watching TV and when she is a passenger in a car. She grinds her teeth. FAlls asleep when bored during the day. Dry mouth in the AM. Objective Data Objective Data Vital Signs: Vital Signs Temp Pulse Resp BP Pulse Ox O2 Del Method FiO2 97.8 F 70 16 137/58 H 98 Room Air 21 07/25/24 06:30 07/25/24 07:56 07/25/24 07:56 07/25/24 06:30 07/25/24 07:56 07/25/24 07:56 07/24/24 23:24 Oxygen Delivery Method Room Air Weight: 173 lb 15.115 oz Body Mass Index (BMI) 25.7 Intake & Output: Intake and Output for Last 24 Hours 07/23/24 07/24/24 07/25/24 23:59 23:59 23:59 Intake Total 100 / 200 635 / 635 640 / 640 Output Total 2600 / 2600 1800 / 1800 900 / 900 Balance -2500 / -2400 -1165 / -1165 -260 / -260 Lab / Micro Data 07/24/24 05:43 07/24/24 05:43 Labs: Laboratory Results - last 24 hr 07/24/24 05:43: Iron 34 L, TIBC 335, Iron Saturation 10.1 L, Ferritin 384 H, V itamin B12 1017 H, Folate 6.20 Micro: Microbiology 07/23/24 18:12 Urine Catheter - Catheter Urine Culture - Preliminary Culture exhibits no growth. Physical Exam Const alert and oriented x3 General Appearance: cooperative HEENT Mouth: dry mucous membranes Resp Resp Narrative: Given to get rest. No conversational dyspnea. Rare scattered expiratory wheeze today. Did not cough at all with the deep breath. She did not cough during the time I spent with her today. Cardio regular rate and regular rhythm Cardio Narrative: No ectopy GI normal to inspection, nondistended, normoactive bowel sounds, soft to palpation and non-tender Extremity no calf tenderness General Extremity: Negative for edema Skin Skin Narrative: The wounds on her feet are stable. Eschar still present on the feet and the knees. No DC from the wounds and no catherine-wound erythema or warmth to touch. Pain with wt bearing but, the pain improves when she is not bearing wt. Assessment & Plan Assessment/Plan (1) Debility: (2) CVA (cerebral vascular accident): QUALIFIERS: CVA mechanism: embolism Precerebral and cerebral artery: unspecified cerebral artery Qualified Code(s): I63.40 - Cerebral infarction due to embolism of unspecified cerebral artery (3) Influenza A: (4) COPD (chronic obstructive pulmonary disease): QUALIFIERS: COPD type: COPD with acute exacerbation Qualified Code(s): J44.1 - Chronic obstructive pulmonary disease with (acute) exacerbation (5) COPD exacerbation: (6) PAF (paroxysmal atrial fibrillation): (7) Right sided weakness: (8) Cognitive impairment: (9) HTN (hypertension): QUALIFIERS: Hypertension type: primary hypertension Qualified Code(s): I10 - Essential (primary) hypertension PLAN: Patient was on no medication prior to the recent stroke and she is currently not on any medication. (10) Dental caries noted on examination: (11) Urine retention: (12) Iron deficiency anemia due to chronic blood loss: PLAN: PUD. (13) Hyperglycemia: PLAN: More likely than not secondary to prednisone being used for acute exacerbation of COPD secondary to influenza A (14) Acute on chronic blood loss anemia: PLAN: Plan 1. Continue therapy 2. Schedule a sleep study for the night of discharge and follow-up with pulmonary medicine. 3. Oxygen 2 L/min anytime she is sleeping while on rehab 4. Test dose of iron sucrose 100 mg today 5. Discussed institution of an antidepressant in light of history of depression/alcoholism. Considering Wellbutrin. She has been on Wellbutrin in the past and tolerated it well with good improvement. she is agreeable to starting the medication in the AM. No hx of seizures. 6. Encouraged her to significantly increase her fluid intake. 7. Recheck BMP, BMP and a CBC Monday 8. Start a Mag supplement and keep the Mag at 2 and the K at 4 given the PAF. 9. start Tylenol 1 GM Q8H. If that is not enough may consider short term Tramadol. Liver appeared normal on the CT of the abd and pelvis recently Charges/Coding Visit Charges Inpatient E&M: 30591 Subs Hosp L1
[2024-07-25] MEDS: Sodium Ferric Gluconat 125 MG in 0.9% Normal Saline 100 ML 110 MG IV (10:49)
[2024-07-25 10:54] VITALS: PULSE 72; RESP 17
[2024-07-25 10:59] VITALS: BMI 25.7
[2024-07-25 15:35] VITALS: PULSE 73; RESP 16
[2024-07-25 17:55] VITALS: BP 115/55; PULSE 87; RESP 17; TEMP 36.7; O2SAT 95
[2024-07-25] MEDS: guaiFENesin/Codeine 5 ML UDC 10 ML PO (21:49)
[2024-07-25] MEDS: Acetaminophen 500 MG Tablet 1000 MG PO (21:49)
[2024-07-25] MEDS: Atorvastatin Calcium 40 MG Tablet PO (21:50)
[2024-07-25] MEDS: 0.9% Saline Lock 10 ML Syringe IV (21:57)
[2024-07-26 05:00] VITALS: BMI 25.7
[2024-07-26] MEDS: Petrolatum,White 5 GM PACKET 1 APPLIC TOPICAL (05:06)
[2024-07-26] MEDS: Acetaminophen 500 MG Tablet 1000 MG PO ×3 (05:07→20:31)
[2024-07-26] MEDS: Menthol/Lanolin/Calamine/Znox 113 GM Tube 1 APPLIC TOPICAL ×2 (05:07→20:29)
[2024-07-26 06:00] VITALS: BP 124/46; PULSE 63; RESP 16; TEMP 36.7; O2SAT 97
[2024-07-26 06:04] LABS: Hematocrit 32.2 % (37-47); Hemoglobin 10.5 g/dL (12.0-15.0); Mean Corp Hgb Conc 32.6 g/dL (32-36); Mean Corpuscular Hgb 32.6 pg (27.0-32.0); Mean Platelet Vol. 12.7 fl (6.2-12.0); Platelet Count 144 K/mm3 (150-450); RBC Distribution Width CV 16.1 % (11.6-14.6); RBC Distribution Width SD 59.5 fl (35.1-43.9); Red Blood Count 3.22 M/mm3 (4.2-5.4); White Blood Count 7.7 K/mm3 (4.4-11.0)
[2024-07-26 06:45] LABS: Anion Gap 11 (5-15); BUN 29 mg/dL (7-18); BUN/Creat Ratio 28.7 RATIO (10-20); Calcium,Total 8.7 mg/dL (8.5-10.1); Chloride 109 mmol/L (98-107); Creatinine, Serum 1.01 mg/dL (0.55-1.02); EST Glomerular Filtration Rate 59 mL/min (>60); Est Glom Filt Rate - Afr Amer 72 mL/min (>60); Estimated Creatinine Clearance 61.13 ml/min; Glucose 83 mg/dL (74-106); Magnesium 2.4 mg/dL (1.6-2.6); Potassium 4.2 mmol/L (3.5-5.1); Sodium Level 138 mmol/L (136-145)
[2024-07-26 07:06] VITALS: PULSE 61; RESP 16; O2SAT 95
[2024-07-26] MEDS: Ipratropium/Albuterol Sulfate 3 ML AMPUL.NEB INHALATION (07:06)
[2024-07-26] MEDS: buPROPion (XL) 150 MG TABLET.XL PO (08:34)
[2024-07-26] MEDS: APIXABAN 5 MG TABLET PO ×2 (08:35→20:30)
[2024-07-26] MEDS: predniSONE 20 MG Tablet 40 MG PO (08:35)
[2024-07-26] MEDS: guaiFENesin/D-Methorphan TAB.SR.12H 2 TABLET PO ×2 (08:35→20:31)
[2024-07-26] MEDS: Potassium Chloride Oral Tablet 20 MEQ PO (08:35)
[2024-07-26] MEDS: Magnesium Chloride 64 MG Delay Rel.Tablet 128 MG PO (08:35)
[2024-07-26] MEDS: Pantoprazole Sodium 40 MG Tablet PO (08:36)
--- NOTE | 2024-07-26 08:51 | CASEMGMT ---
Social Work Referral made to Care Coordination program through [facility] website per pt request. Phuong Ragland, [employer]
--- NOTE | 2024-07-26 10:32 | PCM.PROGNOTE ---
Subjective Subjective Afebrile Eating 75 to 100% of her meals. Better fluid intake yesterday. Blood pressure over the past 24 hours has ranged from 115/55 to 137/58. The heart rate has ranged from 61-87. The last 3 postvoid residuals have been 0, 26 and 36. All lab was personally reviewed. White blood cell count is now normal at 7.7. Hemoglobin is stable at 10.5. Platelets are mildly decreased at 144,000. Sodium is 138 potassium is 4.2. Serum bicarb is low at 18. AG is normal. I suspect the metabolic acidosis is due to diarrhea. stool softeners were held Yesterday and this morning. The BUN is 29 with a creatinine of 1.01 which is creeping up. fluid intake was better yesterday. BUN is also likely elevated due to steroids. Rare cough now. Sleeping well at night. Good appetite. Tells me her breathing is much better now. Denies chest pain, hemoptysis, headache, lightheadedness, nausea/vomiting/abdominal pain, hematochezia, melena and calf tenderness. Objective Data Objective Data Vital Signs: Vital Signs Temp Pulse Resp BP Pulse Ox O2 Del Method FiO2 98.1 F 61 16 124/46 H 95 Room Air 21 07/26/24 06:00 07/26/24 07:06 07/26/24 07:06 07/26/24 06:00 07/26/24 07:06 07/26/24 07:06 07/24/24 23:24 Oxygen Delivery Method Room Air Weight: 174 lb Body Mass Index (BMI) 25.7 Intake & Output: Intake and Output for Last 24 Hours 07/24/24 07/25/24 07/26/24 23:59 23:59 23:59 Intake Total 635 / 635 1450 / 1550 1390 / 1390 Output Total 1800 / 1800 1200 / 1800 2700 / 2700 Balance -1165 / -1165 250 / -250 -1310 / -1310 Lab / Micro Data 07/26/24 05:09 07/26/24 05:09 Labs: Laboratory Results - last 24 hr 07/26/24 05:09: WBC 7.7, RBC 3.22 L, Hgb 10.5 L, Hct 32.2 L, MCV 100.0 H, MCH 32.6 H, MCHC 32.6, RDW Std Deviation 59.5 H, RDW Coeff of Jerson 16.1 H, Plt Count 144 L, MPV 12.7 H, Sodium 138, Potassium 4.2, Chloride 109 H, Carbon Dioxide 18.0 L, Anion Gap 11, BUN 29 H, Creatinine 1.01, Estim Creat Clear Calc 61.13, Est GFR (MDRD) Af Amer 72, Est GFR (MDRD) Non-Af 59 L, BUN/Creatinine Ratio 28.7 H, Glucose 83, Calcium 8.7, Magnesium 2.4 Micro: Microbiology 07/23/24 18:12 Urine Catheter - Catheter Urine Culture - Final Culture exhibits no growth. Physical Exam Const alert, oriented x3 and no apparent distress Constitutional Narrative: Making good eye contact and she is engaged when we are speaking. Doing very well in therapy and very motivated to get better and go home. Also motivated to do what is necessary to take better care of herself. General Appearance: cooperative and well developed HEENT Mouth: dry mucous membranes Resp normal respiratory effort and clear to auscultation bilaterally Resp Narrative: No conversational dyspnea Effort and Inspection: Negative for tachypneic Cardio regular rate and regular rhythm Cardio Narrative: No ectopy GI normal to inspection, nondistended, normoactive bowel sounds and soft to palpation GI Narrative: No guarding with palpation Extremity no calf tenderness General Extremity: Negative for edema Assessment & Plan Assessment/Plan (1) Debility: (2) CVA (cerebral vascular accident): QUALIFIERS: CVA mechanism: embolism Precerebral and cerebral artery: unspecified cerebral artery Qualified Code(s): I63.40 - Cerebral infarction due to embolism of unspecified cerebral artery (3) Influenza A: (4) COPD (chronic obstructive pulmonary disease): QUALIFIERS: COPD type: COPD with acute exacerbation Qualified Code(s): J44.1 - Chronic obstructive pulmonary disease with (acute) exacerbation (5) COPD exacerbation: (6) PAF (paroxysmal atrial fibrillation): (7) Right sided weakness: (8) Cognitive impairment: (9) HTN (hypertension): QUALIFIERS: Hypertension type: primary hypertension Qualified Code(s): I10 - Essential (primary) hypertension (10) Iron deficiency anemia due to chronic blood loss: (11) Hyperglycemia: (12) Acute on chronic blood loss anemia: (13) Normal anion gap metabolic acidosis: PLAN: More likely than not secondary to diarrhea related to stool softeners (14) Diarrhea: QUALIFIERS: Diarrhea type: unspecified type Qualified Code(s): R19.7 - Diarrhea, unspecified PLAN: Likely due to stool softeners PLAN: Plan 1. Continue therapy 2. Discontinue DuoNeb aerosols and start albuterol 2.5 milligram inhalation every 4 hours as needed wheezing. 3. Change the prednisone taper to 20 mg Monday and Monday, 10 mg Monday and Monday and then discontinue. 4. Salmeterol/fluticasone 1 puff every 12 hours 5. Change the stool softeners to senna 1 tab BID PRN constipation. I suspect the normal anion gap metabolic acidosis is due to diarrhea. 6. Encouraged increased fluid intake. 7. Iron sucrose 200 mg IV daily x 3 doses and then start ferrous sulfate and ascorbic acid. Charges/Coding Visit Charges Inpatient E&M: 49944 Subs Hosp L1
[2024-07-26] MEDS: Sodium Ferric Gluconat 250 MG in 0.9% Normal Saline 250 ML 135 MG IV (11:40)
[2024-07-26] MEDS: Ascorbic Acid 500 MG Tablet PO (13:14)
[2024-07-26 15:06] VITALS: BMI 25.7
[2024-07-26 18:00] VITALS: BP 131/43; PULSE 64; RESP 16; TEMP 36.6; O2SAT 97
[2024-07-26] MEDS: Fluticasone/Salmeterol 232-14 Inhaler 1 PUFF INHALATION (20:30)
[2024-07-26] MEDS: Atorvastatin Calcium 40 MG Tablet PO (20:31)
[2024-07-26] MEDS: 0.9% Saline Lock 10 ML Syringe IV (20:32)
[2024-07-26 23:55] VITALS: BMI 25.7
[2024-07-27 06:00] VITALS: BP 128/57; PULSE 75; RESP 16; TEMP 36.4; O2SAT 94
[2024-07-27] MEDS: Menthol/Lanolin/Calamine/Znox 113 GM Tube 1 APPLIC TOPICAL ×2 (06:31→22:13)
[2024-07-27] MEDS: Petrolatum,White 5 GM PACKET 1 APPLIC TOPICAL (06:32)
[2024-07-27] MEDS: Acetaminophen 500 MG Tablet 1000 MG PO ×3 (06:32→22:12)
[2024-07-27] MEDS: Magnesium Chloride 64 MG Delay Rel.Tablet 128 MG PO (09:20)
[2024-07-27] MEDS: buPROPion (XL) 150 MG TABLET.XL PO (09:20)
[2024-07-27] MEDS: Pantoprazole Sodium 40 MG Tablet PO (09:20)
[2024-07-27] MEDS: APIXABAN 5 MG TABLET PO ×2 (09:21→22:11)
[2024-07-27] MEDS: Potassium Chloride Oral Tablet 20 MEQ PO (09:21)
[2024-07-27] MEDS: predniSONE 20 MG Tablet PO (09:21)
[2024-07-27] MEDS: Fluticasone/Salmeterol 232-14 Inhaler 1 PUFF INHALATION ×2 (09:21→22:11)
[2024-07-27] MEDS: guaiFENesin/D-Methorphan TAB.SR.12H 2 TABLET PO ×2 (09:23→22:11)
[2024-07-27] MEDS: Sodium Ferric Gluconat 250 MG in 0.9% Normal Saline 250 ML 135 MG IV (10:13)
[2024-07-27] MEDS: 0.9% Saline Lock 10 ML Syringe IV (10:15)
[2024-07-27] MEDS: Ascorbic Acid 500 MG Tablet PO (11:55)
[2024-07-27 12:30] VITALS: O2SAT 94
[2024-07-27 15:23] VITALS: BMI 25.7
[2024-07-27 18:00] VITALS: BP 112/57; PULSE 73; RESP 17; TEMP 36.9; O2SAT 97
[2024-07-27] MEDS: Atorvastatin Calcium 40 MG Tablet PO (22:13)
[2024-07-27 23:40] VITALS: BMI 25.7
[2024-07-28] MEDS: Acetaminophen 500 MG Tablet 1000 MG PO ×3 (05:01→20:06)
[2024-07-28] MEDS: Menthol/Lanolin/Calamine/Znox 113 GM Tube 1 APPLIC TOPICAL ×2 (05:05→20:00)
[2024-07-28 05:08] VITALS: BP 142/64; PULSE 61; RESP 17; TEMP 36.7; O2SAT 98
[2024-07-28 05:10] VITALS: BMI 25.8
[2024-07-28] MEDS: 0.9% Saline Lock 10 ML Syringe IV ×3 (05:16→20:02)
[2024-07-28] MEDS: Pantoprazole Sodium 40 MG Tablet PO (08:59)
[2024-07-28] MEDS: Magnesium Chloride 64 MG Delay Rel.Tablet 128 MG PO (08:59)
[2024-07-28] MEDS: guaiFENesin/D-Methorphan TAB.SR.12H 2 TABLET PO ×2 (08:59→20:04)
[2024-07-28] MEDS: APIXABAN 5 MG TABLET PO ×2 (08:59→20:02)
[2024-07-28] MEDS: predniSONE 20 MG Tablet PO (08:59)
[2024-07-28] MEDS: Potassium Chloride Oral Tablet 20 MEQ PO (09:00)
[2024-07-28] MEDS: Fluticasone/Salmeterol 232-14 Inhaler 1 PUFF INHALATION ×2 (09:00→20:02)
[2024-07-28] MEDS: buPROPion (XL) 150 MG TABLET.XL PO (09:03)
[2024-07-28] MEDS: Sodium Ferric Gluconat 250 MG in 0.9% Normal Saline 250 ML 135 MG IV (10:04)
[2024-07-28] MEDS: Ascorbic Acid 500 MG Tablet PO (11:51)
[2024-07-28 12:30] VITALS: O2SAT 98
[2024-07-28 17:00] VITALS: BMI 25.8
[2024-07-28 17:23] VITALS: BP 117/47; PULSE 65; RESP 16; TEMP 36.4; O2SAT 96
[2024-07-28] MEDS: Ammonium Lactate 225 gm Bottle 1 APPLIC TOPICAL (20:03)
[2024-07-28] MEDS: Atorvastatin Calcium 40 MG Tablet PO (20:04)
[2024-07-28] MEDS: Clobetasol Propionate 0.05% Cream 1 APPLIC TOPICAL (20:05)
[2024-07-29 02:12] VITALS: BMI 25.8
[2024-07-29 06:00] VITALS: BP 141/54; PULSE 69; RESP 15; TEMP 36.8; O2SAT 98
[2024-07-29] MEDS: Acetaminophen 500 MG Tablet 1000 MG PO ×3 (06:02→21:14)
[2024-07-29] MEDS: Petrolatum,White 5 GM PACKET 1 APPLIC TOPICAL (06:02)
[2024-07-29] MEDS: Menthol/Lanolin/Calamine/Znox 113 GM Tube 1 APPLIC TOPICAL ×2 (06:03→21:21)
[2024-07-29 06:17] VITALS: BMI 25.3
[2024-07-29 08:00] VITALS: O2SAT 94
[2024-07-29] MEDS: Magnesium Chloride 64 MG Delay Rel.Tablet 128 MG PO (08:09)
[2024-07-29] MEDS: APIXABAN 5 MG TABLET PO ×2 (08:09→21:12)
[2024-07-29] MEDS: buPROPion (XL) 150 MG TABLET.XL PO (08:09)
[2024-07-29] MEDS: Potassium Chloride Oral Tablet 20 MEQ PO (08:09)
[2024-07-29] MEDS: guaiFENesin/D-Methorphan TAB.SR.12H 2 TABLET PO ×2 (08:09→21:13)
[2024-07-29] MEDS: predniSONE 10 MG Tablet PO (08:09)
[2024-07-29] MEDS: Pantoprazole Sodium 40 MG Tablet PO (08:09)
[2024-07-29] MEDS: Ammonium Lactate 225 gm Bottle 1 APPLIC TOPICAL ×2 (08:10→21:12)
[2024-07-29] MEDS: Clobetasol Propionate 0.05% Cream 1 APPLIC TOPICAL ×2 (08:10→21:13)
[2024-07-29] MEDS: Fluticasone/Salmeterol 232-14 Inhaler 1 PUFF INHALATION ×2 (08:10→21:12)
--- NOTE | 2024-07-29 09:42 | PN_ITS ---
Subjective Subjective Ana Maria was seen on team rounds today. No family was available to dissipate. Afebrile VSS -systolic blood pressure in the morning is generally in the low 140s. Later in the day it is ranging from 1 12-1 17. Diastolics are always within normal limits. The heart rate is within normal limits. Maintaining appropriate oxygen saturation on RA Oral intake - FOOD good FLUIDS good Discussed with nursing - Nursing reported over the weekend that she has desquamation of the fingers/hands. She was started on a cream that is 1 part ammonium lactate and 1 part clobetasol twice daily Reviewed the THERAPY notes Medication list reviewed. She has had a total of 700 mg of intravenous iron sucrose. Will start ascorbic acid plus ferrous sulfate at lunch today. Denies cephalgia, lightheadedness, shortness of breath, chest pain, palpitations, nausea/vomiting/abdominal pain, dysuria and calf tenderness. No nosebleeds or blood in the stool. She is feeling anxious about going home and doing steps. The steps she has to climb to get into her apt are outside but they are covered. They are uneven and icy at the bottom. She does not feel she is ready to attempt the steps at home yet. No friends or family locally that she could stay with. Objective Data Objective Data Vital Signs: Vital Signs Temp Pulse Resp BP Pulse Ox O2 Del Method O2 Flow Rate 98.3 F 69 15 141/54 H 94 Nasal Cannula 2 07/29/24 06:00 07/29/24 06:00 07/29/24 06:00 07/29/24 06:00 07/29/24 08:00 07/29/24 08:00 07/29/24 08:00 FiO2 21 07/24/24 23:24 Oxygen Flow Rate (L/min) 2 Oxygen Delivery Method Nasal Cannula Weight: 171 lb 4.787 oz Body Mass Index (BMI) 25.3 Intake & Output: Intake and Output for Last 24 Hours 07/27/24 07/28/24 07/29/24 23:59 23:59 23:59 Intake Total 2060 / 2060 1090 / 1090 800 / 800 Output Total 1050 / 1050 600 / 600 1000 / 1000 Balance 1010 / 1010 490 / 490 -200 / -200 Lab / Micro Data 07/26/24 05:09 07/26/24 05:09 Micro: Microbiology 07/23/24 18:12 Urine Catheter - Catheter Urine Culture - Final Culture exhibits no growth. Physical Exam Const alert and oriented x3 General Appearance: cooperative Orientation / Consciousness: Negative for confused HEENT moist oral mucous membranes HEENT Narrative: No thrush Resp normal respiratory effort and clear to auscultation bilaterally Resp Narrative: Much better air exchange than at admission to rehab. Effort and Inspection: Negative for tachypneic or labored Cardio regular rate, regular rhythm and no gallops GI normal to inspection, nondistended, normoactive bowel sounds, soft to palpation and non-tender GI Narrative: BS's are not hyperactive Extremity no calf tenderness General Extremity: Negative for edema Skin Rashes: no rashes Neuro Neuro Narrative: ambulating with a quad cane now Psych denies homicidal ideation and denies suicidal ideation Appearance: appropriate Attitude: No agitated Assessment & Plan Assessment/Plan (1) Debility: (2) CVA (cerebral vascular accident): QUALIFIERS: CVA mechanism: embolism Precerebral and cerebral artery: unspecified cerebral artery Qualified Code(s): I63.40 - Cerebral infarction due to embolism of unspecified cerebral artery (3) Influenza A: (4) COPD (chronic obstructive pulmonary disease): QUALIFIERS: COPD type: COPD with acute exacerbation Qualified Code(s): J44.1 - Chronic obstructive pulmonary disease with (acute) exacerbation (5) COPD exacerbation: (6) PAF (paroxysmal atrial fibrillation): (7) Right sided weakness: (8) Cognitive impairment: (9) HTN (hypertension): QUALIFIERS: Hypertension type: primary hypertension Qualified Code(s): I10 - Essential (primary) hypertension (10) Iron deficiency anemia due to chronic blood loss: (11) Hyperglycemia: (12) Acute on chronic blood loss anemia: (13) Normal anion gap metabolic acidosis: (14) Diarrhea: QUALIFIERS: Diarrhea type: unspecified type Qualified Code(s): R 19.7 - Diarrhea, unspecified PLAN: Plan 1. Continue therapy 2. Check a BMP and CBC in a.m. 3. Prednisone may be increasing the BP. It is only mildly elevated........Prednisone will finish in the AM. will continue to monitor the BP. Not currently on an antihypertensive. In light of the PAF wondering if We should start something to block the AV node in the event that she would go into AF and have RVR.......Consider adding Metoprolol XL mg 12.5 mg QHS 4. Recommended she consider taking Wellbutrin for at least 3-6 months before trying to discontinue. Also recommend psychotherapy with Olivia Webber and/or gillian wong at [facility] from acute rehab. Denies cravings for cigarettes at this time. Charges/Coding Visit Charges Inpatient E&M: 43774 Subs Hosp L2
[2024-07-29 10:22] VITALS: BMI 25.3
[2024-07-29] MEDS: Ascorbic Acid 500 MG Tablet PO (12:05)
[2024-07-29] MEDS: Ferrous Sulfate 325 MG Tablet PO (12:05)
--- NOTE | 2024-07-29 12:52 | CASEMGMT ---
Addendum entered by Phuong Ragland 07/29/24 12:57: Dr requesting sleep study at DC and pt possibly needing overnight O2. SW to follow for coordination of those needs. Original Note: Social Work IDT met with patient for Team meeting. Pt denied including any family/friends in meeting. Discussed patient's progress in PT/OT/ST/SN. Educated to [employer] [facility] insurance with [employer] 07/30 and continued stay is not guaranteed with each review. Pt is Kun currently but pt still has goals to improve on steps and uneven surfaces. Pt is hesitant to return home at this time until she is more comfortable in those areas. SW cautioned insurance may issue DC date. SW did provide pt with INN SNF list including quality and resource data via [facility], if pt elects a SNF . Team stressed goal is home, with improved comfort on steps/uneven surfaces. SW will coordinate skilled HHC therapy at [place] to continue working on those goals in home environment. Pt denied any DME needs. SW may need to coordinate transport home. SW will continue to follow. Phuong Ragland [employer]
[2024-07-29 17:59] VITALS: BP 122/66; PULSE 72; RESP 16; TEMP 36.2; O2SAT 95
[2024-07-29] MEDS: Atorvastatin Calcium 40 MG Tablet PO (21:12)
[2024-07-29 21:49] VITALS: BMI 25.3
[2024-07-29 22:18] VITALS: BP 139/69; PULSE 68
[2024-07-29] MEDS: Metoprolol(XL)Succ 25 MG Tablet 12.5 MG PO (22:18)
[2024-07-30] MEDS: Petrolatum,White 5 GM PACKET 1 APPLIC TOPICAL (05:04)
[2024-07-30] MEDS: Acetaminophen 500 MG Tablet 1000 MG PO ×3 (05:05→21:16)
[2024-07-30] MEDS: Menthol/Lanolin/Calamine/Znox 113 GM Tube 1 APPLIC TOPICAL (05:05)
[2024-07-30 06:00] VITALS: BP 140/74; PULSE 65; RESP 17; TEMP 36.6; O2SAT 99
[2024-07-30 06:25] LABS: Hematocrit 33.7 % (37-47); Hemoglobin 10.9 g/dL (12.0-15.0); Mean Corp Hgb Conc 32.3 g/dL (32-36); Mean Corpuscular Hgb 32.3 pg (27.0-32.0); Mean Platelet Vol. 10.2 fl (6.2-12.0); Platelet Count 348 K/mm3 (150-450); RBC Distribution Width SD 59.1 fl (35.1-43.9); Red Blood Count 3.37 M/mm3 (4.2-5.4)
[2024-07-30 06:27] LABS: Anion Gap 7 (5-15); BUN 35 mg/dL (7-18); BUN/Creat Ratio 35.4 RATIO (10-20); Calcium,Total 8.9 mg/dL (8.5-10.1); Chloride 112 mmol/L (98-107); Creatinine, Serum 0.99 mg/dL (0.55-1.02); EST Glomerular Filtration Rate 61 mL/min (>60); Est Glom Filt Rate - Afr Amer 73 mL/min (>60); Estimated Creatinine Clearance 62.36 ml/min; Glucose 86 mg/dL (74-106); Potassium 3.8 mmol/L (3.5-5.1); Sodium Level 139 mmol/L (136-145)
[2024-07-30] MEDS: Fluticasone/Salmeterol 232-14 Inhaler 1 PUFF INHALATION ×2 (08:18→21:17)
[2024-07-30] MEDS: APIXABAN 5 MG TABLET PO ×2 (08:18→21:17)
[2024-07-30] MEDS: predniSONE 10 MG Tablet PO (08:18)
[2024-07-30] MEDS: Magnesium Chloride 64 MG Delay Rel.Tablet 128 MG PO (08:19)
[2024-07-30] MEDS: Pantoprazole Sodium 40 MG Tablet PO (08:19)
[2024-07-30] MEDS: Potassium Chloride Oral Tablet 20 MEQ PO (08:19)
[2024-07-30] MEDS: guaiFENesin/D-Methorphan TAB.SR.12H 2 TABLET PO ×2 (08:19→21:17)
[2024-07-30] MEDS: Clobetasol Propionate 0.05% Cream 1 APPLIC TOPICAL ×2 (08:20→21:18)
[2024-07-30] MEDS: buPROPion (XL) 150 MG TABLET.XL PO (08:20)
[2024-07-30] MEDS: Ammonium Lactate 225 gm Bottle 1 APPLIC TOPICAL ×2 (08:21→21:17)
[2024-07-30 08:30] VITALS: RESP 18
--- NOTE | 2024-07-30 10:19 | PN_ITS ---
Subjective Subjective Afebrile VSS -blood pressure over the past 24 hours has ranged from 122/66-140/74. Heart rate is ranged from 65-72. She received 12.5 mg of metoprolol XL last night at bedtime. Maintaining appropriate oxygen saturation on RA Oral intake - FOOD good FLUIDS good Discussed with nursing - no problems that need addressed Reviewed the THERAPY notes Medication list reviewed. Blood blood cell count is normal at 8. Hemoglobin is stable at 10.9. MCV is increased at 100. Platelets are up to be 348,000's from 144,000 on 07/26/2024. Shannon is 139 at the potassium is 3.88. BUN is 35 with a creatinine of 0.99. Serum bicarb is up to 20. Ana Maria denies lightheadedness, vertigo, cephalgia, palpitations, has pain, shortness of breath, nausea/vomiting/abdominal pain, dysuria and calf pain. She really has no complaints today other than being somewhat anxious over what the insurance company is going to say. She is hoping for a few more days to build her confidence and stair climbing. Physical therapy did take her into the stairwell yesterday and she felt that she did pretty good on the stairs. Still has some lack of confidence. Objective Data Objective Data Vital Signs: Vital Signs Temp Pulse Resp BP Pulse Ox O2 Del Method O2 Flow Rate 97.8 F 65 18 140/74 H 99 Room Air 2 07/30/24 06:00 07/30/24 06:00 07/30/24 08:30 07/30/24 06:00 07/30/24 06:00 07/30/24 08:30 07/29/24 08:00 FiO2 21 07/24/24 23:24 Oxygen Flow Rate (L/min) 2 Oxygen Delivery Method Room Air Weight: 171 lb 4.787 oz Body Mass Index (BMI) 25.3 Intake & Output: Intake and Output for Last 24 Hours 07/28/24 07/29/24 07/30/24 23:59 23:59 23:59 Intake Total 1090 / 1090 2080 / 2080 290 / 290 Output Total 600 / 600 2500 / 2500 620 / 620 Balance 490 / 490 -420 / -420 -330 / -330 Lab / Micro Data 07/30/24 05:33 07/30/24 05:33 Labs: Laboratory Results - last 24 hr 07/30/24 05:33: WBC 8.0, RBC 3.37 L, Hgb 10.9 L, Hct 33.7 L, MCV 100.0 H, MCH 32.3 H, MCHC 32.3, RDW Std Deviation 59.1 H, RDW Coeff of Jerson 16.0 H, Plt Count 348, MPV 10.2, Sodium 139, Potassium 3.8, Chloride 112 H, Carbon Dioxide 20.0 L, Anion Gap 7, BUN 35 H, Creatinine 0.99, Estim Creat Clear Calc 62.36, Est GFR (MDRD) Af Amer 73, Est GFR (MDRD) Non-Af 61, BUN/Creatinine Ratio 35.4 H, Glucose 86, Calcium 8.9 Micro: Microbiology 07/23/24 18:12 Urine Catheter - Catheter Urine Culture - Final Culture exhibits no growth. Physical Exam Const alert Orientation / Consciousness: Negative for confused HEENT moist oral mucous membranes HEENT Narrative: No thrush Resp normal respiratory effort and clear to auscultation bilaterally Resp Narrative: Much better air exchange than at admission to rehab. Effort and Inspection: Negative for tachypneic or labored Cardio regular rate, regular rhythm and no gallops GI normal to inspection, nondistended, normoactive bowel sounds, soft to palpation and non-tender GI Narrative: BS's are not hyperactive Extremity no calf tenderness General Extremity: Negative for edema Skin Rashes: no rashes Neuro Neuro Narrative: ambulating with a quad cane now Psych denies homicidal ideation and denies suicidal ideation Appearance: appropriate Attitude: No agitated Assessment & Plan Assessment/Plan (1) Debility: (2) CVA (cerebral vascular accident): QUALIFIERS: CVA mechanism: embolism Precerebral and cerebral artery: unspecified cerebral artery Qualified Code(s): I63.40 - Cerebral infarction due to embolism of unspecified cerebral artery (3) Influenza A: (4) COPD (chronic obstructive pulmonary disease): QUALIFIERS: COPD type: COPD with acute exacerbation Qualified Code(s): J44.1 - Chronic obstructive pulmonary disease with (acute) exacerbation (5) COPD exacerbation: (6) PAF (paroxysmal atrial fibrillation): (7) Right sided weakness: (8) Cognitive impairment: (9) HTN (hypertension): QUALIFIERS: Hypertension type: primary hypertension Qualified Code(s): I10 - Essential (primary) hypertension (10) Iron deficiency anemia due to chronic blood loss: (11) Hyperglycemia: (12) Acute on chronic blood loss anemia: (13) Normal anion gap metabolic acidosis: PLAN: Possible distal RTA (14) Diarrhea: QUALIFIERS: Diarrhea type: unspecified type Qualified Code(s): R 19.7 - Diarrhea, unspecified PLAN: resolved......was constipated and got laxatives and stool softeners. PLAN: Plan 1. Continue therapy 2. Check a Hemoccult stool 3. Orthostatic vital signs today 4. Etiology of metabolic acidosis? RTA? She is asymptomatic. she had a CT of the abd last year that showed punctate nonobstructive calculi in the lower pole of the left kidney. She has had a kidney stone in the past. Has never had a bone density study in the past. Will check a ABG today and have her follow up with neprology post DC. serum bicarb ranges from 18-20. Urine PH is elvated. Charges/Coding Visit Charges Inpatient E&M: 56766 Subs Hosp L1
[2024-07-30 10:41] VITALS: BP 132/58; BP 134/62; PULSE 62; PULSE 63; PULSE 71
[2024-07-30] MEDS: Ferrous Sulfate 325 MG Tablet PO (12:24)
[2024-07-30] MEDS: Ascorbic Acid 500 MG Tablet PO (12:24)
[2024-07-30 13:58] VITALS: BMI 25.3
[2024-07-30 17:59] VITALS: BP 112/48; PULSE 70; RESP 16; TEMP 36.8; O2SAT 98
[2024-07-30 20:48] LABS: Allen Test Positive; Base Excess -3 mmol/L (-2 to +2); Bicarbonate 21.6 mmol/L (22-26); Blood Gas Specimen Type ART; Mode Not entered; O2 Delivery Device Not entered; PO2 80 mmHG (75-100); SITE R Radial; SO2 96 % (95-99); Total Carbon Dioxide 23 mmol/L; pCO2 34.6 mmHg (35-45)
[2024-07-30 21:00] VITALS: BP 126/56; PULSE 61; RESP 16; BMI 25.3
[2024-07-30 21:16] VITALS: BP 126/56; PULSE 61
[2024-07-30] MEDS: Metoprolol(XL)Succ 25 MG Tablet 12.5 MG PO (21:16)
[2024-07-30] MEDS: Atorvastatin Calcium 40 MG Tablet PO (21:16)
--- NOTE | 2024-07-31 00:27 | NURSING ---
REVIEWED AND AGREE WITH Timo DUVALL, ASSESSMENT AND CHARTING DOCUMENTATION.
[2024-07-31] MEDS: Petrolatum,White 5 GM PACKET 1 APPLIC TOPICAL (05:09)
[2024-07-31] MEDS: Acetaminophen 500 MG Tablet 1000 MG PO ×3 (05:09→20:01)
[2024-07-31] MEDS: Menthol/Lanolin/Calamine/Znox 113 GM Tube 1 APPLIC TOPICAL (05:10)
[2024-07-31 05:58] VITALS: BP 151/58; PULSE 61; RESP 16; TEMP 36.7; O2SAT 97
[2024-07-31] MEDS: Ammonium Lactate 225 gm Bottle 1 APPLIC TOPICAL ×2 (08:58→20:04)
[2024-07-31] MEDS: Clobetasol Propionate 0.05% Cream 1 APPLIC TOPICAL ×2 (08:58→20:05)
[2024-07-31] MEDS: Pantoprazole Sodium 40 MG Tablet PO (08:59)
[2024-07-31] MEDS: Fluticasone/Salmeterol 232-14 Inhaler 1 PUFF INHALATION ×2 (08:59→20:05)
[2024-07-31] MEDS: guaiFENesin/D-Methorphan TAB.SR.12H 2 TABLET PO ×2 (08:59→20:00)
[2024-07-31] MEDS: Magnesium Chloride 64 MG Delay Rel.Tablet 128 MG PO (08:59)
[2024-07-31] MEDS: Potassium Chloride Oral Tablet 20 MEQ PO (08:59)
[2024-07-31] MEDS: APIXABAN 5 MG TABLET PO ×2 (08:59→20:01)
[2024-07-31] MEDS: buPROPion (XL) 150 MG TABLET.XL PO (08:59)
--- NOTE | 2024-07-31 11:33 | CASEMGMT ---
Social Work SW spoke with pt to update on insurance approval with LCD 08/06, NRD 08/07. Anticipating DC 08/07. Pt accepting and happy for more time. SW updated sleep lab and IDT. Will continue to follow. Phuong Ragland CURRICULUM AND INSTRUCTION DIRECTOR DAY TREATMENT CLINICIAN/ART THERAPIST
[2024-07-31] MEDS: Ferrous Sulfate 325 MG Tablet PO (12:32)
[2024-07-31] MEDS: Ascorbic Acid 500 MG Tablet PO (12:32)
[2024-07-31 18:00] VITALS: BP 113/50; PULSE 66; RESP 18; TEMP 36.4; O2SAT 99
[2024-07-31 20:00] VITALS: PULSE 66; RESP 18; O2SAT 99; BMI 25.3
[2024-07-31 20:01] VITALS: BP 128/59; PULSE 66
[2024-07-31] MEDS: Metoprolol(XL)Succ 25 MG Tablet 12.5 MG PO (20:01)
[2024-07-31] MEDS: Atorvastatin Calcium 40 MG Tablet PO (20:04)
[2024-08-01 06:00] VITALS: BP 130/71; PULSE 55; RESP 16; TEMP 36.7; O2SAT 97
[2024-08-01] MEDS: Petrolatum,White 5 GM PACKET 1 APPLIC TOPICAL (06:54)
[2024-08-01] MEDS: Acetaminophen 500 MG Tablet 1000 MG PO ×3 (06:54→22:55)
[2024-08-01 08:16] VITALS: O2SAT 96
--- NOTE | 2024-08-01 08:21 | PN_ITS ---
Subjective Subjective Afebrile VSS --blood pressure is at goal now. There has been improvement with the addition of metoprolol XL 25 mg nightly. Also over the past 24 hours has ranged from 55-66. Denies lightheadedness. Maintaining appropriate oxygen saturation on RA Oral intake - FOOD good FLUIDS good Discussed with nursing - no problems that need addressed Reviewed the THERAPY notes Medication list reviewed. Denies cephalgia, lightheadedness, chest pain, shortness of breath, cough, dysuria and calf pain. Denies palpitations. Objective Data Objective Data Vital Signs: Vital Signs Temp Pulse Resp BP Pulse Ox O2 Del Method O2 Flow Rate 98.0 F 55 L 16 130/71 H 97 Room Air 2 08/01/24 06:00 08/01/24 06:00 08/01/24 06:00 08/01/24 06:00 08/01/24 06:00 08/01/24 06:00 07/29/24 08:00 FiO2 21 07/24/24 23:24 Oxygen Flow Rate (L/min) 2 Oxygen Delivery Method Room Air Weight: 171 lb 4.787 oz Body Mass Index (BMI) 25.3 Intake & Output: Intake and Output for Last 24 Hours 07/30/24 07/31/24 08/01/24 23:59 23:59 23:59 Intake Total 1250 / 1250 1360 / 1360 340 / 340 Output Total 1720 / 1720 900 / 900 900 / 900 Balance -470 / -470 460 / 460 -560 / -560 Lab / Micro Data 07/30/24 05:33 07/30/24 05:33 Micro: Microbiology 07/30/24 12:40 Stool Stool Occult Blood (PRACHI) - Final 07/23/24 18:12 Urine Catheter - Catheter Urine Culture - Final Culture exhibits no growth. Physical Exam Const alert and oriented x3 Constitutional Narrative: Making good eye contact and she is engaged when we are speaking. Doing very well in therapy and very motivated to get better and go home. Also motivated to do what is necessary to take better care of herself. General Appearance: cooperative Orientation / Consciousness: Negative for confused HEENT head/scalp atraumatic, hearing grossly normal bilaterally and moist oral mucous membranes Eyes PERRL, EOMs intact bilaterally, conjunctivae normal and no scleral icterus Eyes Narrative: No discharge from the eyes and no mattering of the eyelashes. Neck supple, No nodes and no carotid bruits General: trachea midline Chest Chest Narrative: Increased AP diameter of the chest. Chest: symmetrical chest wall rise Resp normal respiratory effort and clear to auscultation bilaterally Resp Narrative: Breath sounds are mildly diminished throughout. No crackles and no wheezes. No conversational dyspnea. Effort and Inspection: Negative for tachypneic Cardio regular rate, regular rhythm and no gallops Cardio Narrative: No ectopy GI normal to inspection, nondistended, normoactive bowel sounds, soft to palpation and non-tender GI Narrative: No guarding with palpation no CVA tenderness Extremity no calf tenderness Extremity Narrative: trace pedal edema. She has multiple wounds on both feet, R>L. No open wounds.....all wounds have eschar present. No purulent DC. No evidence of infection. the DP and PT pulses are 2+ BL. General Extremity: Negative for edema Skin Skin Narrative: The wounds on her feet are stable. Eschar still present on the feet and the knees. No DC from the wounds and no catherine-wound erythema or warmth to touch. Pain with wt bearing but, the pain improves when she is not bearing wt. Rashes: no rashes Neuro oriented x3 and CN's II-XII intact bilaterally Neuro Narrative: ambulating with a quad cane now Psych cooperative Psych Narrative: Not restless. Making good eye contact. Engaged in what we are speaking about. Asks appropriate questions. Appearance: appropriate Attitude: calm, engaged and No agitated Activity / Motor Behavior: appropriate eye contact Assessment & Plan Assessment/Plan (1) Debility: (2) CVA (cerebral vascular accident): QUALIFIERS: CVA mechanism: embolism Precerebral and cerebral artery: unspecified cerebral artery Qualified Code(s): I63.40 - Cerebral infarction due to embolism of unspecified cerebral artery (3) COPD (chronic obstructive pulmonary disease): QUALIFIERS: COPD type: COPD with acute exacerbation Qualified Code(s): J44.1 - Chronic obstructive pulmonary disease with (acute) exacerbation (4) PAF (paroxysmal atrial fibrillation): (5) Right sided weakness: (6) Cognitive impairment: (7) HTN (hypertension): QUALIFIERS: Hypertension type: primary hypertension Qualified Code(s): I10 - Essential (primary) hypertension (8) Iron deficiency anemia due to chronic blood loss: (9) Acute on chronic blood loss anemia: (10) Normal anion gap metabolic acidosis: PLAN: Plan 1. Continue therapy 2. Plan for discharge next Monday. Will have a sleep study on the night of discharge. 3. Needs follow-up with the PCP and neurology postdischarge. Will refer to [facility] for primary care. 4. Needs a 30-day event monitor at discharge 5. I suspect she has renal tubular acidosis and will recommend follow-up with nephrology postdischarge from acute rehab. 6. Has never had a DEXA and she had a total abdominal hysterectomy at 38 years of age. Recommend DEXA in the near future 7. Continue Wellbutrin 8. [facility] Charges/Coding Visit Charges Inpatient E&M: 99022 Subs Hosp L1
[2024-08-01] MEDS: Magnesium Chloride 64 MG Delay Rel.Tablet 128 MG PO (09:47)
[2024-08-01] MEDS: Potassium Chloride Oral Tablet 20 MEQ PO (09:47)
[2024-08-01] MEDS: Clobetasol Propionate 0.05% Cream 1 APPLIC TOPICAL ×2 (09:47→22:54)
[2024-08-01] MEDS: Ammonium Lactate 225 gm Bottle 1 APPLIC TOPICAL ×2 (09:47→22:53)
[2024-08-01] MEDS: APIXABAN 5 MG TABLET PO ×2 (09:47→22:56)
[2024-08-01] MEDS: Pantoprazole Sodium 40 MG Tablet PO (09:47)
[2024-08-01] MEDS: Fluticasone/Salmeterol 232-14 Inhaler 1 PUFF INHALATION ×2 (09:47→22:54)
[2024-08-01] MEDS: guaiFENesin/D-Methorphan TAB.SR.12H 2 TABLET PO ×2 (09:47→22:56)
[2024-08-01] MEDS: buPROPion (XL) 150 MG TABLET.XL PO (09:47)
[2024-08-01 11:07] VITALS: BMI 25.3
[2024-08-01 11:22] VITALS: BMI 25.3
[2024-08-01] MEDS: Ferrous Sulfate 325 MG Tablet PO (12:47)
[2024-08-01] MEDS: Ascorbic Acid 500 MG Tablet PO (12:47)
--- NOTE | 2024-08-01 16:02 | CASEMGMT ---
Addendum entered by Phuong Ragland 08/02/24 13:02: Per Dr. Beal, testing showed pt does not qualify for overnight O2. Original Note: Social Work SW collaborated with IDT on DC date for pt. Pt has been doing flight of steps at [facility]. IDT in agreement to set DC for 08/07 (date of NRD). - SW spoke with Sleep Lab and there is bed availability to schedule the sleep study. - SW spoke with pt and pt agreeable for DC 08/07. Pt to DC to sleep lab, then DC home 08/08 AM. SW inquired about transport. Pt will need transport home. SW to coordinate. SW offered HHC vs OP therapy. Pt prefers OP therapy and will need transport. SW offered [facility] and the use of [facility] Van. Pt agrees. SW to coordinate. Pt appreciative. - SW faxed referral to [facility] for PT. Scheduled [facility] Van for p/u at 0700 from sleep lab on 08/08. Plan: DC home alone 08/07, to sleep lab, [facility] PT, overnight O2 pending testing on 08/05. Phuong Ragland RN OCCUPATIONAL PADDED PRODUCTS INSPECTOR TRIMMER
[2024-08-01 18:00] VITALS: BP 104/43; PULSE 65; RESP 18; TEMP 37.1; O2SAT 98
[2024-08-01 22:50] VITALS: PULSE 68; RESP 18; O2SAT 98; BMI 25.3
[2024-08-01 22:55] VITALS: BP 120/55; PULSE 68
[2024-08-01] MEDS: Metoprolol(XL)Succ 25 MG Tablet 12.5 MG PO (22:55)
[2024-08-01] MEDS: Atorvastatin Calcium 40 MG Tablet PO (22:56)
[2024-08-02] MEDS: Acetaminophen 500 MG Tablet 1000 MG PO ×3 (05:09→22:08)
[2024-08-02] MEDS: Petrolatum,White 5 GM PACKET 1 APPLIC TOPICAL (05:09)
[2024-08-02 05:22] VITALS: BP 129/57; PULSE 57; RESP 16; TEMP 36.9; O2SAT 99
[2024-08-02 07:31] VITALS: O2SAT 98
[2024-08-02] MEDS: APIXABAN 5 MG TABLET PO ×2 (09:07→22:08)
[2024-08-02] MEDS: Fluticasone/Salmeterol 232-14 Inhaler 1 PUFF INHALATION ×2 (09:07→22:09)
[2024-08-02] MEDS: guaiFENesin/D-Methorphan TAB.SR.12H 2 TABLET PO ×2 (09:07→22:08)
[2024-08-02] MEDS: Magnesium Chloride 64 MG Delay Rel.Tablet 128 MG PO (09:07)
[2024-08-02] MEDS: Potassium Chloride Oral Tablet 20 MEQ PO (09:07)
[2024-08-02] MEDS: Pantoprazole Sodium 40 MG Tablet PO (09:08)
[2024-08-02] MEDS: Ammonium Lactate 225 gm Bottle 1 APPLIC TOPICAL ×2 (09:08→22:09)
[2024-08-02] MEDS: buPROPion (XL) 150 MG TABLET.XL PO (09:08)
[2024-08-02] MEDS: Clobetasol Propionate 0.05% Cream 1 APPLIC TOPICAL ×2 (09:08→22:11)
[2024-08-02] MEDS: Ferrous Sulfate 325 MG Tablet PO (13:15)
[2024-08-02] MEDS: Ascorbic Acid 500 MG Tablet PO (13:15)
[2024-08-02 16:03] VITALS: BMI 25.3
[2024-08-02 18:00] VITALS: BP 103/33; PULSE 71; RESP 16; TEMP 36.9; O2SAT 98
[2024-08-02] MEDS: Atorvastatin Calcium 40 MG Tablet PO (22:08)
[2024-08-02 22:10] VITALS: BP 108/50; PULSE 68
[2024-08-02] MEDS: Metoprolol(XL)Succ 25 MG Tablet 12.5 MG PO (22:10)
[2024-08-03 06:00] VITALS: BP 122/53; PULSE 58; RESP 18; TEMP 36.8; O2SAT 98
[2024-08-03] MEDS: Acetaminophen 500 MG Tablet 1000 MG PO ×3 (06:42→20:39)
[2024-08-03] MEDS: Petrolatum,White 5 GM PACKET 1 APPLIC TOPICAL (06:42)
[2024-08-03] MEDS: Pantoprazole Sodium 40 MG Tablet PO (08:57)
[2024-08-03] MEDS: Magnesium Chloride 64 MG Delay Rel.Tablet 128 MG PO (08:57)
[2024-08-03] MEDS: Ammonium Lactate 225 gm Bottle 1 APPLIC TOPICAL ×2 (08:57→20:38)
[2024-08-03] MEDS: buPROPion (XL) 150 MG TABLET.XL PO (08:57)
[2024-08-03] MEDS: Potassium Chloride Oral Tablet 20 MEQ PO (08:57)
[2024-08-03] MEDS: guaiFENesin/D-Methorphan TAB.SR.12H 2 TABLET PO ×2 (08:57→20:39)
[2024-08-03] MEDS: APIXABAN 5 MG TABLET PO ×2 (08:57→20:37)
[2024-08-03] MEDS: Clobetasol Propionate 0.05% Cream 1 APPLIC TOPICAL ×2 (08:58→20:39)
[2024-08-03] MEDS: Fluticasone/Salmeterol 232-14 Inhaler 1 PUFF INHALATION ×2 (08:58→20:37)
[2024-08-03] MEDS: Ferrous Sulfate 325 MG Tablet PO (13:14)
[2024-08-03] MEDS: Ascorbic Acid 500 MG Tablet PO (13:14)
[2024-08-03 14:41] VITALS: BMI 25.3
[2024-08-03 17:52] VITALS: BP 164/41; PULSE 68; RESP 18; TEMP 36.3; O2SAT 98
[2024-08-03] MEDS: Menthol/Lanolin/Calamine/Znox 113 GM Tube 1 APPLIC TOPICAL (20:37)
[2024-08-03] MEDS: Atorvastatin Calcium 40 MG Tablet PO (20:39)
[2024-08-03 20:42] VITALS: BP 116/53; PULSE 68
[2024-08-03] MEDS: Metoprolol(XL)Succ 25 MG Tablet 12.5 MG PO (20:42)
[2024-08-03 22:27] VITALS: BMI 25.3
[2024-08-04] MEDS: Menthol/Lanolin/Calamine/Znox 113 GM Tube 1 APPLIC TOPICAL ×2 (05:00→21:42)
[2024-08-04] MEDS: Petrolatum,White 5 GM PACKET 1 APPLIC TOPICAL (05:01)
[2024-08-04] MEDS: Acetaminophen 500 MG Tablet 1000 MG PO ×3 (05:01→21:41)
[2024-08-04 05:06] VITALS: BMI 25.2
[2024-08-04 05:12] VITALS: BP 111/52; PULSE 64; RESP 18; TEMP 36.8; O2SAT 98
[2024-08-04] MEDS: Ammonium Lactate 225 gm Bottle 1 APPLIC TOPICAL ×2 (08:20→21:40)
[2024-08-04] MEDS: buPROPion (XL) 150 MG TABLET.XL PO (08:20)
[2024-08-04] MEDS: Pantoprazole Sodium 40 MG Tablet PO (08:20)
[2024-08-04] MEDS: Magnesium Chloride 64 MG Delay Rel.Tablet 128 MG PO (08:20)
[2024-08-04] MEDS: Potassium Chloride Oral Tablet 20 MEQ PO (08:20)
[2024-08-04] MEDS: Fluticasone/Salmeterol 232-14 Inhaler 1 PUFF INHALATION ×2 (08:20→21:39)
[2024-08-04] MEDS: guaiFENesin/D-Methorphan TAB.SR.12H 2 TABLET PO ×2 (08:20→21:40)
[2024-08-04] MEDS: APIXABAN 5 MG TABLET PO ×2 (08:20→21:39)
[2024-08-04] MEDS: Clobetasol Propionate 0.05% Cream 1 APPLIC TOPICAL ×2 (08:20→21:40)
[2024-08-04 08:53] VITALS: BMI 25.2
[2024-08-04 09:08] VITALS: PULSE 66; O2SAT 99
--- NOTE | 2024-08-04 09:08 | CPS ---
pt currently on room air at time of hookup. states that shes been wearing oxygen at night, flow meter set at 2 lpm
[2024-08-04] MEDS: Ferrous Sulfate 325 MG Tablet PO (13:56)
[2024-08-04] MEDS: Ascorbic Acid 500 MG Tablet PO (13:56)
[2024-08-04 17:31] VITALS: BP 101/44; PULSE 61; RESP 18; TEMP 36.7; O2SAT 98
[2024-08-04] MEDS: Atorvastatin Calcium 40 MG Tablet PO (21:40)
[2024-08-04 21:41] VITALS: BP 121/56; PULSE 67
[2024-08-04] MEDS: Metoprolol(XL)Succ 25 MG Tablet 12.5 MG PO (21:41)
[2024-08-04 22:21] VITALS: BMI 25.2
[2024-08-05 05:48] VITALS: BP 104/48; PULSE 59; RESP 16; TEMP 36.7; O2SAT 99
[2024-08-05] MEDS: Acetaminophen 500 MG Tablet 1000 MG PO ×3 (05:50→21:48)
[2024-08-05] MEDS: Menthol/Lanolin/Calamine/Znox 113 GM Tube 1 APPLIC TOPICAL ×2 (05:50→21:47)
[2024-08-05] MEDS: Petrolatum,White 5 GM PACKET 1 APPLIC TOPICAL (05:50)
--- NOTE | 2024-08-05 08:47 | PCM.PROGNOTE ---
Subjective Subjective Ana Maria was seen on team rounds today. No family was available to participate. Afebrile VSS -blood pressure is well-controlled. She denies lightheadedness. Heart rate is ranged from 59-68 over the weekend. Maintaining appropriate oxygen saturation on RA Oral intake - FOOD good FLUIDS good Discussed with nursing - no problems that need addressed Reviewed the THERAPY notes Medication list reviewed. Denies lightheadedness, headache, chest pain, cough, shortness of breath, palpitations, nausea/vomiting/abdominal pain, dysuria and calf tenderness. Her only complaint is that she feels like she is constipated. I suspect this is related to iron and Wellbutrin. Has not been taking any stool softeners. Objective Data Objective Data Vital Signs: Vital Signs Temp Pulse Resp BP Pulse Ox O2 Del Method O2 Flow Rate 98.0 F 59 L 16 104/48 L 99 Room Air 2 08/05/24 05:48 08/05/24 05:48 08/05/24 05:48 08/05/24 05:48 08/05/24 05:48 08/05/24 05:48 08/04/24 22:00 FiO2 21 07/24/24 23:24 Oxygen Flow Rate (L/min) 2 Oxygen Delivery Method Room Air Weight: 170 lb 6.4 oz Body Mass Index (BMI) 25.2 Intake & Output: Intake and Output for Last 24 Hours 08/03/24 08/04/24 08/05/24 23:59 23:59 23:59 Intake Total 2480 / 2480 2140 / 2140 120 / 120 Output Total 2900 / 2900 2500 / 2500 650 / 650 Balance -420 / -420 -360 / -360 -530 / -530 Lab / Micro Data 07/30/24 05:33 07/30/24 05:33 Micro: Microbiology 07/30/24 12:40 Stool Stool Occult Blood (PRACHI) - Final 07/23/24 18:12 Urine Catheter - Catheter Urine Culture - Final Culture exhibits no growth. Physical Exam Const alert and oriented x3 Constitutional Narrative: Making good eye contact and she is engaged when we are speaking. Doing very well in therapy and very motivated to get better and go home. Also motivated to do what is necessary to take better care of herself. General Appearance: cooperative Orientation / Consciousness: Negative for confused HEENT head/scalp atraumatic, hearing grossly normal bilaterally and moist oral mucous membranes Eyes PERRL, EOMs intact bilaterally, conjunctivae normal and no scleral icterus Eyes Narrative: No discharge from the eyes and no mattering of the eyelashes. Neck supple, No nodes and no carotid bruits General: trachea midline Chest Chest Narrative: Increased AP diameter of the chest. Chest: symmetrical chest wall rise Resp normal respiratory effort and clear to auscultation bilaterally Resp Narrative: Breath sounds are mildly diminished throughout. No crackles and no wheezes. No conversational dyspnea. Effort and Inspection: Negative for tachypneic Cardio regular rate, regular rhythm and no gallops Cardio Narrative: No ectopy GI normal to inspection, nondistended, normoactive bowel sounds, soft to palpation and non-tender GI Narrative: No guarding with palpation no CVA tenderness Extremity no calf tenderness Extremity Narrative: trace pedal edema. She has multiple wounds on both feet, R>L. No open wounds.....all wounds have eschar present. No purulent DC. No evidence of infection. the DP and PT pulses are 2+ BL. General Extremity: Negative for edema Skin Skin Narrative: The wounds on her feet are stable. Eschar still present on the feet and the knees. No DC from the wounds and no catherine-wound erythema or warmth to touch. Pain with wt bearing but, the pain improves when she is not bearing wt. Rashes: no rashes Neuro oriented x3 and CN's II-XII intact bilaterally Neuro Narrative: ambulating with a quad cane now Psych cooperative Psych Narrative: Not restless. Making good eye contact. Engaged in what we are speaking about. Asks appropriate questions. Appearance: appropriate Attitude: calm, engaged and No agitated Activity / Motor Behavior: appropriate eye contact Assessment & Plan Assessment/Plan (1) Debility: (2) CVA (cerebral vascular accident): QUALIFIERS: CVA mechanism: embolism Precerebral and cerebral artery: unspecified cerebral artery Qualified Code(s): I63.40 - Cerebral infarction due to embolism of unspecified cerebral artery (3) Influenza A: (4) COPD (chronic obstructive pulmonary disease): QUALIFIERS: COPD type: COPD with acute exacerbation Qualified Code(s): J44.1 - Chronic obstructive pulmonary disease with (acute) exacerbation (5) COPD exacerbation: (6) PAF (paroxysmal atrial fibrillation): (7) Right sided weakness: (8) Cognitive impairment: (9) HTN (hypertension): QUALIFIERS: Hypertension type: primary hypertension Qualified Code(s): I10 - Essential (primary) hypertension (10) Iron deficiency anemia due to chronic blood loss: (11) Hyperglycemia: (12) Acute on chronic blood loss anemia: (13) Normal anion gap metabolic acidosis: (14) Diarrhea: QUALIFIERS: Diarrhea type: unspecified type Qualified Code(s): R19.7 - Diarrhea, unspecified PLAN: Plan 1. Continue therapy 2. Check a BMP and a hemoglobin and hematocrit tomorrow morning... If she still has a normal anion gap acidosis will recommend follow up with nephrology for possible RTA. 3. No changes to the drug regimen today. 4. Plan discharge on Monday to the sleep lab and she will go home morning.No need for an overnight trending pulse ox. She had one earlier in the admission and she will not need home O2. 5. Will follow-up at the [facility] postdischarge and will also follow-up with neurology. 6. Needs a 30-day event monitor at discharge. 7. Needs to follow up with a dentist and also needs a Dexa. 8. At some point in the future recommend follow up with pulmonary for PFT's 9. Needs a carotid US to better evaluate the extent of carotid stenosis. 10. Repeat colonoscopy in 1 year for colon polyps - with Dr. Mari 11. public health worker has arranged for transportation home from the sleep study. Charges/Coding Visit Charges Inpatient E&M: 58894 Subs Hosp L2
[2024-08-05] MEDS: Magnesium Chloride 64 MG Delay Rel.Tablet 128 MG PO (09:33)
[2024-08-05] MEDS: guaiFENesin/D-Methorphan TAB.SR.12H 2 TABLET PO ×2 (09:33→21:45)
[2024-08-05] MEDS: buPROPion (XL) 150 MG TABLET.XL PO (09:33)
[2024-08-05] MEDS: Pantoprazole Sodium 40 MG Tablet PO (09:33)
[2024-08-05] MEDS: APIXABAN 5 MG TABLET PO ×2 (09:35→21:48)
[2024-08-05] MEDS: Potassium Chloride Oral Tablet 20 MEQ PO (09:35)
[2024-08-05] MEDS: Fluticasone/Salmeterol 232-14 Inhaler 1 PUFF INHALATION ×2 (09:36→21:44)
[2024-08-05] MEDS: Clobetasol Propionate 0.05% Cream 1 APPLIC TOPICAL ×2 (09:39→21:44)
[2024-08-05] MEDS: Ammonium Lactate 225 gm Bottle 1 APPLIC TOPICAL ×2 (09:39→21:44)
[2024-08-05] MEDS: Ascorbic Acid 500 MG Tablet PO (11:47)
[2024-08-05] MEDS: Ferrous Sulfate 325 MG Tablet PO (11:47)
[2024-08-05] MEDS: Senna/Docusate Sodium 1 Tablet PO (12:18)
[2024-08-05 12:44] VITALS: BMI 25.2
--- NOTE | 2024-08-05 13:02 | CASEMGMT ---
Social Work ID met with patient for Team meeting. Discussed patient's progress in PT/OT/ST/SN. Confirmed DC 08/07 to sleep lab, then home 08/08 via [facility] Van at 0700. SW provided transportation resources again, per pt request. No other issues noted. Plan: DC home alone 08/07, to sleep lab, [facility] PT Phuong Ragland METAL CUT OFF [employer] TELECOMMUNICATIONS SPECIALIST
[2024-08-05 18:00] VITALS: BP 117/45; PULSE 63; RESP 18; TEMP 36.7; O2SAT 99
[2024-08-05 21:46] VITALS: BP 123/53; PULSE 63
[2024-08-05] MEDS: Atorvastatin Calcium 40 MG Tablet PO (21:46)
[2024-08-05] MEDS: Metoprolol(XL)Succ 25 MG Tablet 12.5 MG PO (21:46)
[2024-08-06 04:20] VITALS: BMI 25.2
[2024-08-06] MEDS: Acetaminophen 500 MG Tablet 1000 MG PO ×3 (05:03→20:29)
[2024-08-06] MEDS: Petrolatum,White 5 GM PACKET 1 APPLIC TOPICAL (05:04)
[2024-08-06 06:00] VITALS: BP 116/46; PULSE 57; RESP 16; TEMP 36.8; O2SAT 100
[2024-08-06 06:00] LABS: Hematocrit 34.2 % (37-47); Hemoglobin 10.8 g/dL (12.0-15.0)
[2024-08-06 06:32] LABS: Anion Gap 8 (5-15); BUN 36 mg/dL (7-18); Chloride 112 mmol/L (98-107); EST Glomerular Filtration Rate 60 mL/min (>60); Est Glom Filt Rate - Afr Amer 72 mL/min (>60); Estimated Creatinine Clearance 61.74 ml/min; Glucose 94 mg/dL (74-106); Potassium 4.3 mmol/L (3.5-5.1); Sodium Level 142 mmol/L (136-145)
[2024-08-06] MEDS: buPROPion (XL) 150 MG TABLET.XL PO (07:43)
[2024-08-06] MEDS: Ammonium Lactate 225 gm Bottle 1 APPLIC TOPICAL ×2 (07:43→20:30)
[2024-08-06] MEDS: Pantoprazole Sodium 40 MG Tablet PO (07:43)
[2024-08-06] MEDS: Magnesium Chloride 64 MG Delay Rel.Tablet 128 MG PO (07:43)
[2024-08-06] MEDS: Potassium Chloride Oral Tablet 20 MEQ PO (07:43)
[2024-08-06] MEDS: Fluticasone/Salmeterol 232-14 Inhaler 1 PUFF INHALATION ×2 (07:43→20:30)
[2024-08-06] MEDS: guaiFENesin/D-Methorphan TAB.SR.12H 2 TABLET PO ×2 (07:43→20:29)
[2024-08-06] MEDS: Clobetasol Propionate 0.05% Cream 1 APPLIC TOPICAL ×2 (07:43→20:31)
[2024-08-06] MEDS: APIXABAN 5 MG TABLET PO ×2 (07:44→20:29)
[2024-08-06 10:39] VITALS: BMI 25.2
--- NOTE | 2024-08-06 11:57 | DCINST_ITS ---
Discharge Instructions Diet Discharge Diet: - (Low fat, low salt. Small bites. ) DC O2, CPAP, BIPAP needs Home O2 Discharge instructions: No Dressing / Incision Discharge Activity: May Not Drive (No driving until therapists/neurologist says you are OK to drive. ) and - (Use the quad cane, jason if you are outside your home. ) Weight Bearing Status: Full weight bearing Dressing / Incision Call your doctor if you observe: Fever of 101 or Higher, Numbness or Tingling, Inability to urinate, Shortness of breath, Dizziness, Fainting spells, Swelling in the ankles, Chest pain, Increased palpitations (irregular heartbeat), Calf discomfort and - (STROKE symptoms: facial droop, slurred speech, inability to get words out, weakness on 1 side of the body and not the other, numbness on 1 side of the body and not the other, inability to maintain your balance sitting or standing, vertigo. ) Follow Up Care When: Appt have been scheduled for you and they have been listed for you later in this document. You will need another colonoscopy in 1 year. The doctor who did the colonoscopy at [facility] is Dr. Mari. You had a polyp and there was some bleeding that needed to be cauterized. You can call his office in 6-9 months from now to schedule and appt. You may need a referral from your PCP. Test Results: Test results from this visit will be discussed in further detail at your follow- up appointment, if applicable. Pending Tests Upon Discharge: 25-hydroxy vitamin D level Discharge Plan Admission Admit Date/Time: 07/23/24 13:51 Primary Reason for Your Visit: POST STROKE DEBILITY Attending Provider: Lila Beal Primary Care Provider: Care Physician,No Primary Instructions Patient Instructions: Vitamin D, Anticoagulants, What Are Snoring and Sleep Apnea?, What Is Osteoporosis?, Discharge Instructions for Stroke, AFib Preventing Stroke, AFib Additional Instructions / Restrictions: 1. You did GREAT on rehab. I think you will do fine at home. The most important thing to do now is PREVENT any more strokes going forward. The goals you need to remember are: BP < 130/80, LDL (bad cholesterol) less than 70, HDL (good cholesterol) >44. you are not diabetic so fortunately we do not need to worry about this. Your LDL is 60 and the HDL is 49. These numbers are both within goal. NO SMOKING!!!! I do no think that you should drink because there is a history of alcoholism in your family and you have had a problem with alcohol in the past. Depression and addictions go hand in hand. Wellbutrin treats depression but, it also helps with cravings for alcohol and smoking. I think you should continue to take the Wellbutrin for at least 6 month to a year before you consider getting off this medication. Many people who have depression relapse periodically throughout their life. Medication and counselling work much better when done together than either one alone. You need to continue with counselling. [facility] is a great program. I hope you continue to foolow up with them after you discharge from rehab. 2. You will be in good hands at the [facility]. They are very caring/compassionate there and I know a lot of the practitioners who work there. I would not hesitate to go there myself to be treated. 3. You are going to get a heart monitor in the mail and will wear this to monitor your heart rhythm continuously. You had atrial fibrillation (also called AFIB) while you were in the hospital. This heart rhythm significantly increases your risk for stroke. Because of this you are taking a blood thinner (anticoagulant) called apixaban (also called Eliquis). I have given you some literature to read about AFIB and anticoagulants. AFIB can be related to sleep apnea and you have some symptoms of sleep apnea. This is why you are having the sleep study. Drinking heavily also causes AFIB so if you decide to drink again limit yourself to no more than 1 alcoholic drink a day. Low potassium and low magnesium can also cause AFIB. Both your potassium and magnesium were low when you came to rehab and you have been placed on supplements to keep the levels normal. 4. You had menopause at 38 YOA and this is early for menopause. This means that you could have significant bone loss now since it has been 20 years since you went through menopause. You also have smoked for a long time and this increases bone loss. I think you need to have a bone mineral density test in the not too distant future to see if you have osteoporosis. To prevent osteoporosis your calcium should be within normal limits. Some people get enough calcium in their diet and do not need to be on a calcium supplement. You calcium is normal. In order for your body to absorb calcium form the gastrointestinal tract you must have vitamin D. Vitamin D comes from the sun but we can also get vitamin D and a supplement. As you know we do not see this on much in [facility], especially in the winter. I started you on a vitamin D supplement to help with bones. This medication is called cholecalciferol and you will take 1 daily. I have put in a prescription to the radiology dept for a Bone density test (called a DEXA) following DC from rehab. 5. You had a CT scan of the arteries in your head and neck in the ER. This te st showed a narrowing in the R carotid artery if > 70%. the left carotid artery shows 50-75% narrowing. This leads to decreased blood flow to the brain. CT scans can significantly overestimate the degree of narrowing. there is a better test for these arteries. It is an ultrasound (US) of the arteries. I am going to give you a requisition to obtain an US of the carotids. You will want to ask your new PCP about the results of this test. If the US confirms you have > 60% narrowing then you will need to follow up with a vascular surgeon. There are procedures that can be done to clean out these arteries and restore blood flow to prevent additional strokes. There is a good vascular surgeon in [place]. his name is Dr. Javon Anna. 6. You were iron deficient at admission to rehab and we gave you intravenous ironj supplements. You are now taking and iron supplement by mouth called ferrous sulfate. You will be taking one a day WITH a ascorbic acid (also called vitamin C). The vitamin C helps the iron to be absorbed from the gastrointestinal tract. 7. You had the Flu when you came to rehab. You were wheezing and we started you on aerosol treatments and then transitioned you to an inhaler. In think you may have COPD from your years of smoking. You are no longer wheezing. You would need to have pulmonary function studies to determine if you have COPD or not. If you do not have COPD you may not need the inhaler. You can discuss this with your new PCP at [facility]. Since you are over the age of 60 now I recommend that you discuss updating your vaccinations with your new doctor........RSV, COVID, pneumovaccine, shingles. 8. If you have any questions after you leave rehab please do not hesitate to call me. 9. I think they may have a dentist that works with [facility]. You need some dental care so please ask your new doctor for a referral. OFFICE: [phone] CELL: [phone] NURSES STATION ON REHAB: [phone] Discharge Orders/Prescriptions Prescriptions: New atorvastatin 40 mg Tablet 40 mg PO QHS Qty: 30 0RF ascorbic acid (vitamin C) 500 mg Tablet 500 mg PO 1200 Qty: 30 0RF bupropion HCl 150 mg Tablet Extended Release 24 Hr 150 mg PO DAILY Qty: 30 2RF cholecalciferol (vitamin D3) 25 mcg (1,000 unit) capsule 25 mcg PO DAILY Qty: 30 0RF ferrous sulfate [FeroSul] 325 mg (65 mg iron) Tablet 325 mg PO DAILY@1200 Qty: 30 0RF Rx Instructions: Take this once a day with the vitamin C (ascorbic acid) with a meal daily fluticasone propion-salmeterol 232-14 mcg/actuation Aerosol Powdr Breath Activated 1 inh inhalation Q12 Qty: 1 0RF magnesium oxide 400 mg (241.3 mg magnesium) tablet 400 mg PO DAILY Qty: 30 0RF sennosides-docusate sodium [Stimulant Laxative Plus] 8.6-50 mg Tablet 1 tab PO BID Qty: 60 0RF metoprolol succinate 25 mg Tablet Extended Release 24 Hr 12.5 mg PO QHS Qty: 15 0RF Rx Instructions: Take 1/2 tab daily at bedtime Continued acetaminophen 325 mg Tablet 650 mg PO Q4H PRN PRN (Reason: Fever, pain 1-10) Qty: 0 0RF potassium chloride 20 mEq Tablet,Er Particles/Crystals 20 meq PO DAILY Qty: 30 0RF pantoprazole 40 mg Tablet,Delayed Release (Dr/Ec) 40 mg PO DAILY Qty: 30 0RF Eliquis 5 mg Tablet 5 mg PO BID Qty: 60 0RF Rx Instructions: Discontinue if platelet count drops less than 50,000 or hemoglobin less than 8 g% Discontinued atorvastatin 80 mg Tablet 80 mg PO QHS Qty: 0 0RF Mucinex DM 30-600 mg Tablet Extended Release 12 Hr 2 tab PO BID 5 Days Qty: 20 0RF oseltamivir 75 mg Capsule 75 mg PO BID Other Ambulatory Orders: Carotid Duplex Ultrasound (Routine) Facility: [facility] - Location: [facility] Ordered By: Dr. Lila Beal Dexa Bone Density Study (Routine) Facility: [facility] - Location: [facility] Ordered By: Dr. Lila Beal Referrals / Follow Up: lab,sleep [Other] - 08/07/24 8:00 pm [facility] [Outside] - 08/12/24 8:30 am (appointment with Elida Antunez) Stephen Redman MD [Non-Staff -Ordering Privileges] - 09/12/24 1:30 pm (appt with Dr. Russell) Disposition Disposition (needs filled in before D/C Order can be placed): Home, Self Care
[2024-08-06] MEDS: Ferrous Sulfate 325 MG Tablet PO (13:01)
[2024-08-06] MEDS: Ascorbic Acid 500 MG Tablet PO (13:01)
--- NOTE | 2024-08-06 14:12 | EX.DISCHREH ---
Providers Date of Admission: 07/23/24 Date of Discharge: 08/07/24 Primary Care Physician: No Primary Care Phys Reason For Visit: STROKE Diagnosis Discharge Diagnosis (1) Debility: Status: Acute Code(s): R53.81 - Other malaise Plan: due to multiple ischemic CVA's thought to be embolic. She has a hx of PAF and was not on anticoagulation at presentation to the ED. (2) CVA (cerebral vascular accident): Status: Inactive Code(s): I63.9 - Cerebral infarction, unspecified Qualifiers: CVA mechanism: embolism Precerebral and cerebral artery: unspecified cerebral artery Qualified Code(s): I63.40 - Cerebral infarction due to embolism of unspecified cerebral artery Plan: Embolic. Multiple including the left basal ganglia, posterior limb of the internal capsule and a small infarct in the posterior medial aspect of the left cerebellar lobe. (3) PAF (paroxysmal atrial fibrillation): Status: Chronic Code(s): I48.0 - Paroxysmal atrial fibrillation Plan: Has been diagnosed with this in the past and had a stroke in the past. Was not on anticoagulation at presentation to the ED. No PCP. Has not been in AF any time I have examined her while on rehab. (4) Right sided weakness: Status: Acute Code(s): R53.1 - Weakness (5) Cognitive impairment: Status: Acute Code(s): R41.89 - Other symptoms and signs involving cognitive functions and awareness (6) Urine retention: Status: Resolved Code(s): R33.9 - Retention of urine, unspecified (7) Iron deficiency anemia due to chronic blood loss: Status: Chronic Code(s): D50.0 - Iron deficiency anemia secondary to blood loss (chronic) Plan: + GI bleeding at presentation to hospital. Had an EGD and a colonoscopy. Multiple linear duodenal ulcers and hemorrhagic appearance of the colon at the site of the anastomosis which required an endo clip. A Hemoccult stool was rechecked on acute rehab and was negative on 07/30/2024. Lab was consistent with iron deficiency and she received a total of 700 mg of intravenous iron sucrose while on rehab and was started on ferrous sulfate and sorbic acid prior to discharge. Hemoglobin is stable at 10.8 on 08/06/2024. (8) Acute on chronic blood loss anemia: Status: Chronic Code(s): D62 - Acute posthemorrhagic anemia (9) Normal anion gap metabolic acidosis: Status: Acute Code(s): E87.20 - Acidosis, unspecified Plan: On lab done on 08/06/24 the serum bicarb is finally normal at 22. The chloride is still mildly increased at 112. The BUN was 36 with a creatinine of 1.00 which is stable. Urine pH is always 6 or greater and I suspect she may have renal tubular acidosis. Currently asymptomatic. She has had kidney stones in the past. She does not know the composition of the kidney stone. May need a referral to nephrology going forward. (10) HTN (hypertension): Status: Chronic Code(s): I10 - Essential (primary) hypertension Qualifiers: Hypertension type: primary hypertension Qualified Code(s): I10 - Essential (primary) hypertension Plan: She has a hx of HTN but, BP is within goal at the time of DC from rehab on only Metoprolol XL 12.5 mg at HS. (11) Adenomatous polyp: Status: Acute Code(s): D36.9 - Benign neoplasm, unspecified site Plan: Will need a follow-up colonoscopy with Dr. Mari in 1 year. (12) History of colon cancer: Status: Chronic Code(s): Z85.038 - Personal history of other malignant neoplasm of large intestine Plan: Status post partial colon resection with end to end anastomosis. (13) Influenza A: Status: Resolved Code(s): J10.1 - Influenza due to other identified influenza virus with other respiratory manifestations (14) COPD (chronic obstructive pulmonary disease): Status: Suspected Code(s): J44.9 - Chronic obstructive pulmonary disease, unspecified Qualifiers: COPD type: COPD with acute exacerbation Qualified Code(s): J44.1 - Chronic obstructive pulmonary disease with (acute) exacerbation Plan: Has a long smoking hx. Had diffuse wheezing at presentation tob rehab. Was treated with a prednisone taper and aerosolized bronchodilators. Gradually transitioned to fluticasone/Salmeterol inhaler. This will be continued at DC. BS's are diminished throughout. May need PFT's as OP, jason if she resumes smoking. (15) COPD exacerbation: Status: Chronic Code(s): J44.1 - Chronic obstructive pulmonary disease with (acute) exacerbation (16) Dental caries noted on examination: Status: Chronic Code(s): K02.9 - Dental caries, unspecified Plan: Poor dental health. Will need follow up with a dentist following DC from rehab. (17) NIKOLAI (obstructive sleep apnea): Status: Suspected Code(s): G47.33 - Obstructive sleep apnea (adult) (pediatric) Plan: Split sleep study scheduled for the night of discharge from acute rehab. (18) History of depression: Status: Chronic Code(s): Z86.59 - Personal history of other mental and behavioral disorders Plan: On Wellbutrin in the past. Started on Wellbutrin XL 150 mg daily while on rehab and is tolerating well at the time of discharge. Would benefit from psychotherapy. (19) History of ETOH abuse: Status: Acute Code(s): F10.11 - Alcohol abuse, in remission Plan: Off and on since her 30's. Both parents were alcoholic. She goes to meetings and has been to [facility]. (20) Bilateral carotid artery stenosis: Status: Chronic Code(s): I65.23 - Occlusion and stenosis of bilateral carotid arteries Plan: Marked stenosis of both carotids on the CTA of the head and neck. A requisition was given for BL carotid US to be done post DC from rehab. Plan 1. DC 08/07/24 to the sleep lab. 2. 30-day event monitor at discharge Has never had a DEXA and she had a total abdominal hysterectomy at 38 years of age. Recommend DEXA in the near future 3. Continue Wellbutrin. 4. Suggested she follow-up with [facility] following discharge from rehab. 5. She will follow-up for primary care at [facility] and has an appointment with Dr. Debora Antunez on 08/12/2024 at 8:30 AM. 6. An appointment has been made for her to follow-up with Dr. Russell from neurology on 09/12/2024 at 1:30 PM. Appt will be at Dr. Redman's office in [place]. 7. Needs a referral to a dentist. 8. Requisitions put in for a DEXA and BL carotid US's as OP. Medications at Discharge Home Medications acetaminophen 325 mg tablet 650 mg (2 x 325 mg) PO Q4H PRN PRN Fever, pain 1-10/10 #0 tabs 07/23/24 apixaban 5 mg tablet (Eliquis) 5 mg PO BID AFIB #60 tabs 08/06/24 ascorbic acid (vitamin C) 500 mg tablet 500 mg PO 1200 #30 tabs 08/06/24 atorvastatin 40 mg tablet 40 mg PO QHS #30 tabs 08/06/24 bupropion HCl 150 mg 24 hr tablet, extended release 150 mg PO DAILY #30 tabs 08/06/24 cholecalciferol (vitamin D3) 25 mcg (1,000 unit) capsule 25 mcg PO DAILY #30 caps 08/06/24 ferrous sulfate 325 mg (65 mg iron) tablet (FeroSul) 325 mg PO DAILY@1200 #30 tabs 08/06/24 fluticasone 232 mcg-salmeterol 14 mcg/actuation breath activated powdr 1 inh inhalation Q12 #1 ea 08/06/24 magnesium oxide 400 mg (241.3 mg magnesium) tablet 400 mg PO DAILY #30 tabs 08/06/24 metoprolol succinate 25 mg tablet,extended release 24 hr 12.5 mg (1/2 x 25 mg) PO QHS #15 tabs 08/06/24 pantoprazole 40 mg tablet,delayed release 40 mg PO DAILY reflux #30 tabs 08/06/24 potassium chloride 20 mEq tablet,extended release(part/cryst) 20 meq PO DAILY supplement #30 tabs 08/06/24 sennosides 8.6 mg-docusate sodium 50 mg tablet (Stimulant Laxative Plus) 1 tab PO BID constipation #60 tabs 08/06/24 Hospital Course Operations None Procedures Transthoracic echo (Interpretation Summary The estimated ejection fraction is 70 %. No evidence for diastolic dysfunction. Bubble contrast study was negative for [id number] shunt.) Summary of Care Provided Minutes Spent on Discharge: 42 Hospital Course: SOLA GARCÍA, is a 59 YO F with a PMH of ongoing tobacco dependence, PAF (not on anticoagulation at presentation to the ED), GERD with history of peptic ulcer disease/perforation requiring surgery to oversew/GI bleed, history of colon cancer with partial colectomy, hypertension, depression (treated with Wellbutrin XL in the past), history of cervical cancer (status post RAJANI/BSO in 2023?), history of traumatic brain injury, anxiety, history of alcohol abuse and history of stroke in the past who presented to the ED at [facility] on 07/14/2024 complaining of right hip pain after a fall down the steps up to her apt. She remembers being lightheaded before she fell. she was unable to get up. she sustained multiple abrasions to her extremities. In the emergency department she became confused and had expressive aphasia. She also had right-sided weakness. Noncontrast CT brain showed a wedge-shaped hypodensity extending from the caudate head to the lentiform nucleus. Cerebellum and brainstem were normal. There was no intracranial hemorrhage. No sign of acute ischemic infarction. CTA of the head and neck showed greater than 70% stenosis of the proximal right internal carotid artery and 50 to 75% stenosis of the cavernous segment of the right internal carotid artery. CT of the neck showed severe bilateral foraminal narrowing at C5-C6 with no acute fracture or dislocation. X-ray of the right hip and pelvis showed no fracture. X-ray of the knee showed no fractures. There was hallux valgus present. Both knee x-rays were normal. Teleneurology was consulted and the NIH was 0 however she did have right-sided weakness. The neurologist felt that the CT head showed an old left cerebellar embolic appearing stroke and acute left basal ganglia ischemic stroke involving multiple structures that was slightly bigger than a lacunar infarct. She was not a candidate for thrombolytics. She was admitted to the hospitalist service for stroke workup. She was placed on aspirin and a statin. It was unclear at admission to the ED/hospital whether she was taking any medications as an OP. MRI of the brain was done on 07/15/2024 and showed small to moderate-sized acute infarcts of the left basal ganglia and posterior limb of the internal capsule extending up to the periventricular white matter. There was also a small acute infarct present in the posterior medial aspect of the left cerebellar lobe. There was no hemorrhagic transformation present. Transthoracic echocardiogram showed a 70% ejection fraction with no evidence of diastolic dysfunction and no regional wall motion abnormalities. Both atria were of normal size and the bubble contrast study was negative. There was no significant valvular heart disease. Significant lab at admission to the hospital included triglycerides of 73, LDL of 60 and an HDL of 49. TSH was normal at 1.51. Hemoglobin A1c was 5.1. Creatinine was elevated at 1.82 at presentation to the emergency department with a BUN of 65. Hemoglobin at presentation to the emergency department was 12.9 and dropped to 10.6. Screening at admission to the emergency department was negative. Alcohol was less than 3.0. Because of a history of peptic ulcer disease and anemia GI was consulted to evaluate prior to starting anticoagulation. EGD on 07/18/2024 showed patchy mildly erythematous mucosa without bleeding in the stomach. There were a few nonbleeding linear duodenal ulcers with no stigmata of bleeding. Colonoscopy on 07/18/2024 showed a patent end-to-end colocolonic anastomosis characterized by hemorrhagic appearance. An Endo Clip was placed. There was one 8 mm polyp in the sigmoid colon which was removed with a cold snare. Pathology was consistent with tubular adenoma. Dr. Mari recommended follow-up colonoscopy in 1 year and suggested waiting until 07/23/2024 to start anticoagulation. On 07/23/2024 she was started on Eliquis 5 mg p.o. twice daily. On 07/19/2024 she had a fever of 101.6 Fahrenheit associated with cough. PA and lateral chest x-ray showed no infiltrates. COVID-19 was negative. Influenza A was positive and she was started on Tamiflu in the evening on 07/20/2024. Sola was transferred to the acute inpt rehab unit at [facility] on 07/23/24 for 3 hours of therapy daily to restore function/independence at or near her level prior to the stroke. Unclear to me at this time what her level of function was prior to presentation to the ED. Sola has decreased BS's with diffuse wheezing at presentation to rehab. She was started on aerosolized bronchodilators and a prednisone taper. Breathing and complaints of shortness of breath improved. She was later transitioned to a fluticasone/Salmeterol inhaler. At the time of discharge from rehab the air exchange is better although there is still diminished breath sounds throughout. She has no wheezing and no crackles. Lab at presentation to the emergency department showed a sodium of 149, potassium 3.4, chloride of 119 and a BUN of 48 with a creatinine of 1.19. She was dehydrated and I do not think she was taking good care of herself. She had been following up with [facility] but, admitted to not going for the preceding month. She sometimes goes to AA meetings. Iron studies at presentation to acute rehab were consistent with iron deficiency and the iron saturation was only 10.1%. I suspect she has been having chronic GI blood loss. She was treated with 700 mg of IV iron and then started on Ascorbic acid and ferrous sulfate once a day. She admitted to feeling depressed and told me that in the past she had been taking Wellbutrin XL but, was not taking an antidepressant at presentation to the hospital. she was started on Wellbutrin XL 150 mg daily and she has been tolerating this well. At the time of DC from rehb she is sleeping well at night and has a good appetite and intake. She denies feeling anxious. Smoking cessation counselling was given while on rehab and at the time of DC she denies a craving for cigarettes. Sola did very well on rehab. At the time of DC she is able to do 10 sit to stands in 30 seconds using her bilateral upper extremities to rise. She is using a quad cane for ambulation and has ambulated up to 295 feet on various surfaces at mod I. She is able to complete transfers from various surfaces independently. She is able to ascend/descend 20 steps with 1 handrail and a quad cane at supervision. She feels comfortable with going home and managing the 14 steps up to her apartment. She is independent with eating, grooming and upper body dressing. She is mod I with lower body dressing, toilet transfer, toileting and home management skills. She is supervision/set up for tub/shower transfer. Vital signs at discharge from rehab are blood pressure 115/50, pulse 61, respirations 16, temperature 98 ?F and oxygen saturation on room air of 97 percent. Hemoglobin is stable at 10.8. Sodium is 142 with a potassium of 4.3. Serum chloride is mildly increased at 112 but the serum bicarb for the first time is normal at 22. The BUN is 36 with a creatinine of 1.0. Vitamin D level is pending. Her STOP-BANG score is 3 which puts her at moderate risk for NIKOLAI. She has a history of atrial fibrillation and has had more than 1 stroke. She complains of restless leg and nocturia. She falls asleep easily when reading or watching TV and when bored or riding in a car with someone else driving. She has a dry mouth when she arises in the AM. She is having a sleep study on the night of discharge from acute rehab. Physical Exam Const alert and oriented x3 Constitutional Narrative: Making good eye contact and she is engaged when we are speaking. Doing very well in therapy and very motivated to get better and go home. Also motivated to do what is necessary to take better care of herself. General Appearance: cooperative Orientation / Consciousness: Negative for confused HEENT head/scalp atraumatic, hearing grossly normal bilaterally and moist oral mucous membranes Eyes PERRL, EOMs intact bilaterally, conjunctivae normal and no scleral icterus Eyes Narrative: No discharge from the eyes and no mattering of the eyelashes. Neck supple, No nodes and no carotid bruits General: trachea midline Chest Chest Narrative: Increased AP diameter of the chest. Chest: symmetrical chest wall rise Resp normal respiratory effort and clear to auscultation bilaterally Resp Narrative: Breath sounds are mildly diminished throughout. No crackles and no wheezes. No conversational dyspnea. Effort and Inspection: Negative for tachypneic Cardio regular rate, regular rhythm, no murmurs, no rub and no gallops Cardio Narrative: No ectopy GI normal to inspection, nondistended, normoactive bowel sounds, soft to palpation and non-tender GI Narrative: No guarding with palpation no CVA tenderness Narrative: Urine retention has resolved. Extremity no calf tenderness Extremity Narrative: trace pedal edema. She has multiple wounds on both feet, R>L. No open wounds.....all wounds have eschar present and are smaller and healing. No purulent DC. No evidence of infection. the DP and PT pulses are 2+ BL. General Extremity: Negative for edema Skin Rashes: no rashes Neuro oriented x3 and CN's II-XII intact bilaterally Neuro Narrative: ambulating with a quad cane now. Still with mild weakness of the right side when compared to the left. No aphasia, no visual loss, no extinction, no side neglect and no sensory loss. NIHSS has decreased from 2 to 0 during her time on rehab. Psych cooperative Psych Narrative: Not restless. Making good eye contact. Engaged in what we are speaking about. Asks appropriate questions. Appearance: appropriate Attitude: calm, engaged and No agitated Activity / Motor Behavior: appropriate eye contact Weight / BMI Weight Weight: 170 lb 6.4 oz Body Mass Index (BMI) 25.2 ABG / Lab / Microbiology Data 08/06/24 05:14 08/06/24 05:14 Laboratory: Laboratory Results - last 24 hr 08/06/24 05:14: Hgb 10.8 L, Hct 34.2 L, Sodium 142, Potassium 4.3, Chloride 112 H, Carbon Dioxide 22.0, Anion Gap 8, BUN 36 H, Creatinine 1.00, Estim Creat Clear Calc 61.74, Est GFR (MDRD) Af Amer 72, Est GFR (MDRD) Non-Af 60, BUN/Creatinine Ratio 36.0 H, Glucose 94, Calcium 9.0 Microbiology: Microbiology 07/30/24 12:40 Stool Stool Occult Blood (PRACHI) - Final 07/23/24 18:12 Urine Catheter - Catheter Urine Culture - Final Culture exhibits no growth. Indicators for Scoring Admitted with or Primary Diagnosis of CVA/Stroke: Yes Hx of CVA/Stroke: Yes Modified Jeffrey Score MRS Score at time of Evaluation: 4-Moderate/severe disability NIHSS NIHSS 1a. Level of Consciousness: Alert; keenly responsive 1b. LOC Questions: Answers BOTH questions correctly. 1c. LOC Commands: Performs both tasks correctly. 2. Best Gaze: Normal 3. Visual: No visual loss 4. Facial Palsy: Normal symmetrical movements 5a. Left Arm: No drift; arm holds 90 (or 45) degrees for full 10 seconds 5b. Right Arm: No drift; arm holds 90 (or 45) degrees for full 10 seconds 6a. Left Leg: No drift; leg holds 30-degree position for full 5 seconds 6b. Right Leg: No drift; leg holds 30-degree position for full 5 seconds 7. Limb Ataxia: Absent 8. Sensory: Normal; no sensory loss 9. Best Language: No aphasia; normal 10. Dysarthria: Normal 11. Extinction and Inattention: No abnormality Total: 0 Stroke Questions Stroke Team Activated: No D/C Instructions Discharge Diet: - (Low fat, low salt. Small bites. ) Weight Bearing Status: Full weight bearing Call your doctor if you observe: Fever of 101 or Higher, Numbness or Tingling, Inability to urinate, Shortness of breath, Dizziness, Fainting spells, Swelling in the ankles, Chest pain, Increased palpitations (irregular heartbeat), Calf discomfort and - (STROKE symptoms: facial droop, slurred speech, inability to get words out, weakness on 1 side of the body and not the other, numbness on 1 side of the body and not the other, inability to maintain your balance sitting or standing, vertigo. ) DC O2, CPAP, BIPAP Needs PSN CPAP & BiPAP: BiPAP & CPAP Settings per PSN Fraction of Inspired Oxygen ( 21 07/24/24 23:24 FIO2) Home O2 Discharge instructions: No Pending Tests Upon Discharge: none When: Appt have been scheduled for you and they have been listed for you later in this document. You will need another colonoscopy in 1 year. The doctor who did the colonoscopy at [facility] is Dr. Mari. You had a polyp and there was some bleeding that needed to be cauterized. You can call his office in 6-9 months from now to schedule and appt. You may need a referral from your PCP. Meaningful Use Info Meaningful Use Meaningful Use Diagnoses (Choose all that apply): Ischemic CVA (most likely embolic.) CVA Therapy Assessed for PT,OT and/or ST?: Yes Ischemic Stroke Antithrombotic order at d/c?: No Reason antithrombotic not ordered: Medical Contraindication (she had multiple duodenal ulcers on EGD and bleeding at the site of the colon anastomosis. She is tolerating Eliquis and the strokes were most likely embolic due to AF) Dx of Atrial fib/flutter?: Yes Anticoagulant at discharge?: Yes Statin Dosing Therapy Reference: STATIN DOSE THERAPY REFERENCE: * Patients > 75 years receive moderate or high dose statin therapy. * Patients 75 years or YOUNGER should receive HIGH intensity statin dose unless contraindicated. You will be required to document reason for non-treatment if statin daily dose does not meet guidelines. HIGH DOSE STATIN THERAPY DAILY Atorvastatin > than or = to 40 mg Rosuvastatin > than or = to 20 mg Amlodipine + Atorvastatin > than or = to 2.5/40 mg Ezetimibe + Simvastatin 10/80 mg Simvastatin 80mg Statins at discharge?: Yes If patient is 75 or younger, pt will be discharged on HIGH intensity statin.: Yes High intensity statin for patient 75 or younger not ordered due to: discharged on Atorvastatin 40 mg Q HS. LDL was 60 at presentation to the hospital on no lipid lowertng agents. Primary Dx Acute Ischemic CVA?: Yes IV thrombolytic ordered during stay?: No Reason IV thrombolytic not ordered: Procedure not Indicated Discharge Plan Admission Admit Date/Time: 07/23/24 13:51 Primary Reason for Your Visit: POST STROKE DEBILITY Attending Provider: Lila Beal Primary Care Provider: Care Physician,No Primary Instructions Patient Instructions: Vitamin D, Anticoagulants, What Are Snoring and Sleep Apnea?, What Is Osteoporosis?, Discharge Instructions for Stroke, AFib Preventing Stroke, AFib Additional Instructions / Restrictions: 1. You did GREAT on rehab. I think you will do fine at home. The most important thing to do now is PREVENT any more strokes going forward. The goals you need to remember are: BP < 130/80, LDL (bad cholesterol) less than 70, HDL (good cholesterol) >44. you are not diabetic so fortunately we do not need to worry about this. Your LDL is 60 and the HDL is 49. These numbers are both within goal. NO SMOKING!!!! I do no think that you should drink because there is a history of alcoholism in your family and you have had a problem with alcohol in the past. Depression and addictions go hand in hand. Wellbutrin treats depression but, it also helps with cravings for alcohol and smoking. I think you should continue to take the Wellbutrin for at least 6 month to a year before you consider getting off this medication. Many people who have depression relapse periodically throughout their life. Medication and counselling work much better when done together than either one alone. You need to continue with counselling. [facility] is a great program. I hope you continue to foolow up with them after you discharge from rehab. 2. You will be in good hands at the [facility]. They are very caring/compassionate there and I know a lot of the practitioners who work there. I would not hesitate to go there myself to be treated. 3. You are going to get a heart monitor in the mail and will wear this to monitor your heart rhythm continuously. You had atrial fibrillation (also called AFIB) while you were in the hospital. This heart rhythm significantly increases your risk for stroke. Because of this you are taking a blood thinner (anticoagulant) called apixaban (also called Eliquis). I have given you some literature to read about AFIB and anticoagulants. AFIB can be related to sleep apnea and you have some symptoms of sleep apnea. This is why you are having the sleep study. Drinking heavily also causes AFIB so if you decide to drink again limit yourself to no more than 1 alcoholic drink a day. Low potassium and low magnesium can also cause AFIB. Both your potassium and magnesium were low when you came to rehab and you have been placed on supplements to keep the levels normal. 4. You had menopause at 38 YOA and this is early for menopause. This means that you could have significant bone loss now since it has been 20 years since you went through menopause. You also have smoked for a long time and this increases bone loss. I think you need to have a bone mineral density test in the not too distant future to see if you have osteoporosis. To prevent osteoporosis your calcium should be within normal limits. Some people get enough calcium in their diet and do not need to be on a calcium supplement. You calcium is normal. In order for your body to absorb calcium form the gastrointestinal tract you must have vitamin D. Vitamin D comes from the sun but we can also get vitamin D and a supplement. As you know we do not see this on much in [facility], especially in the winter. I started you on a vitamin D supplement to help with bones. This medication is called cholecalciferol and you will take 1 daily. I have put in a prescription to the radiology dept for a Bone density test (called a DEXA) following DC from rehab. 5. You had a CT scan of the arteries in your head and neck in the ER. This test showed a narrowing in the R carotid artery if > 70%. the left carotid artery shows 50-75% narrowing. This leads to decreased blood flow to the brain. CT scans can significantly overestimate the degree of narrowing. there is a better test for these arteries. It is an ultrasound (US) of the arteries. I am going to give you a requisition to obtain an US of the carotids. You will want to ask your new PCP about the results of this test. If the US confirms you have > 60% narrowing then you will need to follow up with a vascular surgeon. There are procedures that can be done to clean out these arteries and restore blood flow to prevent additional strokes. There is a good vascular surgeon in [place]. his name is Dr. Javon Anna. 6. You were iron deficient at admission to rehab and we gave you intravenous ironj supplements. You are now taking and iron supplement by mouth called ferrous sulfate. You will be taking one a day WITH a ascorbic acid (also called vitamin C). The vitamin C helps the iron to be absorbed from the gastrointestinal tract. 7. You had the Flu when you came to rehab. You were wheezing and we started you on aerosol treatments and then transitioned you to an inhaler. In think you may have COPD from your years of smoking. You are no longer wheezing. You would need to have pulmonary function studies to determine if you have COPD or not. If you do not have COPD you may not need the inhaler. You can discuss this with your new PCP at [facility]. Since you are over the age of 60 now I recommend that you discuss updating your vaccinations with your new doctor........RSV, COVID, pneumovaccine, shingles. 8. If you have any questions after you leave rehab please do not hesitate to call me. 9. I think they may have a dentist that works with [facility]. You need some dental care so please ask your new doctor for a referral. OFFICE: [phone] CELL: [phone] NURSES STATION ON REHAB: [phone] Discharge Orders/Prescriptions Prescriptions: New atorvastatin 40 mg Tablet 40 mg PO QHS Qty: 30 0RF ascorbic acid (vitamin C) 500 mg Tablet 500 mg PO 1200 Qty: 30 0RF bupropion HCl 150 mg Tablet Extended Release 24 Hr 150 mg PO DAILY Qty: 30 2RF cholecalciferol (vitamin D3) 25 mcg (1,000 unit) capsule 25 mcg PO DAILY Qty: 30 0RF ferrous sulfate [FeroSul] 325 mg (65 mg iron) Tablet 325 mg PO DAILY@1200 Qty: 30 0RF Rx Instructions: Take this once a day with the vitamin C (ascorbic acid) with a meal daily fluticasone propion-salmeterol 232-14 mcg/actuation Aerosol Powdr Breath Activated 1 inh inhalation Q12 Qty: 1 0RF magnesium oxide 400 mg (241.3 mg magnesium) tablet 400 mg PO DAILY Qty: 30 0RF sennosides-docusate sodium [Stimulant Laxative Plus] 8.6-50 mg Tablet 1 tab PO BID Qty: 60 0RF metoprolol succinate 25 mg Tablet Extended Release 24 Hr 12.5 mg PO QHS Qty: 15 0RF Rx Instructions: Take 1/2 tab daily at bedtime Continued acetaminophen 325 mg Tablet 650 mg PO Q4H PRN PRN (Reason: Fever, pain 1-03/28) Qty: 0 0RF potassium chloride 20 mEq Tablet,Er Particles/Crystals 20 meq PO DAILY Qty: 30 0RF pantoprazole 40 mg Tablet,Delayed Release (Dr/Ec) 40 mg PO DAILY Qty: 30 0RF Eliquis 5 mg Tablet 5 mg PO BID Qty: 60 0RF Rx Instructions: Discontinue if platelet count drops less than 50,000 or hemoglobin less than 8 g% Discontinued atorvastatin 80 mg Tablet 80 mg PO QHS Qty: 0 0RF Mucinex DM 30-600 mg Tablet Extended Release 12 Hr 2 tab PO BID 5 Days Qty: 20 0RF oseltamivir 75 mg Capsule 75 mg PO BID Other Ambulatory Orders: Carotid Duplex Ultrasound (Routine) Facility: [facility] - Location: [facility] Ordered By: Dr. Lila Beal Dexa Bone Density Study (Routine) Facility: [facility] - Location: [facility] Ordered By: Dr. Lila Beal Referrals / Follow Up: lab,sleep [Other] - 08/07/24 8:00 pm [facility] [Outside] - 08/12/24 8:30 am (appointment with Elida Antunez) Stephen Redman MD [Non-Staff -Ordering Privileges] - 09/12/24 1:30 pm (appt with Dr. Russell) Disposition Disposition (needs filled in before D/C Order can be placed): Home, Self Care Charges/Coding Visit Charges Inpatient E&M: 53129 Disch Hosp >30min
[2024-08-06 17:24] VITALS: BP 102/40; PULSE 59; RESP 16; TEMP 36.6; O2SAT 99
[2024-08-06] MEDS: Atorvastatin Calcium 40 MG Tablet PO (20:29)
[2024-08-06 20:30] VITALS: BP 115/54; PULSE 64
[2024-08-06] MEDS: Metoprolol(XL)Succ 25 MG Tablet 12.5 MG PO (20:30)
[2024-08-06] MEDS: Menthol/Lanolin/Calamine/Znox 113 GM Tube 1 APPLIC TOPICAL (20:30)
[2024-08-07 03:37] VITALS: BMI 25.2
[2024-08-07 05:50] VITALS: BP 115/50; PULSE 61; RESP 16; TEMP 36.6; O2SAT 97
[2024-08-07] MEDS: Acetaminophen 500 MG Tablet 1000 MG PO ×3 (05:53→19:40)
[2024-08-07] MEDS: Petrolatum,White 5 GM PACKET 1 APPLIC TOPICAL (05:53)
[2024-08-07] MEDS: Fluticasone/Salmeterol 232-14 Inhaler 1 PUFF INHALATION (08:16)
[2024-08-07] MEDS: Ammonium Lactate 225 gm Bottle 1 APPLIC TOPICAL (08:16)
[2024-08-07] MEDS: Cholecalciferol (VIT D3) 25 MCG TABLET (1,000 UNITS) PO (08:17)
[2024-08-07] MEDS: buPROPion (XL) 150 MG TABLET.XL PO (08:17)
[2024-08-07] MEDS: Pantoprazole Sodium 40 MG Tablet PO (08:17)
[2024-08-07] MEDS: Potassium Chloride Oral Tablet 20 MEQ PO (08:17)
[2024-08-07] MEDS: Clobetasol Propionate 0.05% Cream 1 APPLIC TOPICAL (08:17)
[2024-08-07] MEDS: guaiFENesin/D-Methorphan TAB.SR.12H 2 TABLET PO ×2 (08:17→19:38)
[2024-08-07] MEDS: Magnesium Chloride 64 MG Delay Rel.Tablet 128 MG PO (08:17)
[2024-08-07] MEDS: APIXABAN 5 MG TABLET PO ×2 (08:17→19:38)
[2024-08-07 09:38] VITALS: BMI 25.3
[2024-08-07] MEDS: Ascorbic Acid 500 MG Tablet PO (11:25)
[2024-08-07] MEDS: Ferrous Sulfate 325 MG Tablet PO (11:26)
[2024-08-07 17:00] VITALS: BMI 25.3
--- NOTE | 2024-08-07 17:56 | NURSING ---
discharge instruction, medications and appointments reviewed with pt. denies questions or concerns
[2024-08-07 17:57] VITALS: BP 108/49; PULSE 62; RESP 16; TEMP 36.7; O2SAT 98
[2024-08-07] MEDS: Atorvastatin Calcium 40 MG Tablet PO (19:38)
[2024-08-07 19:39] VITALS: PULSE 64
[2024-08-07] MEDS: Metoprolol(XL)Succ 25 MG Tablet 12.5 MG PO (19:39)
[2024-08-07 19:46] VITALS: BP 112/52; PULSE 64; RESP 16; TEMP 36.7; O2SAT 98
[2024-08-08 14:44] LABS: Vitamin D,25 Hydroxy 17.1 ng/mL
== END 2024-08-07 19:48 | disposition home or self-care (01) | DRG 58 ==
PROVIDERS: Admitting Provider Internal Medicine; Referring Provider Internal Medicine; Visit Provider Internal Medicine
DX: I69.351 Hemiplegia and hemiparesis following cerebral infarction affecting right dominant side (principal); K26.4 Chronic or unspecified duodenal ulcer with hemorrhage; E87.20 Acidosis, unspecified; J44.0 Chronic obstructive pulmonary disease with (acute) lower respiratory infection; I69.320 Aphasia following cerebral infarction; D62 Acute posthemorrhagic anemia; F10.11 Alcohol abuse, in remission; D53.9 Nutritional anemia, unspecified; I10 Essential (primary) hypertension; I48.0 Paroxysmal atrial fibrillation; J44.1 Chronic obstructive pulmonary disease with (acute) exacerbation; J10.1 Influenza due to other identified influenza virus with other respiratory manifestations; K02.9 Dental caries, unspecified; K21.9 Gastro-esophageal reflux disease without esophagitis; R19.7 Diarrhea, unspecified; G47.33 Obstructive sleep apnea (adult) (pediatric); Z59.86 Financial insecurity; R33.9 Retention of urine, unspecified; N20.0 Calculus of kidney; R73.9 Hyperglycemia, unspecified; Z71.6 Tobacco abuse counseling
CPT/HCPCS: 36415; 36600; 74018; 80048; 80053; 81001; 82274; 82306; 82607; 82728; 82746; 82803; 82962; 83540; 83550; 83735; 84100; 85014; 85018; 85025; 85027; 87086; 92507; 92523; 92610; 94640; 94762; 97110; 97112; 97116; 97129; 97130; 97162; 97166; 97530; 97535; 97802; 97803; 99406; A4216; J2916

== ENCOUNTER → 2024-08-07 | Outpatient (CLI) | payer MEDICAID, SELFPAY | END | disposition home or self-care (01) | PROVIDERS: Visit Provider Internal Medicine | DX: G47.30 Sleep apnea, unspecified (principal) | CPT/HCPCS: 95810 ==

== ENCOUNTER → 2024-08-29 | Outpatient (CLI) | payer MEDICAID, SELFPAY ==
--- NOTE | 2024-08-29 08:52 | CDU_ITS ---
Reason For Study Reason For Study: Carotid stenosis on CTA Rt. Velocities/BP Lt. Velocities/BP Prox CCA 57/12.6 cm/sec. Prox CCA 69.6/19 cm/sec. Mid CCA 57.9/15.4 cm/sec. Mid CCA 50.9/13.5 cm/sec. Dist CCA 50.4/10.7 cm/sec. Dist CCA 68.5/16.8 cm/sec. Prox ICA 73/15.4 cm/sec. Prox ICA 55.3/8 cm/sec. Mid ICA 65.5/17.3 cm/sec. Mid ICA 53.1/15.7 cm/sec. Dist ICA 70.2/17.3 cm/sec. Dist ICA 78.4/24.5 cm/sec. Rt. ICA/CCA = 1.26. Lt. ICA/CCA = 1.54. Prox ECA 80.6/14.5 cm/sec. Prox ECA 94.9/13.5 cm/sec. Rt. Vert. 59.8/13.5 cm/sec. Lt. Vert. 54.2/11.3 cm/sec. Right Extracranial There is heterogeneous, irregular atherosclerotic plaque noted in the right common carotid artery. There is heterogeneous, irregular atherosclerotic plaque noted in the right internal carotid artery. There is intimal thickening but no significant atherosclerotic plaque noted in the right external carotid artery. Antegrade flow is noted in the right vertebral artery. Left Extracranial There is heterogeneous, irregular atherosclerotic plaque noted in the left common carotid artery. There is heterogeneous, irregular atherosclerotic plaque noted in the left internal carotid artery. There is intimal thickening but no significant atherosclerotic plaque noted in the left external carotid artery. Antegrade flow is noted in the left vertebral artery. Procedure Carotid Duplex 95698. This is a Carotid Duplex examination using B-mode, color flow and specral Doppler. Exam performed in department. VL/Carotid Duplex Ultrasound Interpretation Summary Mild (<50%) stenosis right extracranial internal carotid. Mild (<50%) stenosis left extracranial internal carotid. Patent and antegrade vertebrals bilaterally. Ordering Physician: Lila Beal Performed By: Lena Krishnamurthy RVT
== END | disposition home or self-care (01) ==
LOC: CVS 08:52
PROVIDERS: Referring Provider Internal Medicine; Visit Provider Internal Medicine
DX: I65.23 Occlusion and stenosis of bilateral carotid arteries (principal)
CPT/HCPCS: 93880

== ENCOUNTER 2024-09-16 10:00 | Outpatient (RCR) | payer MEDICAID, SELFPAY ==
--- NOTE | 2024-08-12 14:56 | HP.PTEVAL ---
Patient's Visit Information Visit Information Visit Information: SOLA GARCÍA is a 59 year old F referred to Physical Therapy by Dr. Lila Beal DO with a diagnosis of CVA. Date of Evaluation: 08/12/24 Physical Therapist: Juloi Bernal, PT, ATC Visit Plan Frequency: 2x /Week Duration: 4-6 Weeks Plan: Gait training, balance training, stair negotiation, nustep, and HEP Subjective Subjective: CVA: 07/14/24. Pt reports she has not a good memory of that day, but does remember standing at her stair well and falling down her stairs. Pt reports she sat there for about one hour until she was able to get to the street and flag down help. Pt notes that person called an ambulance where she was transported to the ER. Pt reports she was diagnosed with having a stroke and was in the hospital for approximately 3 weeks. Pt reports she had rehab everyday where she focused on walking and using the stairs. Pt reports her scans showed she had a prior stroke, but she was unaware of it. Pt reports she felt really weak on the R side of her body after the CVA, but notes her strength has mostly come back x 90%. Pt reports her greatest residual weakness at this time is her balance. Pt has not had any falls since or before her accident. Pt reports her toes and the ball of her feet have been numb and tingly since her CVA. Pt reports she lives by herself and is I with all her IADL's. Pt lives in an upstairs apartment that has an outdoor stair well to negotiate to get into her house. Pt is not in pain today. Pt walked with a cane prior to her stroke. Objective Objective: Neuro: B LE sensation is WNL to light touch MMT: B LE's are equal and strong throughout TU seconds FGA: indicating pt is a fall risk at this time. reviewed with patient to use cane and be aware of surroundings. Use handrails for all stairs. Balance/Special Test Scores Functional Gait Assessment Score: 15 % Disability: 50.0000 Lower Extremity Functional Score: 36 Goals Goal 1:: Improve FGA score by 6 points to aid with preventing future falls Goal Time Frame: 4-6 Weeks Goal 2:: Perform the TUG test in under 10 seconds to aid with gait efficiency Goal Time Frame: 4-6 Weeks Goal 3:: Pt will be able to negotiate 10 stairs reciprocally with one handrail Goal Time Frame: 4-6 Weeks Goal 4:: I with HEP Goal Time Frame: 4-6 Weeks Rehabilitation Potential Physical Therapy Diagnosis: Pt has difficulty with stair negotiation and dynamic balance secondary to CVA Rehabilitation Potential: Good Anticipated Interventions Patient/Client Instruction: Educate patient on: Condition and Plan of Care For the Purpose of:: To improve self management Therapeutic Exercise to Include: Endurance training, Balance training and Gait and locomotor training For the Purpose of:: To improve muscle performance and motor function, To improve performance and independence with ADL's, To improve ability of physical actions for home/community/work/leisure and To improve gait and locomotor functions Text: Thank you for the opportunity to evaluate your patient. For Medicare and Medicare HMO plans, please review the plan of care and approve it. It will need to be FAXED BACK to us at [phone] for Medicare purposes. For Medicare only, by signing this I certify the plan of care. Please let me know if there are questions or concerns regarding this plan of care. Physician Signature: Date:
--- NOTE | 2024-12-18 15:36 | HP.PT.NRP ---
Patient Information Patient Information: SOLA GARCÍA was seen in my office for initial evaluation on 08/12/24. The following Plan of Care was established for this patient: POC Established Initial Frequency: 2x /Week Initial Duration: 4-6 Weeks Anticipated Interventions Patient/Client Instruction: Educate patient on: Condition and Plan of Care For the Purpose of:: To improve self management Therapeutic Exercise to Include: Endurance training, Balance training and Gait and locomotor training For the Purpose of:: To improve muscle performance and motor function, To improve performance and independence with ADL's, To improve ability of physical actions for home/community/work/leisure and To improve gait and locomotor functions Last Seen Last Seen: This patient was last seen in our office . Pertinent comments regarding their Physical therapy will appear below: Pt has not returned for greater than 30 days and is discontinued at this time. At this point I will be discontinuing this patient from physical therapy. I would be happy to see this patient again in the future if found appropriate by the physician. Thank you! Julio Bernal, PT, ATC Balance/Gait/Functional tests Balance/Special Test Scores Functional Gait Assessment Score: 15 % Disability: 50.0000 Lower Extremity Functional Score: 36 TUG Test Time Seconds: 9.73 Tug Test: <10 sec.=free mobile
== END 2024-09-16 19:00 | disposition home or self-care (01) ==
LOC: PT 10:00
PROVIDERS: Referring Provider Internal Medicine; Visit Provider Internal Medicine
DX: Z86.73 Personal history of transient ischemic attack (TIA), and cerebral infarction without residual deficits (principal)
CPT/HCPCS: 97110; 97116; 97161